=== PATIENT | male | born 1960 | race African-American/Black ===

== ENCOUNTER 2020-04-17 10:33 | Outpatient (REF) | payer OTHER, SELFPAY ==
--- NOTE | 2020-04-17 | US_ITS ---
EXAMINATION: THYROID ULTRASOUND CLINICAL INFORMATION: Multinodular goiter COMPARISON: Thyroid ultrasound dated 11/08/2018. Ultrasound-guided biopsy dated 03/10/2019. TECHNIQUE: Grayscale and color Doppler sonographic evaluation of the thyroid gland was performed. FINDINGS: Thyroid gland diffusely enlarged measuring 7.4 x 2.3 x 3.0 cm on the right for a volume of 27 mL, and 7.4 x 2.2 x 2.7 cm on the left for volume of 23 mL. Overall volume measurements are similar to the prior examination. Thyroid parenchyma is diffusely heterogeneous but shows normal blood flow. Multiple bilateral thyroid nodules redemonstrated. On the right, there is a new (versus not previously imaged) heterogeneously hypoechoic, wider than tall solid nodule within the dorsal mid gland measuring up to 1.7 cm, somewhat ill-defined nodule lacking microcalcifications earning 4 points (TR4). There is an additional 7 mm heterogeneously hypoechoic, wider than tall well-circumscribed nodule within the mid gland measuring up to 0.7 cm lacking microcalcifications burning 4 points (TR 4). Additional nodules within the right gland are solid and cystic TR3 lesions measuring no larger than 1.1 cm. On the left, there is a heterogeneous, solid, wider than tall, lobulated nodule within the lower pole showing predominantly isoechoic echotexture with with intervening hypoechoic bands measuring 3.0 cm, previously 2.9 cm. No associated microcalcifications. This nodule earns 5 points (TR4), but has been previously biopsied. Within the isthmus, there is a solid and cystic nodule measuring up to 1.3 cm within the left lateral aspect, with the solid component being slightly hypoechoic, wider than tall, smoothly marginated without microcalcifications. This nodule earns 3 points (TR3). IMPRESSION: * Multinodular goiter as described. * New (versus not previously imaged) TR 4 nodule within the dorsal mid gland measuring 1.7 cm meets criteria for ultrasound-guided FNA. * Previously biopsied TR4 nodule within the left lower pole is stable in size. * The additional nodules described above do not meet threshold criteria for surveillance at this time.
== END 2020-04-17 10:34 | disposition home or self-care (01) ==
LOC: HO.HMGCX 10:33
PROVIDERS: PCP Nurse Practitioner Family; Visit Provider Internal Medicine
DX: E04.2 Nontoxic multinodular goiter (principal)
CPT/HCPCS: 76536

== ENCOUNTER 2020-05-01 09:44 | Outpatient (REF) | payer OTHER, SELFPAY ==
[2020-05-01 11:44] LABS: Anion Gap 12 (12-20); Blood Urea Nitrogen 18 mg/dL (9-16); Calcium 9.1 mg/dL (8.4-10.2); Carbon Dioxide 30 mmol/L (22-29); Chloride 107 mmol/L (96-108); Estimated Glomerular Filt Rate 57; Sodium 145 mmol/L (135-145)
[2020-05-01 12:01] LABS: Prostate Specific Antigen 1.87 ng/mL (<0.05-4.0)
[2020-05-01 12:02] LABS: Creatinine Urine 270.63 mg/dL; Microalbum/Creatinine Ratio Ur 13.6 ug/mg cr
[2020-05-01 12:12] LABS: Phosphorus 1.9 mg/dL (2.7-4.5)
[2020-05-01 13:23] LABS: Renal w Reflex Lab Use Only Order verified
== END 2020-05-01 09:45 | disposition home or self-care (01) ==
LOC: HO.HMGCLDS 09:44
PROVIDERS: Absent Provider Urology; Visit Provider Internal Medicine Nephrology
DX: I12.9 Hypertensive chronic kidney disease with stage 1 through stage 4 chronic kidney disease, or unspecified chronic kidney disease (principal); N18.30 Chronic kidney disease, stage 3 unspecified; R80.9 Proteinuria, unspecified; Q61.9 Cystic kidney disease, unspecified; N40.1 Benign prostatic hyperplasia with lower urinary tract symptoms
CPT/HCPCS: 80051; 82043; 82310; 82565; 84100; 84153; 84156; 84520

== ENCOUNTER → 2020-05-28 11:10 | Outpatient (BNVA) | payer OTHER, SELFPAY | PROVIDERS: Visit Provider Internal Medicine | DX: Z76.89 Persons encountering health services in other specified circumstances (principal) ==

== ENCOUNTER 2020-06-18 10:01 | Outpatient (REF) | payer OTHER, SELFPAY ==
[2020-06-18 12:11] LABS: Prostate Specific Antigen 2.07 ng/mL (<0.05-4.0)
== END 2020-06-18 10:02 | disposition home or self-care (01) ==
LOC: HO.HMGCLDS 10:01
PROVIDERS: PCP Nurse Practitioner Family; Visit Provider Urology
DX: R31.29 Other microscopic hematuria (principal)
CPT/HCPCS: 84153

== ENCOUNTER → 2020-06-19 14:10 | Outpatient (BNVA) | payer OTHER, SELFPAY | PROVIDERS: PCP Nurse Practitioner Family; Referring Provider Nurse Practitioner Family; Visit Provider Urology | DX: Z76.89 Persons encountering health services in other specified circumstances (principal) ==

== ENCOUNTER 2021-02-06 10:30 | Outpatient (REF) | payer OTHER, SELFPAY ==
[2021-02-06 12:05] LABS: Anion Gap 10 (12-20); Blood Urea Nitrogen 22 mg/dL (9-16); Calcium 10.1 mg/dL (8.4-10.2); Carbon Dioxide 28 mmol/L (22-29); Chloride 109 mmol/L (96-108); Estimated Glomerular Filt Rate > 60; Phosphorus 2.7 mg/dL (2.7-4.5); Potassium 4.3 mmol/L (3.3-5.1); Sodium 143 mmol/L (135-145)
[2021-02-06 13:55] LABS: Renal w Reflex Lab Use Only Order verified
[2021-02-06 14:18] LABS: Glucose Urine UA NEG (NEG); Leukocyte Esterase Urine NEG (NEG); Nitrite Urine NEG (NEG); Specific Gravity - Urine 1.025 (1.005-1.025); Urine Blood NEG (NEG); Urine Ketones 5 MG/DL (NEG); Urine Protein TRACE MG/DL (NEG-TRACE)
[2021-02-06 14:19] LABS: Appearance Urine CLEAR; Color Urine YELLOW
[2021-02-06 14:53] LABS: WBC Urine 0-2 /HPF (0-4)
[2021-02-06 14:54] LABS: RBC Urine 0-2 /HPF (0)
[2021-02-06 14:55] LABS: Bacteria Urine 1+ /LPF; Mucus Urine TRACE /LPF
[2021-02-06 14:56] LABS: Calcium Oxalate Crystals Urine 1+ /LPF
== END 2021-02-06 10:31 | disposition home or self-care (01) ==
LOC: HO.HMGCLDS 10:30
PROVIDERS: PCP Nurse Practitioner Family; Visit Provider Internal Medicine Nephrology
DX: I12.9 Hypertensive chronic kidney disease with stage 1 through stage 4 chronic kidney disease, or unspecified chronic kidney disease (principal); N18.30 Chronic kidney disease, stage 3 unspecified; R80.9 Proteinuria, unspecified; Q61.9 Cystic kidney disease, unspecified
CPT/HCPCS: 36415; 80051; 81001; 82310; 82565; 84100; 84520

== ENCOUNTER 2021-06-19 09:48 | Outpatient (REF) | payer OTHER, SELFPAY ==
[2021-06-19 12:24] LABS: Prostate Specific Antigen 2.05 ng/mL (<0.05-4.0); Thyroid Stimulating Hormone 0.63 uIU/mL (0.32-4.0)
[2021-06-19 12:25] LABS: Free T4 (Free Thyroxine) 1.17 ng/dL (0.71-1.85)
== END 2021-06-19 09:49 | disposition home or self-care (01) ==
LOC: HO.HMGCLDS 09:48
PROVIDERS: Internal Medicine; PCP Nurse Practitioner Family; Visit Provider Urology
DX: Z12.5 Encounter for screening for malignant neoplasm of prostate (principal); N13.8 Other obstructive and reflux uropathy; N40.1 Benign prostatic hyperplasia with lower urinary tract symptoms; E04.2 Nontoxic multinodular goiter
CPT/HCPCS: 36415; 84153; 84439; 84443

== ENCOUNTER → 2021-06-25 12:26 | Outpatient (BNVA) | payer OTHER, SELFPAY | PROVIDERS: PCP Nurse Practitioner Family; Visit Provider Urology ==

== ENCOUNTER → 2021-10-30 12:18 | Outpatient (BNVA) | payer OTHER, SELFPAY | PROVIDERS: PCP Nurse Practitioner Family; Visit Provider Internal Medicine | DX: Z13.89 Encounter for screening for other disorder (principal) ==

== ENCOUNTER → 2021-11-04 12:58 | Outpatient (REF) | payer OTHER, SELFPAY ==
--- NOTE | 2021-11-04 13:02 | CA_ITS ---
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 Symptoms: R01.1 - Cardiac murmur, unspecified Study Quality: Fair ECG Rhythm: Sinus Conclusions: - The left ventricular systolic function is hyperdynamic. The calculated ejection fraction is 75% by biplane method. - No obvious valvular pathology seen on this study. Findings Left Ventricle Normal left ventricular cavity size. There is mildly increased left ventricular wall thickness. The left ventricular systolic function is hyperdynamic. The calculated ejection fraction is 75% by biplane method. There is no evidence of regional wall motion abnormalities. There is no dynamic left ventricular outflow tract obstruction. Diastolic function is normal for age. Right Ventricle Normal right ventricular cavity size and systolic function. Atria The left atrium is mildly dilated. The right atrium is normal in size. Aortic Valve There is a normal trileaflet aortic valve. There is no aortic valve stenosis. There is trace (trivial) aortic valve regurgitation. Mitral Valve The mitral valve appears normal. There is trace mitral valve regurgitation. There is no mitral valve stenosis. Pulmonic Valve The pulmonic valve is likely normal. Tricuspid Valve Normal tricuspid valve structure. There is mild tricuspid valve regurgitation. The pulmonary artery systolic pressure is normal. Great Vessels The asc aorta is normal in size. Venous The inferior vena cava is normal in size and collapses greater than 50% with inspiration. Pericardium/Pleural There is no evidence of pericardial effusion. Prior Study Comparison Changes noted compared to prior study dated: 08/31/2018. LV hyperdynamic. Recommendations, Care & Conclusions No obvious valvular pathology seen on this study. Measurements 2D Linear Measurements IVSd: 1.21 0.6-0.9/0.6-1.0 cm LVIDd: 4.58 3.9-5.3/4.2-5.9 cm LVIDd Index: 2.69 2.4-3.2/2.2-3.1 cm/m2 LVIDs: 2.50 2.0-3.6 cm LVPWd: 1.23 0.7-1.1 cm Ao Root: 3.20 2.1-3.5 cm LA Diam: 3.90 2.7-3.8/3.0-4.0 cm LAIDs Index: 2.29 1.5-2.3 cm/m2 LV Mass: 259.87 67-162/88-224 g LV Mass Index: 152.87 43-95/49-115 g/m2 LVOT Diam: 2.30 3.0+(-)1.3 cm 2D Systolic Function EF 4C: 77.10 >55% EF 2C: 70.80 >55% EF BiP: 74.90 >55% Mitral Valve MV Pk E: 0.80 MV PK A: 0.74 MV Decel Time: 179.00 E/A: 1.10 E'Lateral: 9.79 E'Medial: 7.72 E/E' Med: 10.40 E/E' Lat: 8.20 PHT: 52.00 MVA PHT: 4.23 Decel Fajardo: 4.48 Aortic Valve AoV Pk Fantasma: 1.60 AoV Mn Fantasma: 1.07 AoV VTI: 0.35 AoV Pk Grad: 10.00 Aov Mn Grad: 5.00 PASQUALE Cont.VTI: 2.76 LVOT LVOT Pk Fantasma: 1.02 LVOT Mn Fantasma: 0.59 LVOT VTI: 0.23 LVOT Pk Grad: 4.00 LVOT Mn Grad: 2.00 LVOT Diam: 2.30 LVOT Area: 4.15 Diastolic Function MV Pk E: 0.80 MV Pk A: 0.74 E/A: 1.10 E'Medial: 7.72 E/E' Med: 10.40 E' Laterial: 9.79 E/E' Lat: 8.20 Right Ventricle TAPSE (mm): 25.00 TVS' Fantasma: 15.00 Tricuspid Valve TR Pk Fantasma: 2.43 TR Pk Grad: 24.00 RA Press: 3.00 RVSP: 27.00 Great Vessels Aorta Ao Root-2D: 3.20 2.0-3.7 cm Ao Asc: 3.30 2.1-3.4 cm Pulmonary Valve PV Pk Fantasma: 0.90 Peak PV Grad: 3.00 Updated in Other Vendor System with Status of Final Ryan Jensen MD electronically signed on 11/04/2021 4:52:15 PM with status of Final
== END ==
LOC: HO.CARD 12:58
PROVIDERS: PCP Nurse Practitioner Family; Visit Provider Nurse Practitioner Family
DX: R01.1 Cardiac murmur, unspecified (principal)
CPT/HCPCS: 93306

== ENCOUNTER 2021-12-18 10:21 | Outpatient (REF) | payer OTHER, SELFPAY ==
--- NOTE | ~2021-12-18 | US_ITS ---
EXAMINATION: US THYROID CLINICAL INFORMATION: Nontoxic multinodular goiter. COMPARISON: Ultrasound soft tissue head/neck thyroid dated 04/17/2020 and 11/08/2018. TECHNIQUE: Linear and curved transducer grayscale and color Doppler examination with attention to the region of the thyroid. FINDINGS: SIZE: Measurements of the thyroid lobes and nodules are given in sagittal, anteroposterior and transverse dimensions respectively. Right Thyroid Lobe: 7.3 x 2.5 x 3.2 cm, volume 30.6 mL. Previously 7.4 x 2.3 x 3.0 cm, volume 26.7 mL. Parenchyma: The gland echotexture is heterogeneous. Thyroid vascularity is normal. Left Thyroid Lobe: 8.0 x 2.2 x 2.8 cm, volume 25.8 mL. Previously 7.4 x 2.2 x 2.7 cm, volume 23.0 mL. Parenchyma: The gland echotexture is heterogeneous. Thyroid vascularity is normal. Isthmus: 0.8 cm in maximum AP dimension. Previously 0.9 cm. Estimated total number of nodules greater than or equal to 1 cm: 3. Comparison with previous nodules is difficult. Nodule 1. May include the 2 previously identified left isthmus thyroid nodules. Checking Clerk nodules are described as follows: 1. Location: Left inferior. Size: 4.4 x 1.9 x 4.0 cm, volume 17.6 mL. Previously: 3.0 x 2.1 x 2.6 cm, volume 8.57 mL. Nodule characteristics: Composition: Solid/almost completely solid (2). Echogenicity: Hypoechoic (2). Shape: Not taller than wide (0). Margins: Ill-defined (0). Echogenic Foci: None (0). ACR TI-RADS total points: 4 ACR TI-RADS category: 4 Significant change in size (>/= 20% in 2 dimensions and minimal increase of 2 mm or 50% or greater increase in volume): Change in features: Change in ACR TI-RADS risk category: 2. Location: Right mid/inferior. Size: 1.1 x 1.1 x 1.2 cm, volume 0.71 mL. Previously: 1.7 x 0.9 x 1.6 cm, volume 1.28 mL. Nodule characteristics: Composition: Mixed cystic and solid (1). Echogenicity: Cannot be determined (1). Shape: Not taller than wide (0). Margins: Smooth (0). Echogenic Foci: None (0). ACR TI-RADS total points: 2 ACR TI-RADS category: 2 Significant change in size (>/= 20% in 2 dimensions and minimal increase of 2 mm or 50% or greater increase in volume): Change in features: Change in ACR TI-RADS risk category: 3. Location: Right inferior. Size: 1.4 x 1.2 x 1.3 cm, volume 1.1 mL. Previously: 1.1 x 0.9 x 0.9 cm, volume 0.47 mL. Nodule characteristics: Composition: Mixed cystic and solid (1). Echogenicity: Cannot be determined (1). Shape: Not taller than wide (0). Margins: Smooth (0). Echogenic Foci: None (0). ACR TI-RADS total points: 2 ACR TI-RADS category: 2 Significant change in size (>/= 20% in 2 dimensions and minimal increase of 2 mm or 50% or greater increase in volume): Change in features: Change in ACR TI-RADS risk category: 4. Location: Right mid inferior. Size: 0.9 x 0.6 x 0.9 cm, volume 0.25 mL. Previously: 0.6 x 0.5 x 0.7 cm, volume 0.11 mL. Nodule characteristics: Composition: Mixed cystic and solid (1). Echogenicity: Cannot be determined (1). Shape: Not taller than wide (0). Margins: Smooth (0). Echogenic Foci: None (0). ACR TI-RADS total points: 2 ACR TI-RADS category: 2 Significant change in size (>/= 20% in 2 dimensions and minimal increase of 2 mm or 50% or greater increase in volume): Change in features: Change in ACR TI-RADS risk category: NODES: No lymphadenopathy is seen in the tissue surrounding the thyroid gland. US/US thyroid IMPRESSION: Enlarged heterogeneous thyroid gland with multiple bilateral nodules. Comparison of previous nodules with prior exam is difficult. Measurement differences in the largest nodule in the inferior left lobe may be due to technical factors, inclusion of 2 left isthmus nodules in the measurement. ACR TI-RADS RECOMMENDATION REFERENCE: Ultrasound-guided fine-needle aspiration, followup ultrasound, no further follow up. * TR1 (0 point) and TR 2 (2 points): No FNA or follow up * TR3 (3 points): FNA if more than or equal to 2.5 cm in maximum dimension, followup ultrasound in 1, 3 and 5 years if 1.5 to 2.4 cm in maximum dimension. * TR4 (4-6 points): FNA if more than or equal to 1.5 cm in maximum dimension, followup ultrasound in 1, 2, 3 and 5 years if 1 to 1.4 cm in maximum dimension. * TR5 (more than or equal to 7 points): FNA if more than or equal to 1 cm in maximum dimension, followup ultrasound every year for 5 years if 0.5 to 0.9 cm in maximum dimension. * TR3, TR4 or TR5 nodules that are below the size threshold for follow up receive no follow up.
== END 2021-12-18 10:22 | disposition home or self-care (01) ==
LOC: HO.HMGCX 10:21
PROVIDERS: PCP Nurse Practitioner Family; Visit Provider Internal Medicine
DX: E04.2 Nontoxic multinodular goiter (principal)
CPT/HCPCS: 76536

== ENCOUNTER → 2022-07-14 09:49 | Outpatient (BNVA) | payer OTHER, SELFPAY | PROVIDERS: PCP Nurse Practitioner Family; Referring Provider Nurse Practitioner Family; Visit Provider Internal Medicine Cardiovascular Disease | DX: R01.1 Cardiac murmur, unspecified (principal); I10 Essential (primary) hypertension | CPT/HCPCS: 93005; 99202 ==

== ENCOUNTER 2023-07-20 08:47 | Outpatient (AMB) | payer OTHER, SELFPAY ==
--- NOTE | 2023-07-20 09:16 | A.OFFVIS_ITS ---
Intake Intake Visit Reasons: Voiding trial Intake Note: Patient is Present for Follow Up ER Voiding Trial Urology Medication: Tamsulosin Antibiotic Allergies: None Blood Thinners: None PVR: 0ml Allergies No Known Allergies Allergy (Verified 07/20/23 09:54) Medication List - Last Reconciled 07/20/23 by SERGE Aguilar atorvastatin 80 mg PO DAILY 90 days finasteride 5 mg PO DAILY 90 days losartan 50 mg PO BID miscellaneous medical supply 2 ea miscellaneous DAILY 99 days multivitamin 1 tab PO DAILY tamsulosin 0.4 mg PO DAILY 90 days verapamil ER 120 mg PO DAILY HPI HPI Comments History of Present Illness Details Chirag is a very pleasant 62-year-old male patient of Dr. Moreno. He has a past medical history of left ventricular hypertrophy, hypertension, chronic kidney disease, dysphagia, vitamin-D deficiency, and multinodular thyroid. He presents to the office today for follow-up of his urinary retention. In discussion with the patient today reports having seeked emergency room care on for urinary retention. He reports having been told there was approximately 500 mL of urine in his bladder at which time a Mendenhall catheter was placed. He reports prior to emergency room visit he had been experiencing issues with his urination such as weak urinary stream and incomplete bladder emptying. He had previously followed up with Dr. Agarwal approximately 3 years ago at which time he was on Flomax however he is unsure of why follow-up was not carried through. Discussed at length potential causes for incomplete bladder emptying and or urinary retention. In office voiding trial performed. The patient was successfully able to void independently. PVR 0 mL. Discussed obtaining PSA in 6-8 weeks given recent Mendenhall catheter placement. Will obtain retroperitoneal ultrasound for further assessment evaluation. Discussed and stressed the importance of drinking plenty of fluid in seeking medical treatment or calling office if unable to void. He otherwise denies incontinence, hematuria, dysuria, foul smelling urine, flank pain, fever, and or chills. [facility] Medical History LVH (left ventricular hypertrophy) Hypertensive emergency CKD (chronic kidney disease) Dysphagia Vitamin D deficiency Multinodular thyroid Surgical History Hx of nasal septoplasty History of esophagogastroduodenoscopy (EGD) Hx of endoscopy Hx of eye surgery Hx of colonoscopy History of arthroscopic surgery of shoulder Hx of removal of cyst Hx of arthroscopic knee surgery Hx of appendectomy Family History Father Lung cancer Mother Cancer Social History Housing: House Patient Tobacco Use Status: Former Tobacco user Years Smoked: 31 years ago Second Hand Smoke Exposure: No Current occupational status: employed Current occupation: [employer] Current occupational exposures/hazards: No Review of Systems Eyes Reports no additional complaints ENT Reports no additional complaints Card Reports as per HPI Resp Reports no additional complaints GI Reports no additional complaints Reports as per HPI Musc Reports no additional complaints Neuro Reports no additional complaints Psych Reports no additional complaints Endo Reports no additional complaints Jose Eduardo/Lymph Reports no additional complaints Aller/Immun Reports no additional complaints Physical Exam Const General: cooperative, healthy appearing, comfortable, no acute distress, well developed, alert and awake Nutritional Appearance: thin Orientation/consciousness: patient oriented x3 Limitations: no limitations HEENT Head: Yes normal to inspection, Yes normocephalic and Yes atraumatic Ears: hearing grossly normal bilaterally Eyes General: appearance normal, both eyes and all related structures Neck Neck: Yes normal visual inspection and Yes trachea midline Chest Chest palpation & inspection: normal inspection of the chest Resp Effort & Inspection: normal respiratory effort and able to speak in complete sentences Cardio Rate: regular rate GI Inspection: Yes normal to inspection General: Yes no CVA tenderness Back/Spine/Pelvis Back: no CVA tenderness Skin General skin exam: no rashes or lesions noted Neuro General: patient oriented x3 Extrem General: Yes normal to inspection Psych Appearance: grossly normal and well kempt Mental Status: mental status grossly normal Speech and movement: Normal speech and movement present and Clear speech present Affect: normal affect Attitude: cooperative Thought process: Normal thought process present Thought content: Normal thought content present Insight: Fair insight present (Psych) Judgement: Fair judgement present (Psych) Office Procedures Bladder/Catheter Procedure Details: 120 mls sterile water instilled into bladder via 16 fr cath. cath removed, pt tolerated removal well. MA to room to bladder scan. [id number] of Bladder Procedure code (CPT) selection complete Post Void Residual Post Residual Void Post Void Residual (PVR): [id number] Void Residual by ultrasound Assessment & Plan Assessment & Plan (1) BPH w urinary obs/LUTS: Code(s): N40.1 - Benign prostatic hyperplasia with lower urinary tract symptoms; N13.8 - Other obstructive and reflux uropathy (2) Urinary retention: Code(s): R33.9 - Retention of urine, unspecified Plan In office voiding trial performed; as noted above; patient was able to successfully independently void status post Mendenhall catheter removal Discussed at length potential causes for incomplete bladder emptying/urinary retention. Discussed obtaining retroperitoneal ultrasound for further assessment ev aluation. Discussed possible near future in office cystoscopy if symptoms arise Will obtain PSA in 6 weeks given patient's recent Mendenhall catheter Start Flomax and finasteride as discussed and prescribed. Discussed, educated, and stressed the importance of drinking water daily and calling office and or seeking medical treatment if unable to urinate and or experiencing any issues. Follow-up in 2 months with imaging and labs to be completed prior; or sooner with any issues, concerns, and or questions. Orders: Orders AMB Bladder/Catheter Procedure Today N13.8 - Other obstructive and reflux uropathy, N40.1 - Benign prostatic hyperplasia with lower urinary tract symptoms AMB Post Void Residual by ultrasound Today N13.8 - Other obstructive and reflux uropathy, N40.1 - Benign prostatic hyperplasia with lower urinary tract symptoms US retroperitoneal comp Today N13.8 - Other obstructive and reflux uropathy, N40.1 - Benign prostatic hyperplasia with lower urinary tract symptoms, R33.9 - Retention of urine, unspecified Prostate Specific Antigen 6 Weeks N13.8 - Other obstructive and reflux uropathy, N40.1 - Benign prostatic hyperplasia with lower urinary tract symptoms Medications: New finasteride 5 mg PO DAILY 90 days 90 tabs 1RF N13.8 - Other obstructive and reflux uropathy, N40.1 - Benign prostatic hyperplasia with lower urinary tract symptoms, R33.9 - Retention of urine, unspecified Refilled tamsulosin 0.4 mg PO DAILY 90 days 90 caps 1RF N13.8 - Other obstructive and reflux uropathy, N40.1 - Benign prostatic hyperplasia with lower urinary tract symptoms Patient Instructions: The patient had an opportunity to ask questions regarding the treatment plan. All questions were answered. Physical exam, labs, and imaging were discussed and reviewed in detail. As well as risks, benefits, and discussion of treatment choices. No major barriers to understanding were identified. The patient expressed understanding and agreement with the above treatment plan. The patient was made aware they should contact our office by phone for worsening of their current condition, the appearance of new symptoms, or with any questions or concerns. Compliance is encouraged with any medications and follow up testing that is ordered. It is a privilege to be allowed the opportunity to participate in? your urological care.? Again, if you have any questions or concerns If you have any questions or concerns please do not hesitate to contact me. The office is [phone]. This note is constructed using voice recognition software. While every effort has been made to ensure accuracy larder cook errors may have been included. Yours sincerely, SERGE Aguilar Coding Level of Care Code Est Pt Level 4 (68111) Diagnoses BPH w urinary obs/LUTS N40.1; N13.8 Urinary retention R33.9 CPT Codes Bladder/Catheter Procedure - CPT: 89413-Qipqqrrkew of Bladder ([id number]) Post Residual Void - PVR CPT Code: 93097-Nzpq Void Residual by ultrasound ([id number])
== END 2023-07-20 09:52 | disposition home or self-care (01) ==
PROVIDERS: PCP Nurse Practitioner Family; Visit Provider Nurse Practitioner Family
DX: N40.1 Benign prostatic hyperplasia with lower urinary tract symptoms (principal); N13.8 Other obstructive and reflux uropathy; R33.9 Retention of urine, unspecified
CPT/HCPCS: 51700; 99214

== ENCOUNTER → 2023-07-20 08:47 | Outpatient (BNVA) | payer OTHER, SELFPAY | PROVIDERS: PCP Nurse Practitioner Family; Visit Provider Nurse Practitioner Family | DX: N40.1 Benign prostatic hyperplasia with lower urinary tract symptoms (principal); N13.8 Other obstructive and reflux uropathy; R33.9 Retention of urine, unspecified | CPT/HCPCS: 51700; 51798; 99212 ==

== ENCOUNTER → 2023-07-24 08:23 | Outpatient (BNVA) | payer OTHER, SELFPAY | PROVIDERS: PCP Nurse Practitioner Family; Visit Provider Nurse Practitioner Family | DX: R33.9 Retention of urine, unspecified (principal) | CPT/HCPCS: 51798 ==

== ENCOUNTER 2023-07-28 11:23 | Outpatient (REF) | payer OTHER, SELFPAY ==
[2023-07-28 11:09] LABS: Cortisol Random 15.5 ug/dL
[2023-08-01 14:04] LABS: Renin 0.81 ng/mL/h (0.25-5.82)
[2023-08-02 04:54] LABS: Metanephrine, Free 92 pg/mL (<=57); Normetanephrines, Free 138 pg/mL (<=148); Total Metanephrine, Free 230 pg/mL (<=205)
== END 2023-07-28 11:24 | disposition home or self-care (01) ==
LOC: HO.LAB 11:23
PROVIDERS: PCP Nurse Practitioner Family; Visit Provider Internal Medicine Cardiovascular Disease
DX: N40.0 Benign prostatic hyperplasia without lower urinary tract symptoms (principal)
CPT/HCPCS: 36415; 82533; 83835; 84244

== ENCOUNTER 2023-08-11 15:16 | Outpatient (AMB) | payer OTHER, SELFPAY ==
[2023-08-11 15:30] VITALS: BP 150/88; PULSE 60; O2SAT 100; BMI 21.0
--- NOTE | 2023-08-11 15:30 | A.OFFPC_ITS ---
Vital Signs 08/11/23 15:30 08/11/23 16:20 Height 6 ft 3 in Weight 168 lb BMI 21.0 BP 150/88 H 140/76 H Blood Pressure Location Lt brachial Lt brachial Position Sitting Sitting Pulse 60 Pulse Source Pulse Oximeter Pulse Oximetry (%) 100 Oxygen Delivery Method Room Air Intake Visit Reasons: ED/HTN/Murmur F/U Intake Note: Pt is here to follow up form the ER at [facility] Allergies No Known Allergies Allergy (Verified 08/11/23 15:34) Tobacco use date assessed: 08/11/23 Dental Screening Dental Screen Date: 08/11/23 Did you have a dental visit in the last 12 months?: Yes Did you have a dental problem in the last 6 months where you did not have access to dental care?: No Was dental information given to patient?: Patient has dentist HPI ED/HTN/Murmur F/U HPI Details I have not seen this pt since 02/19/22. Pt was seen in the ER on 07/31 c/o weakness of his lower extremities, lightheadedness, sweating, and chills. He also reported syncope after urination. Labs showed leukocytosis and KEENA. Pt was started on fluids. He was seen by nephrology and started on ceftriaxone due to UTI. Pt was d/c on augmentin. Pt was noted to be anemic, initial hemoglobin 9, 9.4 at d/c. He was seen by hematology. Pt had high ferritin, low saturation and iron levels. LDH and haptoglobin without evidence of hemolysis. Abdomen/pelvis CT was negative. Pt was d/c on iron. Will refer to hematology to assess for underlying pathology. Will order labs and FIT test. It was recommended that pt have a colonoscopy, will refer to GI. As for dizziness/micturition syncope, neuroexam on 08/01 showed no focal weakness. EKG and troponin were not concerning for ischemia. Telemetry showed no abnormal rhythm, did show occasional PVCs. Pt's B12 and folic acid were normal. Brain CT was negative. TSH was normal. Pt reports doing well. He has not had any further syncopal episodes. Pt has seen nephrology in the past, will place referral due to CKD. Pt was found to have lung nodules which were not suspicious. Pt does not smoke. Pt's blood pressure is elevated today. Will increase verapamil from 120mg to 180mg. Will have pt monitor his blood pressure at home and drop off readings. Pt will be seeing a mineral economist. Denies any fever, chills, chest pain, shortness of breath, headache, dizziness, and blurred vision. [facility] Medical History (Updated 08/11/23 @ 16:05 by Migue Moreno, [facility]) LVH (left ventricular hypertrophy) Hypertensive emergency CKD (chronic kidney disease) Dysphagia Vitamin D deficiency Multinodular thyroid Surgical History Hx of nasal septoplasty History of esophagogastroduodenoscopy (EGD) Hx of endoscopy Hx of eye surgery Hx of colonoscopy History of arthroscopic surgery of shoulder Hx of removal of cyst Hx of arthroscopic knee surgery Hx of appendectomy Family History Father Lung cancer Mother Cancer Social History Housing: House Patient Tobacco Use Status: Former Tobacco user Years Smoked: 31 years ago Second Hand Smoke Exposure: No Current occupational status: employed Current occupation: [employer] Current occupational exposures/hazards: No Cognitive needs: No Hearing needs: No Vision needs: No Questionnaire Thrive Questionnaire Date Thrive assessed: 06/10/21 GAVIN-7 AMB Questionnaire GAVIN-7 Date GAVIN - 7 assessed: 06/10/21 Source: Developed by Drs. Sulaiman Hdz, Bessy Hayes, Miguel Camacho and colleagues, with an educational micheline from [email or web address]. Review of Systems Const Reports as per HPI Physical exam (Primary Care) Vital Signs: Last Vital Signs Pulse 60 08/11/23 15:30 BP 140/76 H 08/11/23 16:20 Pulse Ox 100 08/11/23 15:30 Oxygen Delivery Method Room Air 08/11/23 15:30 BMI result Body Mass Index 21.0 Tobacco/Smoking Status: Tobacco use Status Tobacco use date assessed 08/11/23 08/11/23 15:39 Patient Tobacco Use Status Former Tobacco user 08/11/23 15:39 Thrive Assessment: Date of Thrive Assessment Date Thrive assessed 06/10/21 08/11/23 15:39 Const General: cooperative Orientation/consciousness: patient oriented x3 Resp Effort & Inspection: normal respiratory effort Auscultation: clear to auscultation bilaterally Cardio Rate: regular rate Rhythm: regular rhythm Heart sounds: S1 normal heart sound present, S2 normal heart sound present and Murmur heart sound present systolic Neuro General: patient oriented x3 Extrem Other: no edema Right lower extremity: no edema Left lower extremity: no edema Psych Appearance: grossly normal Mental Status: mental status grossly normal Speech and movement: Normal speech and movement present Affect: normal affect Attitude: cooperative Thought process: Normal thought process present Thought content: Normal thought content present Insight: Good insight present (Psych) Judgement: Good judgement present (Psych) Assessment and Plan Assessment & Plan (1) Iron deficiency: Code(s): E61.1 - Iron deficiency Plan: Labs and FIT test ordered, referred to GI for colonoscopy, referred to hematolog y (2) CKD (chronic kidney disease): Code(s): N18.9 - Chronic kidney disease, unspecified Plan: Referred to nephrology Plan The patient agreed to the use of a medical illustrator for this encounter. Scribed for SERGE Natarajan by Heidi Arellano medical illustrator, on 08/11/2023 at 15:55 EST. Orders: Orders Transglutaminase IgA Today E61.1 - Iron deficiency Complete Blood Count Auto Diff Today E61.1 - Iron deficiency, N18.9 - Chronic kidney disease, unspecified Comprehensive Met. Panel Today E61.1 - Iron deficiency, N18.9 - Chronic kidney disease, unspecified TSH reflex Free T4 Today E61.1 - Iron deficiency, N18.9 - Chronic kidney disease, unspecified UA CC w/rflx Micro + Cult Today E61.1 - Iron deficiency, N18.9 - Chronic kidney disease, unspecified Endomysial IgA rflx Titer Today E61.1 - Iron deficiency FITS Today E61.1 - Iron deficiency, N18.9 - Chronic kidney disease, unspecified IRON PROFILE Today E61.1 - Iron deficiency, N18.9 - Chronic kidney disease, unspecified Ferritin Today E61.1 - Iron deficiency, N18.9 - Chronic kidney disease, unspecified Referrals Gastroenterology Referral E61.1 - Iron deficiency Nephrology Referral N18.9 - Chronic kidney disease, unspecified Hematology & Oncology Referral E61.1 - Iron deficiency Medications: Changed From verapamil ER 120 mg PO DAILY 90 caps 3RF To verapamil ER 180 mg PO DAILY 90 caps 3RF Coding Level of Care Code Est Pt Level 4 (53455) Diagnoses Iron deficiency E61.1 CKD (chronic kidney disease) N18.9
[2023-08-11 16:20] VITALS: BP 140/76
== END 2023-08-11 16:50 | disposition home or self-care (01) ==
PROVIDERS: PCP Nurse Practitioner Family; Visit Provider Nurse Practitioner Family
DX: I12.9 Hypertensive chronic kidney disease with stage 1 through stage 4 chronic kidney disease, or unspecified chronic kidney disease (principal); E61.1 Iron deficiency; N18.9 Chronic kidney disease, unspecified
CPT/HCPCS: 99214

== ENCOUNTER 2023-08-27 11:28 | Outpatient (AMB) | payer OTHER, SELFPAY ==
--- NOTE | 2023-08-27 11:34 | HO.NEPHOV_ITS ---
HPI HPI Comments History of Present Illness Details I would the privilege of seeing Chirag in follow-up of his chronic kidney disease. He had urinary retention needing catheterization. He recently had syncope(likely micturition syncope) as well as UTI. At that time he had KEENA with a serum creatinine going up to 1.8. His losartan was discontinued at that time. He has followed up with urologist and his Mendenhall catheter has been discontinued. He is on finasteride. Prior to hospital discharge his serum creatinine had settled to baseline. He denies any chest pain, shortness of breath, paroxysmal nocturnal dyspnea, orthopnea, pedal edema, dizziness, urinary symptoms, hematuria, fever. He has not taking any bcyd-soe-vossfaq medications. He tries to maintain good hydration [facility] Medical History (Updated 08/27/23 @ 13:14 by Robb Tian MD) LVH (left ventricular hypertrophy) Hypertensive emergency CKD (chronic kidney disease) Dysphagia Vitamin D deficiency Multinodular thyroid Surgical History Hx of nasal septoplasty History of esophagogastroduodenoscopy (EGD) Hx of endoscopy Hx of eye surgery Hx of colonoscopy History of arthroscopic surgery of shoulder Hx of removal of cyst Hx of arthroscopic knee surgery Hx of appendectomy Family History Father Lung cancer Mother Cancer Social History Housing: House Patient Tobacco Use Status: Former Tobacco user Years Smoked: 31 years ago Second Hand Smoke Exposure: No Current occupational status: employed Current occupation: [employer] Current occupational exposures/hazards: No Cognitive needs: No Hearing needs: No Vision needs: No Vital Signs 08/27/23 11:35 Height 6 ft 3 in Weight 169 lb 8 oz BMI 21.2 BP 140/70 H Blood Pressure Location Rt brachial Position Sitting Pulse 60 Pulse Source Pulse Oximeter Pulse Oximetry (%) 99 Oxygen Delivery Method Room Air Physical Exam Vital Signs: Last Vital Signs Pulse 60 08/27/23 11:35 BP 140/70 H 08/27/23 11:35 Pulse Ox 99 08/27/23 11:35 Oxygen Delivery Method Room Air 08/27/23 11:35 BMI result Body Mass Index 21.2 Const General: comfortable and no acute distress Orientation/consciousness: patient oriented x3 HEENT Head: Yes normocephalic Mouth: Normal oral and palatal mucosa present Eyes EOM: EOMs intact bilaterally Neck Neck: Yes supple Resp Auscultation: clear to auscultation bilaterally Cardio Jugular venous distension: no JVD Rate: regular rate GI Palpation (GI): Soft to palpation Auscultation: normal bowel sounds General: Yes no CVA tenderness Back/Spine/Pelvis Back: no CVA tenderness Skin General skin exam: no rashes or lesions noted Neuro General: patient oriented x3 and moves all extremities Extrem General: Yes no pedal edema Assessment & Plan Assessment & Plan (1) HTN (hypertension): Code(s): I10 - Essential (primary) hypertension Qualifiers: Hypertension type: primary hypertension Qualified Code(s): I10 - Essential (primary) hypertension (2) CKD (chronic kidney disease) stage 3, GFR 30-59 ml/min: Code(s): N18.30 - Chronic kidney disease, stage 3 unspecified Qualifiers: Chronic kidney disease stage 3 subtype: stage 3a (GFR 45-59) Qualified Code(s): N18.31 - Chronic kidney disease, stage 3a Plan Chirag has underlying stage III CKD at baseline from longstanding hypertension. He recently had KEENA with a serum creatinine going up to 1.8 during his recent hospitalization in [facility]. He had been on angiotensin receptor michael at that time which has been discontinued. His serum creatinine has settled to baseline with supportive care. He is on antihypertensive medications which I may adjust the dose after repeat lab data and clinical evaluation at the next visit. He was encouraged to maintain good hydration and minimize sodium in the diet. I did not make any medication changes today but rather discussed his recent hospital course, KEENA, CKD, hypertension, follow-up. All questions answered. Follow-up appointment given. Orders: Orders Creatinine Today I10 - Essential (primary) hypertension, N18.30 - Chronic kidney disease, stage 3 unspecified Blood Urea Nitrogen Today I10 - Essential (primary) hypertension, N18.30 - Chronic kidney disease, stage 3 unspecified Electrolytes Today I10 - Essential (primary) hypertension, N18.30 - Chronic kidney disease, stage 3 unspecified Protein Creatinine Ratio, Ur Today I10 - Essential (primary) hypertension, N18.30 - Chronic kidney disease, stage 3 unspecified Coding Level of Care Code Est Pt Level 4 (60360) Diagnoses Primary hypertension I10 Hypertension type: primary hypertension Stage 3a chronic kidney disease N18.31 Chronic kidney disease stage 3 subtype: stage 3a (GFR 45-59) Results Reviewed Nephrology Results: No Data to Display
[2023-08-27 11:35] VITALS: BP 140/70; PULSE 60; O2SAT 99; BMI 21.2
== END 2023-08-27 12:02 | disposition home or self-care (01) ==
PROVIDERS: PCP Nurse Practitioner Family; Visit Provider Internal Medicine Nephrology
DX: I10 Essential (primary) hypertension (principal); N18.31 Chronic kidney disease, stage 3a
CPT/HCPCS: 99214

== ENCOUNTER → 2023-08-27 11:28 | Outpatient (BNVA) | payer OTHER, SELFPAY | PROVIDERS: PCP Nurse Practitioner Family; Visit Provider Internal Medicine Nephrology | DX: I12.9 Hypertensive chronic kidney disease with stage 1 through stage 4 chronic kidney disease, or unspecified chronic kidney disease (principal); N18.31 Chronic kidney disease, stage 3a | CPT/HCPCS: 99212 ==

== ENCOUNTER 2023-09-03 13:59 | Outpatient (REF) | payer OTHER, SELFPAY ==
[2023-09-03 15:59] LABS: MANUAL DIFF FLAG NO
[2023-09-03 16:08] LABS: Basophils Absolute Auto 0.1 X10*3/uL (0.0-0.2); Basophils Percent Auto 0.8 % (0-2); Eosinophils Absolute Auto 0.1 X10*3/uL (0.0-0.4); Eosinophils Percent Auto 1.4 % (0-4); Hematocrit 35.7 % (42.0-52.0); Hemoglobin 11.3 g/dl (14.0-18.0); Imm Gran Abs Auto 0.02 X10*3/uL (0.00-0.03); Imm Gran Pct Auto 0.3 % (0.0-0.4); Lymphocytes Absolute Auto 2.1 X10*3/uL (1.2-4.9); Mean Corpuscular HGB Conc 31.7 g/dl (31.0-36.0); Mean Corpuscular Hemoglobin 28.1 pg (27.0-33.0); Mean Corpuscular Volume 88.8 fL (80.0-98.0); Mean Platelet Volume 10.9 fL (9.4-12.4); Monocytes Absolute Auto 0.8 X10*3/uL (0.1-1.2); Monocytes Percent Auto 9.9 % (2-11); Neutrophils Absolute Auto 4.9 x10*3/uL (2.0-8.3); Neutrophils Percent Auto 61.6 % (45-73); Platelet Count 254 X10*3/uL (160-400); Red Blood Count 4.02 X10*6/uL (4.60-5.80); Red Cell Distribution Width 15.4 % (11.0-16.0); White Blood Count 7.9 X10*3/uL (4.8-10.8)
[2023-09-03 16:12] LABS: Appearance Urine Clear; Color Urine Yellow; Glucose Urine UA Negative (Negative); Leukocyte Esterase Urine Negative (Negative); Nitrite Urine Negative (Negative); PH 6.5 (5.0-9.0); Urine Blood Negative (Negative); Urine Ketones Negative (Negative); Urine Protein Negative (Neg-Trace)
[2023-09-03 16:44] LABS: Alanine Aminotransferase 15 U/L (0-40); Albumin Level 4.1 g/dL (3.5-5.0); Alkaline Phosphatase 81 U/L (39-117); Anion Gap 13 (12-20); Aspartate Amino Transferase 20 U/L (5-37); Bilirubin Total 0.5 mg/dL (0.0-1.0); Blood Urea Nitrogen 16 mg/dL (9-16); Calcium 9.4 mg/dL (8.4-10.2); Carbon Dioxide 27 mmol/L (22-29); Chloride 108 mmol/L (96-108); Estimated Glomerular Filt Rate > 60; Glucose Random 84 mg/dL (60-115); Iron 55 mcg/dL (45-160); Percent Iron Saturation 28 % (15-50); Potassium 4.4 mmol/L (3.3-5.1); Sodium 144 mmol/L (135-145); Total Iron Binding Capacity 193 mcg/dL (228-428); Total Protein 7.4 g/dL (6.5-8.0); Unsaturated Iron Binding 138 ug/dL
[2023-09-03 17:00] LABS: Ferritin 379 ng/mL (20-250); TSH reflex Free T4 0.32 uIU/mL (0.32-4.0)
[2023-09-04 12:38] LABS: Transglutaminase IgA <1.0 U/mL
[2023-09-08 15:14] LABS: Endomysial IgA Antibody Negative (Negative)
== END 2023-09-03 14:00 | disposition home or self-care (01) ==
LOC: HO.HMGCLDS 13:59
PROVIDERS: PCP Nurse Practitioner Family; Referring Provider Internal Medicine Nephrology; Visit Provider Nurse Practitioner Family
DX: E61.1 Iron deficiency (principal); N18.9 Chronic kidney disease, unspecified
CPT/HCPCS: 36415; 80053; 81003; 82728; 83540; 84443; 85025; 86231; 86364

== ENCOUNTER 2023-09-08 10:57 | Outpatient (REF) | payer OTHER, SELFPAY | END 2023-09-08 10:58 | disposition home or self-care (01) | LOC: HO.US 10:57 | PROVIDERS: PCP Nurse Practitioner Family; Visit Provider Nurse Practitioner Family | DX: Z13.89 Encounter for screening for other disorder (principal) ==

== ENCOUNTER 2023-09-29 13:26 | Outpatient (REF) | payer OTHER, SELFPAY ==
--- NOTE | ~2023-09-29 | US_ITS ---
EXAMINATION: US PELVIS LIMITED (BLADDER) CLINICAL INFORMATION: Poor urinary stream. COMPARISON: Renal ultrasound with bladder 11/08/2018. TECHNIQUE: Real-time imaging of the bladder. FINDINGS: BLADDER: Well distended and unremarkable. Bilateral ureteral jets are demonstrated. Prevoid bladder volume is 377 mL. Postvoid bladder volume is 302 mL. Enlarged prostate, volume 124 mL. US/US bladder IMPRESSION: 1. Enlarged prostate. 2. Postvoid bladder volume 302 mL.
== END 2023-09-29 13:27 | disposition home or self-care (01) ==
LOC: HO.US 13:26
PROVIDERS: PCP Nurse Practitioner Family; Visit Provider Nurse Practitioner Family
DX: R39.12 Poor urinary stream (principal)
CPT/HCPCS: 76857

== ENCOUNTER 2023-10-06 15:35 | Outpatient (AMB) | payer OTHER, SELFPAY ==
--- NOTE | 2023-10-06 15:38 | A.OFFPC_ITS ---
Vital Signs 10/06/23 15:40 Height 6 ft 3 in Weight 170 lb BMI 21.2 BP 126/80 Blood Pressure Location Rt brachial Position Sitting Pulse 71 Pulse Source Pulse Oximeter Pulse Oximetry (%) 100 Oxygen Delivery Method Room Air Intake Visit Reasons: Per Migue Prado Note: Patient here to f/u on CKD. Allergies No Known Allergies Allergy (Verified 10/06/23 16:20) Medication List - Last Reconciled 10/06/23 by SERGE Dowell atorvastatin 80 mg PO DAILY 90 days carvedilol 6.25 mg PO BID ferrous fumarate (Ferretts) 325 mg PO DAILY finasteride 5 mg PO DAILY 90 days multivitamin 1 tab PO DAILY polyethylene glycol 3350 (Miralax) 17 grams PO DAILY sennosides (senna) 8.6 mg PO BID tamsulosin 0.4 mg PO DAILY 90 days verapamil ER 180 mg PO DAILY Tobacco use date assessed: 08/11/23 Dental Screening Dental Screen Date: 08/11/23 HPI Per Migue HPI Details HTN: Blood pressure is managed with carvedilol 6.25mg bid and verapamil 180mg. Pt's blood pressure is slightly elevated at home. Will contact pt's ordnance officer regarding med changes. Denies chest pain, shortness of breath, headache, dizziness, and blurred vision. Pt is following up with cardiology, nephrology, and urology. Pt c/o right medial knee pain. He describes a tearing/pulliing sensation. Pt saw ortho in 2019 and it was diagnosed as primary osteoarthritis. There was talk of surgery. Pt has had cortisone injections which did not help. Will order XR and refer back to ortho. [facility] Medical History (Updated 10/06/23 @ 16:34 by SERGE Dowell) LVH (left ventricular hypertrophy) Hypertensive emergency CKD (chronic kidney disease) Dysphagia Vitamin D deficiency Multinodular thyroid Surgical History Hx of nasal septoplasty History of esophagogastroduodenoscopy (EGD) Hx of endoscopy Hx of eye surgery Hx of colonoscopy History of arthroscopic surgery of shoulder Hx of removal of cyst Hx of arthroscopic knee surgery Hx of appendectomy Family History Father Lung cancer Mother Cancer Social History Housing: House Patient Tobacco Use Status: Former Tobacco user Years Smoked: 31 years ago Second Hand Smoke Exposure: No Current occupational status: employed 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 Sulaiman Hdz, Bessy Hayes, Miguel Camacho and colleagues, with an educational micheline from [employer]. Review of Systems Const Reports as per HPI Physical exam (Primary Care) Vital Signs: Last Vital Signs Pulse 71 10/06/23 15:40 BP 126/80 10/06/23 15:40 Pulse Ox 100 10/06/23 15:40 Oxygen Delivery Method Room Air 10/06/23 15:40 BMI result Body Mass Index 21.2 Tobacco/Smoking Status: Tobacco use Status Tobacco use date assessed 08/11/23 10/06/23 15:39 Patient Tobacco Use Status Former Tobacco user 10/06/23 15:39 Thrive Assessment: Date of Thrive Assessment Date Thrive assessed 06/10/21 10/06/23 15:39 Const General: cooperative Orientation/consciousness: patient oriented x3 Resp Effort & Inspection: normal respiratory effort Auscultation: clear to auscultation bilaterally Cardio Rate: regular rate Rhythm: regular rhythm Heart sounds: S1 normal heart sound present and S2 normal heart sound present Neuro General: patient oriented x3 Extrem Other: right knee: + mcmurrays, - lachmans, no swelling, minimal crepitus Right lower extremity: no edema Left lower extremity: no edema Psych Appearance: grossly normal Mental Status: mental status grossly normal Speech and movement: Normal speech and movement present Affect: normal affect Attitude: cooperative Thought process: Normal thought process present Thought content: Normal thought content present Insight: Good insight present (Psych) Judgement: Good judgement present (Psych) Assessment and Plan Assessment & Plan (1) Right knee pain: Code(s): M25.561 - Pain in right knee (2) HTN (hypertension): Code(s): I10 - Essential (primary) hypertension Qualifiers: Hypertension type: primary hypertension Qualified Code(s): I10 - Essential (primary) hypertension Plan: labs ordered, will contact pt's ordnance officer about possible dose/med change Plan The patient agreed to the use of a emergency medical dispatcher for this encounter. Scribed for RILEY Natarajan-BC by Heidi Arellano emergency medical dispatcher, on 10/06/2023 at 16:20 EST. Orders: Orders XR knee RT 2V Today M25.561 - Pain in right knee Complete Blood Count Auto Diff Today I10 - Essential (primary) hypertension Comprehensive Met. Panel Today I10 - Essential (primary) hypertension UA CC w/rflx Micro + Cult Today I10 - Essential (primary) hypertension TSH reflex Free T4 Today I10 - Essential (primary) hypertension Referrals Orthopedics Referral M25.561 - Pain in right knee Medications: New ferrous fumarate (Ferretts) 325 mg PO DAILY 90 tabs 0RF Coding Level of Care Code Est Pt Level 3 (53856) Diagnoses Right knee pain M25.561 Primary hypertension I10 Hypertension type: primary hypertension
[2023-10-06 15:40] VITALS: BP 126/80; PULSE 71; O2SAT 100; BMI 21.2
== END 2023-10-06 16:49 | disposition home or self-care (01) ==
PROVIDERS: PCP Nurse Practitioner Family; Visit Provider Nurse Practitioner Family
DX: M25.561 Pain in right knee (principal); I10 Essential (primary) hypertension
CPT/HCPCS: 99213

== ENCOUNTER 2023-10-21 06:36 | Outpatient (REF) | payer OTHER, SELFPAY ==
--- NOTE | ~2023-10-21 | XR_ITS ---
EXAMINATION: XR KNEE, RIGHT CLINICAL INFORMATION: Right knee pain COMPARISON: 12/15/2018 TECHNIQUE: Four views of the right knee. FINDINGS: No fracture or joint effusion. Alignment is anatomic. Joint spaces are maintained. No abnormal soft tissue calcification. XR/XR knee RT 3V IMPRESSION: Normal right knee.
== END 2023-10-21 06:37 | disposition home or self-care (01) ==
LOC: HO.HOSX 06:36
PROVIDERS: Visit Provider Orthopaedic Surgery
DX: M25.561 Pain in right knee (principal)
CPT/HCPCS: 73562; 99202

== ENCOUNTER 2023-10-21 09:18 | Outpatient (AMB) | payer OTHER, SELFPAY ==
--- NOTE | 2023-10-21 09:26 | MHC.OFFVIS ---
Vital Signs 10/21/23 09:27 Height 6 ft 3 in Weight 170 lb BMI 21.2 Intake Visit Reasons: PIN[employer]TER [employer]CH[employer]IC [employer]IC-pain in right knee Intake Note: Chirag is a 63 year old male who presents as a new patient with Right knee pain and giving way. The patient states that he injured his right knee approximately 5 years ago when he twisted it while ?racing someone?. Since that time his symptoms have gotten worse in spite of continued non operative treatments. The patient describes his pain as sharp in nature, 8/10. Most of the pain is along the medial aspect of his knee. He has had injections in the past which gave him no relief. He has also done physical therapy which aggravated his pain. The patient states that his right knee will give out several times per day. Allergies No Known Allergies Allergy (Verified 10/21/23 09:57) Medication List - Last Reconciled 10/21/23 by Robin Nava MD atorvastatin 80 mg PO DAILY 90 days carvedilol 6.25 mg PO BID ferrous fumarate (Ferretts) 325 mg PO DAILY finasteride 5 mg PO DAILY 90 days lisinopril 2.5 mg PO DAILY 90 days NS multivitamin 1 tab PO DAILY polyethylene glycol 3350 (Miralax) 17 grams PO DAILY sennosides (senna) 8.6 mg PO BID tamsulosin 0.4 mg PO DAILY 90 days verapamil ER 180 mg PO DAILY PFS Medical History (Updated 10/06/23 @ 16:34 by SERGE Dowell) LVH (left ventricular hypertrophy) Hypertensive emergency CKD (chronic kidney disease) Dysphagia Vitamin D deficiency Multinodular thyroid Surgical History Hx of nasal septoplasty History of esophagogastroduodenoscopy (EGD) Hx of endoscopy Hx of eye surgery Hx of colonoscopy History of arthroscopic surgery of shoulder Hx of removal of cyst Hx of arthroscopic knee surgery Hx of appendectomy Family History Father Lung cancer Mother Cancer Social History Housing: House Patient Tobacco Use Status: Former Tobacco user Years Smoked: 31 years ago Second Hand Smoke Exposure: No Current occupational status: employed Current occupation: [employer] Current occupational exposures/hazards: No Cognitive needs: No Hearing needs: No Vision needs: No Physical Exam Vital Signs: BMI result Body Mass Index 21.2 Const Other: Well-nourished well-developed very friendly male awake alert and oriented x3 in no acute distress Extrem Other: Bilateral lower extremity examination shows good capillary refill, no skin lesions noted, normal sensation light touch Right knee examination shows a minimal effusion, minimal crepitus with range of motion, tenderness along his medial joint line, positive Mireille's test, no instability Results Reviewed Results Reviewed: Standing full weight-bearing x-rays of the patient's right knee show minimal joint space narrowing, no acute bony abnormalities Assessment & Plan Assessment & Plan (1) Right knee pain: Code(s): M25.561 - Pain in right knee Category: Medical Plan Mr. Portillo presents with progressively worsening right knee pain most likely due to a tear of his medial meniscus. Thus, I will send the patient for an MRI of his right knee for further evaluation. I will see him back once the MRI is completed to discuss the findings and treatment options. Feel free to call me at any time should questions regarding his orthopedic management arise. Thank you very much for asking me to see this very friendly gentleman. I spent 22 minutes in reviewing the patient's records and imaging studies, seeing the patient and documenting in the medical record. Orders: Orders XR knee RT 3V 10/21/23 M25.561 - Pain in right knee MR knee RT wo con 10/21/23 M25.561 - Pain in right knee
[2023-10-21 09:27] VITALS: BMI 21.2
== END 2023-10-21 10:20 | disposition home or self-care (01) ==
PROVIDERS: PCP Nurse Practitioner Family; Visit Provider Orthopaedic Surgery
DX: M25.561 Pain in right knee (principal)
CPT/HCPCS: 99202

== ENCOUNTER 2023-10-28 11:07 | Outpatient (AMB) | payer OTHER, SELFPAY ==
--- NOTE | 2023-10-28 11:10 | A.OFFVIS_ITS ---
Vital Signs 10/28/23 11:11 Height 6 ft Weight 174 lb 2.643 oz BMI 23.6 BP 164/66 H Blood Pressure Location Lt brachial Position Sitting Pulse 62 Intake Visit Reasons: Iron deficiency Intake Note: Chirag presents in the office as a new patient for iron def anemia. CC: He sates that he was seen in the [facility] [place] [facility]. He was given medications in the hospital but unsure what medications. He states medications dont work as he would like. Sometimes he has straining when having a BM. Sometimes he gets pains when he is sitting and walking and the pains are in the groin area. Stools are hard and dark - he would not say it is black but very dark brown. Allergies No Known Allergies Allergy (Verified 11/04/23 11:54) HPI Comments Details: This is a 63y.o M with PMH of CKD, severe HTN, who was sent to our office for anemia. [facility] records were reviewed. Patient was admitted in July 2023 for a syncopal event at home. Was found to have anemia with hemoglobin of 9, and KEENA. Was given Venofer in the hospital for ferritin of 25, as well as discharge on p.o. supplements. Patient today reports no abdominal pain, nausea, vomiting. He does not report seeing blood in stool. Most recent labs show improvement in hemoglobin to 11.3 with normal cytosis. Most recent ferritin is 279 with low TIBC. [facility] Medical History LVH (left ventricular hypertrophy) Hypertensive emergency CKD (chronic kidney disease) Dysphagia Vitamin D deficiency Multinodular thyroid Surgical History Hx of nasal septoplasty History of esophagogastroduodenoscopy (EGD) Hx of endoscopy Hx of eye surgery Hx of colonoscopy History of arthroscopic surgery of shoulder Hx of removal of cyst Hx of arthroscopic knee surgery Hx of appendectomy Family History Father Lung cancer Mother Cancer Social History Housing: House Patient Tobacco Use Status: Former Tobacco user Years Smoked: 31 years ago Second Hand Smoke Exposure: No Current occupational status: employed 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 Current occupational exposures/hazards: No Cognitive needs: No Hearing needs: No Vision needs: No Review of Systems Const All systems reviewed & are unremarkable except as noted in HPI and below Physical Exam Vital Signs: Last Vital Signs Pulse 62 10/28/23 11:11 BP 164/66 H 10/28/23 11:11 BMI result Body Mass Index 23.6 Appears older than stated age NAD No overt resp distress abd soft nontender No COLLIN Assessment & Plan Assessment & Plan (1) Iron deficiency: Code(s): E61.1 - Iron deficiency Category: Medical (2) CKD (chronic kidney disease): Code(s): N18.9 - Chronic kidney disease, unspecified Category: Medical Plan Will need an EGD and a colonoscopy for complete evaluation of iron-deficiency anemia. Currently has good response to p.o. iron supplementation. Advised to hold this at least 7 days before the procedure, to aid in prep. Plan: -PEG prep instructions reviewed -EGD: To be booked -follow-up after procedures Medications: New polyethylene glycol 3350 (Miralax) 17 grams PO DAILY PRN 238 grams 0RF constipation sennosides (Natural Senna Laxative) 17.2 mg (2 x 8.6 mg) PO BEDTIME PRN 60 tabs 0RF constipation 30 days peg 3350-electrolytes 236-22.74-6.74 -5.86 gram (Golytely) as per split prep instructions, until fecal effluent is clear 240 mL PO Q10M 4,000 mL 0RF colonoscopy Coding Level of Care Code New Pt Level 4 (86653) Diagnoses Iron deficiency E61.1 CKD (chronic kidney disease) N18.9
[2023-10-28 11:11] VITALS: BP 164/66; PULSE 62; BMI 23.6
== END 2023-10-28 12:43 | disposition home or self-care (01) ==
PROVIDERS: PCP Nurse Practitioner Family; Visit Provider Internal Medicine
DX: E61.1 Iron deficiency (principal); N18.9 Chronic kidney disease, unspecified
CPT/HCPCS: 99204

== ENCOUNTER → 2023-10-28 11:07 | Outpatient (BNVA) | payer OTHER, SELFPAY | PROVIDERS: PCP Nurse Practitioner Family; Visit Provider Internal Medicine | DX: E61.1 Iron deficiency (principal); N18.9 Chronic kidney disease, unspecified | CPT/HCPCS: 99202 ==

== ENCOUNTER 2023-11-04 11:48 | Outpatient (AMB) | payer OTHER, SELFPAY ==
[2023-11-04 11:52] VITALS: BP 124/78; PULSE 66; O2SAT 97; BMI 23.8
--- NOTE | 2023-11-04 11:52 | HO.NEPHOV_ITS ---
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 He had urinary retention needing catheterization. He recently had syncope(likely micturition syncope) as well as UTI. At that time he had KEENA with a serum creatinine going up to 1.8. His losartan was discontinued at that time. He has followed up with urologist and his Mendenhall catheter has been discontinued. He is on finasteride. Prior to hospital discharge his serum creatinine had settled to baseline. He denies any chest pain, shortness of breath, paroxysmal nocturnal dyspnea, orthopnea, pedal edema, dizziness, urinary symptoms, hematuria, fever. He has not taking any [id number] medications. He tries to maintain good hydration [facility] Medical History LVH (left ventricular hypertrophy) Hypertensive emergency CKD (chronic kidney disease) Dysphagia Vitamin D deficiency Multinodular thyroid Surgical History Hx of nasal septoplasty History of esophagogastroduodenoscopy (EGD) Hx of endoscopy Hx of eye surgery Hx of colonoscopy History of arthroscopic surgery of shoulder Hx of removal of cyst Hx of arthroscopic knee surgery Hx of appendectomy Family History Father Lung cancer Mother Cancer Social History Housing: House Patient Tobacco Use Status: Former Tobacco user Years Smoked: 31 years ago Second Hand Smoke Exposure: No Current occupational status: employed Current occupation: [employer] Current occupational exposures/hazards: No Cognitive needs: No Hearing needs: No Vision needs: No Physical Exam Vital Signs: Last Vital Signs Pulse 66 11/04/23 11:52 BP 124/78 11/04/23 11:52 Pulse Ox 97 11/04/23 11:52 Oxygen Delivery Method Room Air 11/04/23 11:52 BMI result Body Mass Index 23.8 Const General: comfortable and no acute distress Orientation/consciousness: patient oriented x3 HEENT Head: Yes normocephalic Mouth: Normal oral and palatal mucosa present Eyes EOM: EOMs intact bilaterally Neck Neck: Yes supple Resp Auscultation: clear to auscultation bilaterally Cardio Jugular venous distension: no JVD Rate: regular rate GI Palpation (GI): Soft to palpation Auscultation: normal bowel sounds General: Yes no CVA tenderness Back/Spine/Pelvis Back: no CVA tenderness Skin General skin exam: no rashes or lesions noted Neuro General: patient oriented x3 and moves all extremities Extrem General: Yes no pedal edema Results Reviewed Nephrology Results: Hgb 11.3 g/dl (14.0-18.0) L 09/03/23 WBC 7.9 X10*3/uL (4.8-10.8) 09/03/23 Plt Count 254 X10*3/uL (160-400) 09/03/23 Sodium 144 mmol/L (135-145) 09/03/23 Potassium 4.4 mmol/L (3.3-5.1) 09/03/23 Chloride 108 mmol/L (96-108) 09/03/23 Carbon Dioxide 27 mmol/L (22-29) 09/03/23 BUN 16 mg/dL (9-16) 09/03/23 Creatinine 1.17 mg/dL (0.5-1.4) 09/03/23 Calcium 9.4 mg/dL (8.4-10.2) 09/03/23 Urine Protein Negative mg/dL (Neg-Trace) 09/03/23 Assessment & Plan Assessment & Plan (1) HTN (hypertension): Code(s): I10 - Essential (primary) hypertension Category: Medical Qualifiers: Hypertension type: primary hypertension Qualified Code(s): I10 - Essential (primary) hypertension (2) CKD (chronic kidney disease) stage 3, GFR 30-59 ml/min: Code(s): N18.30 - Chronic kidney disease, stage 3 unspecified Category: Medical Qualifiers: Chronic kidney disease stage 3 subtype: stage 3a (GFR 45-59) Qualified Code(s): N18.31 - Chronic kidney disease, stage 3a Antonio Beard has underlying stage III CKD at baseline from longstanding hypertension. He recently had KEENA with a serum creatinine going up to 1.8 during his [place] [facility] [place] He had been on angiotensin receptor michael at that time which has been discontinued. His serum creatinine has settled to baseline with supportive care. He is on antihypertensive medications which I may adjust the dose after repeat lab data and clinical evaluation at the next visit. He was encouraged to maintain good hydration and minimize sodium in the diet. I did not make any medication changes today . All questions answered. Follow-up appointment given. Orders: Orders Creatinine Today I10 - Essential (primary) hypertension, N18.31 - Chronic kidney disease, stage 3a Creatinine 3 Months I10 - Essential (primary) hypertension, N18.31 - Chronic kidney disease, stage 3a Blood Urea Nitrogen Today I10 - Essential (primary) hypertension, N18.31 - Chronic kidney disease, stage 3a Electrolytes Today I10 - Essential (primary) hypertension, N18.31 - Chronic kidney disease, stage 3a Blood Urea Nitrogen 3 Months I10 - Essential (primary) hypertension, N18.31 - Chronic kidney disease, stage 3a Electrolytes 3 Months I10 - Essential (primary) hypertension, N18.31 - Chronic kidney disease, stage 3a Calcium Today I10 - Essential (primary) hypertension, N18.31 - Chronic kidney disease, stage 3a Coding Level of Care Code Est Pt Level 4 (62239) Diagnoses Primary hypertension I10 Hypertension type: primary hypertension Stage 3a chronic kidney disease N18.31 Chronic kidney disease stage 3 subtype: stage 3a (GFR 45-59)
== END 2023-11-04 12:13 | disposition home or self-care (01) ==
PROVIDERS: PCP Nurse Practitioner Family; Visit Provider Internal Medicine Nephrology
DX: I10 Essential (primary) hypertension (principal); N18.31 Chronic kidney disease, stage 3a
CPT/HCPCS: 99214

== ENCOUNTER → 2023-11-04 11:48 | Outpatient (BNVA) | payer OTHER, SELFPAY | PROVIDERS: PCP Nurse Practitioner Family; Visit Provider Internal Medicine Nephrology | DX: I12.9 Hypertensive chronic kidney disease with stage 1 through stage 4 chronic kidney disease, or unspecified chronic kidney disease (principal); N18.31 Chronic kidney disease, stage 3a | CPT/HCPCS: 99212 ==

== ENCOUNTER 2023-12-08 09:43 | Outpatient (AMB) | payer OTHER, SELFPAY ==
[2023-12-08 09:48] VITALS: BMI 23.7
--- NOTE | 2023-12-08 09:48 | A.OFFVIS_ITS ---
Vital Signs 12/08/23 09:48 Height 6 ft Weight 175 lb BMI 23.7 Intake Visit Reasons: OV - Right Knee MRI Review Intake Note: Chirag is a 63 year old male who presents with Right knee pain and giving way. The patient states that he injured his right knee approximately 5 years ago when he twisted it while ?racing someone?. Since that time his symptoms have gotten worse in spite of continued non operative treatments. The patient describes his pain as sharp in nature, 8/10. Most of the pain is along the medial aspect of his knee. He has had injections in the past which gave him no relief. He has also done physical therapy which aggravated his pain. The patient states that his right knee will give out several times per day. Allergies No Known Allergies Allergy (Verified 11/04/23 11:54) Medication List - Last Reconciled 12/08/23 by Robin Nava MD atorvastatin 80 mg PO DAILY 90 days carvedilol 6.25 mg PO BID ferrous fumarate (Ferretts) 325 mg PO DAILY finasteride 5 mg PO DAILY 90 days lisinopril 2.5 mg PO DAILY 90 days NS multivitamin 1 tab PO DAILY peg 3350-electrolytes 236-22.74-6.74 -5.86 gram (Golytely) 240 mL PO Q10M polyethylene glycol 3350 (Miralax) 17 grams PO DAILY PRN sennosides (Natural Senna Laxative) 17.2 mg (2 x 8.6 mg) PO BEDTIME PRN 30 days sennosides (senna) 8.6 mg PO BID 90 days tamsulosin 0.4 mg PO DAILY 90 days verapamil ER 180 mg PO DAILY PFS Medical History LVH (left ventricular hypertrophy) Hypertensive emergency CKD (chronic kidney disease) Dysphagia Vitamin D deficiency Multinodular thyroid Surgical History Hx of nasal septoplasty History of esophagogastroduodenoscopy (EGD) Hx of endoscopy Hx of eye surgery Hx of colonoscopy History of arthroscopic surgery of shoulder Hx of removal of cyst Hx of arthroscopic knee surgery Hx of appendectomy Family History Father Lung cancer Mother Cancer Social History Housing: House Patient Tobacco Use Status: Former Tobacco user Years Smoked: 31 years ago Second Hand Smoke Exposure: No Current occupational status: employed 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 Current occupational exposures/hazards: No Cognitive needs: No Hearing needs: No Vision needs: No Physical Exam Vital Signs: BMI result Body Mass Index 23.7 Const Other: Well-nourished well-developed very friendly male awake alert and oriented x3 in no acute distress Extrem Other: Bilateral lower extremity examination shows good capillary refill, no skin lesions noted, normal sensation light touch Right knee examination shows a minimal effusion, minimal crepitus with range of motion, tenderness along his medial and lateral joint lines, positive Mireille's test, no instability Results Reviewed Results Reviewed: MRI of the patient's right knee shows mild diffuse degenerative changes as well as tearing of his medial and lateral menisci, no acute bony abnormalities Assessment & Plan Assessment & Plan (1) Right knee pain: Code(s): M25.561 - Pain in right knee Category: Medical Plan Mr. Portillo presents with progressively worsening right knee pain and mechanical symptoms due to early degenerative joint disease as well as tearing of his medial and lateral menisci. I had a lengthy discussion with the patient regarding the treatment options. At this point he has failed continued non operative treatments. The risks and benefits of right knee arthroscopic surgery were discussed at length with the patient. The patient wishes to proceed with surgery. Does understand that he may not get 100% relief of his symptoms depending on the severity of his degenerative changes. Surgery will most likely involve right knee diagnostic arthroscopy with arthroscopic partial medial and lateral meniscectomies. The patient will be scheduled for next available date. He will follow-up as instructed. Feel free to call me at any time should questions regarding his orthopedic management arise. I spent 22 minutes in reviewing the patient's records and imaging studies, seeing the patient and documenting in the medical record. Coding Level of Care Code Est Pt Level 3 (89721) Diagnoses Right knee pain M25.561
== END 2023-12-08 09:56 | disposition home or self-care (01) ==
PROVIDERS: PCP Nurse Practitioner Family; Visit Provider Orthopaedic Surgery
DX: M25.561 Pain in right knee (principal)
CPT/HCPCS: 99214

== ENCOUNTER → 2023-12-08 09:43 | Outpatient (BNVA) | payer OTHER, SELFPAY | PROVIDERS: PCP Nurse Practitioner Family; Visit Provider Orthopaedic Surgery | DX: M17.11 Unilateral primary osteoarthritis, right knee (principal); S83.281A Other tear of lateral meniscus, current injury, right knee, initial encounter; S83.241A Other tear of medial meniscus, current injury, right knee, initial encounter | CPT/HCPCS: 99212 ==

== ENCOUNTER → 2023-12-16 13:31 | Outpatient (BNV) | payer OTHER, SELFPAY | PROVIDERS: PCP Nurse Practitioner Family; Visit Provider Internal Medicine | DX: R94.31 Abnormal electrocardiogram [ECG] [EKG] (principal) | CPT/HCPCS: 93010 ==

== ENCOUNTER 2023-12-21 10:53 | Outpatient (REF) | payer OTHER, SELFPAY ==
[2023-12-21 13:54] LABS: Anion Gap 12 (12-20); Blood Urea Nitrogen 13 mg/dL (9-16); Calcium 9.5 mg/dL (8.4-10.2); Carbon Dioxide 27 mmol/L (22-29); Chloride 107 mmol/L (96-108); Estimated Glomerular Filt Rate > 60; Potassium 3.9 mmol/L (3.3-5.1); Sodium 142 mmol/L (135-145)
[2023-12-21 14:10] LABS: Prostate Specific Antigen 5.91 ng/mL (<0.05-4.0)
== END 2023-12-21 10:54 | disposition home or self-care (01) ==
LOC: HO.HMGCLDS 10:53
PROVIDERS: PCP Nurse Practitioner Family; Referring Provider Nurse Practitioner Family; Visit Provider Internal Medicine Nephrology
DX: I10 Essential (primary) hypertension (principal); N18.31 Chronic kidney disease, stage 3a; N40.1 Benign prostatic hyperplasia with lower urinary tract symptoms; N13.8 Other obstructive and reflux uropathy
CPT/HCPCS: 36415; 80051; 82310; 82565; 84153; 84520

== ENCOUNTER 2023-12-25 08:30 | Day surgery (SDC) | payer OTHER, SELFPAY ==
[2023-12-15 15:07] VITALS: BMI 23.7
--- NOTE | 2023-12-16 | ECG_ITS ---
Test Reason : pre op Blood Pressure : / mmHG Vent. Rate : 058 BPM Atrial Rate : 058 BPM P-R Int : 186 ms QRS Dur : 110 ms QT Int : 416 ms P-R-T Axes : 061 -01 076 degrees QTc Int : 408 ms Sinus bradycardia Possible Left atrial enlargement Incomplete right bundle branch block Left ventricular hypertrophy ( Sokolow-Millard , Yasmani product ) Nonspecific T wave abnormality Abnormal ECG No previous ECGs available Referred By: Cassandra Maher Electronically Signed By:APPLE MEYER
[2023-12-16 12:54] VITALS: BP 161/77; PULSE 60; RESP 16; O2SAT 99
--- NOTE | 2023-12-16 13:07 | P.CONAN_ITS ---
Documented by User: Cassandra Maher NP 12/17/23 08:52 HPI - Anesthesia Eval Consult details Narrative: 63yo M for Right Knee Arthroscopy, partial medial meniscectomy, lateral meniscectomy, 12/25/23 No recent illness No CP/SOB without limits Moderate ANNELIESE risk on Stop-Bang. Hx of positive sleep study, then subsequent negative Follows [facility] Cardiology for htn, hld, hx CLANCY and precordial CP. BP meds increased at 06/2023 office visit. Otherwise stable Follows [facility] Nephrology for CKD St [address]. Had KEENA during hospital admit with uti/urinary retention. F/u office visit 11/2023 without changes to tx plan. [facility] Active Problems Active Problems: All Active Problems Right knee pain (Acute) CKD (chronic kidney disease) stage 3, GFR 30-59 ml/min (Acute) Iron deficiency (Acute) Urinary retention (Acute) Aortic insufficiency (Acute) Systolic murmur (Acute) HTN (hypertension) (Acute) BPH w urinary obs/LUTS (Acute) CKD (chronic kidney disease) (Acute) Dysphagia (Acute) Vitamin D deficiency (Acute) Multinodular thyroid (Acute) Past Medical History Medical History Hx of chest pain BPH (benign prostatic hyperplasia) Murmur LVH (left ventricular hypertrophy) Hypertensive emergency CKD (chronic kidney disease) Dysphagia Vitamin D deficiency Multinodular thyroid Family History Family History Father Lung cancer Mother Cancer Family history of problems with anesthesia: Unobtainable Surgical History Surgical History Hx of nasal septoplasty History of esophagogastroduodenoscopy (EGD) Hx of endoscopy Hx of eye surgery Hx of colonoscopy History of arthroscopic surgery of shoulder Hx of removal of cyst Hx of appendectomy History of Problems with Anesthesia: No Social History Social History Household Members: Friend(s) Housing: House Are you a primary career placement services counselor to a significant other at home: Yes (cares for 2 adults that need some assistance with ADLs) Do you presently have visiting nurse or other home services: No (will have help post op) Patient Tobacco Use Status: Former Tobacco user Tobacco use type: Cigarette Years Smoked: 15 Smoked in Last 30 Days: No Second Hand Smoke Exposure: No Use of substances other than those prescribed or required for medical reasons: No Have you been hit, kicked, punched, or otherwise hurt by someone within the past year? If so, by whom?: No Are you DNR?: No Advance Directives: No Advance Directives Information Provided: Yes Advance Directives on File: No Recently lost weight without trying: No Nutrition Risks: No Nutritional Risk Current occupational status: employed Current occupation: [employer] Current occupational exposures/hazards: No Cognitive needs: No Hearing needs: No Vision needs: No Meds Allergies Allergy/AdvReac Type Severity Reaction Status Date / Time No Known Allergies Allergy Verified 12/25/23 08:44 Home Medications ?Medication ?Instructions ?Recorded ?Confirmed ?Last Taken ?Type multivitamin 1 tab PO DAILY 05/28/20 12/15/23 Unknown History carvedilol 6.25 mg tablet 6.25 mg PO BID 08/11/23 12/15/23 Unknown History atorvastatin 80 mg tablet 80 mg PO BEDTIME 12/15/23 12/15/23 Unknown History tamsulosin 0.4 mg capsule 0.4 mg PO DAILY@1700 12/15/23 12/15/23 Unknown History Exam Height,Weight and Vital Signs: Height 6 ft Weight 79.379 kg Last Vital Signs Pulse 60 12/16/23 12:54 Resp 16 12/16/23 12:54 BP 161/77 H 12/16/23 12:54 Pulse Ox 99 12/16/23 12:54 O2 Del Method Room Air 12/16/23 12:54 Pertinent Lab Results Pertinent Lab Results: Laboratory Tests 09/03/23 14:04 WBC 7.9 Hgb 11.3 L Hct 35.7 L Plt Count 254 Sodium 144 Potassium 4.4 Chloride 108 Carbon Dioxide 27 BUN 16 Creatinine 1.17 Narrative Narrative: EKG 12/2023 Vent. Rate : 058 BPM Atrial Rate : 058 BPM P-R Int : 186 ms QRS Dur : 110 ms QT Int : 416 ms P-R-T Axes : 061 -01 076 degrees QTc Int : 408 ms Sinus bradycardia Possible Left atrial enlargement Incomplete right bundle branch block Left ventricular hypertrophy ( Sokolow-Millard , Yasmani product ) Nonspecific T wave abnormality Abnormal ECG No previous ECGs available (No change from 07/2023 at [facility]) ECHO 06/2023 Nml LV size, noderate LVH, nml LV function. EF 60-65%. No definite WMA seen in limited views RV poorly visualized. Function appears preserved. No significant valve abnormalities Trivial pericardial effusion Nuc Stress 06/2023 1. Myocardial perfusion imaging is nml without any fixed or reversible perfusion defect after exercise stress test. 2. LV function is nml at rest and with stress with nml wall motion and thickening. 3. EKG portion reported seperately. Airway Mallampati Class: I TM Dist: >3cm Neck ROM: Full Partial: Upper and Lower Heart: RRR Lungs: CTAB Assessment and Plan Assessment Anesthesia Assessment: Anesthesia Plan Discussed and PAT Visit Final Anesthetic Review Family History of Problems with Anesthesia: Unobtainable History of Problems with Anesthesia: No Documented by User: Melody Leon MD 12/25/23 09:56 PMFSH Past Medical History Medical History Hx of chest pain BPH (benign prostatic hyperplasia) Murmur LVH (left ventricular hypertrophy) Hypertensive emergency CKD (chronic kidney disease) Dysphagia Vitamin D deficiency Multinodular thyroid Family History Family History Father Lung cancer Mother Cancer Surgical History Surgical History Hx of nasal septoplasty History of esophagogastroduodenoscopy (EGD) Hx of endoscopy Hx of eye surgery Hx of colonoscopy History of arthroscopic surgery of shoulder Hx of removal of cyst Hx of appendectomy Social History Social History Household Members: Friend(s) Housing: House Are you a primary career placement services counselor to a significant other at home: Yes (cares for 2 adults that need some assistance with ADLs) Do you presently have visiting nurse or other home services: No (will have help post op) Patient Tobacco Use Status: Former Tobacco user Tobacco use type: Cigarette Years Smoked: 15 Smoked in Last 30 Days: No Second Hand Smoke Exposure: No Use of substances other than those prescribed or required for medical reasons: No Have you been hit, kicked, punched, or otherwise hurt by someone within the past year? If so, by whom?: No Are you DNR?: No Advance Directives: No Advance Directives Information Provided: Yes Advance Directives on File: No Recently lost weight without trying: No Nutrition Risks: No Nutritional Risk Current occupational status: employed Current occupation: [employer] Current occupational exposures/hazards: No Cognitive needs: No Hearing needs: No Vision needs: No Meds Allergies Allergy/AdvReac Type Severity Reaction Status Date / Time No Known Allergies Allergy Verified 12/25/23 08:44 Home Medications ?Medication ?Instructions ?Recorded ?Confirmed ?Last Taken ?Type multivitamin 1 tab PO DAILY 05/28/20 12/15/23 Unknown History carvedilol 6.25 mg tablet 6.25 mg PO BID 08/11/23 12/15/23 Unknown History atorvastatin 80 mg tablet 80 mg PO BEDTIME 12/15/23 12/15/23 Unknown History tamsulosin 0.4 mg capsule 0.4 mg PO DAILY@1700 12/15/23 12/15/23 Unknown History Assessment and Plan Final Anesthetic Review NPO: Yes ASA Class: III Final Preanesthetic Review: No Changes in Pt Med Stat, Meds/Allgs Chart Reviewed, Consent Obtained/Reviewed and Anes Risks/Benef Reviewed Patient Risk: Intermediate Procedure Risk: Low Anesthetic Plan Anesthetic Plan: GA Disposition: Standard PACU
[2023-12-25] VITALS (8 sets, daily range): BP systolic 122–185; BP diastolic 68–77; PULSE 54–69; RESP 12–18; TEMP 36.3–36.8; O2SAT 96–100; BMI 23.7
[2023-12-25] MEDS: Lactated Ringers 1,000 ML 100 ML IVCONT (09:08)
--- NOTE | 2023-12-25 11:02 | PM.OP ---
Brief Operative Note Date of Service: 12/25/23 Pre-op diagnosis: Right knee medial meniscus tear, right knee degenerative joint disease Post-op diagnosis: same Procedure: Right knee diagnostic arthroscopy with right knee arthroscopic partial medial meniscectomy, right knee chondroplasty of the undersurface of the patella Implants: none Surgeon: Robin Nava MD Anesthesia: GLMA Was an Small Piece Cutter used for this Procedure?: No Estimated blood loss (mL): 10 Pathology: none sent Condition: stable Disposition: PACU
--- NOTE | 2023-12-25 11:03 | W.PM.OPN ---
Operative Note Operative Note Date of Service: 12/25/23 Narrative: After the patient was identified as Chirag Portillo and his right knee was initialed by myself they were brought to the operating room where general anesthesia was induced by the anesthesiologist in routine fashion. The patient was given 2 g of IV Ancef for infection prophylaxis. A formal time-out was completed. The patient's right lower extremity was prepped and draped in sterile fashion. Marcaine with epinephrine was injected into the planned incision sites as well as their right knee joint. A # 11 scalpel blade was used to make an anterolateral portal 1 cm proximal to the joint line and 1 cm lateral to the patellar tendon. Blunt trocar technique was used into the suprapatellar pouch with the knee in extension. Diagnostic arthroscopy showed multiple bands of thickened plica which would be excised at the end of the procedure. There were no loose bodies or abnormalities found in either the medial or lateral gutters. There were diffuse grades 1 and 2 degenerative changes of the undersurface of the patella as well as grade 1 degenerative changes of the trochlear groove. The patient's knee was flexed to 45 degrees and a valgus force was placed upon it. The medial compartment was entered. An anteromedial portal was made 1 cm proximal to the joint line and 1 cm medial to the patellar tendon. Probing of the medial meniscus showed a radial tear of the posterior horn. A partial medial meniscectomy was performed using the arthroscopic shaver. Following the partial meniscectomy the remainder of the meniscus tissue was stable. There were diffuse grade 1 degenerative changes of the medial femoral condyle as well as diffuse grade 1 degenerative changes of the medial tibial plateau. The patient's knee was then placed into a neutral position. There was no injury to the anterior cruciate ligament. The patient's knee was then placed into the figure of 4 position and the lateral compartment was entered. There were minimal degenerative changes of the lateral femoral condyle and lateral tibial plateau. There was no evidence of lateral meniscus tearing. The patient's knee was once again brought into extension and the suprapatellar pouch was entered. The arthroscopic shaver and the ArthroCare Wand were used to excise the thickened bands of plica. The undersurface of the patella was then made smooth using the arthroscopic shaver. The articular surface of the trochlear groove was already smooth so no chondroplasty was indicated. The knee joint was irrigated and then drained. All arthroscopic instruments were removed. The 2 portals were closed with 3-0 nylon interrupted suture. The knee joint was injected with Marcaine. Dry sterile dressing and Michael bandages were placed over the patient's knee. The patient was awoken and extubated in the operating room. They were transferred to the recovery room in stable condition.
[2023-12-25] MEDS: cefTRIAXone sodium 1 GM in 0.9 % Sodium Chloride 50 ML IV (11:07)
--- OUTSIDE RECORDS SUMMARY | 2023-12-31 06:31 | XMS_ITS | Continuity of Care Document ---
Author Organization [facility] ter Address [address] [place] [id number] Care Team Providers Care Barrel Driller Name Role Phone Josh RIVERA, Migue Cerrato Primary Care Physician [phone] Encounter [facility] Date(s): 07/31/23 - 08/03/[address] [address] Discharge Disposition: A-D/C Home Attending Physician: Víctor MARY, Kiran Johnson Admitting Physician: [facility]ee [facility] Referring Physician: Not on Staff, Referring MD Allergies, Adverse Reactions, Alerts No Known Allergies Medications amLODIPine 5 mg oral tablet 5 mg, Tablet, By Mouth, Hold for: HOLD FOR SYSTOLIC <130, 08/03/23 9:00:00 EST Start Date: 08/03/23 Stop Date: 08/03/23 Status: Completed atorvastatin 80 mg oral tablet 1 tablet = 80 mg, By Mouth, Daily, # 30 tablet, 0 Refills, Maintenance, 05/13/19 9:50:27 EST, Tablet Start Date: 05/13/19 Status: Ordered Augmentin 875 mg-125 mg oral tablet 1 tablet, By Mouth, Every 12 hours, for 5 days, # 10 tablet, 0 Refills, Acute 08/08/23 9:01:00 EST,08/03/23 9:01:00 EST, Tablet, [facility], Partial fill upon patient request if the prescription is for a schedule II opioid drug., 183, c... Start Date: 08/03/23 Stop Date: 08/08/23 Status: Ordered carvedilol 6.25 mg oral tablet 6.25 mg, Tablet, By Mouth, Hold for: SBP < 110, HR< 60, 08/03/23 9:00:00 EST Start Date: 08/03/23 Stop Date: 08/03/23 Status: Completed carvedilol 6.25 mg oral tablet 6.25 mg, 1, tablet, By Mouth, 2 times a day, # 180 tablet, Refills 0, Maintenance, 07/30/23 14:04:00 EST, Partial fill upon patient request if the prescription is for a schedule II opioid drug. Start Date: 07/30/23 Status: Ordered Centrum Men's oral tablet 1 tablet, By Mouth, Daily, 0 Refills, Maintenance, 07/30/23 15:26:00 EST, Partial fill upon patientrequest if the prescription is for a schedule II opioid drug. Start Date: 07/30/23 Status: Ordered Ferrets 325 mg oral tablet 1 tablet = 325 mg, By Mouth, Daily, # 60 tablet, 0 Refills, Maintenance, 08/03/23 9:04:00 EST, Tablet, [facility], Partial fill upon patient request if the prescription is for a schedule II opioid drug., 183, cm, 08/03/23 7:30:00 EST, He... Start Date: 08/03/23 Stop Date: 10/02/23 Status: Ordered MiraLax oral powder for reconstitution = 17 Gm, By Mouth, Daily, PRN Constipation, for 30 days, # 255 Gm, 0 Refills, Acute 09/02/23 9:00:00 EST, 08/03/23 9:00:00 EST, REC Powder, [facility], Partial fill upon patient requestif the prescription is for a schedule II opioid birgit... Start Date: 08/03/23 Stop Date: 09/02/23 Status: Ordered Senna 8.6 mg oral tablet 17.2 mg, 2, tablet, By Mouth, Daily at bedtime, for 30 days, # 60 tablet, Refills 0, Tot. Refills 0, Acute, 09/02/23 9:00:00 EST, 08/03/23 9:00:00 EST, Route to Pharmacy Electronically, [facility] Tablet, Partial fill upon patient reques... Start Date: 08/03/23 Stop Date: 09/02/23 Status: Ordered tamsulosin 0.4 mg oral capsule 0.4 mg, 1, capsule, By Mouth, Daily, # 30 capsule, Refills 0, Maintenance, 05/13/19 9:50:54 EST Start Date: 05/13/19 Status: Ordered verapamil 120 mg oral capsule, extended release 1 capsule = 120 mg, By Mouth, Daily, # 60 capsule, 0 Refills, Maintenance, 05/04/23 15:20:00 EDT, CR Capsule, Partial fill upon patient request if the prescription is for a schedule II opioid drug. Start Date: 05/04/23 Status: Ordered Problem List Condition Confirmation Course Effective Dates Status H ealth Status Informant BPH - benign prostatic hyperplasia Confirmed Active Hyperlipidemia Confirmed Active Hypertension Confirmed Active Results Orders for Microbiology Reports Name Date Urine Culture (URINE CULTURE) 07/30/23 Microbiology Reports TEST:Urine Culture STATUS:Auth (Verified) BODY SITE: SOURCE:URINE COLLECTED DATE/TIME:07/30/23 2:05 PM Urine Culture SPECIMEN DESCRIPTION : URINE CLEAN CATCH/MIDSTREAM SPECIAL REQUESTS : NONE Reflexed from [id number] CULTURE : >100,000 COL/ML ESCHERICHIA COLI These AST results were performed on the [employer] 2 ID and AST system REPORT STATUS : FINAL 08/01/2023 ORGANISM >100,000 COL/ML ESCHERICHIA COLI These AST results were performed on the [employer] 2 ID and AST system METHOD MIN. INHIB. CONC. (MCG/ML) AMPICILLIN RESISTANT AMPICILLIN/SULBACTAM SUSCEPTIBLE CEFAZOLIN SUSCEPTIBLE CEFEPIME SUSCEPTIBLE CEFTRIAXONE SUSCEPTIBLE CIPROFLOXACIN SUSCEPTIBLE ERTAPENEM SUSCEPTIBLE GENTAMICIN SUSCEPTIBLE LEVOFLOXACIN SUSCEPTIBLE NITROFURANTOIN SUSCEPTIBLE PIPERACILLIN/TAZOBAC SUSCEPTIBLE TRIMETH/SULFAMETHOX SUSCEPTIBLE Radiology Reports * Exam Date Time Procedure Performing Provider Status 07/30/23 2:40 PM Clavicle Complete Right Eben Paris [facility] (Verified) Notes: (Clavicle Complete Right) Reason For Exam: Pain RESULT: Clavicle Complete Right Right shoulder 2 views dated July 30, 2023. No prior studies are available. HISTORY: Pain. FINDINGS: This examination shows no evidence of fracture or dislocation. Degenerative changes are noted in the acromioclavicular interval lesser stent glenohumeral joints. IMPRESSION: No evidence of acute osseous abnormality. Examination 91032. Thank you for allowing me to participate in the care of this patient. WSN: [id number] Ordering Physician: Savana Nix Dictated By: Calos Albarran MD Dictated Date/Time: 07/30/23 5:42 pm Reviewed By: Calos Albarran MD Signed By: Calos Albarran MD Signed Date/Time: 07/30/23 5:42 pm Transcribed By: CATARINO Transcribed Date/Time: 07/30/23 5:42 pm * Exam Date Time Procedure Performing Provider Status 07/30/23 3:[address] Abdomen and Pelvi s W/O Contrast Maritza Ramirez; Auth (Verified) Notes: (CT Abdomen and Pelvis W/O Contrast) Reason For Exam: significant LOW, CECILY, fall, right supraclavicular fullness;Mass RESULT: CT Abdomen and Pelvis W/O Contrast CT Chest W/O Contrast, CT Abdomen and Pelvis W/O Contrast INDICATION: Reason: Weakness, dizziness and fall. Concern for malignancy. TECHNIQUE: Helical CT scan of the chest, abdomen, and pelvis without IV contrast, formatted in 3 planes. This study was performed without oral contrast. Weight-based protocol was performed using automatic exposure control. CTDIvol Body: 7.20 mGy, DLP Body: 543 mGy*cm. COMPARISON: CT angiogram chest and abdomen 05/04/2023, CT abdomen and pelvis 01/15/2013 FINDINGS: Transfer Car Operator view findings, lines and tubes: None. Trachea and airways: Patent without evidence of tracheal or endobronchial lesion. Lungs and pleura: 2 mm nodule in the left upper lobe (series 205, image 10), unchanged from 05/04/2023. Minimal subpleural atelectasis or scarring, adjacent to vertebral body osteophytes in the medial right lung base. No suspicious lesion. No pneumothorax or pleural effusion. Mediastinum and shari: No mass or hematoma. No mediastinal or hilar lymphadenopathy. No esophageal abnormality. Imaged thyroid gland is mildly heterogeneous without large dominant nodule. Heart: Heart is normal in size. No pericardial effusion. Mild coronary artery calcification. Aorta: No aortic aneurysm. Pulmonary arteries: Normal caliber. Chest wall soft tissues: A 5 cm right right of midline posterior back lipoma, at the level of the scapular spine (series 201, image 26). Diaphragm: Intact. Liver: Normal in attenuation and morphology. Subcentimeter hypodensity in the left lobe likely representing cyst, unchanged from 05/04/2023.. No suspicious lesion. Gallbladder: No CT evidence of gallbladder pathology. Bile ducts: No biliary ductal dilation. Spleen: Normal in size. Pancreas: No suspicious lesion or ductal dilatation. Adrenal glands: No nodule. Kidneys and ureters: * No hydronephrosis. * 3 mm nonobstructing renal calculus in the right upper pole. * 9 mm homogenously hyperdense lesion at the left lower pole (series 207, image 56) measures 70 Hounsfield units in density, likely hemorrhagic cyst. * Additional hypodense renal cysts and subcentimeter hypodensities which are too small to characterize. * Mild bilateral perinephric fat stranding with thickening of the lateral conal fascia, nonspecific. Bladder: No wall thickening or surrounding stranding. Reproductive organs: Prostatomegaly measuring 6.3 cm in transverse diameter. Stomach, small bowel, and large bowel: Moderate stool retention throughout the colon. No evidence of obstruction or inflammation. Appendix: Not seen, but no evidence of acute appendicitis. Peritoneum and retroperitoneum: No ascites or pneumoperitoneum. No omental or mesenteric lesions. Lymph nodes: No enlarged lymph nodes. Blood vessels: No vascular calcifications or aneurysm. Abdominal and pelvic wall soft tissues: Small fat-containing left inguinal hernia. Bones: No acute abnormality. IMPRESSION: CHEST: No acute abnormality in the chest. No suspicious pulmonary nodule. Unchanged 2 mm left upper lobe lung nodule compared to 05/04/2023. If low risk for malignancy, no routine follow-up. If high risk, optional CT at 12 months. If unchanged, no further follow-up needed per Guidelines for Management of Incidental Pulmonary Nodules Detected on CT Images: From the Fleischner Society 2017. ABDOMEN AND PELVIS: No acute abnormality or suspicious lesion in the abdomen or pelvis.. Nonobstructing 3 mm renal stone in the right upper pole. Moderate stool retention throughout the colon. I have personally reviewed the images and I agree with this report. WSN: [id number] Ordering Physician: Savana Nix Dictated By: Sam Weiss MD Dictated Date/Time: 07/30/23 4:36 pm Reviewed By: Jean-Pierre Anton MD Signed By: Jean-Pierre Anton MD Signed Date/Time: 07/30/23 4:41 pm Transcribed By: CATARINO Transcribed Date/Time: 07/30/23 3:48 pm * Exam Date Time Procedure Performing Provider Status 07/30/23 3:[address] Chest W/O Contrast Maritza Ramirez (Verified) Notes: (CT Chest W/O Contrast) Reason For Exam: significant LOW, CECILY, fall, right supraclavicular fullness;Tumor Primary RESULT: CT Chest W/O Contrast CT Chest W/O Contrast, CT Abdomen and Pelvis W/O Contrast INDICATION: Reason: Weakness, dizziness and fall. Concern for malignancy. TECHNIQUE: Helical CT scan of the chest, abdomen, and pelvis without IV contrast, formatted in 3 planes. This study was performed without oral contrast. Weight-based protocol was performed using automatic exposure control. CTDIvol Body: 7.20 mGy, DLP Body: 543 mGy*cm. COMPARISON: CT angiogram chest and abdomen 05/04/2023, CT abdomen and pelvis 01/15/2013 FINDINGS: Transfer Car Operator view findings, lines and tubes: None. Trachea and airways: Patent without evidence of tracheal or endobronchial lesion. Lungs and pleura: 2 mm nodule in the left upper lobe (series 205, image 10), unchanged from 05/04/2023. Minimal subpleural atelectasis or scarring, adjacent to vertebral body osteophytes in the medial right lung base. No suspicious lesion. No pneumothorax or pleural effusion. Mediastinum and shari: No mass or hematoma. No mediastinal or hilar lymphadenopathy. No esophageal abnormality. Imaged thyroid gland is mildly heterogeneous without large dominant nodule. Heart: Heart is normal in size. No pericardial effusion. Mild coronary artery calcification. Aorta: No aortic aneurysm. Pulmonary arteries: Normal caliber. Chest wall soft tissues: A 5 cm right right of midline posterior back lipoma, at the level of the scapular spine (series 201, image 26). Diaphragm: Intact. Liver: Normal in attenuation and morphology. Subcentimeter hypodensity in the left lobe likely representing cyst, unchanged from 05/04/2023.. No suspicious lesion. Gallbladder: No CT evidence of gallbladder pathology. Bile ducts: No biliary ductal dilation. Spleen: Normal in size. Pancreas: No suspicious lesion or ductal dilatation. Adrenal glands: No nodule. Kidneys and ureters: * No hydronephrosis. * 3 mm nonobstructing renal calculus in the right upper pole. * 9 mm homogenously hyperdense lesion at the left lower pole (series 207, image 56) measures 70 Hounsfield units in density, likely hemorrhagic cyst. * Additional hypodense renal cysts and subcentimeter hypodensities which are too small to characterize. * Mild bilateral perinephric fat stranding with thickening of the lateral conal fascia, nonspecific. Bladder: No wall thickening or surrounding stranding. Reproductive organs: Prostatomegaly measuring 6.3 cm in transverse diameter. Stomach, small bowel, and large bowel: Moderate stool retention throughout the colon. No evidence of obstruction or inflammation. Appendix: Not seen, but no evidence of acute appendicitis. Peritoneum and retroperitoneum: No ascites or pneumoperitoneum. No omental or mesenteric lesions. Lymph nodes: No enlarged lymph nodes. Blood vessels: No vascular calcifications or aneurysm. Abdominal and pelvic wall soft tissues: Small fat-containing left inguinal hernia. Bones: No acute abnormality. IMPRESSION: CHEST: No acute abnormality in the chest. No suspicious pulmonary nodule. Unchanged 2 mm left upper lobe lung nodule compared to 05/04/2023. If low risk for malignancy, no routine follow-up. If high risk, optional CT at 12 months. If unchanged, no further follow-up needed per Guidelines for Management of Incidental Pulmonary Nodules Detected on CT Images: From the Fleischner Society 2017. ABDOMEN AND PELVIS: No acute abnormality or suspicious lesion in the abdomen or pelvis.. Nonobstructing 3 mm renal stone in the right upper pole. Moderate stool retention throughout the colon. I have personally reviewed the images and I agree with this report. WSN: [id number] Ordering Physician: Savana Nix Dictated By: Sam Weiss MD Dictated Date/Time: 07/30/23 4:36 pm Reviewed By: Jean-Pierre Anton MD Signed By: Jean-Pierre Anton MD Signed Date/Time: 07/30/23 4:41 pm Transcribed By: CATARINO Transcribed Date/Time: 07/30/23 3:48 pm * Exam Date Time Procedure Performing Provider Status 07/30/23 1:40 PM Chest 2 Views Frontal and Lat Emmy Fleming; [place] (Verified) Notes: (Chest 2 Views Frontal and Lat) Reason For Exam: Shortness of Breath, Fever;Other: RESULT: Chest 2 Views Frontal and Lat Chest 2 Views Frontal and Lat Hx of Present Illness: unwitnessed fall in bathroom after standing and feeling dizzy, legs went numb and he fell back. He hit back of head on tub; Reason: Other:; Shortness of Breath, Fever; ClinicalQuestion(s): Pneumonia COMPARISON: 05/04/2023. FINDINGS: LINES AND TUBES: None. LUNGS AND PLEURA: Persistent moderate elevation of the right hemidiaphragm probably due to eventration with minimal subsegmental atelectasis right lung base unchanged. Otherwise essentially clear lungs.. Normal pulmonary vascularity. No pleural effusion. No pneumothorax. HEART, MEDIASTINUM AND SHARI: Heart is normal in size. Normal mediastinal and hilar contour. BONES AND SOFT TISSUES: No acute abnormality. Mild degenerative change right shoulder. [id number] degenerative change mid thoracic spine. Cortical irregularity inferior aspect of the lateral right clavicle. An acute fracture cannot be totally excluded. Correlation with right clavicular views are advised. IMPRESSION: No definite acute cardiopulmonary disease is seen. Cortical irregularity inferior aspect of the distal right clavicle. Although this could be degenerative in nature, an acute fracture in that area cannot be excluded. Correlation with right clavicular views is advised. WSN: [id number] Ordering Physician: Suki Hunt Dictated By: Oral Renteria MD, V Dictated Date/Time: 07/30/23 1:46 pm Reviewed By: Oral Renteria MD, V Signed By: Oral Renteria MD, V Signed Date/Time: 07/30/23 1:46 pm Transcribed By: CATARINO Transcribed Date/Time: 07/30/23 1:41 pm * Exam Date Time Procedure Performing Provider Status 07/30/23 11:50 AM Forearm 2 Views Right Donta Fleming; Auth (Verified) Notes: (Forearm 2 Views Right) Reason For Exam: with Pain;Trauma RESULT: Forearm 2 Views Right Right forearm 2 views dated July 30, 2023. No prior studies are available. HISTORY: Pain. FINDINGS: This examination shows no evidence of fracture or dislocation. Joint spaces are well preserved. No radiopaque foreign body or soft tissue gas is demonstrated. Examination 64979. Thank you for allowing me to participate in the care of this patient. WSN: [id number] Ordering Physician: Isabela Donis Dictated By: Calos Albarran MD Dictated Date/Time: 07/30/23 11:51 a Reviewed By: Calos Albarran MD Signed By: Calos Albarran MD Signed Date/Time: 07/30/23 11:51 am Transcribed By: CATARINO Transcribed Date/Time: 07/30/23 11:51 am * Exam Date Time Procedure Performing Provider Status 07/30/23 11:50 AM Hand Min 3 Views Right Ralph Fleming; Auth (Verified) Notes: (Hand Min 3 Views Right) Reason For Exam: with Pain;Trauma RESULT: Hand Min 3 Views Right Right hand 3 views dated July 30, 2024. Comparison films are from February 13, 2016. HISTORY: Pain. FINDINGS: This examination shows no evidence of fracture or dislocation. Joint spaces are well preserved. No radiopaque foreign body or soft tissue gas is demonstrated. IMPRESSION: No evidence of fracture or dislocation. Examination 85924. Thank you for allowing me to participate in the care of this patient. WSN: [id number] Ordering Physician: Isabela Donis Dictated By: Calos Albarran MD Dictated Date/Time: 07/30/23 11:51 a Reviewed By: Calos Albarran MD Signed By: Calos Albararn MD Signed Date/Time: 07/30/23 11:51 am Transcribed By: CATARINO Transcribed Date/Time: 07/30/23 11:51 am * Exam Date Time Procedure Performing Provider Status 07/30/23 11:[address] Head/Brain W/O Contrast Maritza Palmer; Modified Notes: (CT Head/Brain W/O Contrast) Reason For Exam: Trauma RESULT: CT Head/Brain W/O Contrast CT Head/Brain W/O Contrast INDICATION: Hx of Present Illness: unwitnessed fall in bathroom after standing and feeling dizzy, legs went numb and he fell back. He hit back of head on tub; Reason: Trauma; Clinical Question(s): Fracture Basal; Order Comment: TECHNIQUE: Noncontrast head CT using axial technique was reconstructed in axial and coronal planes.Noncontrast spiral CT through the cervical spine was formatted in 3 planes. Automatic tube modulation was used for the cervical spine and iterative dose reconstruction was used for both the head and cervical spine to optimize scan parameters and image quality. CTDIvol Body: 10.90 mGy, DLP Body: 270 mGy*cm. CTDIvol Head: 39.70 mGy, DLP Head: 840 mGy*cm. COMPARISON: None. FINDINGS: Transfer Car Operator View Findings, Lines and Tubes: None. BRAIN AND EXTRA-AXIAL SPACES: No parenchymal hemorrhage, midline shift, or mass effect. Morrow-white matter differentiation is wellpreserved. No acute infarct. Ventricles, sulci, and basilar cisterns are normal. No white matter lesions. No subarachnoid hemorrhage. No subdural or epidural collection. CALVARIUM, SKULL BASE, AND SOFT TISSUES: No fractures or suspicious bony lesions. The paranasal sinuses and mastoid air cells are clear. Visualized orbits and globes are intact. The extracranial soft tissues are unremarkable. CERVICAL SPINE: No fracture. No acute osseous abnormalities. Normal alignment. No locked or perched facet. Severe multilevel degenerative disc space narrowing and end plate irregularity. Narrowing of the atlantodens interval. OTHER BONES: No acute abnormality. CERVICAL SOFT TISSUES AND LUNG APICES: Normal soft tissues. Visualized lung apices are clear. IMPRESSION: No acute abnormality of the head or cervical spine. WSN: [id number] Ordering Physician: Isabela Donis Dictated By: Jairo Barrientos MD Dictated Date/Time: 07/30/23 11:52 a Reviewed By: Jairo Barrientos MD Signed By: Jairo Barrientos MD Signed Date/Time: 07/30/23 11:52 am Transcribed By: CATARINO Transcribed Date/Time: 07/30/23 11:44 am * Exam Date Time Procedure Performing Provider Status 07/30/23 11:[address] Cervical Spine W/ O Contrast Maritza Ramirez; Auth (Verified) Notes: (CT Cervical Spine W/O Contrast) Reason For Exam: Neck trauma, dangerous injury mechanism;Other: RESULT: CT Cervical Spine W/O Contrast CT Head/Brain W/O Contrast INDICATION: Hx of Present Illness: unwitnessed fall in bathroom after standing and feeling dizzy, legs went numb and he fell back. He hit back of head on tub; Reason: Trauma; Clinical Question(s): Fracture Basal; Order Comment: TECHNIQUE: Noncontrast head CT using axial technique was reconstructed in axial and coronal planes.Noncontrast spiral CT through the cervical spine was formatted in 3 planes. Automatic tube modulation was used for the cervical spine and iterative dose reconstruction was used for both the head and cervical spine to optimize scan parameters and image quality. CTDIvol Body: 10.90 mGy, DLP Body: 270 mGy*cm. CTDIvol Head: 39.70 mGy, DLP Head: 840 mGy*cm. COMPARISON: None. FINDINGS: Transfer Car Operator View Findings, Lines and Tubes: None. BRAIN AND EXTRA-AXIAL SPACES: No parenchymal hemorrhage, midline shift, or mass effect. Morrow-white matter differentiation is wellpreserved. No acute infarct. Ventricles, sulci, and basilar cisterns are normal. No white matter lesions. No subarachnoid hemorrhage. No subdural or epidural collection. CALVARIUM, SKULL BASE, AND SOFT TISSUES: No fractures or suspicious bony lesions. The paranasal sinuses and mastoid air cells are clear. Visualized orbits and globes are intact. The extracranial soft tissues are unremarkable. CERVICAL SPINE: No fracture. No acute osseous abnormalities. Normal alignment. No locked or perched facet. Severe multilevel degenerative disc space narrowing and end plate irregularity. Narrowing of the atlantodens interval. OTHER BONES: No acute abnormality. CERVICAL SOFT TISSUES AND LUNG APICES: Normal soft tissues. Visualized lung apices are clear. IMPRESSION: No acute abnormality of the head or cervical spine. WSN: [id number] Ordering Physician: Isabela Donis Dictated By: Jairo Barrientos MD Dictated Date/Time: 07/30/23 11:52 a Reviewed By: Jairo Barrientos MD Signed By: Jairo Barrientos MD Signed Date/Time: 07/30/23 11:52 am Transcribed By: CATARINO Transcribed Date/Time: 07/30/23 11:44 am Vital Signs Most recent to oldest [Reference Range]: 1 2 3 Height 183 cm (08/03/23 9:43 AM) 183 cm (08/03/23 7:00 AM) 183 cm (08/03/23 4:20 AM) Weight 75 kg (07/30/23 7:20 PM) 74 kg (07/30/23 3:31 PM) 74 kg (07/30/23 10:40 AM) Oxygen Saturation [94-100 %] 100 % (08/03/23 9:43 AM) 100 % (08/03/23 7:00 AM) 100 % (08/03/23 4:20 AM) Pulse Rate [55-90 bpm] 63 bpm (08/03/23 9:43 AM) 62 bpm (08/03/23 7:36 AM) 62 bpm (08/03/23 7:00 AM) Body Mass Index [18.5-24.99 kg/m2] 22.4 kg/m2 (07/30/23 7:20 PM) 22.1 kg/m2 (07/30/23 3:31 PM) 22.1 kg/m2 (07/30/23 10:38 AM) Blood Pressure [90-138/55-84 mm Hg] 113/58mm Hg (08/03/23 9:43 AM) 156/67mm Hg *H* (08/03/23 7:36 AM) 156/67mm Hg *H* (08/03/23 7:36 AM) Respiratory Rate [16-30 br/min] 16 br/min (08/03/23 9:43 AM) 18 br/min (08/03/23 9:00 AM) 18 br/min (08/03/23 7:00 AM) Temperature [96.8-100.4 DegF] 98.1 DegF (08/03/23 9:43 AM) 97 DegF (08/03/23 7:00 AM) 98 DegF (08/03/23 4:20 AM) Mode of Delivery (Oxygen) Room air (08/03/23 9:43 AM) Room air (08/03/23 7:00 AM) Room air (08/03/23 4:20 AM) Blood pressure sites Arm, left (08/03/23 9:43 AM) Arm, right (08/03/23 7:00 AM) Arm, right (08/03/23 4:20 AM) Temperature Route Oral (08/03/23 9:43 AM) Oral (08/03/23 7:00 AM) Oral (08/03/23 4:20 AM) Dry Weight 75 kg (07/30/23 7:20 PM) 74 kg (07/30/23 3:31 PM) 74 kg (07/30/23 10:40 AM) Weight Obtained Via Bed scale (07/30/23 7:20 PM) Patient/family stated (07/30/23 10:38 AM) Dry Weight Obtained Via Patient/family stated (07/30/23 10:38 AM) Social History Social History Type Response Smoking Status Former smoker, quit more than 30 days ago entered on: 05/13/19 Sex Admission evaluation note * Boyd MARY, Savana Dorantes: PERFORM Event Display: Admission Note Authored Date: [id number] Patient: ??CHIRAG COLON ? Age:??62 Years?Sex:??Male?:??1960?? Chief Complaint/Reason for Consultation Standing in bathroom, got dizzy, legs went numb and fell backwards hitting head on bathroom wall. History of Present Illness This is a 62 year old male with PMH of??hypertension, hyperlipidemia, BPH??presents to the ER??after??fall??at home. ?? Seen and examined, vitals, labs and charts reviewed?? Patient reported he was in usual state of health, he went to the bathroom to urinate, during the urination, he started feeling his lower extremity feeling weak, dizzy and lightheaded, sweating and feeling cold.?? And then he felt backward hitting the back of his head.?? He did not lose any consciousness.?? He denied biting his tongue, urinary or bowel incontinence, and shakiness of his extremities. ?? He did report significant loss of weight and loss of appetite since May, he has been only eating 1 meal per day, he does make sure that he drinks plenty of water.?? He ambulated dependently without any assistive device.?? He lost approximately 15 pounds over the past 3 months.?? He has an appointment with his PCP next month to follow-up on this loss of weight and loss of appetite. ?? He reported??no nausea, vomiting, abdominal pain, palpitation, no chest pain. He did report constipation with his last bowel movement least 3 to 4 days ago.?? He has been havingconstipation and needed help with Metamucil or MiraLAX to have bowel movement.?? He denies any blood or mucus in it.?? He denies any sick contact. He reported colonoscopy was many years ago, was reported normal. He does not have any family history of colon cancer or any other type of cancer. ?? He denied active smoking, alcohol or recreational drug use.?? He quit more than 30 years ago.?? He was never a heavy user of anything. 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 He is not sexually active.?? He gave verbal consent for HIV test. ?? ED course: He received 1 L IV fluid bolus.?? Vitals largely stable, maintaining saturation room air. Labs showed significant leukocytosis with WBC 25.2, anemia with hemoglobin 10.3, electrolytes largely normal, BUN 19, creatinine elevated 1.8; flu/RSV/COVID-negative. UA positive for nitrite, leukocyte, WBC but patient has no UTI symptoms of dysuria, frequency or urgency. CT head negative for acute finding Right forearm and right hand negative for fracture Chest x-ray no acute finding, possibility of right distal clavicle fracture. ?? We will obtain right clavicle x-ray Check HIV, repeat CBC with differentials Add on iron panel, B12, folic acid, procalcitonin Check orthostasis Obtain CT chest abdomen and pelvis without contrast to check ?Malignancy concern PT evaluation Continue IV fluid LR at 125/h ?? Admit for further management ?? Review of Systems Negative??except as above Objective Measurements?? Height: 183 cm (07/30/23) Weight: 74 kg (07/30/23) Dry Weight: 74 kg (07/30/23) Body Mass Index: 22.1 kg/m2 (07/30/23) ? Vital Signs?? Temperature: 98.4 DegF (07/30/23 10:38:00) Temperature Route: Oral (07/30/23 10:38:00) Pulse Rate: 70 bpm (07/30/23 13:06:00) Respiratory Rate:??15 br/min??Low (07/30/23 13:06:00) Systolic Blood Pressure: 129 mm Hg (07/30/23 13:06:00) Diastolic Blood Pressure:??53 mm Hg??Low (07/30/23 13:06:00) Blood pressure sites: Arm, right (07/30/23 13:06:00) Mean Arterial Pressure: 83 mm Hg (07/30/23 10:38:00) Pulse Pressure: 76 mm Hg (07/30/23 13:06:00) Oxygen Saturation: 100 % (07/30/23 13:06:00) Mode of Delivery (Oxygen): Room air (07/30/23 13:06:00) Early Warning Score: 3 (07/30/23 13:41:20) ? Perfusion Assessment Capillary Refill: < 3 seconds (07/30/23 13:06:00) Cardiac Rhythm: Normal sinus rhythm (07/30/23 13:06:00) Cardiovascular Assessment Status: Unchanged from recorder's assessment (07/30/23 11:08:00) Cardiovascular Comment: denies chest pain (07/30/23 10:40:00) Cardiovascular Symptoms: Chest pain, Hypertension (07/30/23 10:37:00) Nail Bed Color, Fingers: [place] (07/30/23 13:06:00) Skin Temperature Lower Extremities: Warm (07/30/23 13:06:00) Skin Temperature Upper Extremities: Warm (07/30/23 13:06:00) ? Pain Scores 1 - 10 Pain Scale Score: 5 (10:40) ? Ventilator Settings?? No qualifying data available. ? Intake/Output? No Data Available ?? Precautions No Precautions documented.? [place] Coma Scale [place] Coma Score: 15 (07/30/23 13:06:00) Motor Response-Adult: Obeys commands (07/30/23 13:06:00) Response Eye Opening: Spontaneously (07/30/23 13:06:00) Verbal Response-Adult: Oriented and converses (07/30/23 13:06:00) ? Basic ADLs Ambulatory devices needed: None (07/30/23) ? Mobility & Ambulation Level Mobility & Ambulation Level Ambulatory devices needed: None (07/30/23) ?? Therapeutic Activity Therapeutic Activities/Mobility/Balance?? No qualifying data available. ? Physical Exam General??: Awake, alert,??in no acute distress. soft spoken HEENT: PERRLA, EOMI, NC/AT??, mild tenderness at nape of neck from fall. no swelling noted, no skin??changes?? Neck: Supple. No JVD. No palpable LAD Respiratory: Bilateral air entry, no added sounds Cardiovascular: S1S2 regular. No murmurs, rubs or gallops. Gastrointestinal: Abdomen soft, non-tender, non-distended. No palpable organomegaly, bowel sounds present Genitourinary: No CVA tenderness Extremities: No lower extremity pitting??edema. No cyanosis or clubbing. Neurologic: AAOx3, Speech normal. No gross facial asymmetry or gross focal neurological deficits. moving all 4 limbs spontaneouslyn 5/5 , all 4 limbs sensation intact Right??third??mid phalanges??swollen from fall, limited ROM??d/t pain?? Skin: No rash. Psychiatric: Appropriate mood and affect Assessment/Plan Assessment:??This is a 62 year old male with PMH of??hypertension, hyperlipidemia, BPH??presents tothe ER??after??fall??at home,??with dizziness, significant loss of weight or loss of appetite. ?? Fall (W19.XXXA):??/ Weakness (R53.1):??/ Dizziness (R42):??/ Loss of weight (R63.4):??/ Loss of appetite (R63.0):?? CT head negative He lost approximately 15 pounds over the past 3 months only symptoms he has is constipation not sexually active ?? Plan We will obtain right clavicle x-ray to r/o ?fracture on CXR Check HIV w/ pt verbal consent repeat CBC with differentials Add on iron panel, B12, folic acid, procalcitonin Add on LFT Check orthostasis Obtain CT chest abdomen and pelvis without contrast to check ?Malignancy concern probably need to r/o GI source given anemia and weight loss PT evaluation Continue IV fluid LR at 125/h ?? Anemia (D64.9):??last colonoscopy years ago per pt , normal per pt constipation reported no bleeding reported ?? Plan add iron profile , B12, FA repeat CBCD monitor H/H ?? Leukocytosis (D72.829):??no clear source of infection cxr neg asymptomatic bacteriuria likely hemoconcentration ?? Plan recheck CBCD check CT C/A/P to check ?Malignancy concern or ?infection add procal ?? KEENA (acute kidney injury) (N17.9):??likely d/t poor oral intake, dehydration sp 1 L IVF ?? Plan cont LR at 125/hr check renal function tomorrow ?? BPH without urinary obstruction (N40.0):??cont Flomax ?? HTN (hypertension) (I10):??cont home med Coreg w/ holding parameters Hold home med verapamil for now check orthostasis ?? HLD (hyperlipidemia) (E78.5):??cont lipitor 80mg daily HS ?? VTE Prophylaxis:??low risk, per VTE guideline, encourage ambulation ?VTE Prophylaxis Assessment:??Risk Level documented as Low Risk ?? Code Status:??full code, confirmed w/ pt ?Order Code Status:??Code Status Ordered ? Disclaimer: ??This note ??was accomplished with use of [employer] voice recognition software, which is prone to medical and other word misidentifications and grammatical errors. ??The physician does strive to identify and correct these, but some could still be present. ??Please do not hesitate to contact the physician for clarifications.? Histories Allergies Allergies ?(Active and Proposed Allergies Only) NKA? (Severity: Unknown severity, Onset: Unknown) ? Past Medical History/Problem List Active Problems??(3) BPH - benign prostatic hyperplasia Hyperlipidemia Hypertension ? Past Surgical History Appendectomy ? Social History Alcohol Details:??Use: Never. Employment/School Details:??Status: Employed. Home/Environment Details:??Living situation: Home/Independent. ??Lives with: Alone. Nutrition/Health Details:??Diet: Regular. Substance Abuse Details:??Use: Never. Tobacco Details:??Use: Former smoker, quit more than 30 days ago. ? Psychosocial History ? Family History No family history recorded. ? [facility] ? Functional Assessments Ambulatory devices needed: None ? Medications Home Medications Atorvastatin (atorvastatin 80 mg oral tablet)?1?tab(s)?80?Milligram?By Mouth?Daily Carvedilol (carvedilol 6.25 mg oral tablet)?6.25?Milligram?1?tablet?By Mouth?2 times a day Tamsulosin (tamsulosin 0.4 mg oral capsule)?0.4?Milligram?1?capsule?By Mouth?Daily Verapamil (verapamil 120 mg oral capsule, extended release)?1?capsule?120?Milligram?By Mouth?Daily ? Inpatient Medications Medications (13) Active SCHEDULED: (4) Atorvastatin 80 mg Tablet (atorvastatin 80 mg oral tablet) ??80 mg, By Mouth, Daily at bedtime Carvedilol 6.25 mg Tablet (carvedilol 6.25 mg oral tablet) ??6.25 mg, By Mouth, 2 times a day NaCl 0.9% Flush 3ml (NaCL 0.9% Flush) ??3 mL, IV Push, Every 8 hours Tamsulosin 0.4 mg Capsule (tamsulosin 0.4 mg oral capsule) ??0.4 mg, By Mouth, Daily at bedtime CONTINUOUS: (1) Lactated Ringers (1000 mL) Cont IV 1,000 mL (Lactated Ringers 1,000 mL) ??1,000 mL, IV Infusion, 125 mL/hr PRN: (8) Acetaminophen 325 mg Tablet (Acetaminophen Tablet) ??650 mg, By Mouth, Every 4 hours Dextromethorphan-Guaifenesin 20 mg-200 mg/10 mL Liqu UD (Robitussin DM Liquid) ??10 mL, By Mouth, Every 4 hours Docusate Sodium 100 mg Capsule (Docusate Sodium Capsule) ??100 mg 1 capsule, By Mouth, 2 times a day Melatonin 3 mg Tablet (Melatonin Tablet) ??3 mg, By Mouth, Daily at bedtime NaCl 0.9% Flush 3ml (NaCL 0.9% Flush) ??3 mL, IV Push, Every 8 hours Polyethylene Glycol 17 Gm Powder (MiraLax Powder) ??17 Gm 1 pack/packet, By Mouth, Daily Senna Tablet ??8.6 mg 1 tablet, By Mouth, 2 times a day Simethicone 80 mg Chewable Tablet (Simethicone Tablet) ??80 mg, Chew, 3 times a day ? Durable Medical Equipment Ambulatory devices needed: None (07/30/23) ? Results Recent Labs BLOOD COUNT & DIFF WBC 25.2 k/mm3 (High)?? 07/30/2023 11:54 RBC 3.74 m/mm3 (Low)?? 07/30/2023 11:54 Hgb 10.3 Gm/dL (Low)?? 07/30/2023 11:54 Hct 32.5 % (Low)?? 07/30/2023 11:54 MCV 86.9 femtoliters ()?? 07/30/2023 11:54 MCH 27.5 pg ()?? 07/30/2023 11:54 MCHC 31.7 g/dL (Low)?? 07/30/2023 11:54 Platelet Count 446 k/mm3 ()?? 07/30/2023 11:54 RDW-SD 42.1 femtoliters ()?? 07/30/2023 11:54 MPV 10.7 femtoliters ()?? 07/30/2023 11:54 Nucleated RBC (Automated) 0.0 #/100 WBC'S ()?? 07/30/2023 11:54 Abs. NRBC 0.0 k/mm3 ()?? 07/30/2023 11:54 ?? CHEM GENERAL Sodium 141 mmol/L ()?? 07/30/2023 11:54 Potassium 5.1 mmol/L ()?? 07/30/2023 11:54 Chloride 101 mmol/L ()?? 07/30/2023 11:54 Bicarbonate Level 29 mmol/L ()?? 07/30/2023 11:54 Anion Gap 11 ()?? 07/30/2023 11:54 Glucose Level 95 mg/dL ()?? 07/30/2023 11:54 Glucose, POC 109 mg/dL (High)?? 07/30/2023 11:13 BUN 19 mg/dL ()?? 07/30/2023 11:54 Creatinine-Blood 1.8 mg/dL (High)?? 07/30/2023 11:54 Estimated GFR Creatinine 42 ML/MIN/1.73 M2 ()?? 07/30/2023 11:54 Calcium 9.5 mg/dL ()?? 07/30/2023 11:54 ?? HEME OTHER Hold Blue Top SPECIMEN DISCARDED AFTER 4 HOURS. ()?? 07/30/2023 11:54 ?? MISC. CHEMISTRY Hold Green Top SPECIMEN DISCARDED AFTER 1 WEEK ()?? 07/30/2023 11:54 Hold [place] Top SPECIMEN DISCARDED AFTER 1 WEEK ()?? 07/30/2023 11:54 ?? UA/URINALYSIS Appear/Color, Urine YELLOW ()?? 07/30/2023 14:05 Clarity TURBID (Abnormal)?? 07/30/2023 14:05 Specific [place], Urine 1.015 ()?? 07/30/2023 14:05 pH, Urine 7.5 ()?? 07/30/2023 14:05 Albumin, Urine 1+ (Abnormal)?? 07/30/2023 14:05 Glucose, Urine NEGATIVE ()?? 07/30/2023 14:05 Ketones, Urine NEGATIVE ()?? 07/30/2023 14:05 Bilirubin, Urine NEGATIVE ()?? 07/30/2023 14:05 Hemoglobin, Urine NEGATIVE ()?? 07/30/2023 14:05 Nitrite, Urine POSITIVE (Abnormal)?? 07/30/2023 14:05 Leukocyte, Urine 2+ (Abnormal)?? 07/30/2023 14:05 Urobilinogen NORMAL mg/dL ()?? 07/30/2023 14:05 WBC's, Urine 58 /HPF (High)?? 07/30/2023 14:05 RBC's, Urine 2 /HPF ()?? 07/30/2023 14:05 Bacteria HEAVY HPF (Abnormal)?? 07/30/2023 14:05 Squamous Epith <1 /HPF ()?? 07/30/2023 14:05 WBC Clumps SLIGHT /HPF ()?? 07/30/2023 14:05 Culture Indication CULTURE INDICATED ()?? 07/30/2023 14:05 ?? URINE OTHER Est Creatinine Clearance 45.11 mL/min ()?? 07/30/2023 12:31 ?? VIROLOGY Influenza A PCR NEGATIVE ()?? 07/30/2023 12:38 Influenza B PCR NEGATIVE ()?? 07/30/2023 12:38 RSV PCR NEGATIVE ()?? 07/30/2023 12:38 COVID-19 PCR Specimen Source NASAL ()?? 07/30/2023 12:38 COVID-19 PCR Result NEGATIVE ()?? 07/30/2023 12:38 ? Abnormal Labs ?? BLOOD COUNT & DIFF ??Abs. NRBC ??0.0 k/mm3 () ??07/30/2023 11:54 ??Hct ??32.5 % (Low) ??07/30/2023 11:54 ??Hgb ??10.3 Gm/dL (Low) ??07/30/2023 11:54 ??MCHC ??31.7 g/dL (Low) ??07/30/2023 11:54 ??Nucleated RBC (Automated) ??0.0 #/100 WBC'S () ??07/30/2023 11:54 ??RBC ??3.74 m/mm3 (Low) ??07/30/2023 11:54 ??RDW-SD ??42.1 femtoliters () ??07/30/2023 11:54 ??WBC ??25.2 k/mm3 (High) ??07/30/2023 11:54 ? CHEM GENERAL ??Creatinine-Blood ??1.8 mg/dL (High) ??07/30/2023 11:54 ??Estimated GFR Creatinine ??42 ML/MIN/1.73 M2 () ??07/30/2023 11:54 ??Glucose, POC ??109 mg/dL (High) ??07/30/2023 11:13 ? HEME OTHER ??Hold Blue Top ??SPECIMEN DISCARDED AFTER 4 HOURS. () ??07/30/2023 11:54 ? MISC. CHEMISTRY ??Hold [place] Top ??SPECIMEN DISCARDED AFTER 1 WEEK () ??07/30/2023 11:54 ??Hold Green Top ??SPECIMEN DISCARDED AFTER 1 WEEK () ??07/30/2023 11:54 ? UA/URINALYSIS ??Albumin, Urine ??1+ (Abnormal) ??07/30/2023 14:05 ??Appear/Color, Urine ??YELLOW () ??07/30/2023 14:05 ??Bacteria ??HEAVY HPF (Abnormal) ??07/30/2023 14:05 ??Bilirubin, Urine ??NEGATIVE () ??07/30/2023 14:05 ??Clarity ??TURBID (Abnormal) ??07/30/2023 14:05 ??Culture Indication ??CULTURE INDICATED () ??07/30/2023 14:05 ??Glucose, Urine ??NEGATIVE () ??07/30/2023 14:05 ??Hemoglobin, Urine ??NEGATIVE () ??07/30/2023 14:05 ??Ketones, Urine ??NEGATIVE () ??07/30/2023 14:05 ??Leukocyte, Urine ??2+ (Abnormal) ??07/30/2023 14:05 ??Nitrite, Urine ??POSITIVE (Abnormal) ??07/30/2023 14:05 ??Urobilinogen ??NORMAL mg/dL () ??07/30/2023 14:05 ??WBC Clumps ??SLIGHT /HPF () ??07/30/2023 14:05 ??WBC's, Urine ??58 /HPF (High) ??07/30/2023 14:05 ? VIROLOGY ??COVID-19 PCR Result ??NEGATIVE () ??07/30/2023 12:38 ??COVID-19 PCR Specimen Source ??NASAL () ??07/30/2023 12:38 ??Influenza A PCR ??NEGATIVE () ??07/30/2023 12:38 ??Influenza B PCR ??NEGATIVE () ??07/30/2023 12:38 ??RSV PCR ??NEGATIVE () ??07/30/2023 12:38 ? Note: Critical results are displayed in red. ? Blood Glucose Trend Glucose Level: 95 mg/dL (07/30/23 11:54:00) Glucose, POC:??109 mg/dL??High (07/30/23 11:13:00) ? CBC, CBC w/Diff?? CBC?? WBC:??25.2 k/mm3??High (11:54) RBC:??3.74 m/mm3??Low (11:54) Hct:??32.5 %??Low (11:54) RDW-SD: 42.1 femtoliters (11:54) Nucleated RBC (Automated): 0 #/100 WBC'S (:54) Abs. NRBC: 0 k/mm3 (11:54) ? BMP, Mg, and Phos Anion Gap: 11 (11:54) Bicarbonate Level: 29 mmol/L (11:54) BUN: 19 mg/dL (11:54) Calcium: 9.5 mg/dL (11:54) Chloride: 101 mmol/L (11:54) Creatinine-Blood:??1.8 mg/dL??High (11:54) Estimated GFR Creatinine: 42 ML/MIN/1.73 M2 (11:54) Glucose Level: 95 mg/dL (11:54) Potassium: 5.1 mmol/L (11:54) Sodium: 141 mmol/L (11:54) ?? Coagulation Profile?? No qualifying data available. ?? LFT?? No qualifying data available. ?? Urinalysis Albumin, Urine: 1+ Abnormal (14:05) Appear/Color, Urine: YELLOW (14:05) Bacteria: HEAVY Abnormal (14:05) Bilirubin, Urine: NEGATIVE (14:05) Clarity: TURBID Abnormal (14:05) Culture Indication: CULTURE INDICATED (14:05) Est Creatinine Clearance: 45.11 mL/min (12:31) Glucose, Urine: NEGATIVE (14:05) Hemoglobin, Urine: NEGATIVE (14:05) Ketones, Urine: NEGATIVE (14:05) Leukocyte, Urine: 2+ Abnormal (14:05) Nitrite, Urine: POSITIVE Abnormal (14:05) pH, Urine: 7.5 (14:05) RBC's, Urine: 2 /HPF (14:05) Specific [place], Urine: 1.015 (14:05) Squamous Epith: <1 (14:05) Urobilinogen: NORMAL (14:05) WBC Clumps: SLIGHT (14:05) WBC's, Urine:??58 /HPF??High (14:05) ?? Microbiology ?? COVID-19, RSV, and Flu A/B, Rapid PCR?? Completed?? Source: Nasal Body Site: Nose Collected Dt/Tm: 07/30/2023 12:26 Last Updated Dt/Tm: 07/30/2023 13:53 ? Blood Gases?? No qualifying data available. ?? Uric/LDH?? No qualifying data available. ?? EKG study * Event Display: ECG 12-Lead Authored Date: Please click on pdf link to open report * Event Display: ECG 12-Lead Authored Date: Ventricular Rate: 64 BPM Atrial Rate: 64 BPM P-R Interval: 172 ms QRS Duration: 112 ms Q-T Interval: 392 ms QTC Calculation(Bazett): 404 ms P [place]: 55 degrees R [place]: 1 degrees T [place]: 75 degrees Normal sinus rhythm Incomplete right bundle branch block Moderate voltage criteria for LVH, may be normal variant ( Sokolow-Millard , Melbeta product ) Nonspecific T wave abnormality Abnormal ECG When compared with ECG of 04-MAY-2023 11:50, No significant change was found Confirmed by LIGIA SOLIZ MD ([id number]) on 08/02/2023 4:28:17 PM [place]: LIGIA SOLIZ MD Cardiology * Event Display: Cardiac Rhythm Strips Authored Date: Hospital Progress note * Amauri Valadez LPN: PERFORM, SIGN, VERIFY Event Display: Progress Note Hospital Authored Date: Patient: CHIRAG COLON Age: 62 years Sex: Male : 1960 Associated Diagnoses: None Author: Amauri Valadez LPN Findings Problem Related to Alteration in Genitourinary : Alteration in Genitourinary Function/new 08/03/2023 7:00 EST Alteration in Status Related to Other: KEENA Goals & Outcomes, Genitourinary Pt will maintain adequate function appropriate for pt, Pt will maintain normal fluid balance Interventions, Assess/monitor/maintain Genitourinary status, Assist & encourage pt with meticulous lj care, Encourage PO fluid intake as allowed by diet BH Goals/Interventions, Genitourinary Yes Genitourinary, Problem Start 08/01/2023 0:18 Reviewed Plan with, Genitourinary Patient Patient Progression, Genitourinary Patient progressing according to plan Genitourinary, Problem Ongoing Yes . Pt is A&Ox4, independent, hypertensive BP medication given. pt complains of anus pain 12/13 since he was straining the day he fell at home. pt denied CP, SOB, dizziness, nausea, MEADE, chills, numbness or tingling of extremities. call gan within reach. will continue monitoring, maintaining comfortand safety. Nursing Data Vital Signs : VITAL SIGNS SECTION 08/03/2023 7:00 EST Temperature 97 DegF Temperature Route Oral Pulse Rate 62 bpm Respiratory Rate 18 br/min Systolic Blood Pressure 156 mm Hg H Diastolic Blood Pressure 67 mm Hg Blood pressure sites Arm, right Mean Arterial Pressure 97 mm Hg Pulse Pressure 89 mm Hg Oxygen Saturation 100 % Mode of Delivery (Oxygen) Room air . Discharge Information Rehabilitation Discharge : Rehab Discharge Index 07/31/2023 10:35 EST Comments on treatment indicated 62 M admitted 2' fall at home c head strike. Recent significant loss of apetite and weight. WBAT. Skilled PT for strength, balance, transfers, amb,ther ex, safety. Anticipate home c services. Distance pt will ambulate >50ft c RW Full chart review completed Yes Other findings see comment Plan of care PT Gait training, Transfer training, Therapeutic exercise, Functional Activities, Balance training, Neuromuscular education * Iglesia RIVERA, Batsheva: MODIFY, PERFORM Event Display: Progress Note Hospital Authored Date: Patient: ??CHIRAG COLON ? Age:??62 Years?Sex:??Male?:??1960?? Attending:??Víctor MARY, Kiran D Admission Date: 07/31/2023 ?? Subjective Patient seen and examined; events noted.?? No complaints to offer this morning. ? Objective Vital Signs (last 24 hrs) ?Last Charted Heart Rate Peripheral?62 bpm ??(AUG 03 07:36) Resp Rate?18 br/min ??(AUG 03:00) SBP?H??156mm Hg ??(AUG 03 07:36) DBP?67 mm Hg ??(AUG 03 07:36) SpO2?100 % ??(AUG 03 07:00) Height?183 cm ??(AUG 03 07:00) No qualifying data available. ?? Intake/Output?? 07/31 14:47 08/03 07:00 08/02 07:00 08/01 07:00 07/31 07:00 ?? 08/03 09:23 08/03 09:23 08/03 06:59 08/02 06:59 08/01 06:59 Intake ? 3412.5 ?0 ?412.5 ?0 ? 1625 Output ? 4125 ?0 ?0 ? 1400 ? 2125 Net Total ? -712.5 ?0 ?412.5 ?-1400 ? -500 ? Physical Exam General: NAD, AAOx4 HEENT: NCAT, MMM Neck: no JVD, neck supple Cardio: normal S1 snd S2, no MRG, RRR Resp: CTAB Abdo:??NT, ND Extremities: No peripheral edema Skin: No rashes or other abnormalities Neuro: Grossly intact ?? BLOOD COUNT & DIFF WBC 10.8 k/mm3 ()?? 08/03/2023 00:31 RBC 3.45 m/mm3 (Low)?? 08/03/2023 00:31 Hgb 9.4 Gm/dL (Low)?? 08/03/2023 00:31 Hct 29.4 % (Low)?? 08/03/2023 00:31 MCV 85.2 femtoliters ()?? 08/03/2023 00:31 MCH 27.2 pg ()?? 08/03/2023 00:31 MCHC 32.0 g/dL (Low)?? 08/03/2023 00:31 Platelet Count 384 k/mm3 ()?? 08/03/2023 00:31 RDW-SD 40.9 femtoliters ()?? 08/03/2023 00:31 MPV 10.1 femtoliters ()?? 08/03/2023 00:31 Nucleated RBC (Automated) 0.0 #/100 WBC'S ()?? 08/03/2023 00:31 Abs. NRBC 0.0 k/mm3 ()?? 08/03/2023 00:31 ?? CHEM GENERAL Sodium 140 mmol/L ()?? 08/03/2023 00:31 Potassium 3.9 mmol/L ()?? 08/03/2023 00:31 Chloride 102 mmol/L ()?? 08/03/2023 00:31 Bicarbonate Level 29 mmol/L ()?? 08/03/2023 00:31 Anion Gap 9 ()?? 08/03/2023 00:31 Glucose Level 100 mg/dL (High)?? 08/03/2023 00:31 BUN 11 mg/dL ()?? 08/03/2023 00:31 Creatinine-Blood 1.2 mg/dL ()?? 08/03/2023 00:31 Estimated GFR Creatinine 70 ML/MIN/1.73 M2 ()?? 08/03/2023 00:31 Calcium 9.1 mg/dL ()?? 08/03/2023 00:31 Phosphorus 4.0 mg/dL ()?? 08/03/2023 00:31 Magnesium 2.0 mg/dL ()?? 08/03/2023 00:31 LDH 134 units/L ()?? 08/03/2023 00:31 Folic Acid Level 15.0 ng/mL ()?? 08/02/2023 01:02 Iron Level 39 mcg/dL (Low)?? 08/02/2023 01:02 Iron Binding Capacity, Unsaturated 115 mcg/dL ()?? 08/02/2023 01:02 Iron Binding Capacity, Estimated Total 154 mcg/dL (Low)?? 08/02/2023 01:02 % Iron Saturation 25 % ()?? 08/02/2023 01:02 ?? ENDOCRINE/TUMOR MARKER TSH 0.98 uIU/mL ()?? 08/02/2023 01:02 ?? IMMUNOLOGY GENERAL Haptoglobin 436 mg/dL (High)?? 08/03/2023 00:31 ?? URINE OTHER Est Creatinine Clearance 68.58 mL/min ()?? 08/02/2023 01:51 ?? No qualifying data available ? Assessment/Plan Kind 62-year-old gentleman with history of longstanding hypertension admitted with a nonmechanical fall in the setting of urinary incontinence who was developed acute kidney injury in the setting of RAAS inhibition. ??At this point his current medical issues include ?? 1. ??Acute kidney injury likely on the basis of hypoperfusion-The patient's renal function continues to approach his previous baseline at this point do not feel there is need for additional intervention given his excellent volume status and his acceptable electrolytes.? We will sign off at this time; please feel free to contact us with any questions. ?? Case discussed with Dr. Enrique. Thank you for allowing us to participate in your patient's care. ?? Batsheva Parekh [facility]- [facility]?? * Kathy Toussaint RN: PERFORM, SIGN, VERIFY Event Display: Progress Note Hospital Authored Date: Patient: CHIRAG COLON Age: 62 years Sex: Male : 1960 Associated Diagnoses: None Author: Kathy Toussaint RN Findings Problem Related to Alteration in Genitourinary : Alteration in Genitourinary Function/new 08/02/2023 18:00 EST Alteration in Status Related to Other: KEENA Goals & Outcomes, Genitourinary Pt will maintain adequate function appropriate for pt, Pt will maintain normal fluid balance Interventions, Assess/monitor/maintain Genitourinary status, Encourage PO fluid intake as allowed by diet BH Goals/Interventions, Genitourinary Yes Genitourinary, Problem Start 08/01/2023 0:18 Reviewed Plan with, Genitourinary Patient Patient Progression, Genitourinary Patient progressing according to plan Genitourinary, Problem Ongoing Yes . Narrative/Incidental Pt A+Ox4. VSS. ambulates independently with steady gait. No complaints over night. Telemetry: NSR. AM labs improved. Anticipating d/c home in AM.. Discharge Information Rehabilitation Discharge : Rehab Discharge Index 07/31/2023 10:35 EST Comments on treatment indicated 62 M admitted 2' fall at home c head strike. Recent significant loss of apetite and weight. WBAT. Skilled PT for strength, balance, transfers, amb,ther ex, safety. Anticipate home c services. Distance pt will ambulate >50ft c RW Full chart review completed Yes Other findings see comment Plan of care PT Gait training, Transfer training, Therapeutic exercise, Functional Activities, Balance training, Neuromuscular education Consult note * Bernadette Witt MD: PERFORM Event Display: Consultation Note Authored Date: [id number] Patient: ??CHIRAG COLON ? Age:??62 Years?Sex:??Male?:??1960?? Chief Complaint Standing in bathroom, got dizzy, legs went numb and fell backwards hitting head on bathroom wall. Reason for Consultation anemia, leukocytosis History of Present Illness This is a 62-year-old male with hypertension, hyperlipidemia, BPH, urinary retention, recent urinary tract infection who presented after a fall. ?? Currently being treated with IV fluids for EKENA, and ceftriaxone for UTI. ?? Hematology consulted for anemia and leukocytosis. ?? Today, the patient has no complaints.?? He denies any bleeding manifestations, denies hematuria,dark stools, bright red blood per rectum.?? Review of Systems All systems reviewed. Pertinent positives are noted in HPI/ interval history.?? Physical Exam Vitals & Measurements T:??97.7?F?? TMIN:??97.7?F?? TMAX:??98.5?F?? HR:??63??(Peripheral)?? RR:??20?? BP:??147/65?? SpO2:??100%?? Gen: No acute distress, non-toxic appearing HEENT: sclera??anicteric, EOMI Neuro: AAOx3,??no gross deficits. Resp: no respiratory distress?? CV: RRR Abd:??BS present, soft, non-distended Skin: no rash or skin lesions Heme: No obvious bruising LAD: no cervical, supraclavicular or axillary lymphadenopathy?? Assessment/Plan This is a 62-year-old male with mild renal impairment,??admitted following a fall. ??Hematology consulted for anemia and leukocytosis. ?? #Normocytic anemia #Neutrophilic leukocytosis #UTI #KEENA #Urinary retention ?? - Upon review of??prior blood work,??he has??anemia since April 2023. ??Since April, he has had hospitalizations for urinary obstruction in the setting of BPH, UTI,??and mild??renal impairment.? - His iron studies are suggestive of anemia of chronic disease,??vitamin B12 normal - MCV is??normal.Corrected reticulocyte count is 0.7, RPI is low at 0.5.?? LDH pending, indirect bilirubin normal, haptoglobin pending. Peripheral smear pending. -Overall,??his anemia is most likely related to multiple??hospitalizations recently related to urinary retention and possibly?related to??recent renal impairment. ??However, we will complete??hemolytic??workup. -His leukocytosis is most likely related to urinary tract infection??given the neutrophil predominance and absence of other??abnormalities on CBC differentials.?? We recommend to monitor the white count??to ensure it normalizes??once UTI is treated. ?? Recommendations: -Follow-up peripheral smear -Please check LDH, haptoglobin -Check folic acid level -Repeat??CBC??once UTI is treated to ensure??white count normalizes ?? Discussed with Dr. Isidro, Problem List/Past Medical History Ongoing BPH - benign prostatic hyperplasia Hyperlipidemia Hypertension Procedure/Surgical History ???Appendectomy Medications Inpatient Acetaminophen Tablet, 650 mg, By Mouth, Every 4 hours, PRN atorvastatin 80 mg oral tablet, 80 mg, By Mouth, Daily at bedtime carvedilol 6.25 mg oral tablet, 6.25 mg, By Mouth, 2 times a day Ceftriaxone Inj, 1 Gm, IVPB, Every 24 hours Docusate Sodium Capsule, 100 mg= 1 capsule, By Mouth, 2 times a day, PRN Dulcolax Supp, 10 mg= 1 supp, Rectally, Daily, PRN Lactated Ringers 1,000 mL, 1000 mL, IV Infusion Melatonin Tablet, 3 mg, By Mouth, Daily at bedtime, PRN MiraLax Powder, 17 Gm= 1 pack/packet, By Mouth, Daily, PRN MiraLax Powder, 17 Gm= 1 pack/packet, By Mouth, Daily NaCL 0.9% Flush, 3 mL, IV Push, Every 8 hours NaCL 0.9% Flush, 3 mL, IV Push, Every 8 hours, PRN Robitussin DM Liquid, 10 mL, By Mouth, Every 4 hours, PRN Senna 8.6 mg oral tablet, 8.6 mg= 1 tablet, By Mouth, 2 times a day Senna Tablet, 8.6 mg= 1 tablet, By Mouth, 2 times a day, PRN Simethicone Tablet, 80 mg, Chew, 3 times a day, PRN tamsulosin 0.4 mg oral capsule, 0.4 mg, By Mouth, Daily at bedtime Home atorvastatin 80 mg oral tablet, 80 mg= 1 tablet, By Mouth, Daily carvedilol 6.25 mg oral tablet, 6.25 mg= 1 tablet, By Mouth, 2 times a day Centrum Men's oral tablet, 1 tablet, By Mouth, Daily tamsulosin 0.4 mg oral capsule, 0.4 mg= 1 capsule, By Mouth, Daily verapamil 120 mg oral capsule, extended release, 120 mg= 1 capsule, By Mouth, Daily Allergies NKA Social History Alcohol Use: Never. Employment/School Status: Employed. Home/Environment Living situation: Home/Independent. Lives with: Alone. Nutrition/Health Diet: Regular. Substance Abuse Use: Never. Tobacco Use: Former smoker, quit more than 30 days ago. Family History Family history is unknown * Sanna MARY, Migue Oliva: PERFORM Event Display: Consultation Note Authored Date: [id number] I have seen and evaluated this patient. ??I have discussed the case and its management with the fellow and agree with the findings and plan as documented in the fellow's note. * Benton Enrique MD: PERFORM Event Display: Consultation Note Authored Date: [id number] Patient: ??CHIRAG COLON ? Age:??62 Years?Sex:??Male?:??1960?? Primary Medical Technologist Generalist:??None Attending:??Lenny MARY, [facility] Admission Date: 07/31/2023 ?? Chief Complaint and Reason for Consultation ?? History of Present Illness 62-year-old gentleman with past medical history significant for hypertension, hyperlipidemia, BPH presented in the setting of a fall and found to have acute kidney injury now improving. ?? As mentioned, Chirag presented in the setting of a fall, reportedly he fell at home and hit his head,falling backwards in the bathroom.?? Reportedly during micturition he felt weak dizzy and lightheaded along with sweating and feeling cold and then subsequently fell backwards and hit his head.?? He reports not losing consciousness or anything of that nature.?? Reportedly he is also had significantweight loss, 15 pounds over the last 3 months.?? He recently had a Mendenhall catheter in place which was removed about 1 week ago in the setting of BPH and urinary retention.?? He does have a urologist, I was unable to figure out who it was.?? He reports ongoing issues with urgency and incontinence if he does not make it quick enough along with significant urinary hesitancy.?? His CT abdomen and pelvis did not show any obvious hydronephrosis but did show mild perinephric fat stranding there was a possible hyperdense lesion at the left lower pole likely a hemorrhagic cyst.?? He denies any use of ibuprofen or other NSAIDs and only takes Tylenol for pain. ?? Past Medical History Active Problems??(3) BPH - benign prostatic hyperplasia Hyperlipidemia Hypertension ? Medications: Home Medications (5) Active atorvastatin 80 mg oral tablet??80 mg = 1 tablet, By Mouth, Daily carvedilol 6.25 mg oral tablet??6.25 mg = 1 tablet, By Mouth, 2 times a day Centrum Men's oral tablet??1 tablet, By Mouth, Daily tamsulosin 0.4 mg oral capsule??0.4 mg = 1 capsule, By Mouth, Daily verapamil 120 mg oral capsule, extended release??120 mg = 1 capsule, By Mouth, Daily ?? FH: reviewed and non-contributory ?? Social: reviewed ? Review of Systems Const: no fever, no chills HEENT: no dizziness, no headaches, no vision changes Resp: no SOB, no wheezing, no cough CV: no chest pain, no palpitations, no edema, no orthopnea, no syncope GI: no abdominal pain, no n/v, no diarrhea, no constipation, no melena, no hematochezia : no dysuria, no hematuria MSK: no myalgias, no DROM, no back pain Neuro: no paresthesias, no focal weakness?? Skin: no rashes Heme: No easy bruising, no bleeding or clotting tendency ?? 04/14 systems were reviewed and were negative for any positive or negative complain, except as mentioned above. ?? Objective Vital Signs (last 24 hrs) ?Last Charted Heart Rate Peripheral?77 bpm ??(JUL 31 21:16) Resp Rate?18 br/min ??(JUL 31 19:10) SBP?H??173mm Hg ??(JUL 31 21:16) DBP?63 mm Hg ??(JUL 31:16) SpO2?96 % ??(JUL 31:07) Height?183 cm ??(JUL 31:07) Output?? Urine Voided: 325 mL (21:00) ? Intake/Output? 07/31 14:47 07/31 07:00 07/30 07:00 07/29 07:00 07/28 07:00 ?? 07/31 22:57 07/31 22:57 01/26 06:59 07/30 06:59 07/29 06:59 Intake ? 1875 ?500 ? 1375 ?0 ?0 Output ? 2024 ? 1425 ?600 ?0 ?0 Net Total ? -150 ? -925 ?775 ?0 ?0 ? Physical Exam General: ??NAD, AAOx4 HEENT: NCAT, MMM Neck: no JVD Cardio: normal S1 snd S2, no MRG, RRR Resp: CTAB Abdo: NT, ND, Extremities: No peripheral edema, Skin: No rashes or other abnormalities Neuro: Grossly intact ?? BLOOD COUNT & DIFF WBC 20.0 k/mm3 (High)?? 07/31/2023 01:21 RBC 3.58 m/mm3 (Low)?? 07/31/2023 01:21 Hgb 9.8 Gm/dL (Low)?? 07/31/2023 01:21 Hct 31.1 % (Low)?? 07/31/2023 01:21 MCV 86.9 femtoliters ()?? 07/31/2023 01:21 MCH 27.4 pg ()?? 07/31/2023 01:21 MCHC 31.5 g/dL (Low)?? 07/31/2023 01:21 Platelet Count 426 k/mm3 ()?? 07/31/2023 01:21 RDW-SD 42.7 femtoliters ()?? 07/31/2023 01:21 MPV 10.6 femtoliters ()?? 07/31/2023 01:21 Nucleated RBC (Automated) 0.0 #/100 WBC'S ()?? 07/31/2023 01:21 Abs. NRBC 0.0 k/mm3 ()?? 07/31/2023 01:21 Abs. Neut 16.2 k/mm3 (High)?? 07/31/2023 01:21 Abs. Lymph 2.2 k/mm3 ()?? 07/31/2023 01:21 Abs. Kenton 1.3 k/mm3 ()?? 07/31/2023 01:21 Abs. Eo 0.1 k/mm3 ()?? 07/31/2023 01:21 Abs. Baso 0.1 k/mm3 ()?? 07/31/2023 01:21 Neut % 80.9 % (High)?? 07/31/2023 01:21 Lymph % 11.1 % (Low)?? 07/31/2023 01:21 [place] % 6.6 % ()?? 07/31/2023 01:21 Eos % 0.5 % ()?? 07/31/2023 01:21 Baso % 0.2 % ()?? 07/31/2023 01:21 Imm Gran 0.7 % ()?? 07/31/2023 01:21 Abs. Imm Gran 0.1 k/mm3 ()?? 07/31/2023 01:21 ?? CHEM GENERAL Sodium 142 mmol/L ()?? 07/31/2023 01:21 Potassium 5.2 mmol/L ()?? 07/31/2023 01:21 Chloride 103 mmol/L ()?? 07/31/2023 01:21 Bicarbonate Level 29 mmol/L ()?? 07/31/2023 01:21 Anion Gap 10 ()?? 07/31/2023 01:21 Glucose Level 93 mg/dL ()?? 07/31/2023 01:21 Glucose, POC 109 mg/dL (High)?? 07/30/2023 11:13 BUN 19 mg/dL ()?? 07/31/2023 01:21 Creatinine-Blood 1.6 mg/dL (High)?? 07/31/2023 01:21 Estimated GFR Creatinine 48 ML/MIN/1.73 M2 ()?? 07/31/2023 01:21 Calcium 9.4 mg/dL ()?? 07/31/2023 01:21 Protein, Total 7.1 Gm/dL ()?? 07/30/2023 11:54 Albumin 3.7 Gm/dL ()?? 07/30/2023 11:54 Alkaline Phosphatase 100 units/L ()?? 07/30/2023 11:54 AST (SGOT) 23 units/L ()?? 07/30/2023 11:54 ALT (SGPT) 31 units/L ()?? 07/30/2023 11:54 Bilirubin, Total 0.7 mg/dL ()?? 07/30/2023 11:54 Bilirubin, Direct 0.2 mg/dL ()?? 07/30/2023 11:54 Bilirubin, Indirect 0.5 mg/dL ()?? 07/30/2023 11:54 Vitamin B12 Level 1206 pg/mL ()?? 07/30/2023 11:54 Folic Acid Level HEMOLYZED ng/mL ()?? 07/30/2023 11:54 Iron Level 19 mcg/dL (Low)?? 07/30/2023 11:54 Iron Binding Capacity, Unsaturated HEMOLYZED mcg/dL ()?? 07/30/2023 11:54 Iron Binding Capacity, Estimated Total Unable to calculate mcg/dL ()?? 07/30/2023 11:54 % Iron Saturation Unable to calculate % ()?? 07/30/2023 11:54 Ferritin Level 652 ng/mL (High)?? 07/30/2023 11:54 ?? HEME OTHER Hold Blue Top SPECIMEN DISCARDED AFTER 4 HOURS. ()?? 07/30/2023 11:54 ?? MISC. CHEMISTRY Hold Green Top SPECIMEN DISCARDED AFTER 1 WEEK ()?? 07/30/2023 11:54 Procalcitonin 0.12 ng/mL ()?? 07/30/2023 11:54 Hold Morrow Top SPECIMEN DISCARDED AFTER 1 WEEK ()?? 07/30/2023 11:54 ?? SEROLOGY INF DISEASE HIV 4th Generation Ab-Ag Result NEGATIVE (N)?? 07/30/2023 17:26 ?? UA/URINALYSIS Appear/Color, Urine YELLOW ()?? 07/30/2023 14:05 Clarity TURBID (Abnormal)?? 07/30/2023 14:05 Specific [place], Urine 1.015 ()?? 07/30/2023 14:05 pH, Urine 7.5 ()?? 07/30/2023 14:05 Albumin, Urine 1+ (Abnormal)?? 07/30/2023 14:05 Glucose, Urine NEGATIVE ()?? 07/30/2023 14:05 Ketones, Urine NEGATIVE ()?? 07/30/2023 14:05 Bilirubin, Urine NEGATIVE ()?? 07/30/2023 14:05 Hemoglobin, Urine NEGATIVE ()?? 07/30/2023 14:05 Nitrite, Urine POSITIVE (Abnormal)?? 07/30/2023 14:05 Leukocyte, Urine 2+ (Abnormal)?? 07/30/2023 14:05 Urobilinogen NORMAL mg/dL ()?? 07/30/2023 14:05 WBC's, Urine 58 /HPF (High)?? 07/30/2023 14:05 RBC's, Urine 2 /HPF ()?? 07/30/2023 14:05 Bacteria HEAVY HPF (Abnormal)?? 07/30/2023 14:05 Squamous Epith <1 /HPF ()?? 07/30/2023 14:05 WBC Clumps SLIGHT /HPF ()?? 07/30/2023 14:05 Culture Indication CULTURE INDICATED ()?? 07/30/2023 14:05 ?? URINE OTHER Creatinine, Urine Random 174.6 mg/dL ()?? 07/30/2023 14:05 Sodium, Urine Random 74 mmol/L ()?? 07/30/2023 14:05 Osmolality, Urine Random 457 mOsm/kg ()?? 07/30/2023 14:05 Est Creatinine Clearance 51.43 mL/min ()?? 07/31/2023 04:04 ?? VIROLOGY Influenza A PCR NEGATIVE ()?? 07/30/2023 12:38 Influenza B PCR NEGATIVE ()?? 07/30/2023 12:38 RSV PCR NEGATIVE ()?? 07/30/2023 12:38 COVID-19 PCR Specimen Source NASAL ()?? 07/30/2023 12:38 COVID-19 PCR Result NEGATIVE ()?? 07/30/2023 12:38 ?? No qualifying data available ? Assessment/Plan 62-year-old gentleman with past medical history significant for hypertension, hyperlipidemia, BPH presented in the setting of a fall and found to have acute kidney injury now improving. ?? Impression: 1.?? Acute kidney injury 2. ??History of BPH 3.?? Significant lower urinary tract symptoms 4.?? Probable UTI 5.?? Hypertension ?? As mentioned, Chirag presents in the setting??of??what appears to sound like micturition syncope??or at least presyncope.?? He has not had any further symptoms but certainly does have issues with??urinary retention in the past. ??He recently had a Mendenhall catheter removed per his reports about 1 week ago??and continues to have ongoing urinary hesitancy??and??urgency with borderline urge incontinence at times.?? He also tells me that he has had some burning with urination, possibly in the setting ofa urinary tract infection that we see based on his urinalysis.?? His renal function has improved a little bit today from 1.8-1.6. ??He is on losartan at home??and so certainly has reason for hypoperfu raquel. ??He has had a 15 pound weight loss and has only been eating 1 meal a day. ??He may very wellbe dry,??would continue on the??LR at 125 mL/h.?? He was also on losartan which may have contributed to further hypoperfusion. ??I would hold that.?? Agree with continuing his carvedilol??for??the antihypertensive effects.?? Will get bladder scans on him every 6 hours,??with postvoid residuals.?? Abelino obviously quite concerned??given his history that he could have some ongoing urinary retention. ??Will need to keep an eye on things??and see where we get to over the next 24 hours from that perspective.?? I think his urinalysis??is explained by a likely urinary tract infection. ??I doubt he has interstitial nephritis.?? He has not been on any recent antibiotics.?? Otherwise, we will followingwith his clinical status closely??and we will see how he progresses over the next 24 to 48 hours but??reassuringly things are improving. ?? Benton Enrique MD?? Delineator Medical Technologist Generalist [facility] ? Note * Amauri Valadez LPN: PERFORM Event Display: Discharge/Transfer Note Hospital Authored Date: [id number] Nursing Discharge Note Entered On: 08/03/2023 10:15 EST Performed On: 08/03/2023 10:14 EST by Amauri Valadez LPN Nursing Discharge Note 2 Discharge Time : 08/03/2023 9:51 EST Discharge Level of Care at Discharge : Home/Nursing Home/Foster Care Patient Left Unit Via : Wheelchair Patient Accompanied Off Unit with : Responsible adult DC Instructions Provided & Signed by Pt : Yes Patient Understands D/C Instructions : Yes Patient Instructions Discharge Signed : Yes Did Pt have Specialty Bed or Wound Vac : No Amauri Valadez LPN - 08/03/2023 10:14 EST * Víctor MARY, Kiran D: PERFORM Event Display: Discharge/Transfer Note Hospital Authored Date: [id number] Patient: ??CHIRAG COLON ? Age:??62 Years?Sex:??Male?:??1960?? Patient Information Discharge Location: B Primary Care Physician: Josh RIVERA , Migue Cerrato Admit Date/Time: 07/31/23 14:47 Discharge Disposition Discharge Disposition: Home: No Services Discharge Diagnosis KEENA (acute kidney injury) (N17.9) BPH without urinary obstruction (N40.0) Leukocytosis (D72.829) E-coli UTI (N39.0) Anemia (D64.9) Constipation (K59.00) Dizziness (R42) Micturition syncope (R55) Fall (W19.XXXA) Hypertension (I10) HLD (hyperlipidemia) (E78.5) HTN (hypertension) (I10) Loss of appetite (R63.0) Loss of weight (R63.4) Weakness (R53.1) ?? _ Discharge Medications Amoxicillin-Clavulanate (Augmentin 875 mg-125 mg oral tablet)?1?tab(s)?By Mouth?Every 12 hours?for 5?Days Atorvastatin (atorvastatin 80 mg oral tablet)?1?tab(s)?80?Milligram?By Mouth?Daily Carvedilol (carvedilol 6.25 mg oral tablet)?6.25?Milligram?1?tablet?By Mouth?2 times a day Ferrous Fumarate (Ferrets 325 mg oral tablet)?1?tab(s)?325?Milligram?By Mouth?Daily?for 60?Days Multivitamin With Minerals (Centrum Men's oral tablet)?1?tab(s)?By Mouth?Daily Polyethylene Glycol 3350 (MiraLax oral powder for reconstitution)?17?gram?By Mouth?Daily?as needed?Constipation?for 30?Days Senna (Senna 8.6 mg oral tablet)?17.2?Milligram?2?tab(s)?By Mouth?Daily at bedtime?for 30?Days Tamsulosin (tamsulosin 0.4 mg oral capsule)?0.4?Milligram?1?capsule?By Mouth?Daily Verapamil (verapamil 120 mg oral capsule, extended release)?1?capsule?120?Milligram?By Mouth?Daily ? Medications Started Augmentin BID for 5 days Miralax and Senna ferrous sulphate Allergies Allergies ?(Active and Proposed Allergies Only) NKA? (Severity: Unknown severity, Onset: Unknown) ? PCP Follow-Up/Heads-Up 1. Patient here with Micturition syncope , can get baseline echo outpatient . Tele showed no abnormality 2. Constipation : Dc in senna and Miralax 3. Anemia : May need Colonoscopy , No evidence of bleeding , Ferritin 25 , added ferrous sulphate ,can increase to BID ot TID if constipation gets better 3. very small Lung nodule found on imaging 5. non obstructive renal calculus found on imaging Hospital Course Chief Complaint: Standing in bathroom, got dizzy, legs went numb and fell backwards hitting head onbathroom wall. ?? 62 year old male with PMH of hypertension, hyperlipidemia, BPH presents to the ER after fall at home, with dizziness, significant loss of weight or loss of appetite??so was admitted for further evaluation and management ? #?BPH without urinary obstruction ??(N40.0) # KEENA (acute kidney injury) (N17.9):?? # ?Leukocytosis ??(D72.829) # ?E-coli UTI ??(N39.0) --??Patient's baseline creatinine appears to be 1.0??by -Patient came in??with a creatinine of 1.2 from 1.8 currently 1.5 -FEna is 0.5 indicating prerenal cause of??acute kidney injury, continue fluids -Nephrology is currently consulted s/p fluids Strict ins and out, bladder scan that showed no retention - ceftriaxone day??2 , Ucx growing e coli. Dc on 5 more days of Augmentin given BPH ?? # Anemia (D64.9):??Normocytic hypochromic -Patient does not have any bleeding/melena/bright red bleeding per rectum??or hematuria -Patient's hemoglobin in 2012 was close to 13 -Currently coming with a hemoglobin of 9, at discharge 9.4 Hematology was consulted??on admission -His ferritin is high??however??patient has low saturation and low iron levels, s/p venofer one time and also will dc on ferrous sulphate -Patient's B12 and folic acid normal?? -LDH and haptoglobin without any evidence of hemolysis -Peripheral smear with outpatient follow up ? # Dizziness (R42): # Micturition syncope ??(R55) -Patient reports passing out after??urination.?? -Patient reported that he was not straining??at the time of urination. - Detailed neuroexam at bedside??was done 08/01/2023??and there was no??focal weakness -EKG and troponin not concerning for ischemia Telemetry shows no abnormal rhythm, shows PVCs occasionally- -TSH normal -Patient does not need an echo at this time. will be done outpatient ? HLD (hyperlipidemia) (E78.5):??-- continue statin ?? HTN (hypertension) (I10):?? -- cont home med Coreg w/ holding parameters -- Hold home med verapamil for now ?? VTE Prophylaxis:??heparin Code Status:??Full ? patient feels bettter without any CP/ SOB . Explained that if patient feels dizzy again then he needs to come to the ER . Needs?? have colonoscopy and also discussed about meds for contipation . patient has an appointment with PCP coming up ? Objective Assessment and Plan ? Vital Signs?? Temperature: 97 DegF (08/03/23 07:00:00) Temperature Route: Oral (08/03/23 07:00:00) Pulse Rate: 62 bpm (08/03/23 07:36:00) Respiratory Rate: 18 br/min (08/03/23 07:00:00) Systolic Blood Pressure:??156 mm Hg??High (08/03/23 07:36:00) Systolic Blood Pressure:??156 mm Hg??High (08/03/23 07:36:00) Diastolic Blood Pressure: 67 mm Hg (08/03/23 07:36:00) Diastolic Blood Pressure: 67 mm Hg (08/03/23 07:36:00) Blood pressure sites: Arm, right (08/03/23 07:00:00) Mean Arterial Pressure: 97 mm Hg (08/03/23 07:00:00) Pulse Pressure: 89 mm Hg (08/03/23 07:00:00) Oxygen Saturation: 100 % (08/03/23 07:00:00) Mode of Delivery (Oxygen): Room air (08/03/23 07:00:00) Early Warning Score: 2 (08/03/23 07:41:44) ? . Physical Exam General: Is appears comfortable in no distress HEENT: ??mucous mucous membranes appear wet, PERRLA Cardiovascular: S1-S2 heard no murmurs appreciated Respiratory: CTA without any wheezing or crackles anteriorly GI: Abdomen nontender to palpation, no distention, no obvious hepatosplenomegaly Neuro: AOx3 plus date of , strength 5??/ 5 all throughout, cranial nerves intact, coordinationintact Psych: Appears calm without any agitation Consultants Nephrology Heme Pending Results Add On Lab Order ordered on 07/30/2023 Add On Lab Order ordered on 07/30/2023 Add On Lab Order ordered on 07/30/2023 Add On Lab Order ordered on 07/30/2023 Add On Lab Order ordered on 08/01/2023 Add On Lab Order ordered on 08/01/2023 Add On Lab Order ordered on 08/02/2023 Basic Metabolic Panel ordered on 08/01/2023 CBC ordered on 08/01/2023 Haptoglobin ordered on 08/02/2023 LDH ordered on 08/02/2023 Magnesium Level ordered on 08/01/2023 Peripheral Blood Smear Review ordered on 08/01/2023 Phosphorus Level ordered on 08/01/2023 Follow-Up Appointments Added Follow Up ?Time Frame ?Comments Urology?1 to 2 weeks?Needs an appointment with [facility] 1-2 weeks?? for BPH . Please call??[phone] Josh RIVERA , Migue Cerrato?1 to 2 weeks Post Discharge Care Diet: ??Regular Diet ?? Activity: ??Ambulate with assistance 3 times a day unless otherwise specified ?? Code Status: ??Full Resuscitation ?? Discharge ?08/03/23 9:02:00 EST Home Health Face to Face ^HomeHealth[facility] Results Discharge Labs BLOOD COUNT & DIFF WBC 10.8 k/mm3 ()?? 08/03/2023 00:31 RBC 3.45 m/mm3 (Low)?? 08/03/2023 00:31 Hgb 9.4 Gm/dL (Low)?? 08/03/2023 00:31 Hct 29.4 % (Low)?? 08/03/2023 00:31 MCV 85.2 femtoliters ()?? 08/03/2023 00:31 MCH 27.2 pg ()?? 08/03/2023 00:31 MCHC 32.0 g/dL (Low)?? 08/03/2023 00:31 Platelet Count 384 k/mm3 ()?? 08/03/2023 00:31 RDW-SD 40.9 femtoliters ()?? 08/03/2023 00:31 MPV 10.1 femtoliters ()?? 08/03/2023 00:31 Nucleated RBC (Automated) 0.0 #/100 WBC'S ()?? 08/03/2023 00:31 Abs. NRBC 0.0 k/mm3 ()?? 08/03/2023 00:31 Abs. Neut 16.6 k/mm3 (High)?? 08/01/2023 00:37 Abs. Lymph 1.8 k/mm3 ()?? 08/01/2023 00:37 Abs. [place] 1.2 k/mm3 ()?? 08/01/2023 00:37 Abs. Eo 0.1 k/mm3 ()?? 08/01/2023 00:37 Abs. Baso 0.1 k/mm3 ()?? 08/01/2023 00:37 Neut % 83.7 % (High)?? 08/01/2023 00:37 Lymph % 8.9 % (Low)?? 08/01/2023 00:37 [place] % 5.9 % ()?? 08/01/2023 00:37 Eos % 0.5 % ()?? 08/01/2023 00:37 Baso % 0.3 % ()?? 08/01/2023 00:37 Retic Count 1.1 % ()?? 08/01/2023 00:37 Retic Count Corrected 0.7 % (Low)?? 08/01/2023 00:37 Retic Production Index 0.5 % (Low)?? 08/01/2023 00:37 Imm Gran 0.7 % ()?? 08/01/2023 00:37 Abs. Imm Gran 0.1 k/mm3 ()?? 08/01/2023 00:37 ? CHEM GENERAL Sodium 140 mmol/L ()?? 08/03/2023 00:31 Potassium 3.9 mmol/L ()?? 08/03/2023 00:31 Chloride 102 mmol/L ()?? 08/03/2023 00:31 Bicarbonate Level 29 mmol/L ()?? 08/03/2023 00:31 Anion Gap 9 ()?? 08/03/2023 00:31 Glucose Level 100 mg/dL (High)?? 08/03/2023 00:31 Glucose, POC 109 mg/dL (High)?? 07/30/2023 11:13 BUN 11 mg/dL ()?? 08/03/2023 00:31 Creatinine-Blood 1.2 mg/dL ()?? 08/03/2023 00:31 Estimated GFR Creatinine 70 ML/MIN/1.73 M2 ()?? 08/03/2023 00:31 Calcium 9.1 mg/dL ()?? 08/03/2023 00:31 Phosphorus 4.0 mg/dL ()?? 08/03/2023 00:31 Magnesium 2.0 mg/dL ()?? 08/03/2023 00:31 Protein, Total 7.1 Gm/dL ()?? 07/30/2023 11:54 Albumin 3.7 Gm/dL ()?? 07/30/2023 11:54 LDH 134 units/L ()?? 08/03/2023 00:31 Alkaline Phosphatase 100 units/L ()?? 07/30/2023 11:54 AST (SGOT) 23 units/L ()?? 07/30/2023 11:54 ALT (SGPT) 31 units/L ()?? 07/30/2023 11:54 Bilirubin, Total 0.7 mg/dL ()?? 07/30/2023 11:54 Bilirubin, Direct 0.2 mg/dL ()?? 07/30/2023 11:54 Bilirubin, Indirect 0.5 mg/dL ()?? 07/30/2023 11:54 Vitamin B12 Level 1206 pg/mL ()?? 07/30/2023 11:54 Folic Acid Level 15.0 ng/mL ()?? 08/02/2023 01:02 Iron Level 39 mcg/dL (Low)?? 08/02/2023 01:02 Iron Binding Capacity, Unsaturated 115 mcg/dL ()?? 08/02/2023 01:02 Iron Binding Capacity, Estimated Total 154 mcg/dL (Low)?? 08/02/2023 01:02 % Iron Saturation 25 % ()?? 08/02/2023 01:02 Ferritin Level 652 ng/mL (High)?? 07/30/2023 11:54 ? ENDOCRINE/TUMOR MARKER TSH 0.98 uIU/mL ()?? 08/02/2023 01:02 ? HEME OTHER Hold Blue Top SPECIMEN DISCARDED AFTER 4 HOURS. ()?? 07/30/2023 11:54 ? IMMUNOLOGY GENERAL Haptoglobin 436 mg/dL (High)?? 08/03/2023 00:31 ? MISC. CHEMISTRY Hold Green Top SPECIMEN DISCARDED AFTER 1 WEEK ()?? 07/30/2023 11:54 Procalcitonin 0.12 ng/mL ()?? 07/30/2023 11:54 Hold Morrow Top SPECIMEN DISCARDED AFTER 1 WEEK ()?? 07/30/2023 11:54 ? SEROLOGY INF DISEASE HIV 4th Generation Ab-Ag Result NEGATIVE (N)?? 07/30/2023 17:26 ? UA/URINALYSIS Appear/Color, Urine YELLOW ()?? 07/30/2023 14:05 Clarity TURBID (Abnormal)?? 07/30/2023 14:05 Specific [place], Urine 1.015 ()?? 07/30/2023 14:05 pH, Urine 7.5 ()?? 07/30/2023 14:05 Albumin, Urine 1+ (Abnormal)?? 07/30/2023 14:05 Glucose, Urine NEGATIVE ()?? 07/30/2023 14:05 Ketones, Urine NEGATIVE ()?? 07/30/2023 14:05 Bilirubin, Urine NEGATIVE ()?? 07/30/2023 14:05 Hemoglobin, Urine NEGATIVE ()?? 07/30/2023 14:05 Nitrite, Urine POSITIVE (Abnormal)?? 07/30/2023 14:05 Leukocyte, Urine 2+ (Abnormal)?? 07/30/2023 14:05 Urobilinogen NORMAL mg/dL ()?? 07/30/2023 14:05 WBC's, Urine 58 /HPF (High)?? 07/30/2023 14:05 RBC's, Urine 2 /HPF ()?? 07/30/2023 14:05 Bacteria HEAVY HPF (Abnormal)?? 07/30/2023 14:05 Squamous Epith <1 /HPF ()?? 07/30/2023 14:05 WBC Clumps SLIGHT /HPF ()?? 07/30/2023 14:05 Culture Indication CULTURE INDICATED ()?? 07/30/2023 14:05 ?? URINE OTHER Creatinine, Urine Random 174.6 mg/dL ()?? 07/30/2023 14:05 Sodium, Urine Random 74 mmol/L ()?? 07/30/2023 14:05 Osmolality, Urine Random 457 mOsm/kg ()?? 07/30/2023 14:05 Est Creatinine Clearance 68.58 mL/min ()?? 08/02/2023 01:51 ?? VIROLOGY Influenza A PCR NEGATIVE ()?? 07/30/2023 12:38 Influenza B PCR NEGATIVE ()?? 07/30/2023 12:38 RSV PCR NEGATIVE ()?? 07/30/2023 12:38 COVID-19 PCR Specimen Source NASAL ()?? 07/30/2023 12:38 COVID-19 PCR Result NEGATIVE ()?? 07/30/2023 12:38 ? Imaging(s) ?CT Head/Brain W/O Contrast ?? 07/30/2023 11:29??by Floyd MARY, Jairo Dugan ?IMPRESSION: ?? No acute abnormality of the head or cervical spine. ?CT Chest W/O Contrast ?? 07/30/2023 15:07??by Jean-Pierre Anton MD ? CHEST: ?? No acute abnormality in the chest. ?? No suspicious pulmonary nodule. Unchanged 2 mm left upper lobe lung nodule compared to 05/04/2023. If low risk for malignancy, no routine follow-up. If high risk, optional CT at 12 months. If unchanged, no further follow-up needed per Guidelines for Management of Incidental Pulmonary Nodules Detected on CT Images: From the Fleischner Society 2017. ? ABDOMEN AND PELVIS: ?? No acute abnormality or suspicious lesion in the abdomen or pelvis.. ?? Nonobstructing 3 mm renal stone in the right upper pole. ?? Moderate stool retention throughout the colon. ?CT Cervical Spine W/O Contrast ?? 07/30/2023 11:29??by Floyd MARY, Jairo Dugan ? IMPRESSION: ?? No acute abnormality of the head or cervical spine. ?Chest 2 Views Frontal and Lat ?? 07/30/2023 13:40??by Myra MARY, Oral V ?IMPRESSION: ?? No definite acute cardiopulmonary disease is seen. ?? Cortical irregularity inferior aspect of the distal right clavicle. Although this could be degenerative in nature, an acute fracture in that area cannot be excluded. ?? Correlation with right clavicular views is advised. ?Forearm 2 Views Right ?? 07/30/2023 11:50??by Calos Albarran MD ? FINDINGS: This examination shows no evidence of fracture or dislocation. Joint spaces are well preserved. No radiopaque foreign body or soft tissue gas is demonstrated. ?Hand Min 3 Views Right ?? 07/30/2023 11:50??by Calos Albarran MD ?IMPRESSION: ?? No evidence of fracture or dislocation. ?Clavicle Complete Right ?? 07/30/2023 14:40??by Calos Albarran MD ?IMPRESSION: ?? No evidence of acute osseous abnormality. ?CT Abdomen and Pelvis W/O Contrast ?? 07/30/2023 15:07??by Jean-Pierre Anton MD ?IMPRESSION: ?? CHEST: ?? No acute abnormality in the chest. ?? No suspicious pulmonary nodule. Unchanged 2 mm left upper lobe lung nodule compared to 05/04/2023. If low risk for malignancy, no routine follow-up. If high risk, optional CT at 12 months. If unchanged, no further follow-up needed per Guidelines for Management of Incidental Pulmonary Nodules Detected on CT Images: From the Fleischner Society 2017. ? ABDOMEN AND PELVIS: ?? No acute abnormality or suspicious lesion in the abdomen or pelvis.. ?? Nonobstructing 3 mm renal stone in the right upper pole. ?? Moderate stool retention throughout the colon. ? Consults(s) ?Consultation Note ?? 08/01/2023 10:32??by Migue Isidro MD ?Consultation Note ?? 07/31/2023 17:00??by Benton Enrique MD ? 35 ??minutes spent on discharge * Joyce Acosta RN: PERFORM Event Display: Patient Education/Instruction Authored Date: [id number] Inpatient Adult Discharge Instructions [place] [id number] Name: CHIRAG COLON : 1960 Visit: 07/31/2023 14:47:00 Current Date: 08/03/2023 09:26 Account: [id number] Inpatient Adult Discharge Instructions We would like to thank you for allowing us to assist you with your healthcare needs. The following includes patient education materials and information regarding your injury/illness. Our entire staffstrives to provide an excellent experience for our patients and their families. PLEASE ENSURE YOU FOLLOW-UP PER THE INSTRUCTIONS BELOW! ?? YOUR OPINION IS IMPORTANT TO US! Please complete the survey you may receive by mail or email. Your feedback will be used to make improvements to the healthcare experiences of our patients and their families. Surveys are administered by [employer] ?? If further treatment with your primary care physician or another doctor is recommended, it is important for you to keep the appointment. Call your primary care physician or return to the Emergency Department immediately if your condition worsens, fails to improve, or new symptoms develop. If you need to find a doctor, you can call [facility] Link for a referral at [phone] or toll free at [phone] or log in to [email or web address].. ?? [facility], in keeping with [facility] guidance, no longer requires face masks for staff, patientsor visitors in most situations. Similiar to time spent indoors at other locations, there is the chance that you were exposed to repiratory viruses during your time with us (such as flu or COVID-19). If you develop symptoms concerning for a viral respiratory infection, please seek testing (and treatment if indicated) from your medical provider or home test kit. ?? You can view and manage your care through the patient portal or by using a health care donna of your choosing. [employer] is a website that allows you to securely view your medical information including your hospital discharge summary, office visit summaries, medications and follow-up visits. You can also request appointments, renew medications, and request access to your medical information using a health care donna of your choosing, or just ask a question. You can enroll at [email or web address] or register during your next office visit. You have been discharged from [facility], Patient Care Unit: D3B. If you have any questions regarding these instructions after you leave, please call us and we will be happy to assist you. [facility] Your Care Team Attending Physician Víctor MARY, Kiran Johnson Consulting Providers Stephanie MARY, Migue Kaiser MD Discharging Providers Víctor MARY, Kiran Johnson Reason for Admission Standing in bathroom, got dizzy, legs went numb and fell backwards hitting head on bathroom wall. Your Diagnosis Fall HLD (hyperlipidemia) BPH without urinary obstruction Weakness Dizziness Loss of weight Loss of appetite Leukocytosis KEENA (acute kidney injury) Anemia HTN (hypertension) Constipation E-coli UTI Anemia Micturition syncope Hypertension Tests Performed Below is a partial list of the tests performed during your hospitalization. You may have had other tests and procedures not included in this list. Please discuss all test results with your provider. Basic Metabolic Panel BUN Calcium Level CBC CBC w/ Differential COVID-19, RSV, and Flu A/B, Rapid PCR Creatinine Electrolytes FERRITIN FOLIC ACID Folic Acid Level Glucose Level GLUCOSE POC Haptoglobin HEPATIC FUNCTION PANEL HIV Ab-Ag 4th Generation HOLD BLUE TUBE HOLD MORROW TUBE HOLD GREEN TUBE Iron + Iron Binding Capacity LDH Magnesium Level PERIPHERAL BLOOD SMEAR REVIEW?-- Results Pending -- Phosphorus Level PROCALCITONIN, SERUM RETICULOCYTE COUNT TSH Urinalysis Complete/Reflex Culture Urine Creatinine Urine Osmolality Urine Sodium VITAMIN B12 Chest CT W/O Contrast CT Abdomen and Pelvis W/O Contrast CT Cervical Spine W/O Contrast CT Head/Brain W/O Contrast XR Chest 2 Views Frontal and Lat XR Clavicle Complete Right XR Forearm 2 Views Right XR Hand Min 3 Views Right You will be contacted within 72 hours with your results. Primary Care Provider Migue Moreno NP Advance Directive Health Care Proxy on File No Patient refuses to discuss Discharge Vitals Temperature: 97 DegF Height: 183 cm Pulse Rate: 62 bpm Weight: 75 kg Respiratory Rate: 18 br/min Body Mass Index: 22.4 kg/m2 Systolic Blood Pressure:??156 mm Hg??High Body surface area: 1.95 Systolic Blood Pressure:??156 mm Hg??High ?? Diastolic Blood Pressure: 67 mm Hg ?? Diastolic Blood Pressure: 67 mm Hg ?? Oxygen Saturation: 100 % ?? Studies Pending All tests and labs ordered during this hospital stay have been completed unless listed below. Please discuss all pending results with your provider listed above in these instructions. ?? Add On Lab Order Basic Metabolic Panel CBC Haptoglobin LDH Magnesium Level Peripheral Blood Smear Review Phosphorus Level What to do next Instructions From Your Doctor Discharge Orders Diet:??Regular Diet Activity:??Ambulate with assistance 3 times a day unless otherwise specified Code Status:?? Full Resuscitation You Need to Schedule the Following Appointments Follow Up with??Urology When:??Within 1 to 2 weeks Why: Needs an appointment with [facility] Urology in 1-2 weeks?? for BPH . Please call??[phone] Follow Up with??Migue Moreno NP When:??Within 1 to 2 weeks Where: [address] [place] [phone] Discharge Medications CHIRAG COLON :1960 Visit Date:07/31/2023 Medications: Please continue your medications until treatment is completed or stopped by your provider. Medications not listed below should be discontinued. Discuss any questions related to medications with your provider. What How Much When Why Instructions Next Dose New Amoxicillin-Clavulanate (Augmentin 875 mg-125 mg oral tablet) 1 tab(s) Oral Every 12 hours E-coli UTI BPH without urinary obstruction Leukocytosis Duration: 5 Days Pickup at [place] [address] 08/03 8pm New Ferrous Fumarate (Ferrets 325 mg oral tablet) 1 tab(s) Oral Daily Anemia Duration: 60 Days Pickup at [place] [address] 08/04 am New Polyethylene Glycol 3350 (MiraLax oral powder for reconstitution) 17 gram Oral Daily as needed for Constipation Constipation Duration: 30 Days Pickup at [place] [address] as prescribed New Senna (Senna 8.6 mg oral tablet) 2 tab(s) Oral Daily at Bedtime Constipation Duration: 30 Days Pickup at [place] [address] as prescribed Unchanged Atorvastatin (atorvastatin 80 mg oral tablet) 1 tab(s) Oral Daily 08/04 am Unchanged Carvedilol (carvedilol 6.25 mg oral tablet) 1 tab(s) Oral Twice a day 08/03 pm Unchanged Multivitamin With Minerals (Centrum Men's oral tablet) 1 tab(s) Oral Daily 08/04 am Unchanged Tamsulosin (tamsulosin 0.4 mg oral capsule) 1 capsule Oral Daily 08/04 am Unchanged Verapamil (verapamil 120 mg oral capsule, extended release) 1 capsule Oral Daily 08/04 am Pharmacy Information [facility] 3: [address], [place] [id number] [phone] Test Results Below is a partial list of the most recent Laboratory test results done prior to this discharge. You may have had other tests and procedures not included in this list. Please discuss all test resultswith your provider. Est Creatinine Clearance - 68.58 mL/min (08/02/2023) Basic Metabolic Panel (08/03/2023) ???Sodium - 140 mmol/L???Potassium - 3.9 mmol/L???Chloride - 102 mmol/L???Bicarbonate Level - 29 mmol/L???Anion Gap - 9???Glucose Level - 100 mg/dL???BUN - 11 mg/dL???Creatinine-Blood - 1.2 mg/dL???Estimated GFR Creatinine - 70 ML/MIN/1.73 M2???Calcium - 9.1 mg/dL BUN (08/01/2023) ???BUN - 15 mg/dL Calcium Level (08/01/2023) ???Calcium - 9.0 mg/dL CBC (08/03/2023) ???WBC - 10.8 k/mm3???RBC - 3.45 m/mm3???Hgb - 9.4 Gm/dL???Hct - 29.4 %???MCV - 85.2 femtoliters???MCH - 27.2 pg???MCHC - 32.0 g/dL???Platelet Count - 384 k/mm3???RDW-SD - 40.9 femtoliters???MPV - 10.1 femtoliters???Nucleated RBC (Automated) - 0.0 #/100 WBC'S???Abs. NRBC - 0.0 k/mm3 CBC w/ Differential (08/01/2023) ???WBC - 19.8 k/mm3???RBC - 3.34 m/mm3???Hgb - 9.1 Gm/dL???Hct - 28.5 %???MCV - 85.3 femtoliters???MCH - 27.2 pg???MCHC - 31.9 g/dL???Platelet Count - 392 k/mm3???RDW-SD - 42.4 femtoliters???MPV - 10.5 femtoliters???Nucleated RBC (Automated) - 0.0 #/100 WBC'S???Abs. NRBC - 0.0 k/mm3???Abs. Neut - 16.6 k/mm3???Abs. Lymph - 1.8 k/mm3???Abs. [place] - 1.2 k/mm3???Abs. Eo - 0.1 k/mm3???Abs. Baso - 0.1 k/mm3???Neut % - 83.7 %???Lymph % - 8.9 %???[place] % - 5.9 %???Eos % - 0.5 %???Baso % - 0.3 %???Imm Gran - 0.7 %???Abs. Imm Gran - 0.1 k/mm3 COVID-19, RSV, and Flu A/B, Rapid PCR (07/30/2023) ???Influenza A PCR - NEGATIVE???Influenza B PCR - NEGATIVE???RSV PCR - NEGATIVE???COVID-19 PCR Specimen Source - NASAL???COVID-19 PCR Result - NEGATIVE Creatinine (08/01/2023) ???Creatinine-Blood - 1.5 mg/dL???Estimated GFR Creatinine - 55 ML/MIN/1.73 M2 Electrolytes (08/01/2023) ???Sodium - 141 mmol/L???Potassium - 4.3 mmol/L???Chloride - 104 mmol/L???Bicarbonate Level - 28 mmol/L???Anion Gap - 9 FERRITIN (07/30/2023) ???Ferritin Level - 652 ng/mL FOLIC ACID (07/30/2023) ???Folic Acid Level - HEMOLYZED Folic Acid Level (08/02/2023) ???Folic Acid Level - 15.0 ng/mL Glucose Level (08/01/2023) ???Glucose Level - 95 mg/dL GLUCOSE POC (07/30/2023) ???Glucose, POC - 109 mg/dL Haptoglobin (08/03/2023) ???Haptoglobin - 436 mg/dL HEPATIC FUNCTION PANEL (07/30/2023) ???Protein, Total - 7.1 Gm/dL???Albumin - 3.7 Gm/dL???Alkaline Phosphatase - 100 units/L???AST (SGOT) - 23 units/L???ALT (SGPT) - 31 units/L???Bilirubin, Total - 0.7 mg/dL???Bilirubin, Direct - 0.2 mg/dL???Bilirubin, Indirect - 0.5 mg/dL HIV Ab-Ag 4th Generation (07/30/2023) ???HIV 4th Generation Ab-Ag Result - NEGATIVE HOLD BLUE TUBE (07/30/2023) ???Hold Blue Top - SPECIMEN DISCARDED AFTER 4 HOURS. HOLD MORROW TUBE (07/30/2023) ???Hold Morrow Top - SPECIMEN DISCARDED AFTER 1 WEEK HOLD GREEN TUBE (07/30/2023) ???Hold Green Top - SPECIMEN DISCARDED AFTER 1 WEEK Iron + Iron Binding Capacity (08/02/2023) ???Iron Level - 39 mcg/dL???Iron Binding Capacity, Unsaturated - 115 mcg/dL???Iron Binding Capacity, Estimated Total - 154 mcg/dL???% Iron Saturation - 25 % LDH (08/03/2023) ???LDH - 134 units/L Magnesium Level (08/03/2023) ???Magnesium - 2.0 mg/dL Phosphorus Level (08/03/2023) ???Phosphorus - 4.0 mg/dL PROCALCITONIN, SERUM (07/30/2023) ???Procalcitonin - 0.12 ng/mL RETICULOCYTE COUNT (08/01/2023) ???Retic Count - 1.1 %???Retic Count Corrected - 0.7 %???Retic Production Index - 0.5 % TSH (08/02/2023) ???TSH - 0.98 uIU/mL Urinalysis Complete/Reflex Culture (07/30/2023) ???Appear/Color, Urine - YELLOW???Clarity - TURBID???Specific [place], Urine - 1.015???pH, Urine - 7.5???Albumin, Urine - 1+???Glucose, Urine - NEGATIVE???Ketones, Urine - NEGATIVE???Bilirubin, Urine- NEGATIVE???Hemoglobin, Urine - NEGATIVE???Nitrite, Urine - POSITIVE???Leukocyte, Urine - 2+???Urob ilinogen - NORMAL???WBC's, Urine - 58 /HPF???RBC's, Urine - 2 /HPF???Bacteria - HEAVY???Squamous Epith - <1 /HPF? ?WBC Clumps - SLIGHT? ?Culture Indication - CULTURE INDICATED Urine Creatinine (07/30/2023) ???Creatinine, Urine Random - 174.6 mg/dL Urine Osmolality (07/30/2023) ???Osmolality, Urine Random - 457 mOsm/kg Urine Sodium (07/30/2023) ???Sodium, Urine Random - 74 mmol/L VITAMIN B12 (07/30/2023) ???Vitamin B12 Level - 1206 pg/mL Allergies (NKA means No Known Allergies) NKA Problems Active Problems??(3) BPH - benign prostatic hyperplasia?? Hyperlipidemia?? Hypertension?? Education Materials Below is the list of Educational Leaflet Providered with your Discharge Instructions. Valuables and Belongings I fully understand and agree that [facility] accepts no responsibility for all my personal property including clothing, toilet articles, radios, jewelry, dentures, hearing aids, rings, money, or any other property that is in my possession or is brought to me after admission. I understand certain valuables may be placed in a hospital safe for a short period of time. I understand that the hospital is not liable for loss or damage due to accident, fire, or other natural occurrence while said property is in the safe. I accept full responsibility for any personal property that I keep with me, and will not hold the hospital responsible in case of loss or disappearance. I acknowledge that i have been encouraged to send valuables and belongings home. ?? No Valuables/Belongings: No valuables/belongings present Review of Valuable and Belonging List: With patient Date for Pt to Sign Valuables/Belongings: 07/30/23 15:29:00 ?? Other Discharge Information ? Pulmonary Rehab Status?? Pulmonary Rehab Discharge Status?? Respiratory Rate: 18 br/min ? Common Emergency Awareness Tips IS IT A STROKE? Act FAST and Check for these signs: FACE Does the face look uneven? ARM Does one arm drift down? SPEECH Does their speech sound strange? TIME Call at any sign of stroke ?? Heart Attack Signs Chest discomfort: Most heart attacks involve discomfort in the center of the chest and lasts more than a few minutes, or goes away and comes back. It can feel like uncomfortable pressure, squeezing, fullness or pain. Discomfort in upper body: Symptoms can include pain or discomfort in one or both arms, back, neck, jaw or stomach. Shortness of breath: With or without discomfort. Other signs: Breaking out in a cold sweat, nausea, or lightheaded. Remember, MINUTES DO MATTER. If you experience any of these heart attack warning signs, call 9-1-1 to get immediate medical attention! ?? Smoking can increase your chances of developing chronic health problems and can cause harmful effects to other family members in your house. If you smoke, you are strongly encouraged to quit. Please call [facility] [employer] Link at [phone] or [phone] ([phone]) or log in to [email or web address] for referrals to smoking cessation programs. ?? 876 Suicide & Crisis Lifeline is available 26/01 if you or someone you know needs to find a reason to keep living. By calling 383 you'll be connected to a skilled, trained counselor at a crisis center in your area. INPATIENT DISCHARGE INSTRUCTIONS SIGNATURE EDISON CHIRAG COLON Location:[facility] Registration Date and Time:07/31/2023 14:47 EST Primary Care Physician: Josh RIVERA , Migue Cerrato, Attending Physician: Víctor MARY, Kirna Johnson, I CHIRAG COLON, have received the above patient education materials/instructions and have verbalizedunderstanding. If ambulance or transport services are being used I further acknowledge being given a choice of service. ?? If you need to contact me, please call me at this number: . Patient/Belting Inspector Name: Patient/Belting Inspector Signature: Relationship to Patient: Witness Name/Signature: Date: * Joyce Acosta RN: PERFORM Event Display: Patient Education Leaflets Authored Date: [id number] Constipation (Adult) ?? [id number] Constipation (Adult) Constipation means that you have bowel movements that are less frequent than usual. Stools often become very hard and difficult to pass. Constipation is very common. At some point in life, it affects almost everyone. Since everyone's bowel habits are different, what is constipation to one person may not be to another. Your healthcare provider may do tests to diagnose constipation. It depends on what??they??find when evaluating you. Symptoms of constipation include: ??? Abdominal pain ??? Bloating ??? Vomiting ??? Painful bowel movements ??? Itching, swelling, bleeding, or pain around the anus Causes Constipation can have many causes. These include: ??? Diet low in fiber ??? Too much dairy ??? Not drinking enough liquids ??? Lack of exercise or physical activity (especially true for older adults)??? Changes in lifestyle or daily routine, including , aging, work, and travel ??? Frequent use or misuse of laxatives ??? Ignoring the urge to have a bowel movement or delaying it until later ??? Medicines, such as certain prescription pain medicines, iron supplements, antacids, certain antidepressants, and calcium supplements ??? Diseases like irritable bowel syndrome, bowel obstructions, stroke, diabetes, thyroid disease, Parkinson disease, hemorrhoids, and colon cancer ?? Complications Possible complications of constipation can include: ??? Hemorrhoids ??? Rectal bleeding from hemorrhoids or anal fissures??(skin tears) ??? Hernias ??? Chronic constipation ??? Fecal impaction, a severe form of constipation in which a large amount of hard stool is in your rectum that you can't pass??? Bowel obstruction or perforation ?? Home care All treatment should be done after talking with your healthcare provider. This is especially true if you have another medical problem, are taking prescription medicines, or are an older adult. Treatment most often involves lifestyle changes. You may also need medicines. Your healthcare provider will tell you which will work best for you. Follow the advice below to help avoid this problem in the future. ?? Lifestyle changes These lifestyle changes can help prevent constipation: ??? Diet. Eat a high- fiber diet, with fresh fruit and vegetables, and reduce dairy intake, meats, and processed foods ??? Fluids. It's importantto get enough fluids each day. Drink plenty of water when you eat more fiber. If you are on diet that limits the amount of fluid you can have, talk about this with your healthcare provider. ??? Regular exercise. Check with your healthcare provider first. ?? Medicines Take any medicines as directed. Some laxatives are safe to use only every now and then. Others can be taken on a regular basis. While laxatives don't cause bowel dependence, they are treating the symptoms. So your constipation may return if you don't make other changes. Talk with your healthcare provider or pharmacist if you have questions. Prescription pain medicines can cause constipation. If you are taking this kind of medicine, ask your healthcare provider if you should also take a stool softener. Medicines you may take to treat constipation include: ??? Fiber supplements ??? Stool softeners ???Laxatives ??? Enemas ??? Rectal suppositories ?? Follow-up care Follow up with your healthcare provider if symptoms don't get better in the next few days. You may need to have more tests or see a specialist. ?? Call 911 Call 911 if any of these occur: ??? Trouble breathing ??? Stiff, rigid abdomen that is severely painful to touch ??? Large amount of blood in the stool ??? Confusion ??? Fainting or loss of consciousness ??? Rapid heart rate ??? Chest pain ?? When to seek medical advice Call your healthcare provider right away if any of these occur: ??? Fever of 100.4??F (38??C) or higher, or as directed by your healthcare provider ??? Failure to resume normal bowel movements ??? Pain in your abdomen or back gets worse ??? Nausea or vomiting ??? Swelling in your abdomen ??? Small amount of blood in the stool ??? Black, tarry stool ??? Involuntary weight loss ??? Weakness ?? Last Reviewed Date: 2021 ?? [employer] All rights reserved. This information is not intended as a substitute for professional medical care. Always follow your healthcare professional's instructions. ?? * Joyce Acosta RN: PERFORM Event Display: Patient Education Leaflets Authored Date: [id number] Anemia ?? 20963 Anemia Anemia is a condition that occurs when your body doesn't have enough healthy red blood cells (RBCs). RBCs are the parts of your blood that carry oxygen all over your body. A protein called hemoglobinallows your RBCs to absorb and release oxygen. Without enough RBCs or hemoglobin, your body doesn'tget enough oxygen. Symptoms of anemia may then occur. What are the symptoms of anemia? Some people with anemia have no symptoms. But most people have symptoms that range from mild to severe. These can include: ??? Extreme tiredness (fatigue) ??? Weakness ??? Pale skin ??? Shortness of breath ??? Feeling dizzy or fainting ??? Rapid or irregular heartbeat ??? Trouble doing normal amounts of activity ??? Yellowing of your eyes, skin, or mouth and dark urine (jaundice) ??? Headache ???Cold hands or feet ??? Chest pain ??? Pounding or whooshing sound in your ears ?? What causes anemia? Anemia can occur when your body: ??? Loses too much blood ??? Doesn't make enough RBCs ??? Destroys your RBCs at a faster rate than it can replace them ??? Doesn't make a normal amount of hemoglobin in your RBCs These problems can occur for many reasons, including: ??? A condition that you're born with (congenital or inherited), such as sickle cell disease or thalassemia ??? Heavy bleeding for any reason, including injury, surgery, childbirth, or even heavy menstrual periods ??? Being low in certain nutrients, such as iron, folate, or vitamin B-12 ??? Certainlong-term (chronic) conditions such as diabetes, arthritis, or kidney disease ??? Certain chronic in fections such as tuberculosis or HIV ??? Exposure to certain medicines, such as those used for chemotherapy There are different types of anemia. Your healthcare provider can tell you more about the type of anemia you have and what may have caused it. ?? How is anemia diagnosed? To diagnose anemia, your healthcare provider orders blood tests. These can include: ??? Complete blood cell count (CBC). This test measures the amounts of the different types of blood cells. ??? Blood smear. This test checks the size and shape of your blood cells. To do the test, a drop of your blood is looked at under a microscope. A stain is used to make the blood cells easier to see. ??? Iron studies. These tests measure the amount of iron in your blood. Your body needs iron to make hemoglobin in your RBCs. ??? Vitamin B-12 and folate studies. These tests check for some of the components that help give RBCs a normal size and shape. ??? Reticulocyte count. This test measures the amount ofnew RBCs that your bone marrow makes. ??? Hemoglobin electrophoresis. This test checks for problemswith your hemoglobin in RBCs. ??? Lactate dehydrogenase (LDH) and haptoglobin levels. These tests check the amount of substances in your blood called LDH and haptoglobin. Both LDH and haptoglobin levels can be abnormal with a type of anemia that destroys red blood cells (hemolytic anemia). ??? Bone marrow biopsy. This test evaluates the bone marrow where RBCs are made. ?? How is anemia treated? Treatment for anemia is based on the type of anemia, its cause, and the severity of your symptoms. Treatments may include: ??? Diet changes. This includes increasing the amount of certain nutrients in your diet, such as iron, vitamin B-12, or folate. Your healthcare provider may also prescribe nutrient supplements. ??? Medicines. Certain medicines treat the cause of your anemia. Others help buildnew RBCs or ease symptoms. If a medicine is the cause of your anemia, you may need to stop or change it. ??? Blood transfusions. Replacing some of your blood can increase the number of healthy RBCs in your body. ??? Surgery. In some cases, your healthcare provider may do surgery to treat the underlying cause of anemia. If you need surgery, your healthcare provider will explain the procedure and outline the risks and benefits for you. ?? What are the long-term concerns? If you have a certain type of anemia, you can expect a full recovery after treatment. If you have other types of anemia (especially a type you're born with), you'll need to manage it for life. Your healthcare provider can tell you more. ?? Last Reviewed Date: 2021 ?? 9424-9400 [employer] All rights reserved. This information is not intended as a substitute for professional medical care. Always follow your healthcare professional's instructions. ?? Patient Care team information Care Team Personnel Name: Adelia Stark RN Position: S RN Member Role: Primary Care Nurse Name: Migue Moreno NP Position: Reference Physician Member Role: PCP Address: Address: [address] [place] [address] Name: Batsheva Parekh NP Position: [facility] Associate Professional Member Role: [employer] Provider Address: Address: [address] [place], [place] [address] [address] Name: Benton Enrique MD Position: [facility] Renal MD Member Role: [employer] Physician Address: Address: [address] [place], [place] [address] [facility] [address] Name: Joleen Arreola RN Position: S RN Member Role: Primary Care Nurse Name: Ragini Camacho LPN Position: S RN Member Role: Primary Care Nurse Care Team Related Persons Name: LEXI PARKS Address: [place] [address]
== END 2023-12-25 12:39 | disposition home or self-care (01) ==
PROVIDERS: PCP Nurse Practitioner Family; Visit Provider Orthopaedic Surgery
PROC: (CPT 29870; principal; 2023-12-25 10:30)
DX: S83.241A Other tear of medial meniscus, current injury, right knee, initial encounter (principal); M17.11 Unilateral primary osteoarthritis, right knee; X50.1XXA Overexertion from prolonged static or awkward postures, initial encounter; Y93.02 Activity, running; Y92.9 Unspecified place or not applicable; Y99.8 Other external cause status; I12.9 Hypertensive chronic kidney disease with stage 1 through stage 4 chronic kidney disease, or unspecified chronic kidney disease; N18.9 Chronic kidney disease, unspecified; E55.9 Vitamin D deficiency, unspecified; Z79.899 Other long term (current) drug therapy; Z87.891 Personal history of nicotine dependence; Z98.890 Other specified postprocedural states
CPT/HCPCS: 29881; 93005; J0131; J0171; J0690; J0696; J1100; J1885; J2250; J2405; J2704; J2795; J3010

== ENCOUNTER → 2023-12-25 08:30 | Outpatient (BNV) | payer OTHER, SELFPAY | PROVIDERS: PCP Nurse Practitioner Family; Visit Provider Orthopaedic Surgery | DX: S83.241A Other tear of medial meniscus, current injury, right knee, initial encounter (principal) | CPT/HCPCS: 29881 ==

== ENCOUNTER 2024-01-06 09:06 | Outpatient (AMB) | payer OTHER, SELFPAY ==
--- NOTE | 2024-01-06 09:09 | MHC.OFFVIS ---
Intake Visit Reasons: PO RT knee 12/25/23 Intake Note: Chirag is a 63 year old male who presents to the office today for a PO RT knee 12/25/23. Pt states he is doing well and states he does still have some discomfort. He denies any fevers or chills. He has no longer taking narcotics for his discomfort. Allergies No Known Allergies Allergy (Verified 01/06/24 09:09) Medication List - Last Reconciled 01/06/24 by Robin Nava MD atorvastatin 80 mg PO BEDTIME carvedilol 6.25 mg PO BID ferrous fumarate (Ferretts) 325 mg PO DAILY finasteride 5 mg PO DAILY 90 days lisinopril 2.5 mg PO DAILY 90 days NS multivitamin 1 tab PO DAILY oxycodone 5 mg PO Q6H PRN 1 week peg 3350-electrolytes 236-22.74-6.74 -5.86 gram (Golytely) 240 mL PO Q10M polyethylene glycol 3350 (Miralax) 17 grams PO DAILY PRN sennosides (Natural Senna Laxative) 17.2 mg (2 x 8.6 mg) PO BEDTIME PRN 30 days sennosides (senna) 8.6 mg PO BID 90 days tamsulosin 0.4 mg PO DAILY@1700 verapamil ER 180 mg PO DAILY PFSH Medical History Hx of chest pain BPH (benign prostatic hyperplasia) Murmur LVH (left ventricular hypertrophy) Hypertensive emergency CKD (chronic kidney disease) Dysphagia Vitamin D deficiency Multinodular thyroid Surgical History Hx of nasal septoplasty History of esophagogastroduodenoscopy (EGD) Hx of endoscopy Hx of eye surgery Hx of colonoscopy History of arthroscopic surgery of shoulder Hx of removal of cyst Hx of appendectomy Family History Father Lung cancer Mother Cancer Social History Household Members: Friend(s) Housing: House Are you a primary health and social care teacher to a significant other at home: Yes (cares for 2 adults that need some assistance with ADLs) Do you presently have visiting nurse or other home services: No (will have help post op) Patient Tobacco Use Status: Former Tobacco user Tobacco use type: Cigarette Years Smoked: 15 Second Hand Smoke Exposure: No Current occupational status: employed Current occupation: [employer] Current occupational exposures/hazards: No Cognitive needs: No Hearing needs: No Vision needs: No Physical Exam Extrem Other: Right knee examination shows that the surgical incisions are well healed, no erythema, minimal discomfort with range of motion Assessment & Plan Assessment & Plan (1) Right knee pain: Code(s): M25.561 - Pain in right knee Category: Medical Plan Mr. Portillo is doing well after undergoing right knee arthroscopic surgery on 12/25/2023. His sutures were removed and Steri-Strips placed over his incisions. He will gradually progress to activities as tolerated. He will contact me prior to his follow-up appointment in 2 months should any questions or concerns arise. Feel free to call me at any time should questions regarding his orthopedic management arise. Coding Level of Care Code Global (23449) Diagnoses Right knee pain M25.561
== END 2024-01-06 09:43 | disposition home or self-care (01) ==
PROVIDERS: PCP Nurse Practitioner Family; Visit Provider Orthopaedic Surgery
DX: M25.561 Pain in right knee (principal)
CPT/HCPCS: 99024

== ENCOUNTER → 2024-01-06 09:06 | Outpatient (BNVA) | payer OTHER, SELFPAY | PROVIDERS: PCP Nurse Practitioner Family; Visit Provider Orthopaedic Surgery | DX: Z47.89 Encounter for other orthopedic aftercare (principal) | CPT/HCPCS: 99212 ==

== ENCOUNTER 2024-01-26 10:50 | Outpatient (AMB) | payer OTHER, SELFPAY ==
--- NOTE | 2024-01-26 10:58 | A.OFFPC_ITS ---
Vital Signs 01/26/24 11:00 Weight 172 lb 9 oz BP 150/80 H Blood Pressure Location Rt brachial Position Sitting Pulse 72 Pulse Source Pulse Oximeter Pulse Oximetry (%) 98 Oxygen Delivery Method Room Air Intake Visit Reasons: Annual PE- NEEDS PHQ9/THRIVE Intake Note: Patient here for physical exam. Colon: appt in March Allergies No Known Allergies Allergy (Verified 01/26/24 11:09) Medication List - Last Reconciled 01/26/24 by SERGE Dowell atorvastatin 80 mg PO BEDTIME carvedilol 6.25 mg PO BID ferrous fumarate (Ferretts) 325 mg PO DAILY finasteride 5 mg PO DAILY 90 days lisinopril 2.5 mg PO DAILY 90 days NS multivitamin 1 tab PO DAILY peg 3350-electrolytes 236-22.74-6.74 -5.86 gram (Golytely) 240 mL PO Q10M polyethylene glycol 3350 (Miralax) 17 grams PO DAILY PRN sennosides (Natural Senna Laxative) 17.2 mg (2 x 8.6 mg) PO BEDTIME PRN 30 days sennosides (senna) 8.6 mg PO BID 90 days tamsulosin 0.4 mg PO DAILY@1700 verapamil ER 180 mg PO DAILY Tobacco use date assessed: 08/11/23 Dental Screening Dental Screen Date: 08/11/23 HPI Annual PE- NEEDS PHQ9/THRIVE HPI Details Pt is here for a PE. Will order labs. Colon screen is scheduled. PSA is up to date. Pt follows up with cardiology, urology, nephrology, and ortho. Pt's blood pressure is elevated today. He reports that it is in the 130s/60s at home. Pt has a hx of multinodular thyroid. Will repeat thyroid US. [facility] Medical History Hx of chest pain BPH (benign prostatic hyperplasia) Murmur LVH (left ventricular hypertrophy) Hypertensive emergency CKD (chronic kidney disease) Dysphagia Vitamin D deficiency Multinodular thyroid Surgical History Hx of nasal septoplasty History of esophagogastroduodenoscopy (EGD) Hx of endoscopy Hx of eye surgery Hx of colonoscopy History of arthroscopic surgery of shoulder Hx of removal of cyst Hx of appendectomy Family History Father Lung cancer Mother Cancer Social History Household Members: Friend(s) Housing: House Are you a primary wound care technician to a significant other at home: Yes (cares for 2 adults that need some assistance with ADLs) Do you presently have visiting nurse or other home services: No (will have help post op) Patient Tobacco Use Status: Former Tobacco user Tobacco use type: Cigarette Years Smoked: 15 Second Hand Smoke Exposure: No Current occupational status: employed 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 1. Little interest or pleasure in doing things: not at all 2. Feeling down, depressed, or hopeless: not at all 3. Trouble falling or staying asleep, or sleeping too much: not at all 4. Feeling tired or having little energy: not at all 5. Poor appetite or overeating: not at all 6. Feeling bad about yourself - or that you are a failure or have let yourself or your family down: not at all 7. Trouble concentrating on things, such as reading the newspaper or watching television: not at all 8. Moving or speaking so slowly that other people could have noticed. Or the opposite - being so fidgety or restless that you have been moving around a lot more than usual: not at all 9. Thoughts that you would be better off or of hurting yourself in some way: not at all Total score: 0 Depression Screening Interpretation: Negative Depression Screening Done: Yes 05659 - PHQ-9 Billing: Yes Source: Developed by Drs. Sulaiman Hdz, Bessy Hayes, Miguel Camacho and colleagues, with an educational micheline from [employer]. Thrive Questionnaire Date Thrive assessed: 01/19/24 I am a: Patient What is your living situation today?: I have a steady place to live Within the past 12 months, did the food you bought not last and you didn't have the money to get more?: Never true Within the past 12 months, did you worry whether your food would run out before you got money to buy more?: Never true Do you have trouble paying for medicines?: No Do you have trouble getting transportation to medical appointments?: No Do you have trouble paying your heating and electricity bill?: No Do you have trouble with day-to-day activities such as bathing, preparing meals, shopping, managing finances, etc.?: No Are you interested in more education?: No Please select the resources that you would like help with: Housing/Correction Currently or been in a relationship where the following occur: No concerns reported THRIVE Score: 0 AUDIT C Alcohol Use Questionnaire (AUDIT-C) 1. How often do you have a drink containing alcohol?: Never 2. How many drinks containing alcohol do you have on a typical day when you are drinking?: 10 or more 3. How often do you have six or more drinks on one occasion?: Never Total Score: 4 GAVIN-7 AMB Questionnaire GAVIN-7 Date GAVIN - 7 assessed: 01/26/24 Feeling nervous, anxious, or on edge: 0 = Not at all Worrying too much about different things: 0 = Not at all Trouble relaxin = Nearly every day Being so restless that it is hard to sit still: 1 = Several days Becoming easily annoyed or irritable: 0 = Not at all Feeling afraid as if something awful might happen: 0 = Not at all Source: Developed by Drs. Sulaiman Hdz, Bessy Hayes, Miguel Camacho and colleagues, with an educational micheline from [employer]. GAVIN-7 Assessment Billing GAVIN-7 Assessment Tool: GAVIN-7 Assessment 73173 Review of Systems Const Denies chills and Denies fever(s) Eyes Denies blurry vision ENT Denies vertigo, Denies dizziness and Denies sore throat Card Denies chest pain at rest, Denies chest pain with activity, Denies diaphoresis, Denies dyspnea and Denies dyspnea on exertion Resp Denies cough, Denies dyspnea, Denies dyspnea on exertion and Denies wheezing GI Denies abdominal pain, Denies melena, Denies hematochezia, Denies constipation, Denies diarrhea and Denies loose stools Denies hematuria Musc Denies numbness and Denies tingling Skin/Breast Denies lesions Neuro Denies vertigo, Denies dizziness, Denies numbness and Denies tingling Psych Denies anxiety, Denies depression, Denies homicidal ideation, Denies suicidal ideation and Denies other (substance abuse) Aller/Immun Denies wheezing Physical exam (Primary Care) Vital Signs: Last Vital Signs Pulse 72 01/26/24 11:00 BP 150/80 H 01/26/24 11:00 Pulse Ox 98 01/26/24 11:00 Oxygen Delivery Method Room Air 01/26/24 11:00 Tobacco/Smoking Status: Tobacco use Status Tobacco use date assessed 08/11/23 01/26/24 11:03 Patient Tobacco Use Status Former Tobacco user 01/26/24 11:03 Tobacco use type Cigarette 01/26/24 11:03 PHQ-9: PHQ-9 Score PHQ-9: Total score 0 01/26/24 11:03 Depression Screening Interpretation: Negative Thrive Assessment: Date of Thrive Assessment Date Thrive assessed 01/19/24 01/26/24 11:03 Currently or been in a relationship where the following occur: No concerns reported Const General: cooperative Nutritional Appearance: well nourished Orientation/consciousness: patient oriented x3 HENMT Head: Yes normal to inspection, Yes normocephalic and Yes atraumatic Ears: TM's normal bilaterally Eyes General: appearance normal, both eyes and all related structures Alignment and Position: alignment normal and position normal Neck Neck: Yes normal visual inspection and Yes no lymphadenopathy Thyroid: Thyroid normal Resp Effort & Inspection: normal respiratory effort Auscultation: clear to auscultation bilaterally Cardio Rate: regular rate Rhythm: regular rhythm Heart sounds: S1 normal heart sound present, S2 normal heart sound present and no murmurs GI Palpation (GI): Soft to palpation and nontender Auscultation: normal bowel sounds Male General Exam: Yes normal external exam Penis: normal penis Scrotum: scrotum normal, testes descended bilaterally and no inguinal hernias Testes: no testicular mass Skin Rashes: no rashes Neuro General: patient oriented x3, moves all extremities, no focal motor deficits and deep tendon reflexes 2+ bilaterally Romberg Test: Negative Psych Appearance: grossly normal Mental Status: mental status grossly normal Speech and movement: Normal speech and movement present Affect: normal affect Attitude: cooperative Thought process: Normal thought process present Thought content: Normal thought content present Insight: Good insight present (Psych) Judgement: Good judgement present (Psych) Assessment and Plan Assessment & Plan (1) Encounter for routine adult physical exam with abnormal findings: Code(s): Z00.01 - Encounter for general adult medical examination with abnormal findings (2) HTN (hypertension): Code(s): I10 - Essential (primary) hypertension Qualifiers: Hypertension type: primary hypertension Qualified Code(s): I10 - Essential (primary) hypertension Plan: stable at home, pt will cont to monitor (3) Multinodular thyroid: Code(s): E04.2 - Nontoxic multinodular goiter Plan: US Plan The patient agreed to the use of a medical field representative for this encounter. Scribed for SERGE Natarajan by Heidi Arellano medical field representative, on 01/26/2024 at 11:15 EST. Orders: Orders Complete Blood Count Auto Diff Today Z00.01 - Encounter for general adult medical examination with abnormal findings UA CC w/rflx Micro + Cult Today Z00.01 - Encounter for general adult medical examination with abnormal findings US thyroid Today E04.2 - Nontoxic multinodular goiter Comprehensive [place]. Panel Fast Today Z00.01 - Encounter for general adult medical examination with abnormal findings TSH reflex Free T4 Today Z00.01 - Encounter for general adult medical examination with abnormal findings Lipid Panel Today Z00.01 - Encounter for general adult medical examination with abnormal findings Coding Level of Care Code Est Pt Level 3 (63165) Est Pt Prev Care 40-64y(87851) Diagnoses Encounter for routine adult physical exam with abnormal findings Z00.01 Primary hypertension I10 Hypertension type: primary hypertension Multinodular thyroid E04.2 Additional Codes GAVIN-7 Assessment Billing - GAVIN-7 Assessment Tool: GAVIN-7 Assessment 70007 ([id number])
[2024-01-26 11:00] VITALS: BP 150/80; PULSE 72; O2SAT 98
== END 2024-01-26 11:27 | disposition home or self-care (01) ==
PROVIDERS: PCP Nurse Practitioner Family; Visit Provider Nurse Practitioner Family
DX: Z00.00 Encounter for general adult medical examination without abnormal findings (principal); I10 Essential (primary) hypertension; E04.2 Nontoxic multinodular goiter
CPT/HCPCS: 99396

== ENCOUNTER 2024-02-10 10:22 | Outpatient (AMB) | payer OTHER, SELFPAY ==
--- NOTE | 2024-02-10 10:35 | HO.NEPHOV ---
Vital Signs 02/10/24 10:36 Height 6 ft Weight 173 lb 4 oz BMI 23.5 BP 174/80 H Blood Pressure Location Lt brachial Position Sitting Pulse 57 Pulse Source Pulse Oximeter Pulse Oximetry (%) 99 Oxygen Delivery Method Room Air Intake Visit Reasons: 3 mo fu w/ labs today and in 3 mo/ Conf Magnetic Observer Required: No Accompanied by: Self / Same As Patient Allergies No Known Allergies Allergy (Verified 02/10/24 10:38) HPI Comments Details: I would the privilege of seeing Chirag in follow-up of his chronic kidney disease. He had urinary retention needing catheterization. He has H/O syncope(likely micturition syncope) as well as UTI. At that time he had KEENA with a serum creatinine going up to 1.8. His losartan was discontinued at that time. He has followed up with urologist and his [place] catheter has been discontinued. He is on finasteride. Prior to hospital discharge his serum creatinine had settled to baseline. He denies any chest pain, shortness of breath, paroxysmal nocturnal dyspnea, orthopnea, pedal edema, dizziness, urinary symptoms, hematuria, fever. He has not taking any suja-uzi-jyjbtqg medications. He tries to maintain good hydration [facility] Medical History Hx of chest pain BPH (benign prostatic hyperplasia) Murmur LVH (left ventricular hypertrophy) Hypertensive emergency CKD (chronic kidney disease) Dysphagia Vitamin D deficiency Multinodular thyroid Surgical History Hx of nasal septoplasty History of esophagogastroduodenoscopy (EGD) Hx of endoscopy Hx of eye surgery Hx of colonoscopy History of arthroscopic surgery of shoulder Hx of removal of cyst Hx of appendectomy Family History Father Lung cancer Mother Cancer Social History Household Members: Friend(s) Housing: House Are you a primary wound care technician to a significant other at home: Yes (cares for 2 adults that need some assistance with ADLs) Do you presently have visiting nurse or other home services: No (will have help post op) Patient Tobacco Use Status: Former Tobacco user Tobacco use type: Cigarette Years Smoked: 15 Second Hand Smoke Exposure: No Current occupational status: employed 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 Current occupational exposures/hazards: No Cognitive needs: No Hearing needs: No Vision needs: No Physical Exam Vital Signs: Last Vital Signs Pulse 57 02/10/24 10:36 BP 174/80 H 02/10/24 10:36 Pulse Ox 99 02/10/24 10:36 Oxygen Delivery Method Room Air 02/10/24 10:36 BMI result Body Mass Index 23.5 Const General: comfortable and no acute distress Orientation/consciousness: patient oriented x3 HEENT Head: Yes normocephalic Mouth: Normal oral and palatal mucosa present Eyes EOM: EOMs intact bilaterally Neck Neck: Yes supple Resp Auscultation: clear to auscultation bilaterally Cardio Jugular venous distension: no JVD Rate: regular rate GI Palpation (GI): Soft to palpation Auscultation: normal bowel sounds General: Yes no CVA tenderness Back/Spine/Pelvis Back: no CVA tenderness Skin General skin exam: no rashes or lesions noted Neuro General: patient oriented x3 and moves all extremities Extrem General: Yes no pedal edema Results Reviewed Nephrology Results: Sodium 142 mmol/L (135-145) 12/21/23 Potassium 3.9 mmol/L (3.3-5.1) 12/21/23 Chloride 107 mmol/L (96-108) 12/21/23 Carbon Dioxide 27 mmol/L (22-29) 12/21/23 BUN 13 mg/dL (9-16) 12/21/23 Creatinine 1.00 mg/dL (0.5-1.4) 12/21/23 Calcium 9.5 mg/dL (8.4-10.2) 12/21/23 Assessment & Plan Assessment & Plan (1) CKD (chronic kidney disease) stage 3, GFR 30-59 ml/min: Code(s): N18.30 - Chronic kidney disease, stage 3 unspecified Category: Medical Qualifiers: Chronic kidney disease stage 3 subtype: stage 3a (GFR 45-59) Qualified Code(s): N18.31 - Chronic kidney disease, stage 3a (2) HTN (hypertension): Code(s): I10 - Essential (primary) hypertension Category: Medical Qualifiers: Hypertension type: primary hypertension Qualified Code(s): I10 - Essential (primary) hypertension Plan Chirag has underlying stage III CKD at baseline from longstanding hypertension. He recently had KEENA . His serum creatinine has settled to baseline with supportive care. His BP is not at goal. I increased his lisinopril to 5 mg daily. He was encouraged to maintain good hydration and minimize sodium in the diet. I did not make any other medication changes today . All questions answered. Follow-up appointment given. Orders: Orders Blood Urea Nitrogen Today N18.31 - Chronic kidney disease, stage 3a Electrolytes Today N18.31 - Chronic kidney disease, stage 3a Creatinine Today N18.31 - Chronic kidney disease, stage 3a Medications: Changed From lisinopril 2.5 mg PO DAILY 90 days 90 tabs 0RF NS To lisinopril 5 mg PO DAILY 90 days 90 tabs 1RF Coding Level of Care Code Est Pt Level 4 (64309) Diagnoses Stage 3a chronic kidney disease N18.31 Chronic kidney disease stage 3 subtype: stage 3a (GFR 45-59) Primary hypertension I10 Hypertension type: primary hypertension
[2024-02-10 10:36] VITALS: BP 174/80; PULSE 57; O2SAT 99; BMI 23.5
== END 2024-02-10 10:51 | disposition home or self-care (01) ==
PROVIDERS: PCP Nurse Practitioner Family; Visit Provider Internal Medicine Nephrology
DX: N18.31 Chronic kidney disease, stage 3a (principal); I10 Essential (primary) hypertension
CPT/HCPCS: 99214

== ENCOUNTER → 2024-02-10 10:22 | Outpatient (BNVA) | payer OTHER, SELFPAY | PROVIDERS: PCP Nurse Practitioner Family; Visit Provider Internal Medicine Nephrology | DX: I12.9 Hypertensive chronic kidney disease with stage 1 through stage 4 chronic kidney disease, or unspecified chronic kidney disease (principal); N18.31 Chronic kidney disease, stage 3a | CPT/HCPCS: 99212 ==

== ENCOUNTER 2024-02-26 11:20 | Outpatient (REF) | payer OTHER, SELFPAY ==
--- NOTE | ~2024-02-26 | US_ITS ---
EXAMINATION: US THYROID CLINICAL INFORMATION: Nontoxic multinodular goiter. COMPARISON: Ultrasound thyroid 12/18/2021 and 04/17/2020. TECHNIQUE: Linear transducer grayscale and color Doppler examination with attention to the region of the thyroid. FINDINGS: SIZE: Measurements of the thyroid lobes and nodules are given in sagittal, anteroposterior and transverse dimensions respectively. Right Thyroid Lobe: 6.2 x 2.2 x 2.8 cm, volume 20.3 mL. Previously 7.3 x 2.5 x 3.2 cm, volume 30.6 mL. Parenchyma: The gland echotexture is heterogeneous. Thyroid vascularity is increased. Left Thyroid Lobe: 7.0 x 2.6 x 3.0 cm, volume 27.8 mL. Previously 8.0 x 2.2 x 2.8 cm, volume 25.8 mL. Parenchyma: The gland echotexture is heterogeneous. Thyroid vascularity is increased. Isthmus: 0.80 cm in maximum AP dimension. Previously 0.70 cm. Estimated total number of nodules greater than or equal to 1 cm: 3. School Physical Therapist nodules are described as follows: 1. Location: Right lower pole. Size: 0.75 x 0.40 x 0.50 cm, volume 0.08 mL. Previously: 0.90 x 0.60 x 0.90 cm, volume 0.25 mL. Nodule characteristics: Composition: Spongiform (0). ACR TI-RADS total points: 0 Previous: 2 ACR TI-RADS category: 1 Previous: 2 Significant change in size (>/= 20% in 2 dimensions and minimal increase of 2 mm or 50% or greater increase in volume): No. Change in features: No. Change in ACR TI-RADS risk category: No. 2. Location: Right lower pole. Size: 1.6 x 1.0 x 1.3 cm, volume 1.1 mL. Previously: 1.4 x 1.2 x 1.3 cm, volume 1.1 mL. Nodule characteristics: Composition: Cystic(0). ACR TI-RADS total points: 0 Previous: 2 ACR TI-RADS category: 1 Previous: 2 Significant change in size (>/= 20% in 2 dimensions and minimal increase of 2 mm or 50% or greater increase in volume): No. Change in features: Yes. Change in ACR TI-RADS risk category: Yes, decreased from 2 to 1. 3. Location: Left mid pole/lower pole. Size: 4.2 x 3.4 x 2.1 cm, volume 15.9 mL. Previously: 4.4 x 1.9 x 4.0 cm, volume 17.6 mL. Nodule characteristics: Composition: Solid/almost completely solid (2). Echogenicity: Hypoechoic (2). Shape: Taller than wide (3). Margins: Smooth (0). Echogenic Foci: Punctate echogenic foci (3). ACR TI-RADS total points: 10 Previous: 4 ACR TI-RADS category: 5 Previous: 4 Significant change in size (>/= 20% in 2 dimensions and minimal increase of 2 mm or 50% or greater increase in volume): No. Change in features: Yes. Change in ACR TI-RADS risk category: Yes, increased from 4 to 5. 4. Location: Left lower pole. Size: 1.2 x 0.81 x 0.63 cm, volume 0.33 mL. Previously: Not seen on prior study. Nodule characteristics: Composition: Solid/almost completely solid (2). Echogenicity: Hypoechoic (2). Shape: Taller than wide (3). Margins: Smooth (0). Echogenic Foci: None (0). ACR TI-RADS total points: 7 Previous: N/A. ACR TI-RADS category: 5 Previous: N/A. 5. Location: Isthmus. Size: 0.50 x 0.40 x 0.46 cm, volume 0.05 mL. Previously: Not seen on prior study. Nodule characteristics: ACR TI-RADS total points: 0 Previous: N/A. ACR TI-RADS category: 1 Previous: N/A. NODES: No lymphadenopathy is seen in the tissue surrounding the thyroid gland. US/US thyroid IMPRESSION: Multinodular enlarged goiter with multiple cysts as well as larger nodules, as described above. Exact comparison to priors are difficult. At least 2 of the nodules meet criteria for biopsy including nodule #3 and nodule #4 described above. Biopsies have been performed in the past. Please correlate with pathologic report. ACR TI-RADS RECOMMENDATION REFERENCE: Ultrasound-guided fine-needle aspiration, follow up ultrasound, no further followup. * TR1 (0 point) and TR2 (2 points): No FNA or followup * TR3 (3 points): FNA if more than or equal to 2.5 cm in maximum dimension, follow up ultrasound in 1, 3 and 5 years if 1.5 to 2.4 cm in maximum dimension. * TR4 (4-6 points): FNA if more than or equal to 1.5 cm in maximum dimension, follow up ultrasound in 1, 2, 3 and 5 years if 1 to 1.4 cm in maximum dimension. * TR5 (more than or equal to 7 points): FNA if more than or equal to 1 cm in maximum dimension, follow up ultrasound every year for 5 years if 0.5 to 0.9 cm in maximum dimension. * TR3, TR4 or TR5 nodules that are below the size threshold for follow up receive no followup. Electronically signed by: Calos Acuña MD 03/15/2024 12:13 PM EDT
== END 2024-02-26 11:21 | disposition home or self-care (01) ==
LOC: HO.HMGCX 11:20
PROVIDERS: PCP Nurse Practitioner Family; Visit Provider Nurse Practitioner Family
DX: E04.2 Nontoxic multinodular goiter (principal)
CPT/HCPCS: 76536

== ENCOUNTER 2024-03-09 09:33 | Outpatient (AMB) | payer OTHER, SELFPAY ==
[2024-03-09 09:46] VITALS: BMI 23.5
--- NOTE | 2024-03-09 09:46 | MHC.OFFVIS ---
Vital Signs 03/09/24 09:46 Height 6 ft Weight 173 lb BMI 23.5 Intake Visit Reasons: PO RT knee 12/25/23 Intake Note: Mr. Portillo presents with mild intermittent discomfort in his right knee after undergoing right knee arthroscopic surgery on 12/25/2023. He denies any fevers or chills. Denies any locking or giving way. He does not take any medicines for his discomfort. Allergies No Known Allergies Allergy (Verified 03/09/24 09:48) Medication List - Last Reconciled 03/09/24 by Robin Nava MD atorvastatin 80 mg PO DAILY carvedilol 6.25 mg PO BID ferrous fumarate (Ferretts) 325 mg PO DAILY finasteride 5 mg PO DAILY 90 days lisinopril 5 mg PO DAILY 90 days multivitamin 1 tab PO DAILY peg 3350-electrolytes 236-22.74-6.74 -5.86 gram (Golytely) 240 mL PO Q10M polyethylene glycol 3350 (Miralax) 17 grams PO DAILY PRN sennosides (Natural Senna Laxative) 17.2 mg (2 x 8.6 mg) PO BEDTIME PRN 30 days sennosides (senna) 8.6 mg PO BID tamsulosin 0.4 mg PO DAILY@1700 verapamil ER 180 mg PO DAILY PFSH Medical History Hx of chest pain BPH (benign prostatic hyperplasia) Murmur LVH (left ventricular hypertrophy) Hypertensive emergency CKD (chronic kidney disease) Dysphagia Vitamin D deficiency Multinodular thyroid Surgical History Hx of nasal septoplasty History of esophagogastroduodenoscopy (EGD) Hx of endoscopy Hx of eye surgery Hx of colonoscopy History of arthroscopic surgery of shoulder Hx of removal of cyst Hx of appendectomy Family History Father Lung cancer Mother Cancer Social History Household Members: Friend(s) Housing: House Are you a primary manager long term care to a significant other at home: Yes (cares for 2 adults that need some assistance with ADLs) Do you presently have visiting nurse or other home services: No (will have help post op) Patient Tobacco Use Status: Former Tobacco user Tobacco use type: Cigarette Years Smoked: 15 Second Hand Smoke Exposure: No Current occupational status: employed 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 Portillo continues to do well after undergoing right knee arthroscopic surgery on 12/25/2023. Will continue to progress to activities as tolerated. Will follow up with me on an as-needed basis should any questions or concerns arise. Feel free to call me at any time should questions regarding his orthopedic management arise. Coding Level of Care Code Global (54534) Diagnoses Right knee pain M25.561
== END 2024-03-09 10:04 | disposition home or self-care (01) ==
PROVIDERS: PCP Nurse Practitioner Family; Visit Provider Orthopaedic Surgery
DX: M25.561 Pain in right knee (principal)
CPT/HCPCS: 99024

== ENCOUNTER → 2024-03-09 09:33 | Outpatient (BNVA) | payer OTHER, SELFPAY | PROVIDERS: PCP Nurse Practitioner Family; Visit Provider Orthopaedic Surgery | DX: M25.561 Pain in right knee (principal) | CPT/HCPCS: 99212 ==

== ENCOUNTER 2024-03-23 10:36 | Outpatient (AMB) | payer OTHER, SELFPAY ==
--- NOTE | 2024-03-23 10:44 | MHC.OFFVIS ---
Intake Visit Reasons: 2m/US/PSA Intake Note: Patient presents today for follow up on: BPH, Retention, ultrasound and lab results Imaging Completed: 09/2023 PSA: 5.91 Urology Medication: Tamsulosin and Finasteride Antibiotic Allergies: None Blood Thinners: None PVR: 23ml's Service Station Operator Required: No Accompanied by: Self / Same As Patient Allergies No Known Allergies Allergy (Verified 03/23/24 11:27) Medication List - Last Reconciled 03/23/24 by RILEY Aguilar- atorvastatin 80 mg PO DAILY carvedilol 6.25 mg PO BID ferrous fumarate (Ferretts) 325 mg PO DAILY finasteride 5 mg PO DAILY 90 days lisinopril 5 mg PO DAILY 90 days multivitamin 1 tab PO DAILY peg 3350-electrolytes 236-22.74-6.74 -5.86 gram (Golytely) 240 mL PO Q10M polyethylene glycol 3350 (Miralax) 17 grams PO DAILY PRN sennosides (Natural Senna Laxative) 17.2 mg (2 x 8.6 mg) PO BEDTIME PRN 30 days sennosides (senna) 8.6 mg PO BID tamsulosin 0.4 mg PO DAILY@1700 verapamil ER 180 mg PO DAILY HPI Comments Details: Chirag is a very pleasant 63-year-old male patient of Dr. Moreno. He has a past medical history of left ventricular hypertrophy, hypertension, chronic kidney disease, dysphagia, vitamin-D deficiency, and multinodular thyroid. He presents to the office today for follow-up of his urinary retention. Recent bladder ultrasound results reviewed with the patient today. The bladder is well distended unremarkable. Bladder jets are demonstrated. Pre void bladder volume is approximately 375 mL. Postvoid bladder volume is approximately 300 mL. Prostate measures approximately 125 mL. In discussion with the patient today he reports to be doing and feeling well. He reports compliance with finasteride and Flomax as prescribed up until approximately 1 month ago when he ran out of refills. Recent PSA results reviewed with the patient today. 12/27 5.9. In office urinalysis results reviewed with the patient today. PVR 23 mL. We discussed at length potential causes of elevated PSA. He currently denies any bothersome urinary issues or concerns. He reports feeling Flomax has been helpful with feeling of incomplete bladder emptying he had been experiencing. When asked he denies urinary urgency, urinary frequency, incontinence, hematuria, dysuria, foul smelling urine, changes to urinary stream, flank pain, fever, and or chills. He does report episodes of nocturia up to 2 times per night however reports insomnia in his unsure if it is his bladder that wakes him up. He otherwise offers no other issues or concerns at this time. [facility] Medical History Hx of chest pain BPH (benign prostatic hyperplasia) Murmur LVH (left ventricular hypertrophy) Hypertensive emergency CKD (chronic kidney disease) Dysphagia Vitamin D deficiency Multinodular thyroid Surgical History Hx of nasal septoplasty History of esophagogastroduodenoscopy (EGD) Hx of endoscopy Hx of eye surgery Hx of colonoscopy History of arthroscopic surgery of shoulder Hx of removal of cyst Hx of appendectomy Family History Father Lung cancer Mother Cancer Social History Household Members: Friend(s) Housing: House Are you a primary body care manager to a significant other at home: Yes (cares for 2 adults that need some assistance with ADLs) Do you presently have visiting nurse or other home services: No (will have help post op) Patient Tobacco Use Status: Former Tobacco user Tobacco use type: Cigarette Years Smoked: 15 Second Hand Smoke Exposure: No Current occupational status: employed 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 Current occupational exposures/hazards: No Cognitive needs: No Hearing needs: No Vision needs: No Review of Systems Eyes Reports no additional complaints ENT Reports no additional complaints Card Reports as per HPI Resp Reports no additional complaints GI Reports no additional complaints Reports as per HPI Musc Reports no additional complaints Neuro Reports no additional complaints Psych Reports no additional complaints Endo Reports no additional complaints Jose Eduardo/Lymph Reports no additional complaints Aller/Immun Reports no additional complaints Physical Exam Const General: cooperative, healthy appearing, comfortable, no acute distress, well developed, alert and awake Nutritional Appearance: thin Orientation/consciousness: patient oriented x3 Limitations: no limitations HEENT Head: Yes normal to inspection, Yes normocephalic and Yes atraumatic Ears: hearing grossly normal bilaterally Eyes General: appearance normal, both eyes and all related structures Neck Neck: Yes normal visual inspection and Yes trachea midline Chest Chest palpation & inspection: normal inspection of the chest Resp Effort & Inspection: normal respiratory effort and able to speak in complete sentences Cardio Rate: regular rate GI Inspection: Yes normal to inspection General: Yes no CVA tenderness Back/Spine/Pelvis Back: no CVA tenderness Skin General skin exam: no rashes or lesions noted Neuro General: patient oriented x3 Extrem General: Yes normal to inspection Psych Appearance: grossly normal and well kempt Mental Status: mental status grossly normal Speech and movement: Normal speech and movement present and Clear speech present Affect: normal affect Attitude: cooperative Thought process: Normal thought process present Thought content: Normal thought content present Insight: Fair insight present (Psych) Judgement: Fair judgement present (Psych) Office Procedures Post Void Residual Post Residual Void Post Void Residual (PVR): 23 [id number] Void Residual by ultrasound Results AMB Urinalysis, Automated UA Leukoctes 15 Vicky/uL Last Edit by Norris Bhat on 03/23/24 11:22 UA Nitrite Last Edit by Norris [employer] on 03/23/24 11:22 UA Urobilinogen 0.2 mg/dL Last Edit by One [employer] on 03/23/24 11:22 UA Protein 30 mg/dL Last Edit by [employer] on 03/23/24 11:22 UA pH 7.5 Last Edit by [employer] [employer] on 03/23/24 11:22 UA Blood 0 Jose/uL Last Edit by [employer] on 03/23/24 11:22 UA Specific Vernal 1.015 Last Edit by [address] [employer] on 03/23/24 11:22 UA Ketone Last Edit by One [employer] on 03/23/24 11:22 UA Bilirubin 0 mg/dL Last Edit by One [employer] on 03/23/24 11:22 UA Glucose 0 mg/dL Last Edit by [employer] on 03/23/24 11:22 Results Reviewed Results Reviewed: Laboratory Last Values Urine pH (Auto) 7.5 03/23/24 11:21 Specific Vernal (Auto) 1.015 03/23/24 11:21 Urine Protein (Auto) 30 mg/dL 03/23/24 11:21 Glucose (UA)(Auto) 0 mg/dL 03/23/24 11:21 Urine Blood (Auto) 0 Jose/uL 03/23/24 11:21 Urine Bilirubin (Auto) 0 mg/dL 03/23/24 11:21 Urine Urobilinogen (Auto) 0.2 mg/dL 03/23/24 11:21 Leukocyte Esterase (Auto) 15 Vicky/uL 03/23/24 11:21 Date of Service: 09/29/23 EXAMINATION: US PELVIS LIMITED (BLADDER) FINDINGS: BLADDER: Well distended and unremarkable. Bilateral ureteral jets are demonstrated. Prevoid bladder volume is 377 mL. Postvoid bladder volume is 302 mL. Enlarged prostate, volume 124 mL. IMPRESSION: 1. Enlarged prostate. 2. Postvoid bladder volume 302 mL. Assessment & Plan Assessment & Plan (1) Elevated PSA: Code(s): R97.20 - Elevated prostate specific antigen [PSA] Category: Medical (2) Urinary retention: Code(s): R33.9 - Retention of urine, unspecified Category: Medical (3) BPH w urinary obs/LUTS: Code(s): N40.1 - Benign prostatic hyperplasia with lower urinary tract symptoms; N13.8 - Other obstructive and reflux uropathy Category: Medical (4) Enlarged prostate: Code(s): N40.0 - Benign prostatic hyperplasia without lower urinary tract symptoms Category: Medical Plan In office urinalysis results reviewed with the patient today; as noted above. PVR 23mls. Continue Flomax and finasteride; refills provided. Recent bladder ultrasound results reviewed with the patient today; as noted above. Recent PSA results reviewed with the patient today; as noted above. Discussed at length potential causes of elevated PSA. Discussed further workup to include continuation of finasteride verses prostate MRI versus prostate biopsy; risks and benefits of these interventions were discussed Patient currently denies any bothersome urinary issues or concerns. Discussed possible near future in office cystoscopy for further assessment evaluation if symptoms arise. He reports be happy with current voiding parameters. Will obtain PSA in 4 months. Follow-up in 4 months with lab to be completed prior and PVR at next office visit or sooner with any issues, concerns, and or questions. Orders: Orders AMB Urinalysis Automated Today Z13.9 - Encounter for screening, unspecified AMB Post Void Residual by ultrasound Today R33.9 - Retention of urine, unspecified PSA,Total (Free>4and<10) Today N13.8 - Other obstructive and reflux uropathy, N40.1 - Benign prostatic hyperplasia with lower urinary tract symptoms, R97.20 - Elevated prostate specific antigen [PSA] Medications: Changed From tamsulosin 0.4 mg PO DAILY@1700 To tamsulosin 0.4 mg PO DAILY 90 caps 3RF 90 days Refilled finasteride 5 mg PO DAILY 90 tabs 3RF 90 days N13.8 - Other obstructive and reflux uropathy, N40.1 - Benign prostatic hyperplasia with lower urinary tract symptoms, R33.9 - Retention of urine, unspecified Patient Instructions: The patient had an opportunity to ask questions regarding the treatment plan. All questions were answered. Physical exam, labs, and imaging were discussed and reviewed in detail. As well as risks, benefits, and discussion of treatment choices. No major barriers to understanding were identified. The patient expressed understanding and agreement with the above treatment plan. The patient was made aware they should contact our office by phone for worsening of their current condition, the appearance of new symptoms, or with any questions or concerns. Compliance is encouraged with any medications and follow up testing that is ordered. It is a privilege to be allowed the opportunity to participate in? your urological care.? Again, if you have any questions or concerns If you have any questions or concerns please do not hesitate to contact me. The office is [phone]. This note is constructed using voice recognition software. While every effort has been made to ensure accuracy death claim clerk errors may have been included. Yours sincerely, SERGE Aguilar Coding Level of Care Code Est Pt Level 3 (88264) Complex EM visit Add On G2211 Diagnoses Elevated PSA R97.20 Urinary retention R33.9 BPH w urinary obs/LUTS N40.1; N13.8 Enlarged prostate N40.0 CPT Codes Post Residual Void - PVR CPT Code: 97912-[id number] Void Residual by ultrasound ([id number])
== END 2024-03-23 11:28 | disposition home or self-care (01) ==
PROVIDERS: PCP Nurse Practitioner Family; Visit Provider Nurse Practitioner Family
DX: R97.20 Elevated prostate specific antigen [PSA] (principal); R33.9 Retention of urine, unspecified; N40.1 Benign prostatic hyperplasia with lower urinary tract symptoms; N13.8 Other obstructive and reflux uropathy; N40.0 Benign prostatic hyperplasia without lower urinary tract symptoms; Z13.9 Encounter for screening, unspecified
CPT/HCPCS: 99213; G2211

== ENCOUNTER → 2024-03-23 10:36 | Outpatient (BNVA) | payer OTHER, SELFPAY | PROVIDERS: PCP Nurse Practitioner Family; Visit Provider Nurse Practitioner Family | DX: N40.1 Benign prostatic hyperplasia with lower urinary tract symptoms (principal); N13.8 Other obstructive and reflux uropathy; R97.20 Elevated prostate specific antigen [PSA]; R33.9 Retention of urine, unspecified | CPT/HCPCS: 51798; 81003; 99212 ==

== ENCOUNTER 2024-03-25 10:52 | Outpatient (AMB) | payer OTHER, SELFPAY ==
[2024-03-25 11:00] VITALS: BP 140/72; PULSE 67; BMI 23.4
--- NOTE | 2024-03-25 11:00 | MHC.OFFVIS ---
Vital Signs 03/25/24 11:00 Height 6 ft Weight 172 lb 13.478 oz BMI 23.4 BP 140/72 H Blood Pressure Location Lt brachial Position Sitting Pulse 67 Pulse Source Pulse Oximeter Intake Visit Reasons: Nontoxic multinodular goiter/LVM Intake Note: New patient present today for Nontoxic multinodular goiter office visit. Accounts Payable Analyst Required: No Accompanied by: Self / Same As Patient Allergies No Known Allergies Allergy (Verified 03/25/24 11:05) Medication List - Last Reconciled 03/25/24 by Jerica Jackson MD atorvastatin 80 mg PO DAILY carvedilol 6.25 mg PO BID ferrous fumarate (Ferretts) 325 mg PO DAILY finasteride 5 mg PO DAILY 90 days lisinopril 5 mg PO DAILY 90 days multivitamin 1 tab PO DAILY peg 3350-electrolytes 236-22.74-6.74 -5.86 gram (Golytely) 240 mL PO Q10M polyethylene glycol 3350 (Miralax) 17 grams PO DAILY PRN sennosides (Natural Senna Laxative) 17.2 mg (2 x 8.6 mg) PO BEDTIME PRN 30 days sennosides (senna) 8.6 mg PO BID tamsulosin 0.4 mg PO DAILY 90 days verapamil ER 180 mg PO DAILY HPI Comments Details: 63 YO M with PMHx HTN, HLD, CKD who is seen in F/U for NTMNG. Patient was previously seeing Dr. Tenorio, last visit was in 2021. HPI from prior visit Patient reports he began having symptoms of dysphagia, vocal hoarseness and sensation of constantly having to clear his throat for approximately 3 years now. PCP ordered barium swallow and sent him to ENT. He reports these evaluations were WNL. He then had CT of the neck, which was reportedly with no signs of compression or obstruction of the esophagus. PCP then ordered thyroid US to further assess, which revealed a multinodular thyroid, with mild enlargement of the gland. He was subsequently referred to Endocrinology. On 03/10/19 he underwent FNA biopsy of a L lower pole 2.2 cm nodule and a L mid pole 2.2 cm nodule. Both with benign results ([place] Category II). He continues to complain of compressive symptoms chokes on bread, milk, phlegm also makes him choke. Voice becomes hoarse intermittently. Sleeps on his side, chokes when he lays down flat. He was referred to Endocrine Surgery Dr. Haroon Concepcion in the past and was not recommended for thyroidectomy as it was felt his symptoms were not related to the thyroid. Patient currently denies heat or cold intolerance, diarrhea or constipation, hair loss, palpitation, anxiety, weight changes, mood changes, low energy, changes in appearance of eyes or vision changes, tremors, increased diaphoresis or dry skin. ? Patient denies any history of childhood neck radiation. Denies having ever used lithium, amiodarone or biotin supplements. Patient denies any family history of thyroid cancer or thyroid disease. Most recent US THYROID 02/2024 I reviewed the images myself, which show bilateral thyroid nodules. He has a left mid/lower lobe dominant 4.2 cm nodule, solid, hypoechoic with punctate echogenic foci, however boundaries are not very clear it is hard to tell whether this is a confluence of multiple nodules or 1 big nodule. This is a TR 5 nodule. Possibly this was 1 of the nodules biopsied in March 2019, with benign cytology however given increase in size definitely meets criteria for repeat FNA. The left lower lobe 1.2 cm nodule which is commented on as a new nodule, per my visualization is solid, isoechoic, taller than wide classifying it as a TR 4 nodule not a TR 5 nodule. Would recommend 1 year ultrasound follow up for this 1 Review of systems Constitutional: no fevers, chills HEENT: no changes in vision Cardiac: No chest pain, discomfort or palpitations. Pulmonary: No SOB GI:No abdominal pain, no nausea or vomiting Physical exam General: sitting comfortably in no acute distress HEENT: normocephalic/atraumatic, moist oral mucosa Neck: supple, enlarged thyroid gland with bilateral palpable nodules, left side bigger than the right side, he coughs every time I palpate his thyroid gland. Cardiac: normal heart sounds Pulm: normal breath sounds B/L, no added breath sounds Abd: not distended, no tenderness Extremities: no edema, no signs of myxedema Neuro: AAO x3, Speech: normal, no facial droop, moving all 4 extremities PFSH Medical History Hx of chest pain BPH (benign prostatic hyperplasia) Murmur LVH (left ventricular hypertrophy) Hypertensive emergency CKD (chronic kidney disease) Dysphagia Vitamin D deficiency Multinodular thyroid Surgical History Hx of nasal septoplasty History of esophagogastroduodenoscopy (EGD) Hx of endoscopy Hx of eye surgery Hx of colonoscopy History of arthroscopic surgery of shoulder Hx of removal of cyst Hx of appendectomy Family History Father Lung cancer Mother Cancer Social History Household Members: Friend(s) Housing: House Are you a primary physician primary care sports medicine to a significant other at home: Yes (cares for 2 adults that need some assistance with ADLs) Do you presently have visiting nurse or other home services: No (will have help post op) Patient Tobacco Use Status: Former Tobacco user Tobacco use type: Cigarette Years Smoked: 15 Second Hand Smoke Exposure: No Current occupational status: employed Current occupation: [employer] Current occupational exposures/hazards: No Cognitive needs: No Hearing needs: No Vision needs: No Results Reviewed Results Reviewed: Laboratory Tests 09/03/23 14:04 TSH 0.32 US THYROID 02/2024 I reviewed the images myself, which show bilateral thyroid nodules. He has a left mid/lower lobe dominant 4.2 cm nodule, solid, hypoechoic with punctate echogenic foci, however boundaries are not very clear it is hard to tell whether this is a confluence of multiple nodules are 1 big nodule. This is a TR 5 nodule. Possibly this was 1 of the nodules biopsied in March 2019, however given increase in size definitely meets criteria for repeat FNA. The left lower lobe 1.2 cm nodule which is commented on as a new nodule, per my visualization, solid, isoechoic, taller than wide classifying it as a TR 4 nodule not a TR 5 nodule. Would recommend 1 year ultrasound follow up for this 1 CLINICAL INFORMATION: Nontoxic multinodular goiter. COMPARISON: Ultrasound thyroid 12/18/2021 and 04/17/2020. TECHNIQUE: Linear transducer grayscale and color Doppler examination with attention to the region of the thyroid. FINDINGS: SIZE: Measurements of the thyroid lobes and nodules are given in sagittal, anteroposterior and transverse dimensions respectively. Right Thyroid Lobe: 6.2 x 2.2 x 2.8 cm, volume 20.3 mL. Previously 7.3 x 2.5 x 3.2 cm, volume 30.6 mL. Parenchyma: The gland echotexture is heterogeneous. Thyroid vascularity is increased. Left Thyroid Lobe: 7.0 x 2.6 x 3.0 cm, volume 27.8 mL. Previously 8.0 x 2.2 x 2.8 cm, volume 25.8 mL. Parenchyma: The gland echotexture is heterogeneous. Thyroid vascularity is increased. Isthmus: 0.80 cm in maximum AP dimension. Previously 0.70 cm. Estimated total number of nodules greater than or equal to 1 cm: 3. [employer] nodules are described as follows: 1. Location: Right lower pole. Size: 0.75 x 0.40 x 0.50 cm, volume 0.08 mL. Previously: 0.90 x 0.60 x 0.90 cm, volume 0.25 mL. Nodule characteristics: Composition: Spongiform (0). ACR TI-RADS total points: 0 Previous: 2 ACR TI-RADS category: 1 Previous: 2 Significant change in size (>/= 20% in 2 dimensions and minimal increase of 2 mm or 50% or greater increase in volume): No. Change in features: No. Change in ACR TI-RADS risk category: No. 2. Location: Right lower pole. Size: 1.6 x 1.0 x 1.3 cm, volume 1.1 mL. Previously: 1.4 x 1.2 x 1.3 cm, volume 1.1 mL. Nodule characteristics: Composition: Cystic(0). ACR TI-RADS total points: 0 Previous: 2 ACR TI-RADS category: 1 Previous: 2 Significant change in size (>/= 20% in 2 dimensions and minimal increase of 2 mm or 50% or greater increase in volume): No. Change in features: Yes. Change in ACR TI-RADS risk category: Yes, decreased from 2 to 1. 3. Location: Left mid pole/lower pole. Size: 4.2 x 3.4 x 2.1 cm, volume 15.9 mL. Previously: 4.4 x 1.9 x 4.0 cm, volume 17.6 mL. Nodule characteristics: Composition: Solid/almost completely solid (2). Echogenicity: Hypoechoic (2). Shape: Taller than wide (3). Margins: Smooth (0). Echogenic Foci: Punctate echogenic foci (3). ACR TI-RADS total points: 10 Previous: 4 ACR TI-RADS category: 5 Previous: 4 Significant change in size (>/= 20% in 2 dimensions and minimal increase of 2 mm or 50% or greater increase in volume): No. Change in features: Yes. Change in ACR TI-RADS risk category: Yes, increased from 4 to 5. 4. Location: Left lower pole. Size: 1.2 x 0.81 x 0.63 cm, volume 0.33 mL. Previously: Not seen on prior study. Nodule characteristics: Composition: Solid/almost completely solid (2). Echogenicity: Hypoechoic (2). Shape: Taller than wide (3). Margins: Smooth (0). Echogenic Foci: None (0). ACR TI-RADS total points: 7 Previous: N/A. ACR TI-RADS category: 5 Previous: N/A. 5. Location: Isthmus. Size: 0.50 x 0.40 x 0.46 cm, volume 0.05 mL. Previously: Not seen on prior study. Nodule characteristics: ACR TI-RADS total points: 0 Previous: N/A. ACR TI-RADS category: 1 Previous: N/A. NODES: No lymphadenopathy is seen in the tissue surrounding the thyroid gland. US/US thyroid IMPRESSION: Multinodular enlarged goiter with multiple cysts as well as larger nodules, as described above. Exact comparison to priors are difficult. At least 2 of the nodules meet criteria for biopsy including nodule #3 and nodule #4 described above. Biopsies have been performed in the past. Please correlate with pathologic report. Assessment & Plan Assessment & Plan (1) Multinodular thyroid: Code(s): E04.2 - Nontoxic multinodular goiter Category: Medical Plan: Patient with no family history of thyroid cancer, with no personal history of head or neck radiation, who has had significant compressive symptoms over the past few years. He has had multiple bilateral thyroid nodules, underwent FNA in March 2019 of the left mid 2.2 cm nodule in the left lower 2.2 cm nodule with both benign pathology. Subsequently ultrasounds done over the next few years showed increase in the size of the nodules. Most recent US THYROID 02/2024 I reviewed the images myself, which show bilateral thyroid nodules. He has a left mid/lower lobe dominant 4.2 cm nodule, solid, hypoechoic with punctate echogenic foci, however boundaries are not very clear it is hard to tell whether this is a confluence of multiple nodules or 1 big nodule. This is a TR 5 nodule. Possibly this was 1 of the nodules biopsied in March 2019, with benign cytology however given increase in size definitely meets criteria for repeat FNA. The left lower lobe 1.2 cm nodule which is commented on as a new nodule, per my visualization is solid, isoechoic, taller than wide classifying it as a TR 4 nodule not a TR 5 nodule. Would recommend 1 year ultrasound follow up for this 1 He is biochemically euthyroid. I explained that it is common to have thyroid nodules. About 95% of the time these nodules are benign. However if the nodule is > 1 cm in size or suspicious on ultrasound then a fine need aspiration biopsy is recommended. We discussed that a FNAB involves 4-5 passes with a small gauge needle and material obtained is sent off for cytology.If the cytopathology is benign then the nodule will be followed annually with repeat ultrasounds. However if it is suspicious or malignant, we will need to discuss further management. Indeterminate cytology can be further investigated with repeat FNA, genetic testing or empiric lobectomy. Malignant cytology is managed with either lobectomy or total thyroidectomy. We discussed briefly that thyroid cancer is, in most patients, an indolent disease that does not affect mortality. We will arrange for FNA at next available opening and patient will follow up with me in clinic thereafter for results and further decision making. He also has significant compressive symptoms, that he describes have significantly worsened over the past year or 2. Per chart review he has had workup in the past with barium swallow, ENT evaluation, CT of the neck which did not show any obstruction of the trachea or esophagus. All of his past workup was within normal limits and prior evaluation with Dr. Haroon Concepcion at [facility] did not recommend thyroidectomy as was felt that his symptoms are not from his thyroid. When I review his ultrasound, he does have a large thyroid gland, and even during the exam on palpation he has significant pressure sensation. Given worsening compressive symptoms, I am going to refer him back to Dr. Haroon Concepcion for re-evaluation for thyroidectomy. Plan: -ordered thyroid FNA biopsy of the left mid 0.2 cm nodule and follow up in 1-2 weeks after with me to discuss results -referral placed for Dr. Haroon Concepcion at [facility] for evaluation of compressive symptoms for thyroidectomy Plan I spent 30 minutes in reviewing the record, seeing the patient and documenting in the medical record. Orders: Orders US biopsy thyroid Today E04.2 - Nontoxic multinodular goiter Referrals General Surgery Referral E04.2 - Nontoxic multinodular goiter Patient Instructions: We will book you for a left thyroid nodule biopsy and a follow up in 1-2 weeks after in clinic to discuss results Also we put in a referral for you to be seen again by Dr. Haroon Concepcion at [facility] (thyroid surgery) Coding Level of Care Code Est Pt Level 4 (51947) Diagnoses Multinodular thyroid E04.2 Time Spent (min) 30
== END 2024-03-25 11:49 | disposition home or self-care (01) ==
PROVIDERS: PCP Nurse Practitioner Family; Visit Provider Student in an Organized Health Care Education/Training Program
DX: E04.2 Nontoxic multinodular goiter (principal)
CPT/HCPCS: 99214

== ENCOUNTER → 2024-03-25 10:52 | Outpatient (BNVA) | payer OTHER, SELFPAY | PROVIDERS: PCP Nurse Practitioner Family; Visit Provider Student in an Organized Health Care Education/Training Program | DX: E04.2 Nontoxic multinodular goiter (principal) | CPT/HCPCS: 99212 ==

== ENCOUNTER 2024-03-30 10:21 | Outpatient (REF) | payer OTHER, SELFPAY ==
[2024-03-30 13:59] LABS: Anion Gap 13 (12-20); Blood Urea Nitrogen 18 mg/dL (9-16); Carbon Dioxide 28 mmol/L (22-29); Chloride 107 mmol/L (96-108); Estimated Glomerular Filt Rate 57; Potassium 4.1 mmol/L (3.3-5.1); Sodium 144 mmol/L (135-145)
== END 2024-03-30 10:22 | disposition home or self-care (01) ==
LOC: HO.HMGCLDS 10:21
PROVIDERS: PCP Nurse Practitioner Family; Visit Provider Internal Medicine Nephrology
DX: N18.31 Chronic kidney disease, stage 3a (principal)
CPT/HCPCS: 36415; 80051; 82565; 84520

== ENCOUNTER 2024-04-04 11:24 | Outpatient (AMB) | payer OTHER, SELFPAY ==
--- NOTE | 2024-04-04 11:35 | HO.NEPHOV ---
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 He has H/O urinary retention needing catheterization. He has H/O syncope(likely micturition syncope) as well as UTI. At that time he had KEENA with a serum creatinine going up to 1.8. His losartan was discontinued at that time. He has followed up with urologist and his Mendenhall catheter has been discontinued. He is on finasteride. Prior to hospital discharge his serum creatinine had settled to baseline. He denies any chest pain, shortness of breath, paroxysmal nocturnal dyspnea, orthopnea, pedal edema, dizziness, urinary symptoms, hematuria, fever. He has not taking any [id number] medications. He tries to maintain good hydration [facility] Medical History Hx of chest pain BPH (benign prostatic hyperplasia) Murmur LVH (left ventricular hypertrophy) Hypertensive emergency CKD (chronic kidney disease) Dysphagia Vitamin D deficiency Multinodular thyroid Surgical History Hx of nasal septoplasty History of esophagogastroduodenoscopy (EGD) Hx of endoscopy Hx of eye surgery Hx of colonoscopy History of arthroscopic surgery of shoulder Hx of removal of cyst Hx of appendectomy Family History Father Lung cancer Mother Cancer Social History Household Members: Friend(s) Housing: House Are you a primary women's health care nurse practitioner to a significant other at home: Yes (cares for 2 adults that need some assistance with ADLs) Do you presently have visiting nurse or other home services: No (will have help post op) Patient Tobacco Use Status: Former Tobacco user Tobacco use type: Cigarette Years Smoked: 15 Second Hand Smoke Exposure: No Current occupational status: employed Current occupation: [employer] Current occupational exposures/hazards: No Cognitive needs: No Hearing needs: No Vision needs: No Review of Systems Const All systems reviewed & are unremarkable except as noted in HPI and below Physical Exam Vital Signs: Last Vital Signs Pulse 71 04/04/24 11:36 BP 154/70 H 04/04/24 11:36 Pulse Ox 97 04/04/24 11:36 Oxygen Delivery Method Room Air 04/04/24 11:36 BMI result Body Mass Index 23.6 Const General: comfortable and no acute distress Orientation/consciousness: patient oriented x3 HEENT Head: Yes normocephalic Mouth: Normal oral and palatal mucosa present Eyes EOM: EOMs intact bilaterally Neck Neck: Yes supple Resp Auscultation: clear to auscultation bilaterally Cardio Jugular venous distension: no JVD Rate: regular rate GI Palpation (GI): Soft to palpation Auscultation: normal bowel sounds General: Yes no CVA tenderness Back/Spine/Pelvis Back: no CVA tenderness Skin General skin exam: no rashes or lesions noted Neuro General: patient oriented x3 and moves all extremities Extrem General: Yes no pedal edema Results Reviewed Nephrology Results: Sodium 144 mmol/L (135-145) 03/30/24 Potassium 4.1 mmol/L (3.3-5.1) 03/30/24 Chloride 107 mmol/L (96-108) 03/30/24 Carbon Dioxide 28 mmol/L (22-29) 03/30/24 BUN 18 mg/dL (9-16) H 03/30/24 Creatinine 1.28 mg/dL (0.5-1.4) 03/30/24 Assessment & Plan Assessment & Plan (1) CKD (chronic kidney disease) stage 3, GFR 30-59 ml/min: Code(s): N18.30 - Chronic kidney disease, stage 3 unspecified Category: Medical Qualifiers: Chronic kidney disease stage 3 subtype: stage 3a (GFR 45-59) Qualified Code(s): N18.31 - Chronic kidney disease, stage 3a (2) HTN (hypertension): Code(s): I10 - Essential (primary) hypertension Category: Medical Qualifiers: Hypertension type: primary hypertension Qualified Code(s): I10 - Essential (primary) hypertension Plan Chirag has underlying stage III CKD at baseline from longstanding hypertension. His KEENA has settled to baseline with supportive care. His BP is not at goal. He should continue lisinopril 5 mg daily. He was only carvedilol once a day which I increased to bid. He was encouraged to maintain good hydration and minimize sodium in the diet. I did not make any other medication changes today . All questions answered. Follow-up appointment given Coding Level of Care Code Est Pt Level 4 (53473) Diagnoses Stage 3a chronic kidney disease N18.31 Chronic kidney disease stage 3 subtype: stage 3a (GFR 45-59) Primary hypertension I10 Hypertension type: primary hypertension
[2024-04-04 11:36] VITALS: BP 154/70; PULSE 71; O2SAT 97; BMI 23.6
== END 2024-04-04 12:05 | disposition home or self-care (01) ==
PROVIDERS: PCP Nurse Practitioner Family; Visit Provider Internal Medicine Nephrology
DX: I12.9 Hypertensive chronic kidney disease with stage 1 through stage 4 chronic kidney disease, or unspecified chronic kidney disease (principal); N18.31 Chronic kidney disease, stage 3a
CPT/HCPCS: 99214

== ENCOUNTER → 2024-04-04 11:24 | Outpatient (BNVA) | payer OTHER, SELFPAY | PROVIDERS: PCP Nurse Practitioner Family; Visit Provider Internal Medicine Nephrology | DX: I12.9 Hypertensive chronic kidney disease with stage 1 through stage 4 chronic kidney disease, or unspecified chronic kidney disease (principal); N18.31 Chronic kidney disease, stage 3a; Z79.899 Other long term (current) drug therapy; R33.9 Retention of urine, unspecified | CPT/HCPCS: 99212 ==

== ENCOUNTER 2024-05-04 11:23 | Outpatient (AMB) | payer OTHER, SELFPAY ==
[2024-05-04 11:25] VITALS: BP 140/70; PULSE 65; O2SAT 99; BMI 23.6
--- NOTE | 2024-05-04 11:25 | HO.NEPHOV_ITS ---
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 He has H/O urinary retention needing catheterization. He has H/O syncope(likely micturition syncope) as well as UTI. At that time he had KEENA with a serum creatinine going up to 1.8. His losartan was discontinued at that time. He has followed up with urologist and his Mendenhall catheter has been discontinued. He is on finasteride. Prior to hospital discharge his serum creatinine had settled to baseline. He denies any chest pain, shortness of breath, paroxysmal nocturnal dyspnea, orthopnea, pedal edema, dizziness, urinary symptoms, hematuria, fever. He has not taking any [id number] medications. He tries to maintain good hydration [facility] Medical History (Reviewed 03/23/24 @ 12:00 by RILEY AguilarENCOM[facility]) Hx of chest pain BPH (benign prostatic hyperplasia) Murmur LVH (left ventricular hypertrophy) Hypertensive emergency CKD (chronic kidney disease) Dysphagia Vitamin D deficiency Multinodular thyroid Surgical History Hx of nasal septoplasty History of esophagogastroduodenoscopy (EGD) Hx of endoscopy Hx of eye surgery Hx of colonoscopy History of arthroscopic surgery of shoulder Hx of removal of cyst Hx of appendectomy Family History Father Lung cancer Mother Cancer Social History Household Members: Friend(s) Housing: House Are you a primary career developer to a significant other at home: Yes (cares for 2 adults that need some assistance with ADLs) Do you presently have visiting nurse or other home services: No (will have help post op) Patient Tobacco Use Status: Former Tobacco user Tobacco use type: Cigarette Years Smoked: 15 Second Hand Smoke Exposure: No Current occupational status: employed Current occupation: [employer] Current occupational exposures/hazards: No Cognitive needs: No Hearing needs: No Vision needs: No Review of Systems Const All systems reviewed & are unremarkable except as noted in HPI and below Physical Exam Vital Signs: Last Vital Signs Pulse 65 05/04/24 11:25 BP 166/70 H 05/04/24 11:25 Pulse Ox 99 05/04/24 11:25 Oxygen Delivery Method Room Air 05/04/24 11:25 BMI result Body Mass Index 23.6 Const General: comfortable and no acute distress Orientation/consciousness: patient oriented x3 HEENT Head: Yes normocephalic Mouth: Normal oral and palatal mucosa present Eyes EOM: EOMs intact bilaterally Neck Neck: Yes supple Resp Auscultation: clear to auscultation bilaterally Cardio Jugular venous distension: no JVD Rate: regular rate GI Palpation (GI): Soft to palpation Auscultation: normal bowel sounds General: Yes no CVA tenderness Back/Spine/Pelvis Back: no CVA tenderness Skin General skin exam: no rashes or lesions noted Neuro General: patient oriented x3 and moves all extremities Extrem General: Yes no pedal edema Results Reviewed Nephrology Results: Sodium 144 mmol/L (135-145) 03/30/24 Potassium 4.1 mmol/L (3.3-5.1) 03/30/24 Chloride 107 mmol/L (96-108) 03/30/24 Carbon Dioxide 28 mmol/L (22-29) 03/30/24 BUN 18 mg/dL (9-16) H 03/30/24 Creatinine 1.28 mg/dL (0.5-1.4) 03/30/24 Assessment & Plan Assessment & Plan (1) HTN (hypertension): Code(s): I10 - Essential (primary) hypertension Category: Medical Qualifiers: Hypertension type: primary hypertension Qualified Code(s): I10 - Essential (primary) hypertension (2) CKD (chronic kidney disease) stage 3, GFR 30-59 ml/min: Code(s): N18.30 - Chronic kidney disease, stage 3 unspecified Category: Medical Qualifiers: Chronic kidney disease stage 3 subtype: stage 3a (GFR 45-59) Qualified Code(s): N18.31 - Chronic kidney disease, stage 3a Plan Chirag has underlying stage III CKD at baseline from longstanding hypertension. His KEENA has settled to baseline with supportive care. His BP is not at goal. He should continue lisinopril 5 mg daily. He was only carvedilol once a day which I increased to bid. He was encouraged to maintain good hydration and minimize sodium in the diet. I did not make any other medication changes today . All questions answered. Follow-up appointment given Orders: Orders Blood Urea Nitrogen 3 Months N18.31 - Chronic kidney disease, stage 3a Creatinine 3 Months N18.31 - Chronic kidney disease, stage 3a Electrolytes 3 Months N18.31 - Chronic kidney disease, stage 3a Calcium 3 Months N18.31 - Chronic kidney disease, stage 3a Coding Level of Care Code Est Pt Level 4 (72117) Diagnoses Primary hypertension I10 Hypertension type: primary hypertension Stage 3a chronic kidney disease N18.31 Chronic kidney disease stage 3 subtype: stage 3a (GFR 45-59)
== END 2024-05-04 11:43 | disposition home or self-care (01) ==
LOC: HO.HKA 11:24
PROVIDERS: PCP Nurse Practitioner Family; Visit Provider Internal Medicine Nephrology
DX: I12.9 Hypertensive chronic kidney disease with stage 1 through stage 4 chronic kidney disease, or unspecified chronic kidney disease (principal); N18.31 Chronic kidney disease, stage 3a
CPT/HCPCS: 99214

== ENCOUNTER → 2024-05-04 11:23 | Outpatient (BNVA) | payer OTHER, SELFPAY | PROVIDERS: PCP Nurse Practitioner Family; Visit Provider Internal Medicine Nephrology | DX: I12.9 Hypertensive chronic kidney disease with stage 1 through stage 4 chronic kidney disease, or unspecified chronic kidney disease (principal); N18.31 Chronic kidney disease, stage 3a | CPT/HCPCS: 99212 ==

== ENCOUNTER 2024-08-06 08:48 | Outpatient (REF) | payer OTHER, SELFPAY ==
--- OUTSIDE RECORDS SUMMARY | 2024-08-06 08:52 | XMS_ITS | Data Portability ---
Author Organization [place] - [facility], Allergy Address [address] [address] Assessment Encounter Date Assessment Date Assessment LastModified by Organization Details LastModified Time 03/28/2024 03/28/2024 Patient with chronic history of left multinodular goiter, sensation of mucus in his throat and intermittent voice change. He is seen today for an opinion regarding hearing loss. We have audiograms dating back to 2013 which show mild to moderately severe to profound hearing loss. His pattern is similar but his understanding of the words has gotten worse in both ears. Suggest bilateral amplification. He is scheduled for biopsy of the left goiter and may need surgery in the near future. We will have him return for fiberoptic laryngoscopy. [email or web address] Not available 03/28/2024 11:42:39 Plan of Treatment Reminders Order Date Submit Date Provider Last Modified By Organization Details Last Modified Time Details Appointments None record ed. Lab None record ed. Referral None record ed. Procedures None record ed. Surgeries None record ed. Imaging None record ed. Medication Orders None record ed. Patient TargetsNo targets recorded. Patient InstructionsNo instructions recorded. Reason for Referral None Reported. Results Created Date Observation Date Name Description Value Unit Range Abnormal Flag Note LastModifiedBy Organization Detail LastModifiedTime 03/28/20 24 audio gram No observ ation record ed. [email or web address] Not Available 2023 13:50:50 Result Notes None recorded. Problems Name Problem SNOMED Code Status Onset Date Resolution Date Notes Provider Name and Address Organization Details Recorded Time Chronic rhinitis 47474775 Active 2014 Rhinitis, chronic; Note: Date Diagnosed : 07/19/2014 12:24 PM (472.0) ; Start Date : 5 Chronic rhinitis; Note: Date Diagnosed : 05/07/2015 4:24 PM (J31.0) [mapped from ICD9 code: 472.0] Not Available [facility] 4 02:52:30 Deviated nasal septum 284598756 Active 2014 Nasal septal deviation ; CMS Risk: moderate risk Andres al septal deviation ; CMS Risk: moderate risk Note : Date Diagnosed : 4 2:05 PM (470) Nasal septal deviation ; CMS Risk: moderate risk ; Start Date : 5 Nasal septal deviation ; CMS Risk: moderate risk Note : Date Diagnosed : 4 2:05 PM (470) ; Start Date : 5 Not Available [facility] 4 02:52:30 Nasal polyp Active 2014 Nasal polyps; Note: Date Diagnosed : 4 2:03 PM () Not Available [facility] 4 02:52:30 Sensorine ural hearing loss of bilateral ears 341940695 Active 2016 Sensorine ural hearing loss, bilateral ; Note: Date Diagnosed : 7 10:50 AM (H90.3) Not Available [facility] 4 02:52:29 Gastroeso phageal reflux disease 468662859 Active 2014 Laryngoph aryngeal reflux; Note: Date Diagnosed : 4 2:04 PM () Not Available [facility] 4 02:52:33 Pain of right temporoma ndibular joint 70158853580 915458 Active 2017 Arthralgi a of right temporoma ndibular joint; Note: Date Diagnosed : 12/23/2017 11:38 AM (M26.621) Not Available [facility] 4 02:52:32 Dysphagia 15882331 Active 2018 Dysphagia , unspecifi ed; Note: Date Diagnosed : 11/01/2018 2:44 PM (R13.10) Not Available [facility] 4 02:52:35 Postopera tive follow-up visit Active 2014 Post op; Note: Date Diagnosed : 08/07/2014 11:39 AM (V67.00) Not Available [facility] 4 02:52:29 Otalgia of right ear 9852583454 Active 2017 Otalgia, right ear; Note: Date Diagnosed : 12/23/2017 11:38 AM (H92.01) Not Available [facility] 4 02:52:29 Bilateral obstructi on of Eustachia n tubes 33882442723 26644 Active 2014 Unspecifi ed obstructi on of Eustachia n tube, bilateral ; Note: Date Diagnosed : 05/07/2015 4:24 PM (H68.103) [mapped from ICD9 code: 472.0] Not Available [facility] 4 02:52:35 Arthralgi a of temporoma ndibular joint 71079822 Active 2014 Arthralgi a of temporoma ndibular joint; Note: Date Diagnosed : 05/07/2015 4:24 PM (M26.62) [mapped from ICD9 code: 472.0] Not Available [facility] 4 02:52:33 Abnormal auditory perceptio n 12970760 Active 2016 Other abnormal auditory perceptio ns, bilateral ; Note: Date Diagnosed : 7 10:50 AM (H93.293) Not Available [facility] 4 02:52:34 Respirato ry finding 210967630 Active 2016 Feeling of foreign body in throat; Note: Date Diagnosed : 7 10:50 AM (R09.89) Not Available [facility] 4 02:52:31 Cardiovas cular finding 318123345 Active 2016 Feeling of foreign body in throat; Note: Date Diagnosed : 7 10:50 AM (R09.89) Not Available [facility] 4 02:52:32 Hypertrop hy of nasal turbinate s 32803852 Active 2014 Nasal turbinate hypertrop hy; Location: bilateral CMS Risk: low risk Tur binate hypertrop hy; CMS Risk: low risk Note : Date Diagnosed : 4 2:05 PM (478.0) Turbina te hypertrop hy; CMS Risk: moderate risk Note : Date Diagnosed : 4 2:05 PM (478.0) ; Start Date : 5 Nasal turbinate hypertrop hy; Location: bilateral CMS Risk: moderate risk ; Start Date : 5 Not Available [facility] 4 02:52:31 Difficult y speaking Active 2014 Hoarsenes s; Note: Date Diagnosed : 4 2:04 PM () Not Available [facility] 4 02:52:33 Posterior rhinorrhe a 03880952 Active 2016 Postnasal drip; Note: Date Diagnosed : 7 10:50 AM (R09.82) Not Available [facility] 4 02:52:34 Allergic rhinitis 45543111 Active 2016 Allergic Rhinitis; Note: Date Diagnosed : 4 2:03 PM () ; Start Date : 5 Other allergic rhinitis; Note: Date Diagnosed : 7 10:12 AM (J30.89) Not Available [facility] 4 02:52:32 Multinodu lar goiter 331614499 Active 2023 SUSAN RYAN MD [address] [place] [address], [place], [id number] , [place] - [facility] 4 11:43:11 Feeling of lump in throat 646450344 Active 2023 SUSAN RYAN MD [address] [place] [address], [place], [phone] , [facility] - [facility] [place] 4 11:43:19 Problem Notes None recorded. Procedures Surgical History Date Name Laterality Status Provider Name and Address Organization Details Recorded Time 03/28/2024 Comp Audio with Tymps (74751 & 26432) completed Gabby Gaspar [place] - [facility] [place] 03/28/2024 11:07:33 Imaging Results Imaging Date Name Status LastModified by Organiz ation Details LastModified Time 03/28/2024 audiogram completed leonila Information no t available 03/28/2024 13:50:50 Procedure Notes None recorded. Medical Equipment None Reported. Allergies No known drug allergies Medications Name Sig Start Date Stop Date Status Note LastModified by Organization Details LastModified Time Prescript ion - Prior Authoriza tion Request active Script Copy/Agatha or Auth^Scr ipt Copy/Agatha or Auth_[id number] Not Available Not Available Not Available losartan 50 mg tablet 05/08 completed Medicati on ID: [id number] Du ration Value: 30 Reason: () Brand Name: losartan Send Method: E-Prescr ibed Sub s Allowed: subs OK Medic ationGen ericName : losartan Not Available Not Available Not Available atorvasta tin 80 mg tablet TAKE 1 TABLET BY MOUTH DAILY active Not Available Not Available No t Available carvedilo l 6.25 mg tablet TAKE 1 TABLET BY MOUTH TWICE A DAY WITH FOOD FOR 90 DAYS active Not Available Not Available No t Available hydrocodo ne 5 mg-acetam inophen 325 mg tablet 1-2 tablet by mouth 2014 active Medicati on ID: [id number] Du ration Value: 7 Prescri bed By Name: Grecia Mcclure nd Name: hydrocod one-acet aminophe n Send Method: E-Prescr ibed Sub s Allowed: subs OK Medic ationGen ericName : hydrocod one-acet aminophe n Not Available Not Available Not Available senna 8.6 mg tablet TAKE 1 TABLET BY MOUTH TWICE A DAY active Not Available Not Available No t Available verapamil ER 180 mg 24 hr capsule,e xtended release TAKE 1 CAPSULE BY MOUTH EVERY DAY active Not Available Not Available No t Available flaxseed oil 1,000 mg capsule 2014 active Medicati on ID: [id number] Br and Name: flaxseed oil Send Method: E-Prescr ibed Sub s Allowed: subs OK Medic ationGen ericName : flaxseed oil Not Available Not Available Not Available tamsulosi n 0.4 mg capsule TAKE 1 CAPSULE BY MOUTH EVERY DAY active Not Available Not Available No t Available losartan 25 mg tablet 03/28 completed Medicati on ID: [id number] D uration Value: 30 Brand Name: losartan Send Method: E-Prescr ibed Sub s Allowed: subs OK Speci al Instruct ion: Take 1 tablet by mouth every night Me dication GenericN avani: losartan Not Available Not Available Not Available lisinopri l 5 mg tablet TAKE 1 TABLET ORALLY DAILY FOR 90 DAYS active Not Available Not Available No t Available losartan 100 mg tablet TAKE 1 TABLET BY MOUTH EVERY DAY FOR 90 DAYS active Not Available Not Available No t Available multivita min capsule 2014 active Medicati on ID: [id number] Br and Name: multivit tracy Sen d Method: E-Prescr ibed Sub s Allowed: subs OK Medic ationGen ericName : multivit tracy Not Available Not Available Not Available fluticaso ne propionat e 50 mcg/actua tion nasal spray,lauri pension 2014 active Medicati on ID: [id number] Du ration Value: 30 Prescri bed By Name: HAWA Huggins nd Name: fluticas one Send Method: E-Prescr ibed Sub s Allowed: subs OK Speci al Instruct ion: USE 2 SPRAYS IN EACH NOSTRIL DAILY Me dication GenericN avani: fluticas one Not Available Not Available Not Available lisinopri l 2.5 mg tablet TAKE 1 TABLET BY MOUTH DAILY active Not Available Not Available No t Available ipratropi um bromide 21 mcg (0.03 %) nasal spray 2 spray into both nostrils 2017 active Medicati on ID: [id number] P shruti d By Name: Grecia Mcclure nd Name: ipratrop ium bromide Send Method: E-Prescr ibed Sub s Allowed: subs OK Medic ationGen ericName : ipratrop ium bromide Not Available Not Available Not Available finasteri de 5 mg tablet TAKE 1 TABLET BY MOUTH EVERY DAY active Not Available Not Available No t Available loratadin e 10 mg tablet 05/11 completed Medicati on ID: [id number] Du ration Value: 30 Reason: () Brand Name: loratadi ne Send Method: E-Prescr ibed Sub s Allowed: subs OK Medic ationGen ericName : loratadi ne Not Available Not Available Not Available amoxicill in 875 mg-potass ium clavulana te 125 mg tablet TAKE 1 TABLET BY MOUTH EVERY 12 HOURS UNTIL FINISHED 03/28 completed Not Available Not Available Not Available verapamil ER 120 mg 24 hr capsule,e xtended release TAKE 1 CAPSULE BY MOUTH EVERY DAY active Not Available Not Available No t Available oxycodone 5 mg tablet active Not Available Not Available Not Available Zetia 10 mg tablet 05/11 completed Medicati on ID: [id number] Du ration Value: 30 Reason: () Brand Name: Crystal Se nd Method: E-Prescr ibed Sub s Allowed: subs OK Medic ationGen ericName : Zetia Not Available Not Available Not Available Ferretts 325 mg (106 mg iron) tablet TAKE 1 TABLET BY MOUTH DAILY. active Not Available Not Available No t Available Gavilax 17 gram/dose oral powder DISSOLVE 17 GRAMS IN WATER AND TAKE BY MOUTH ONCE DAILY NEEDED FOR CONSTIPA TION active Not Available Not Available No t Available Vitals Date Recorded Body height Body mass index (BMI) Body weight Systolic blood pressure Diastolic blood pressure Provider Name and Address Organization Details Last Updated DateTime 03/28/2024 182.88 cm 23.5 kg/m2 20002.48 g 168 mm[Hg] 72 mm[Hg] Catia Mullins [place] - [facility] 11:15:55 Social History None recorded. Functional Status None recorded. Mental Status None recorded. Family History Nothing Reported. Medical History No medical history recorded. Past Encounters Encounter ID Performer Location Encounter Start Date Encounter Closed Date Diagnosis/Indication Diagnosis SNOMED-CT Code Diagnosis ICD10 Code Diagnosis Note [id number] SUSAN RYAN MD [facility] [address] [address] 03/28/2024 10:26:24 03/28/2024 12:45:03 Sensorineural hearing loss of bilateral ears [id number] H90.3 Audiologic al evaluation results: Right ear: {{Normal* Normal through 2 kHz Mild M oderate Mo derately-s evere Sandra re Profoun d}} {{hearing sloping to a mild slopi ng to a moderate s loping to moderately severe slo ping to severe slo ping to profound* flat high frequency low frequency mid frequency cookie bite gan curve}} {{with sen sorineural hearing loss with* cond uctive hearing loss with mixed hearing loss with}} {{excellen t good soco r* poor no measurable }} word recognitio n. Left ear: {{Normal N ormal through 2 kHz Mild* Moderate M oderately- severe Sev ere Profou nd}} {{hearing sloping to a mild slopi ng to a moderate s loping to moderately severe slo ping to severe slo ping to profound* flat high frequency low frequency mid frequency cookie bite gan curve}} {{with sen sorineural hearing loss with* cond uctive hearing loss with mixed hearing loss with}} {{excellen t good soco r* poor no measurable }} word recognitio n. Tympanomet ry: Right Ear:{{Type A Type As Type Ad* Type C Type C, shallow & rounded Ty pe B Type B with large volume Cou ld not maintain a hermetic seal}} Left Ear:{{Type A Type As Type Ad* Type C Type C, shallow & rounded Ty pe B Type B with large volume Cou ld not maintain a hermetic seal}} Multinodular goiter 2375 84265 E04.2 Feeling of lump in throat 440065780 R09.89 Health Concerns Section Related Observation LastModified by Organization Detai ls LastModified Time None Recorded Concern Status LastModified by Organization Details LastModified Time None Recorded Advance Directives Directive None Recorded Payers Encounter Date Sequence Insurance Name Policy Number Policy Saravia Covered Member ID Saravia Member ID Guarantor Name 03/28/2024 1 [facility] Chirag Portillo [id number] Chirag Portillo Notes Date Note Type Note Provider Name and Address Organization Details Recorded Time 03/28/2024 text/html hx of goiter and dysphagia. Previously evaluated in 2019. Scheduled for thyroid bx in near futureLong standing bilateral HL since at least 2013. No vertigo. Bilateral tinnitusChronic globus sensation SUSAN CAMPOS MD [address] [place] [address], [phone], [place] - [facility] 03/28/2024 11:43:38
[2024-08-06 12:08] LABS: Anion Gap 12 (12-20); Blood Urea Nitrogen 16 mg/dL (9-16); Calcium 9.7 mg/dL (8.4-10.2); Carbon Dioxide 26 mmol/L (22-29); Chloride 109 mmol/L (96-108); Estimated Glomerular Filt Rate > 60; Potassium 4.1 mmol/L (3.3-5.1); Sodium 143 mmol/L (135-145)
[2024-08-06 12:31] LABS: PSA,Total (Free>4and<10) 5.62 ng/mL (0.00-4.00)
[2024-08-08 11:03] LABS: Free Prostate Spec Ag 0.8 ng/mL; Percent Free Prostate Spec Ag 15 % (calc) (>25); Prostate Specific Ag Total 5.2 ng/mL (< OR = 4.0)
== END 2024-08-06 08:49 | disposition home or self-care (01) ==
LOC: HO.HMGCLDS 08:48
PROVIDERS: Nurse Practitioner Family; PCP Nurse Practitioner Family; Visit Provider Internal Medicine Nephrology
DX: N18.31 Chronic kidney disease, stage 3a (principal); N40.1 Benign prostatic hyperplasia with lower urinary tract symptoms; N13.8 Other obstructive and reflux uropathy; R97.20 Elevated prostate specific antigen [PSA]
CPT/HCPCS: 36415; 80051; 82310; 82565; 84153; 84154; 84520

== ENCOUNTER 2024-08-10 10:50 | Outpatient (AMB) | payer OTHER, SELFPAY ==
--- NOTE | 2024-08-10 11:03 | HO.NEPHOV_ITS ---
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 He has H/O urinary retention needing catheterization. He has H/O syncope(likely micturition syncope) as well as UTI. At that time he had KEENA with a serum creatinine going up to 1.8. His losartan was discontinued at that time. He has followed up with urologist and his [place] catheter has been discontinued. He is on finasteride. Prior to hospital discharge his serum creatinine had settled to baseline. He denies any chest pain, shortness of breath, paroxysmal nocturnal dyspnea, orthopnea, pedal edema, urinary symptoms, hematuria, fever. He has not taking any edwy-hbb-mqbwxjm medications. He tries to maintain good hydration. His BP is at goal at home [facility] Medical History Hx of chest pain BPH (benign prostatic hyperplasia) Murmur LVH (left ventricular hypertrophy) Hypertensive emergency CKD (chronic kidney disease) Dysphagia Vitamin D deficiency Multinodular thyroid Surgical History Hx of nasal septoplasty History of esophagogastroduodenoscopy (EGD) Hx of endoscopy Hx of eye surgery Hx of colonoscopy History of arthroscopic surgery of shoulder Hx of removal of cyst Hx of appendectomy Family History Father Lung cancer Mother Cancer Social History Household Members: Friend(s) Housing: House Are you a primary memory care program resident to a significant other at home: Yes (cares for 2 adults that need some assistance with ADLs) Do you presently have visiting nurse or other home services: No (will have help post op) Patient Tobacco Use Status: Former Tobacco user Tobacco use type: Cigarette Years Smoked: 15 Second Hand Smoke Exposure: No Current occupational status: employed Current occupation: [employer] Current occupational exposures/hazards: No Cognitive needs: No Hearing needs: No Vision needs: No Review of Systems Const All systems reviewed & are unremarkable except as noted in HPI and below Physical Exam Const General: comfortable and no acute distress Orientation/consciousness: patient oriented x3 HEENT Head: Yes normocephalic Mouth: Normal oral and palatal mucosa present Eyes EOM: EOMs intact bilaterally Neck Neck: Yes supple Resp Auscultation: clear to auscultation bilaterally Cardio Jugular venous distension: no JVD Rate: regular rate GI Palpation (GI): Soft to palpation Auscultation: normal bowel sounds General: Yes no CVA tenderness Back/Spine/Pelvis Back: no CVA tenderness Skin General skin exam: no rashes or lesions noted Neuro General: patient oriented x3 and moves all extremities Extrem General: Yes no pedal edema Results Reviewed Nephrology Results: Sodium 143 mmol/L (135-145) 08/06/24 Potassium 4.1 mmol/L (3.3-5.1) 08/06/24 Chloride 109 mmol/L (96-108) H 08/06/24 Carbon Dioxide 26 mmol/L (22-29) 08/06/24 BUN 16 mg/dL (9-16) 08/06/24 Creatinine 1.18 mg/dL (0.5-1.4) 08/06/24 Calcium 9.7 mg/dL (8.4-10.2) 08/06/24 Assessment & Plan Assessment & Plan (1) CKD (chronic kidney disease) stage 3, GFR 30-59 ml/min: Code(s): N18.30 - Chronic kidney disease, stage 3 unspecified Category: Medical Qualifiers: Chronic kidney disease stage 3 subtype: stage 3a (GFR 45-59) Qualified Code(s): N18.31 - Chronic kidney disease, stage 3a (2) HTN (hypertension): Code(s): I10 - Essential (primary) hypertension Category: Medical Qualifiers: Hypertension type: primary hypertension Qualified Code(s): I10 - Essential (primary) hypertension Plan Chirag has underlying stage III CKD at baseline from longstanding hypertension. His KEENA has settled to baseline with supportive care. His BP is at goal. He should continue lisinopril 5 mg daily and carvedilol 6.25 mg bid. He was encouraged to maintain good hydration and minimize sodium in the diet. I did not make any other medication changes today . All questions answered. Follow-up appointment given Orders: Orders Blood Urea Nitrogen 4 Months I10 - Essential (primary) hypertension, N18.31 - Chronic kidney disease, stage 3a Protein Creatinine Ratio, Ur 4 Months I10 - Essential (primary) hypertension, N18.31 - Chronic kidney disease, stage 3a Creatinine 4 Months I10 - Essential (primary) hypertension, N18.31 - Chronic kidney disease, stage 3a Electrolytes 4 Months I10 - Essential (primary) hypertension, N18.31 - Chronic kidney disease, stage 3a Coding Level of Care Code Est Pt Level 4 (94279) Diagnoses Stage 3a chronic kidney disease N18.31 Chronic kidney disease stage 3 subtype: stage 3a (GFR 45-59) Primary hypertension I10 Hypertension type: primary hypertension
[2024-08-10 11:11] VITALS: BP 140/72; PULSE 64; O2SAT 98; BMI 23.5
--- OUTSIDE RECORDS SUMMARY | 2024-08-10 12:00 | XMS_ITS | Data Portability ---
Author Organization [place] - [facility], Allergy Address [address] [address] Assessment Encounter Date Assessment Date Assessment LastModified [...] Address Organization Details Recorded Time Chronic rhinitis 38286068 Active 2014 Rhinitis, chronic; Note: Date Diagnosed : 07/19/2014 12:24 PM (472.0) ; Start Date : 5 Chronic rhinitis; Note: Date Diagnosed : 05/07/2015 4:24 PM (J31.0) [mapped from ICD9 code: 472.0] Not Available [facility] 4 02:52:30 Deviated nasal septum 037827506 Active 2014 Nasal septal deviation ; CMS [...] ; Start Date : 5 Not Available [facility] 4 02:52:30 Nasal polyp Active 2014 Nasal polyps; Note: Date Diagnosed : 4 2:03 PM () Not Available [facility] 4 02:52:30 Sensorine ural hearing loss of bilateral ears 408668568 Active 2016 Sensorine ural hearing loss, bilateral ; Note: Date Diagnosed : 7 10:50 AM (H90.3) Not Available [facility] 4 02:52:29 Gastroeso phageal reflux disease 332844624 Active 2014 Laryngoph aryngeal reflux; Note: Date Diagnosed : 4 2:04 PM () Not Available [facility] 4 02:52:33 Pain of right temporoma ndibular joint 92663857828 077316 Active 2017 Arthralgi a of right temporoma ndibular joint; Note: Date Diagnosed : 12/23/2017 11:38 AM (M26.621) Not Available [facility] 4 02:52:32 Dysphagia 27394780 Active 2018 Dysphagia , unspecifi ed; Note: Date Diagnosed : 11/01/2018 2:44 PM (R13.10) Not Available [facility] 4 02:52:35 Postopera tive follow-up visit Active 2014 Post op; Note: Date Diagnosed : 08/07/2014 11:39 AM (V67.00) Not Available [facility] 4 02:52:29 Otalgia of right ear 9178047858 Active 2017 Otalgia, right ear; Note: Date Diagnosed : 12/23/2017 11:38 AM (H92.01) Not Available [facility] 4 02:52:29 Bilateral obstructi on of Eustachia n tubes 05700674329 13163 Active 2014 Unspecifi ed obstructi on of Eustachia n tube, bilateral ; Note: Date Diagnosed : 05/07/2015 4:24 PM (H68.103) [mapped from ICD9 code: 472.0] Not Available [facility] 4 02:52:35 Arthralgi a of temporoma ndibular joint 68398554 Active 2014 Arthralgi a of temporoma ndibular joint; Note: Date Diagnosed : 05/07/2015 4:24 PM (M26.62) [mapped from ICD9 code: 472.0] Not Available [facility] 4 02:52:33 Abnormal auditory perceptio n 47146649 Active 2016 Other abnormal auditory perceptio ns, bilateral ; Note: Date Diagnosed : 7 10:50 AM (H93.293) Not Available [facility] 4 02:52:34 Respirato ry finding 427474062 Active 2016 Feeling of foreign body in throat; Note: Date Diagnosed : 7 10:50 AM (R09.89) Not Available [facility] 4 02:52:31 Cardiovas cular finding 604732640 Active 2016 Feeling of foreign body in throat; Note: Date Diagnosed : 7 10:50 AM (R09.89) Not Available [facility] 4 02:52:32 Hypertrop hy of nasal turbinate s 62425845 Active 2014 Nasal turbinate hypertrop hy; Location: [...] ; Start Date : 5 Not Available [facility] 4 02:52:31 Difficult y speaking Active 2014 Hoarsenes s; Note: Date Diagnosed : 4 2:04 PM () Not Available [facility] 4 02:52:33 Posterior rhinorrhe a 74322847 Active 2016 Postnasal drip; Note: Date Diagnosed : 7 10:50 AM (R09.82) Not Available [facility] 4 02:52:34 Allergic rhinitis 42915199 Active 2016 Allergic Rhinitis; Note: Date Diagnosed : 4 2:03 PM () ; Start Date : 5 Other allergic rhinitis; Note: Date Diagnosed : 7 10:12 AM (J30.89) Not Available [facility] 4 02:52:32 Multinodu lar goiter 249519743 Active 2023 SUSAN RYAN MD [address] [place] [address], [place], [address] , [place] - [facility] 4 11:43:11 Feeling of lump in throat 426469494 Active 2023 SUSAN RYAN MD [address] [place] [address], [place], [address] , [facility] - [facility] [place] 4 11:43:19 Problem Notes None recorded. Procedures Surgical History Date Name Laterality Status Provider Name and Address Organization Details Recorded Time 03/28/2024 Comp Audio with Tymps (87249 & 70791) completed Gabby Gaspar [place] - [facility] 03/28/2024 11:07:33 Imaging Results Imaging Date Name [...] Copy/Agatha or Auth^Scr ipt Copy/Agatha or Auth_201 [id number] Not Available Not Available Not Available losartan 50 mg tablet 05/08 completed Medicati on ID: [id number] Du ration Value: 30 Reason: () Brand [...] by mouth 2014 active Medicati on ID: 04776 Du ration Value: 7 Prescri bed By [...] mg capsule 2014 active Medicati on ID: 81545 Br and Name: flaxseed oil Send Method: E-Prescr ibed Sub s Allowed: subs OK Medic ationGen ericName : flaxseed oil Not Available Not Available Not Available tamsulosi n 0.4 mg capsule TAKE 1 CAPSULE BY MOUTH EVERY DAY active Not Available Not Available No t Available losartan 25 mg tablet 03/28 completed Medicati on ID: [id number] D uration Value: 30 Brand Name: losartan [...] min capsule 2014 active Medicati on ID: 77476 Br and Name: multivit tracy Sen d Method: E-Prescr ibed Sub s Allowed: subs OK Medic ationGen ericName : multivit tracy Not Available Not Available Not Available fluticaso ne propionat e 50 mcg/actua tion nasal spray,lauri pension 2014 active Medicati on ID: 63919 Du ration Value: 30 Prescri bed By [...] both nostrils 2017 active Medicati on ID: [id number] P shruti d By Name: Grecia Mcclure [...] mg tablet 05/11 completed Medicati on ID: 82970 Du ration Value: 30 Reason: () Brand [...] mg tablet 05/11 completed Medicati on ID: 77749 Du ration Value: 30 Reason: () Brand [...] Updated DateTime 03/28/2024 182.88 cm 23.5 kg/m2 74312.48 g 168 mm[Hg] 72 mm[Hg] Catia Mullins [place] - [facility] 11:15:55 Social History None recorded. Functional Status None recorded. Mental Status None recorded. Family History Nothing Reported. Medical History No medical history recorded. Past Encounters Encounter ID Performer Location Encounter Start Date Encounter Closed Date Diagnosis/Indication Diagnosis SNOMED-CT Code Diagnosis ICD10 Code Diagnosis Note [id number] SUSAN RYAN MD [facility] [address] [address] 03/28/2024 10:26:24 03/28/2024 12:45:03 Sensorineural hearing loss of bilateral ears 932714143 H90.3 Audiologic al evaluation results: Right ear: [...] maintain a hermetic seal}} Multinodular goiter 2375 80377 E04.2 Feeling of lump in throat 889145474 R09.89 Health Concerns Section Related Observation LastModified by Organization Detai ls LastModified Time None Recorded Concern Status LastModified by Organization Details LastModified Time None Recorded Advance Directives Directive None Recorded Payers Encounter Date Sequence Insurance Name Policy Number Policy Saravia Covered Member ID Saravia Member ID Guarantor Name 03/28/2024 1 [facility]ID H[facility] Chirag Portillo [id number] Chirag Portillo Notes Date Note Type Note Provider Name and Address Organization Details Recorded Time 03/28/2024 text/html hx of goiter and dysphagia. Previously evaluated in 2019. Scheduled for thyroid bx in near futureLong standing bilateral HL since at least 2013. No vertigo. Bilateral tinnitusChronic globus sensation SUSAN CAMPOS MD [address] [place] [address], [address], [place] - [facility] 03/28/2024 11:43:38
--- OUTSIDE RECORDS SUMMARY | 2024-08-10 12:00 | XMS_ITS | Clinical Summary ---
Author Organization [facility] Address [address] [address] [place] [place] [address] Phone Care Team Providers Care Construction Worker Name Role Phone Migue Moreno NP Primary Care Provider [phone] Allergies No known active allergies Medications multivitamine, geriatric, (CENTRUM SILVER) tablet Take 1 tablet by mouth 1 (one) time each day Active omega-3 (FISH OIL) 1000 MG capsule Take 1 capsule by mouth 1 (one) time each day Active atorvastatin (Lipitor) 80 MG tablet Take 1 tablet by mouth 1 (one) time each day Active ezetimibe (ZETIA) 10 MG tablet Take 1 tablet by mouth 1 (one) time each day Active tamsulosin (FLOMAX) 0.4 MG 24 hr capsule Take 1 capsule by mouth at bed time Active losartan (COZAAR) 50 MG tablet TAKE 2 TABLETS (100 MG TOTAL) BY MOUTH 1 (ONE) TIME EACH DAY FOR 90 DOSES 180 tablet 3 02/10/2022 Active Active Problems Problem Noted Date Diagnosed Date Hypertension 02/13/2021 Benign hypertensive renal disease 02/12/2021 Stage 3a chronic kidney disease 02/12/2021 Multiple congenital cysts of kidney 02/12/2021 Proteinuria 02/12/2021 Family History Medical History Relation Comments Hypertension Sibling brother Relation Status Comments Father Sibling Social History Tobacco Use Types Packs/Day Years Used Date Smoking Tobacco: Former Smokeless Tobacco: Former Alcohol Use Standard Drinks/Week Comments No 0 (1 standard drink = 0.6 oz pur e alcohol) Sex and Gender Information Value Date Recorded Sex Assigned at Not on file Legal Sex Male 4:42 PM EST Gender Identity Not on file Sexual Orientation Not on file Last Filed Vital Signs Vital Sign Reading Time Taken Comments Blood Pressure 150/90 02/13/2021 2:03 PM EDT Pulse 69 02/13/2021 2:03 PM EDT Temperature - - Respiratory Rate - - Oxygen Saturation 98% 02/13/2021 2:03 PM EDT Inhaled Oxygen Concentration - - Weight 82.1 kg (181 lb) 02/13/2021 2:03 PM EDT Height 182.9 cm (6') 12/21/2019 12:00 PM EDT Body Mass Index 24.55 12/21/2019 12:00 PM EDT Plan of Treatment Health Maintenance Due Date Last Done Comments Pneumococcal Vaccine: Pediatrics (0 to 5 Years) and At-Risk Patients (6 to 64 Years) (1 of 2 - PCV) 1966 Colorectal Cancer Screening: Annual FOBT 2010 Colorectal Cancer Screening: Colonoscopy 2010 Colorectal Cancer Screening: Sigmoidoscopy 2010 Influenza Vaccine (#1) 2024 2, 05/13/2021, 02/22/2020, Additional history exists Hepatitis B Vaccine Aged Out No longe r eligible based on patient's age to complete this topic Insurance [facility] [place] [address] [facility] [place] [address] Care Teams Construction Worker Relationship Specialty Start Date End Date Migue Moreno NP [address] [place] [address] PCP - General Nurse Practitioner 02/13/21
--- OUTSIDE RECORDS SUMMARY | 2024-08-10 12:00 | XMS_ITS | Encounter Summary ---
Author Organization [facility] Address [address] [facility] [address] [address] Phone Care Team Providers Care Director Of Corporate Strategy Name Role Phone Migue Moreno NP Primary Care Provider [phone] Reason for Visit * Reason Comments Med Refill Encounter Details Date Type Department Care Team (Late st Contact Info) Description 04/20/2023 Refill [facility] [address] [place] [address] [facility] [place] [id number] Gerardo Wong MD Social History Tobacco Use Types Packs/Day Years Used Date Smoking Tobacco: Former Smokeless Tobacco: Former Alcohol Use Standard Drinks/Week Comments No 0 (1 standard drink = 0.6 oz pur e alcohol) Sex and Gender Information Value Date Recorded Sex Assigned at Not on file Legal Sex Male 4:42 PM EST Gender Identity Not on file Sexual Orientation Not on file documented as of this encounter Plan of Treatment Not on file documented as of this encounter Visit Diagnoses Not on filedocumented in this encounter Care Teams Director Of Corporate Strategy Relationship Specialty Start Date End Date Migue Moreno NP [address] [place] [address] PCP - General Nurse Practitioner 02/13/21 documented as of this encounter
--- OUTSIDE RECORDS SUMMARY | 2024-08-10 12:01 | XMS_ITS | Data Portability ---
Author Organization [facility] [address] Address [address] [place] [address] Care Team Providers Care Tax Compliance Manager Name Role Phone JEMIMA DREW Primary Care Provider [phone] Assessment No assessment recorded. Plan of Treatment Reminders Order Date Submit Date Provider Last Modified By Organization Details Last Modified Time Details Appointments None recorded. Lab None recorded. Referral emergency medicine referral 2022 023 [email or web address] a1 [facility], [address] [place], [address], 10:34:34 Procedures None recorded. Surgeries None recorded. Imaging electrocard iogram 2022 023 [email or web address] [address], [address] [place], [address], 10:35:54 Medication Orders None recorded. Patient TargetsNo targets recorded. Patient Instructions Encounter Date Encounter Id Patient Instructions Last Modified By Organization Details Last Modified Time 05/04/2023 [id number] You have been advised to go now to the Emergency Department for further evaluation. [facility] ER has been advised of your impending arrival and EMS transport arranged. Further testing, treatment and your ultimate disposition will be determined by ER personnel. [email or web address] Not available 05/04/2023 10:25:42 Reason for Referral Emergency Medicine Referral for Chest pain Left chest pain, LUE numbness intermittent x 2 weeks, more constant for 3 days. Subtle LUE weakness Referring Physician: Alma Adams, Urgent Care, Encounter Date: 05/04/2023 Results Created Date Observation Date Name Description Value Unit Range Abnormal Flag Note LastModifiedBy Organization Detail LastModifiedTime 05/04/2005/04/2023 elect keyshawn trottergr am No observ ation record ed. [facility] [address] [place], [address], 05/04/2023 10:35:54 05/04/20 elect rocar diogr am No observ ation record ed. [facility] [address] [place], [address], 05/04/2023 12:09:38 Result Notes None recorded. Problems Name Problem SNOMED Code Status Onset Date Resolution Date Notes Provider Name and Address Organization Details Recorded Time Hypertensive disorder 42033404 Active CHERELLE DEPINTO null, [place] - [facility] 10:05:40 Hypercholestero lemia 96929971 Active CHERELLE DEPINTO null, [place] - [facility] 10:06:32 Disorder of thyroid gland 67026004 Active CHERELLE DEPINTO null, [place] - [facility] 10:06:41 Problem Notes None recorded. Procedures Surgical History None recorded. Imaging Results Imaging Date Name Status LastModified by Organization Details LastModified Time 05/04/2023 electrocardiogram completed [facility] [address] [place], [address], 05/04/2023 10:35:54 05/04/2023 electrocardiogram completed CLYO [address] [place], [address], 05/04/2023 12:09:38 Procedure Notes None recorded. Medical Equipment None Reported. Allergies No known drug allergies Medications Not known to be on any medication Vitals Date Recorded Body height Respiratory rate Body mass index (BMI) Body weight Pain severity - 0-10 verbal numeric rating [Score] - Reported Oxygen saturation Oxygen saturation in Arterial blood by Pulse oximetry Heart rate Body temperature Systolic blood pressure Diastolic blood pressure Provider Name and Address Organization Details Last Updated DateTime 3 182.88 cm 18 /min 24.7 kg/m2 25246.8 1 g 0 100 % 100 % 80 /min 97.5 [degF] 182 mm[Hg] 72 mm[Hg] CHERELLE CHING [place] - [facility] 10:11:03 Social History Question Answer Notes LastModified by Organizat ion Details LastModified Time Tobacco Smoking Status Never Smoker CHERELLE bonilla [place] - [facility] 05/04/2023 10:06:56 What Is Your Level Of Alcohol Consumption? None Information not available 05/04/2023 Are You Currently Employed? No Information not available 05/04/2023 Have You Had A Flu Shot This Season? No Information not available 05/04/2023 If No, Would You Like A Flu Shot Today? No Information not available 05/04/2023 Do You Use Any Illicit Or Recreational Drugs? No Information not available 05/04/2023 Have You Recently Traveled Abroad? No Information not available 05/04/2023 Are You Currently In School? No Information not available 05/04/2023 Do You Or Have You Ever Used Any Other Forms Of Tobacco Or Nicotine? No Information not available 05/04/2023 Sex: Unknown Functional Status None recorded. Mental Status None recorded. Family History Relationship Description Onset Age of this Age Resolved Age Notes LastModified by Organization Details LastModified Time Father No current problems or disability Not available 05/04 10:06:45 Mother No current problems or disability Not available 05/04 10:06:45 Medical History No medical history recorded. Immunizations Vaccine Type Date Status Note Provider Nam e and Address Organization Details Recorded Time Influenza, split virus, quadrivalent, preservative 8 completed CHERELLE bonilla [place] - [facility] 05/04/2023 10:04:26 Influenza, split virus, quadrivalent, preservative 9 completed CHERELLE bonilla [place] - [facility] 05/04/2023 10:04:26 COVID-19, mRNA, LNP-S, PF, 100 mcg/0.5mL dose or 50 mcg/0.25mL dose 1 completed CHERELLE DEPINTO null, [place] - [facility] 05/04/2023 10:04:26 COVID-19, mRNA, LNP-S, PF, 100 mcg/0.5mL dose or 50 mcg/0.25mL dose 1 completed CHERELLE DEPINTO null, [place] - [facility] 05/04/2023 10:04:26 COVID-19, mRNA, LNP-S, bivalent, PF, 50 mcg/0.5 mL or 25mcg/0.25 mL dose 2 completed CHERELLE DEPINTO null, [place] - [facility] 05/04/2023 10:04:26 Tdap 7 completed CHERELLE DEPINTO null, [place] - [facility] 05/04/2023 10:04:26 Influenza, split virus, trivalent, PF 5 completed CHERELLE DEPINTO null, [place] - [facility] 05/04/2023 10:04:26 Influenza, split virus, trivalent, PF 7 completed CHERELLE DEPINTO null, [place] - [facility] 05/04/2023 10:04:26 Influenza, split virus, quadrivalent, PF 0 completed CHERELLE DEPINTO null, [place] - [facility] 05/04/2023 10:04:26 Influenza, split virus, quadrivalent, PF 6 completed CHERELLE DEPINTO null, [place] - [facility] 05/04/2023 10:04:26 Influenza, split virus, quadrivalent, PF 2 completed CHERELLE DEPINTO null, [place] - [facility] 05/04/2023 10:04:26 Influenza, split virus, quadrivalent, PF 8 completed CHERELLE DEPINTO null, [place] - [facility] 05/04/2023 10:04:26 Influenza, split virus, quadrivalent, PF 1 completed CHERELLE DEPINTO null, [place] - [facility] 05/04/2023 10:04:26 Past Encounters Encounter ID Performer Location Encounter Start Date Encounter Closed Date Diagnosis/Indication Diagnosis SNOMED-CT Code Diagnosis ICD10 Code Diagnosis Note [id number] [address] [place] [address] 10/01/2015 18:00:38 10/01/2015 18:23:23 [id number] Al[place] [id number] [place] [address] 05/04/2023 09:53:59 05/04/2023 10:34:34 Chest pain 72108398 R07.9 Weakness o f left upper limb 4884146784 41300 M62.81 Health Concerns Section Related Observation LastModified by Organization Detai ls LastModified Time None Recorded Concern Status LastModified by Organization Details LastModified Time None Recorded Advance Directives Directive None Recorded Payers Encounter Date Sequence Insurance Name Policy Number Policy Saravia Covered Member ID Saravia Member ID Guarantor Name 10/01/2015 1 [facility]EL[facility] TYPE I (HMO) Chirag Portillo [id number] Chirag Portillo 05/04/2023 1 [facility] PL[facility] (MEDICAID HMO) [facility] Chirag Portillo [id number] Chirag Portillo Notes Date Note Type Note Provider Name and Address Organization Details Recorded Time 3 text/html Chest PainReported bypatient.source of patient informationInformation obtained from patient; Patient arrived at Urgent Care ambulatory Location:chest; left arm; back;radiates to the left arm;radiates to the back Quality:aching;sharp Severity:moderate Duration:Intermittent for 2 weeks. Context:exertional Alleviating Factors:relieved with rest Aggravating Factors:worse with activity Associated Symptoms:no dyspnea; no fatigue; no associated dizziness;palpitationsNotes :62 year old male with hx of HTN, HLD, heart murmur presenting for evaluation of intmermittent sharp and aching left upper chest pain with radiation to his left upper back and left arm getting worse for the past 2 weeks. The pain is worse with exertion and better with rest. The patient also reports left upper arm numbness and mild weakness at first intermittent beginning 2 weeks ago but more constant for the past 3 days. No headache or visual disturbance. He has a minor speech impediment at baseline. No gait disturbance. No other extremity numbness or weakness. No swelling. He has occasional palpitations. No nausea, vomiting, sweats, fainting. Alma Adams MD [address] [facility] [place], [address], [place] - [facility] 05/04/2023 11:35:09
== END 2024-08-10 11:18 | disposition home or self-care (01) ==
PROVIDERS: PCP Nurse Practitioner Family; Visit Provider Internal Medicine Nephrology
DX: N18.31 Chronic kidney disease, stage 3a (principal); I10 Essential (primary) hypertension
CPT/HCPCS: 99214

== ENCOUNTER → 2024-08-10 10:50 | Outpatient (BNVA) | payer OTHER, SELFPAY | PROVIDERS: PCP Nurse Practitioner Family; Visit Provider Internal Medicine Nephrology | DX: I12.9 Hypertensive chronic kidney disease with stage 1 through stage 4 chronic kidney disease, or unspecified chronic kidney disease (principal); N18.31 Chronic kidney disease, stage 3a | CPT/HCPCS: 99212 ==

== ENCOUNTER 2024-12-02 09:49 | Outpatient (AMB) | payer OTHER, SELFPAY ==
--- NOTE | 2024-12-02 10:01 | HO.NEPHOV_ITS ---
Vital Signs 12/02/24 10:03 Height 6 ft Weight 171 lb BMI 23.2 BP 150/70 H Blood Pressure Location Rt brachial Position Sitting Pulse 58 Pulse Source Pulse Oximeter Pulse Oximetry (%) 98 Oxygen Delivery Method Room Air Intake Visit Reasons: BP check-up ok per Rayna Blueprint Developer Required: No Accompanied by: Self / Same As Patient Allergies No Known Allergies Allergy (Verified 12/02/24 10:02) HPI Comments Details: Chirag was seen in follow-up of his chronic kidney disease. His BP has been high lately. He is on finasteride. His serum creatinine is close to baseline. He denies any chest pain, shortness of breath, paroxysmal nocturnal dyspnea, orthopnea, pedal edema, urinary symptoms, hematuria, fever. He has not taking any ycdc-hyt-dsmxbya medications. He tries to maintain good hydration. [facility] Medical History (Updated 03/23/24 @ 12:01 by Aurora Stack [facility]) Hx of chest pain BPH (benign prostatic hyperplasia) Murmur LVH (left ventricular hypertrophy) Hypertensive emergency CKD (chronic kidney disease) Dysphagia Vitamin D deficiency Multinodular thyroid Surgical History (Updated 12/02/24 @ 10:08 by Violet Patel MA) History of lobectomy of thyroid Hx of nasal septoplasty History of esophagogastroduodenoscopy (EGD) Hx of endoscopy Hx of eye surgery Hx of colonoscopy History of arthroscopic surgery of shoulder Hx of removal of cyst Hx of appendectomy Family History Father Lung cancer Mother Cancer Social History Household Members: Friend(s) Housing: House Are you a primary child care development specialist to a significant other at home: Yes (cares for 2 adults that need some assistance with ADLs) Do you presently have visiting nurse or other home services: No (will have help post op) Patient Tobacco Use Status: Former Tobacco user Tobacco use type: Cigarette Years Smoked: 15 Second Hand Smoke Exposure: No Current occupational status: employed 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 Current occupational exposures/hazards: No Cognitive needs: No Hearing needs: No Vision needs: No Review of Systems Const All systems reviewed & are unremarkable except as noted in HPI and below Physical Exam Vital Signs: Last Vital Signs Pulse 58 12/02/24 10:03 BP 150/70 H 12/02/24 10:03 Pulse Ox 98 12/02/24 10:03 Oxygen Delivery Method Room Air 12/02/24 10:03 BMI result Body Mass Index 23.2 Const General: comfortable and no acute distress Orientation/consciousness: patient oriented x3 HEENT Head: Yes normocephalic Mouth: Normal oral and palatal mucosa present Eyes EOM: EOMs intact bilaterally Neck Neck: Yes supple Resp Auscultation: clear to auscultation bilaterally Cardio Jugular venous distension: no JVD Rate: regular rate GI Palpation (GI): Soft to palpation Auscultation: normal bowel sounds General: Yes no CVA tenderness Back/Spine/Pelvis Back: no CVA tenderness Skin General skin exam: no rashes or lesions noted Neuro General: patient oriented x3 and moves all extremities Extrem General: Yes no pedal edema Results Reviewed Nephrology Results: Sodium 143 mmol/L (135-145) 08/06/24 Potassium 4.1 mmol/L (3.3-5.1) 08/06/24 Chloride 109 mmol/L (96-108) H 08/06/24 Carbon Dioxide 26 mmol/L (22-29) 08/06/24 BUN 16 mg/dL (9-16) 08/06/24 Creatinine 1.18 mg/dL (0.5-1.4) 08/06/24 Calcium 9.7 mg/dL (8.4-10.2) 08/06/24 Assessment & Plan Assessment & Plan (1) CKD (chronic kidney disease) stage 3, GFR 30-59 ml/min: Code(s): N18.30 - Chronic kidney disease, stage 3 unspecified Category: Medical Qualifiers: Chronic kidney disease stage 3 subtype: stage 3a (GFR 45-59) Qualified Code(s): N18.31 - Chronic kidney disease, stage 3a Plan Chirag has underlying stage III CKD at baseline from longstanding hypertension. His KEENA has settled to baseline with supportive care. His BP is not at goal. I increased his lisinopril to 10 mg daily and C/W carvedilol 6.25 mg bid. He was encouraged to maintain good hydration and minimize sodium in the diet. I did not make any other medication changes today . All questions answered. Labs 3 weeks; Follow-up appointment given Orders: Orders Creatinine 3 Weeks N18.31 - Chronic kidney disease, stage 3a Blood Urea Nitrogen 3 Weeks N18.31 - Chronic kidney disease, stage 3a Electrolytes 3 Weeks N18.31 - Chronic kidney disease, stage 3a Medications: Changed From lisinopril 5 mg PO DAILY 90 tabs 3RF To lisinopril 10 mg (2 x 5 mg) PO DAILY 90 tabs 3RF Coding Level of Care Code Est Pt Level 4 (03168) Diagnoses Stage 3a chronic kidney disease N18.31 Chronic kidney disease stage 3 subtype: stage 3a (GFR 45-59)
[2024-12-02 10:03] VITALS: BP 150/70; PULSE 58; O2SAT 98; BMI 23.2
--- OUTSIDE RECORDS SUMMARY | 2024-12-02 10:14 | XMS_ITS | Clinical Summary ---
Author Organization [facility] Address [address] [place] [place] [address] Phone Care Team Providers Care Powder Core Tester Name Role Phone Migue Moreno NP Primary Care Provider [phone] Allergies No known active allergies Medications multivitamine, [...] Due Date Last Done Comments Pneumococcal Vaccine: 50+ Years (1 of 2 - PCV) 1980 Colorectal Cancer Screening: Annual FOBT 2010 Colorectal Cancer Screening: Colonoscopy 2010 Colorectal Cancer Screening: Sigmoidoscopy 2010 Influenza Vaccine (Season Ended) 2025 04/26/2022, 05/13/2021, 02/22/2020, Additional history exists Hepatitis B Vaccine Aged Out No longe r eligible based on patient's age to complete this topic Insurance [facility] Medicaid [facility] Healthnet Care Teams Powder Core Tester Relationship Specialty Start Date End Date Migue Moreno NP [address] [place] [address] PCP - General Nurse Practitioner 02/13/21
== END 2024-12-02 10:33 | disposition home or self-care (01) ==
LOC: HO.HKA 09:50
PROVIDERS: PCP Nurse Practitioner Family; Visit Provider Internal Medicine Nephrology
DX: N18.31 Chronic kidney disease, stage 3a (principal)
CPT/HCPCS: 99214

== ENCOUNTER → 2024-12-02 09:49 | Outpatient (BNVA) | payer OTHER, SELFPAY | PROVIDERS: PCP Nurse Practitioner Family; Visit Provider Internal Medicine Nephrology | DX: N18.31 Chronic kidney disease, stage 3a (principal) | CPT/HCPCS: 99212 ==

== ENCOUNTER 2024-12-26 10:06 | Outpatient (REF) | payer OTHER, SELFPAY ==
--- OUTSIDE RECORDS SUMMARY | 2024-12-26 11:11 | XMS_ITS | Clinical Summary ---
Author Organization [facility] Address [address] [place] [address] Phone Care Team Providers Care Food Processing Plant Manager Name Role Phone Migue Moreno NP Primary Care Provider [phone] Allergies No known active allergies Medications multivitamine, [...] patient's age to complete this topic Insurance [facility] Medicaid [facility] Healthnet Care Teams Food Processing Plant Manager Relationship Specialty Start Date End Date Migue Moreno NP [address] [place] [address] PCP - General Nurse Practitioner 02/13/21
[2024-12-26 13:30] LABS: Anion Gap 13 (12-20); Blood Urea Nitrogen 12 mg/dL (9-16); Carbon Dioxide 34 mmol/L (22-29); Chloride 106 mmol/L (96-108); Estimated Glomerular Filt Rate > 60; Potassium 3.6 mmol/L (3.3-5.1); Sodium 149 mmol/L (135-145)
[2024-12-26 13:32] LABS: Creatinine Urine 61.94 mg/dL; Total Protein Urine Random < 7 mg/dL (<12)
[2024-12-26 13:40] LABS: Thyroid Stimulating Hormone 0.88 uIU/mL (0.32-4.0)
[2024-12-26 13:41] LABS: Free T4 (Free Thyroxine) 1.11 ng/dL (0.71-1.85)
== END 2024-12-26 10:07 | disposition home or self-care (01) ==
LOC: HO.HMGCLDS 10:06
PROVIDERS: Student in an Organized Health Care Education/Training Program; PCP Nurse Practitioner Family; Visit Provider Internal Medicine Nephrology
DX: I12.9 Hypertensive chronic kidney disease with stage 1 through stage 4 chronic kidney disease, or unspecified chronic kidney disease (principal); N18.31 Chronic kidney disease, stage 3a; E04.2 Nontoxic multinodular goiter
CPT/HCPCS: 36415; 80051; 82565; 82570; 84156; 84439; 84443; 84520

== ENCOUNTER 2024-12-28 10:32 | Outpatient (AMB) | payer OTHER, SELFPAY ==
--- NOTE | 2024-12-28 09:51 | HO.NEPHOV_ITS ---
Vital Signs 12/28/24 10:37 12/28/24 10:50 Height 6 ft Weight 170 lb 8 oz BMI 23.1 BP 172/64 H 144/64 H Blood Pressure Location Rt brachial Rt brachial Position Sitting Sitting Pulse 64 Pulse Source Pulse Oximeter Pulse Oximetry (%) 98 Oxygen Delivery Method Room Air Intake Visit Reasons: 3wk follow-up w/labs-Conf Intake Note: Patient here for a follow-up. Battery Tester Field Required: No Accompanied by: Self / Same As Patient Allergies No Known Allergies Allergy (Verified 12/28/24 10:40) Do you need a note to return to daycare/school/sports/work: No HPI Comments Details: Chirag was seen in follow-up of his chronic kidney disease. His BP has been high lately. He is on finasteride. His serum creatinine is close to baseline. He denies any chest pain, shortness of breath, paroxysmal nocturnal dyspnea, orthopnea, pedal edema, urinary symptoms, hematuria, fever. He has not taking any lrld-vit-olnnmbd medications. He tries to maintain good hydration. He reports his blood pressures are 120s/60s at home. Today his blood pressure is elevated. He states he uses an automatic upper arm cuff at home to monitor his blood pressures. He states he is taking his blood pressure medication as prescribed and took it this morning. His sodium was mildly elevated on routine labs. He reports some dizziness with exertion, reports lightheadedness that improves with rest. He states this has been going on for some time now, and feels he does hydrate well. Denies other concerns/new symptoms. [facility] Medical History (Updated 03/23/24 @ 12:01 by Aurora Stack [facility]) Hx of chest pain BPH (benign prostatic hyperplasia) Murmur LVH (left ventricular hypertrophy) Hypertensive emergency CKD (chronic kidney disease) Dysphagia Vitamin D deficiency Multinodular thyroid Surgical History (Updated 12/02/24 @ 10:08 by Violet Patel MA) History of lobectomy of thyroid Hx of nasal septoplasty History of esophagogastroduodenoscopy (EGD) Hx of endoscopy Hx of eye surgery Hx of colonoscopy History of arthroscopic surgery of shoulder Hx of removal of cyst Hx of appendectomy Family History Father Lung cancer Mother Cancer Social History Household Members: Friend(s) Housing: House Are you a primary customer care voice consultant to a significant other at home: Yes (cares for 2 adults that need some assistance with ADLs) Do you presently have visiting nurse or other home services: No (will have help post op) Patient Tobacco Use Status: Former Tobacco user Tobacco use type: Cigarette Years Smoked: 15 Second Hand Smoke Exposure: No Current occupational status: employed 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 Current occupational exposures/hazards: No Cognitive needs: No Hearing needs: No Vision needs: No Review of Systems Const Reports no additional complaints ENT Reports dizziness (reports exertional dizziness), Denies hearing loss, Denies tinnitus and Denies sinus pain Card Denies chest pain, Denies leg edema, Denies dyspnea on exertion, Denies orthopnea and Denies paroxysmal nocturnal dyspnea Resp Denies dyspnea on exertion GI Denies abdominal pain, Denies constipation, Denies diarrhea, Denies nausea and Denies vomiting Denies hematuria, Denies difficulty urinating, Denies dysuria and Denies flank pain Musc Denies arthralgias and Denies joint swelling Skin/Breast Denies rash Neuro Reports dizziness (reports exertional dizziness) Physical Exam Const General: comfortable and no acute distress Resp Effort & Inspection: normal respiratory effort and able to speak in complete sentences Auscultation: clear to auscultation bilaterally Cardio Rate: regular rate Rhythm: regular rhythm Heart sounds: S1 normal heart sound present and S2 normal heart sound present GI Palpation (GI): Soft to palpation and nontender General: Yes no CVA tenderness Back/Spine/Pelvis Back: no CVA tenderness Skin Rashes: no rashes Extrem General: No edema Results Reviewed Nephrology Results: Sodium, (135-145) 149 mmol/L H 12/26/24 Potassium, (3.3-5.1) 3.6 mmol/L 12/26/24 Chloride, (96-108) 106 mmol/L 12/26/24 Carbon Dioxide, (22-29) 34 mmol/L H 12/26/24 BUN, (9-16) 12 mg/dL 12/26/24 Creatinine, (0.5-1.4) 1.16 mg/dL 12/26/24 Calcium, (8.4-10.2) 9.7 mg/dL 08/06/24 Urine Creatinine 61.94 mg/dL 12/26/24 Protein/Creatinin Ratio TNP 12/26/24 Assessment & Plan Assessment & Plan (1) CKD (chronic kidney disease) stage 3, GFR 30-59 ml/min: Code(s): N18.30 - Chronic kidney disease, stage 3 unspecified Category: Medical Qualifiers: Chronic kidney disease stage 3 subtype: stage 3a (GFR 45-59) Qualified Code(s): N18.31 - Chronic kidney disease, stage 3a (2) HTN (hypertension): Code(s): I10 - Essential (primary) hypertension Category: Medical Qualifiers: Hypertension type: primary hypertension Qualified Code(s): I10 - Essential (primary) hypertension Plan Chirag has underlying stage III CKD at baseline from longstanding hypertension. His blood pressure control remains suboptimal, though he reports his blood pressures are controlled at home. Will get 24 hour blood pressure monitor. He will continue to take 10mg lisinopril and 6.25mg BID carvedilol. He will continue to maintain good hydration and maintain a low sodium diet. Avoid NSAIDs. He will return in 2 weeks after 24 hour blood pressure monitor. Dizziness may be related to hypotension, will see what home monitoring shows. Advised if dizziness continues, should reach out to his PCP for workup. sodium level elevated on routine blood work- heat wave, may have been low on fluid. Will re-check in 1 week. Orders: Orders Basic Metabolic Panel 1 Week N18.30 - Chronic kidney disease, stage 3 unspecified Coding Level of Care Code Est Pt Level 3 (40049) Diagnoses Stage 3a chronic kidney disease N18.31 Chronic kidney disease stage 3 subtype: stage 3a (GFR 45-59) Primary hypertension I10 Hypertension type: primary hypertension
[2024-12-28 10:37] VITALS: BP 172/64; PULSE 64; O2SAT 98; BMI 23.1
[2024-12-28 10:50] VITALS: BP 144/64
--- OUTSIDE RECORDS SUMMARY | 2024-12-28 12:27 | XMS_ITS | Clinical Summary ---
Author Organization [facility] Address [address] [place] [address] Phone Care Team Providers Care Red Hat Engineer Name Role Phone Migue Morneo NP Primary Care Provider [phone] Allergies No known active allergies Medications multivitamine, [...] patient's age to complete this topic Insurance [facility] Medicaid [facility] Healthnet Care Teams Red Hat Engineer Relationship Specialty Start Date End Date Migue Moreno NP [address] [place] [address] PCP - General Nurse Practitioner 02/13/21
== END 2024-12-28 10:59 | disposition home or self-care (01) ==
LOC: HO.HKA 10:33
PROVIDERS: PCP Nurse Practitioner Family; Visit Provider Internal Medicine Nephrology
DX: N18.31 Chronic kidney disease, stage 3a (principal); I10 Essential (primary) hypertension
CPT/HCPCS: 99213

== ENCOUNTER → 2024-12-28 10:32 | Outpatient (BNVA) | payer OTHER, SELFPAY | PROVIDERS: PCP Nurse Practitioner Family; Visit Provider Internal Medicine Nephrology | DX: N18.31 Chronic kidney disease, stage 3a (principal); I10 Essential (primary) hypertension | CPT/HCPCS: 99212 ==

== ENCOUNTER 2025-01-23 10:36 | Outpatient (REF) | payer OTHER, SELFPAY ==
--- OUTSIDE RECORDS SUMMARY | 2025-01-23 11:39 | XMS_ITS | Clinical Summary ---
Author Organization [facility] Address [address] [place] [address] Phone Care Team Providers Care Director Advertising Name Role Phone Migue Moreno NP Primary Care Provider [phone] Allergies No known active allergies Medications multivitamine, [...] Cancer Screening: Sigmoidoscopy 2010 Influenza Vaccine (#1) 2025 2, 05/13/2021, 02/22/2020, Additional history exists Hepatitis B Vaccine Aged Out No longe r eligible based on patient's age to complete this topic Insurance [facility] Medicaid [facility] Healthnet Care Teams Director Advertising Relationship Specialty Start Date End Date Migue Moreno NP [address] [place] [address] PCP - General Nurse Practitioner 02/13/21
--- OUTSIDE RECORDS SUMMARY | 2025-01-23 11:40 | XMS_ITS | Data Portability ---
Author Organization [place] - [facility], [facility] Address [address] [place] [address] Assessment Encounter Date Assessment Date Assessment LastModified [...] will have him return for fiberoptic laryngoscopy. [email or web address] Not available 03/28/2024 11:42:39 Plan of Treatment [...] Name and Address Organization Details Recorded Time Nasal polyp Active 2014 Nasal polyps; Note: Date Diagnosed : 4 2:03 PM () Not Available [facility] 4 02:52:30 Gastroeso phageal reflux disease 985488606 Active 2014 Laryngoph aryngeal reflux; Note: Date Diagnosed : 4 2:04 PM () Not Available Pending sale to [facility] 4 02:52:33 Difficult y speaking Active 2014 Hoarsenes s; Note: Date Diagnosed : 4 2:04 PM () Not Available Pending sale to [facility] 4 02:52:33 Deviated nasal septum 047203360 Active 2014 Nasal septal deviation ; CMS [...] ; Start Date : 5 Not Available Pending sale to [facility] 4 02:52:30 Postopera tive follow-up visit Active 2014 Post op; Note: Date Diagnosed : 08/07/2014 11:39 AM (V67.00) Not Available Pending sale to [facility] 4 02:52:29 Hypertrop hy of nasal turbinate s 32196971 Active 2014 Nasal turbinate hypertrop hy; Location: [...] ; Start Date : 5 Not Available Pending sale to [facility] 4 02:52:31 Chronic rhinitis 06157077 Active 2014 Rhinitis, chronic; Note: Date Diagnosed : 07/19/2014 12:24 PM (472.0) ; Start Date : 5 Chronic rhinitis; Note: Date Diagnosed : 05/07/2015 4:24 PM (J31.0) [mapped from ICD9 code: 472.0] Not Available [facility] 4 02:52:30 Bilateral obstructi on of Eustachia n tubes 85783373671 78457 Active 2014 Unspecifi ed obstructi on of Eustachia n tube, bilateral ; Note: Date Diagnosed : 05/07/2015 4:24 PM (H68.103) [mapped from ICD9 code: 472.0] Not Available [facility] 4 02:52:35 Pain of temporoma ndibular joint 26481195 Active 2014 Arthralgi a of temporoma ndibular joint; Note: Date Diagnosed : 05/07/2015 4:24 PM (M26.62) [mapped from ICD9 code: 472.0] Not Available [facility] 4 02:52:33 Allergic rhinitis 72204819 Active 2016 Allergic Rhinitis; Note: Date Diagnosed : 4 2:03 PM () ; Start Date : 5 Other allergic rhinitis; Note: Date Diagnosed : 7 10:12 AM (J30.89) Not Available [facility] 4 02:52:32 Sensorine ural hearing loss of bilateral ears 501583936 Active 2016 Sensorine ural hearing loss, bilateral ; Note: Date Diagnosed : 7 10:50 AM (H90.3) Not Available [facility] 4 02:52:29 Abnormal auditory perceptio n 70545582 Active 2016 Other abnormal auditory perceptio ns, bilateral ; Note: Date Diagnosed : 7 10:50 AM (H93.293) [facility] 4 02:52:34 Respirato ry finding 787646272 Active 2016 Feeling of foreign body in throat; Note: Date Diagnosed : 7 10:50 AM (R09.89) Not Available [facility] 4 02:52:31 Cardiovas cular finding 806725558 Active 2016 Feeling of foreign body in throat; Note: Date Diagnosed : 7 10:50 AM (R09.89) Not Available Pending sale to [facility] 4 02:52:32 Posterior rhinorrhe a 96198260 Active 2016 Postnasal drip; Note: Date Diagnosed : 7 10:50 AM (R09.82) Not Available Pending sale to [facility] 4 02:52:34 Pain of right temporoma ndibular joint 67195247434 904208 Active 2017 Arthralgi a of right temporoma ndibular joint; Note: Date Diagnosed : 12/23/2017 11:38 AM (M26.621) Not Available Pending sale to [facility] 4 02:52:32 Otalgia of right ear 3660571473 Active 2017 Otalgia, right ear; Note: Date Diagnosed : 12/23/2017 11:38 AM (H92.01) Not Available Pending sale to [facility] 4 02:52:29 Dysphagia 29300708 Active 2018 Dysphagia , unspecifi ed; Note: Date Diagnosed : 11/01/2018 2:44 PM (R13.10) Not Available Pending sale to [facility] 4 02:52:35 Multinodu lar goiter 653242445 Active 2023 SUSAN RYAN MD [address] [place] [address], [place], [address] , [place] - [facility] 4 11:43:11 Feeling of lump in throat 964804358 Active 2023 SUSAN RYAN MD [address] [place] [address], [place], [address] , [facility] - [facility] 4 11:43:19 Problem Notes None recorded. Procedures Surgical History Date Name Laterality Status Provider Name and Address Organization Details Recorded Time 03/28/2024 Comp Audio with Tymps - 91280 & 34959 completed Gabby Gaspar [place] - [facility] 03/28/2024 11:07:33 Imaging Results None recorded. Procedure Notes None recorded. Medical Equipment None Reported. Allergies No known drug allergies Medications Name Sig Start Date Stop Date Status Note LastModified by Organization Details LastModified Time Prescript ion - Prior Authoriza tion Request active Script Copy/Agatha or Auth^Scr ipt Copy/Agatha or [id number] Not Available Not Available Not Available losartan 50 mg tablet 05/08 completed Medicati on ID: [id number] Du ration Value: 30 Reason: () Brand [...] by mouth 2014 active Medicati on ID: [id number] Du ration Value: 7 Prescri bed By [...] mg capsule 2014 active Medicati on ID: [id number] Br and Name: flaxseed oil Send Method: E-Prescr ibed Sub s Allowed: subs OK Medic ationGen ericName : flaxseed oil Not Available Not Available Not Available tamsulosi n 0.4 mg capsule TAKE 1 CAPSULE BY MOUTH EVERY DAY active Not Available Not Available No t Available losartan 25 mg tablet 03/28 completed Medicati on ID: [id number] D uration Value: 30 Brand Name: losartan [...] min capsule 2014 active Medicati on ID: [id number] Br and Name: multivit tracy Sen d Method: E-Prescr ibed Sub s Allowed: subs OK Medic ationGen ericName : multivit tracy Not Available Not Available Not Available fluticaso ne propionat e 50 mcg/actua tion nasal spray,lauri pension 2014 active Medicati on ID: [id number] Du ration Value: 30 Prescri bed By [...] both nostrils 2017 active Medicati on ID: [id number] P rescribe d By Name: Grecia Mcclure nd Name: ipratrop ium bromide Send Method: E-Prescr ibed Sub s Allowed: subs OK Medic ationGen ericName : ipratrop ium bromide Not Available Not Available Not Available finasteri de 5 mg tablet TAKE 1 TABLET BY MOUTH EVERY DAY active Not Available Not Available No t Available loratadin e 10 mg tablet 05/11 completed Medicati on ID: [id number] Du ration Value: 30 Reason: () Brand [...] mg tablet 05/11 completed Medicati on ID: [id number] Du ration Value: 30 Reason: () Brand Name: Zetia Se nd Method: E-Prescr ibed Sub s [...] Body mass index (BMI) Body weight Systolic And Diastolic Provider Name and Address Organization Details Last Updated DateTime 03/28/2024 182.88 cm 23.5 kg/m2 35236.48 g 168/72 mm[Hg] Catia Mullins [place] - [facility] 03/28/2024 11:15:55 Social History None recorded. Functional Status None recorded. Mental Status None recorded. Family History Nothing Reported. Medical History No medical history recorded. Past Encounters Encounter ID Performer Location Encounter Start Date Encounter Closed Date Diagnosis/Indication Diagnosis SNOMED-CT Code Diagnosis ICD10 Code Diagnosis Note [id number] SUSAN RYAN MD [facility] [address] [address] 03/28/2024 10:26:24 03/28/2024 12:45:03 Sensorineural hearing loss of bilateral ears [id number] H90.3 Audiologic al evaluation results: Right ear: Normal sloping to profound sensorineu ral hearing loss with fair word recognitio n. Left ear: Mild sloping to profound sensorineu ral hearing loss with fair word recognitio n. Tympanomet ry: Right Ear:Type Ad Left Ear:Type Ad Multinodular goiter 2375 04146 E04.2 Feeling of lump in throat 348192108 R09.89 Health Concerns Section Related Observation LastModified by Organization Detai ls LastModified Time None Recorded Concern Status LastModified by Organization Details LastModified Time None Recorded Advance Directives Directive None Recorded Payers Insurance Date Sequence Insurance Name Policy Number Policy Saravia Covered Member ID Saravia Member ID Guarantor Name 07/21/2024 1 [place] [employer] (MEDICAID HMO) [employer] Chirag A Portillo [id number] Chirag Portillo 03/28/2024 2 [place] [employer] [place]MEDICAID HMO[place] IMANI Portillo [id number] Chirag Portillo Notes Date Note Type Note Provider Name and Address Organization Details Recorded Time 03/28/2024 text/html hx of goiter and dysphagia. Previously evaluated in 2019. Scheduled for thyroid bx in near futureLong standing bilateral HL since at least 2013. No vertigo. Bilateral tinnitusChronic globus sensation SUSAN CAMPOS MD [address] [place] [address], [place], [address], [facility] - [facility] 03/28/2024 11:43:38
[2025-01-23 13:31] LABS: Anion Gap 11 (12-20); Blood Urea Nitrogen 13 mg/dL (9-16); Calcium 9.0 mg/dL (8.4-10.2); Carbon Dioxide 26 mmol/L (22-29); Chloride 109 mmol/L (96-108); Estimated Glomerular Filt Rate > 60; Potassium 4.0 mmol/L (3.3-5.1); Sodium 142 mmol/L (135-145)
== END 2025-01-23 10:37 | disposition home or self-care (01) ==
LOC: HO.HMGCLDS 10:36
PROVIDERS: PCP Nurse Practitioner Family; Visit Provider Internal Medicine Nephrology
DX: N18.30 Chronic kidney disease, stage 3 unspecified (principal)
CPT/HCPCS: 36415; 80048

== ENCOUNTER 2025-01-25 13:37 | Outpatient (AMB) | payer OTHER, SELFPAY ==
[2025-01-25 13:54] VITALS: BP 130/70; PULSE 68; O2SAT 98; BMI 23.5
--- NOTE | 2025-01-25 13:54 | HO.NEPHOV ---
Vital Signs 01/25/25 13:54 Height 6 ft Weight 173 lb 6 oz BMI 23.5 BP 130/70 Blood Pressure Location Lt brachial Position Sitting Pulse 68 Pulse Source Pulse Oximeter Pulse Oximetry (%) 98 Oxygen Delivery Method Room Air Intake Visit Reasons: Rcsng missed 01/18 appt-Voicemail Full Scientific Research Manager Required: No Accompanied by: Self / Same As Patient Allergies No Known Allergies Allergy (Verified 01/25/25 13:54) HPI Comments Details: Chirag was seen in follow-up of his chronic kidney disease. His BP is at goal now. He is on finasteride. His serum creatinine is close to baseline. He denies any chest pain, shortness of breath, paroxysmal nocturnal dyspnea, orthopnea, pedal edema, urinary symptoms, hematuria, fever. He has not taking any ynqu-pdd-welyags medications. He tries to maintain good hydration. [facility] Medical History Hx of chest pain BPH (benign prostatic hyperplasia) Murmur LVH (left ventricular hypertrophy) Hypertensive emergency CKD (chronic kidney disease) Dysphagia Vitamin D deficiency Multinodular thyroid Surgical History History of lobectomy of thyroid Hx of nasal septoplasty History of esophagogastroduodenoscopy (EGD) Hx of endoscopy Hx of eye surgery Hx of colonoscopy History of arthroscopic surgery of shoulder Hx of removal of cyst Hx of appendectomy Family History Father Lung cancer Mother Cancer Social History Household Members: Friend(s) Housing: House Are you a primary daycare director to a significant other at home: Yes (cares for 2 adults that need some assistance with ADLs) Do you presently have visiting nurse or other home services: No (will have help post op) Patient Tobacco Use Status: Former Tobacco user Tobacco use type: Cigarette Years Smoked: 15 Second Hand Smoke Exposure: No Current occupational status: employed 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 Current occupational exposures/hazards: No Cognitive needs: No Hearing needs: No Vision needs: No Review of Systems Const All systems reviewed & are unremarkable except as noted in HPI and below Physical Exam Vital Signs: Last Vital Signs Pulse 68 01/25/25 13:54 BP 130/70 01/25/25 13:54 Pulse Ox 98 01/25/25 13:54 Oxygen Delivery Method Room Air 01/25/25 13:54 BMI result Body Mass Index 23.5 Const General: comfortable and no acute distress Orientation/consciousness: patient oriented x3 HEENT Head: Yes normocephalic Mouth: Normal oral and palatal mucosa present Eyes EOM: EOMs intact bilaterally Neck Neck: Yes supple Resp Auscultation: clear to auscultation bilaterally Cardio Jugular venous distension: no JVD Rate: regular rate GI Palpation (GI): Soft to palpation Auscultation: normal bowel sounds General: Yes no CVA tenderness Back/Spine/Pelvis Back: no CVA tenderness Skin General skin exam: no rashes or lesions noted Neuro General: patient oriented x3 and moves all extremities Extrem General: Yes no pedal edema Results Reviewed Nephrology Results: Sodium, (135-145) 142 mmol/L 01/23/25 Potassium, (3.3-5.1) 4.0 mmol/L 01/23/25 Chloride, (96-108) 109 mmol/L H 01/23/25 Carbon Dioxide, (22-29) 26 mmol/L 01/23/25 BUN, (9-16) 13 mg/dL 01/23/25 Creatinine, (0.5-1.4) 1.20 mg/dL 01/23/25 Calcium, (8.4-10.2) 9.0 mg/dL Δ 01/23/25 Urine Creatinine 61.94 mg/dL 12/26/24 Protein/Creatinin Ratio TNP 12/26/24 Assessment & Plan Assessment & Plan (1) HTN (hypertension): Code(s): I10 - Essential (primary) hypertension Category: Medical Qualifiers: Hypertension type: primary hypertension Qualified Code(s): I10 - Essential (primary) hypertension (2) CKD (chronic kidney disease) stage 3, GFR 30-59 ml/min: Code(s): N18.30 - Chronic kidney disease, stage 3 unspecified Category: Medical Qualifiers: Chronic kidney disease stage 3 subtype: stage 3a (GFR 45-59) Qualified Code(s): N18.31 - Chronic kidney disease, stage 3a Plan Chirag has underlying stage III CKD at baseline from longstanding hypertension. His BP is at goal on current medications. He is tolerating ACEI. He was encouraged to maintain good hydration and minimize sodium in the diet. I did not make any other medication changes today . All questions answered. F/U Labs ordered; Follow-up appointment given Orders: Orders Blood Urea Nitrogen 3 Months I10 - Essential (primary) hypertension, N18.31 - Chronic kidney disease, stage 3a Creatinine 3 Months I10 - Essential (primary) hypertension, N18.31 - Chronic kidney disease, stage 3a Electrolytes 3 Months I10 - Essential (primary) hypertension, N18.31 - Chronic kidney disease, stage 3a Coding Level of Care Code Est Pt Level 4 (34803) Diagnoses Primary hypertension I10 Hypertension type: primary hypertension Stage 3a chronic kidney disease N18.31 Chronic kidney disease stage 3 subtype: stage 3a (GFR 45-59)
--- OUTSIDE RECORDS SUMMARY | 2025-01-25 14:13 | XMS_ITS | Clinical Summary ---
Author Organization [facility] Address [address] [place] [address] Phone Care Team Providers Care Community Services Officer Name Role Phone Migue Moreno NP Primary Care Provider [phone] Allergies No known active allergies Medications multivitamine, [...] patient's age to complete this topic Insurance [facility] Medicaid [facility] Health[employer] Care Teams Community Services Officer Relationship Specialty Start Date End Date Migue Moreno NP [address] [place] [address] PCP - General Nurse Practitioner 02/13/21
--- OUTSIDE RECORDS SUMMARY | 2025-01-25 14:13 | XMS_ITS | Data Portability ---
Author Organization [place] - [facility], Allergy Address [address] [place] [address] Assessment Encounter Date Assessment Date Assessment LastModified [...] [facility] 4 02:52:30 Gastroeso phageal reflux disease 116549774 Active 2014 Laryngoph aryngeal reflux; Note: Date Diagnosed : 4 2:04 PM () Not Available [facility] 4 02:52:33 Difficult y speaking Active 2014 Hoarsenes s; Note: Date Diagnosed : 4 2:04 PM () Not Available [facility] 4 02:52:33 Deviated nasal septum 791761627 Active 2014 Nasal septal deviation ; CMS [...] ; Start Date : 5 Not Available [facility] 4 02:52:30 Postopera tive follow-up visit Active 2014 Post op; Note: Date Diagnosed : 08/07/2014 11:39 AM (V67.00) Not Available [facility] 4 02:52:29 Hypertrop hy of nasal turbinate s 22975049 Active 2014 Nasal turbinate hypertrop hy; Location: [...] ; Start Date : 5 Not Available [facility] 4 02:52:31 Chronic rhinitis 21025486 Active 2014 Rhinitis, chronic; Note: Date Diagnosed : 07/19/2014 12:24 PM (472.0) ; Start Date : 5 Chronic rhinitis; Note: Date Diagnosed : 05/07/2015 4:24 PM (J31.0) [mapped from ICD9 code: 472.0] Not Available [facility] 4 02:52:30 Bilateral obstructi on of Eustachia n tubes 88757540144 84282 Active 2014 Unspecifi ed obstructi on of Eustachia n tube, bilateral ; Note: Date Diagnosed : 05/07/2015 4:24 PM (H68.103) [mapped from ICD9 code: 472.0] Not Available [facility] 4 02:52:35 Pain of temporoma ndibular joint 90369810 Active 2014 Arthralgi a of temporoma ndibular joint; Note: Date Diagnosed : 05/07/2015 4:24 PM (M26.62) [mapped from ICD9 code: 472.0] Not Available [facility] 4 02:52:33 Allergic rhinitis 78418519 Active 2016 Allergic Rhinitis; Note: Date Diagnosed : 4 2:03 PM () ; Start Date : 5 Other allergic rhinitis; Note: Date Diagnosed : 7 10:12 AM (J30.89) Not Available [facility] 4 02:52:32 Sensorine ural hearing loss of bilateral ears 119387618 Active 2016 Sensorine ural hearing loss, bilateral ; Note: Date Diagnosed : 7 10:50 AM (H90.3) Not Available [facility] 4 02:52:29 Abnormal auditory perceptio n 31816057 Active 2016 Other abnormal auditory perceptio ns, bilateral ; Note: Date Diagnosed : 7 10:50 AM (H93.293) Not Available [facility] 4 02:52:34 Respirato ry finding 221901947 Active 2016 Feeling of foreign body in throat; Note: Date Diagnosed : 7 10:50 AM (R09.89) Not Available [facility] 4 02:52:31 Cardiovas cular finding 024090442 Active 2016 Feeling of foreign body in throat; Note: Date Diagnosed : 7 10:50 AM (R09.89) Not Available [facility] 4 02:52:32 Posterior rhinorrhe a 82940902 Active 2016 Postnasal drip; Note: Date Diagnosed : 7 10:50 AM (R09.82) Not Available [facility] 4 02:52:34 Pain of right temporoma ndibular joint 52499288407 516908 Active 2017 Arthralgi a of right temporoma ndibular joint; Note: Date Diagnosed : 12/23/2017 11:38 AM (M26.621) Not Available [facility] 4 02:52:32 Otalgia of right ear 4697253974 Active 2017 Otalgia, right ear; Note: Date Diagnosed : 12/23/2017 11:38 AM (H92.01) Not Available [facility] 4 02:52:29 Dysphagia 73763342 Active 2018 Dysphagia , unspecifi ed; Note: Date Diagnosed : 11/01/2018 2:44 PM (R13.10) Not Available [facility] 4 02:52:35 Multinodu lar goiter 983137388 Active 2023 SUSAN RYAN MD [address] [place] [address], [place], [address] , [place] - [facility] 4 11:43:11 Feeling of lump in throat 620774134 Active 2023 SUSAN RYAN MD [address] [place] [address], [place], [address] , [facility] - [facility] 4 11:43:19 Problem Notes None recorded. Procedures Surgical History Date Name Laterality Status Provider Name and Address Organization Details Recorded Time 03/28/2024 Comp Audio with Tymps - 07642 & 08588 completed Gabby Gaspar [place] - [facility] 03/28/2024 11:07:33 Imaging Results None recorded. Procedure Notes None recorded. Medical Equipment None Reported. Allergies No known drug allergies Medications Name Sig Start Date Stop Date Status Note LastModified by Organization Details LastModified Time Prescript ion - Prior Authoriza tion Request active Script Copy/Agatha or Auth^Scr ipt Copy/Agatha or [id number] Not Available Not Available Not Available losartan 50 mg tablet 05/08 completed Medicati on ID: [id number] Du ration Value: 30 Reason: () Brand [...] by mouth 2014 active Medicati on ID: [id number] Du ration Value: 7 Prescri bed By [...] mg capsule 2014 active Medicati on ID: 13201 Br and Name: flaxseed oil Send Method: E-Prescr ibed Sub s Allowed: subs OK Medic ationGen ericName : flaxseed oil Not Available Not Available Not Available tamsulosi n 0.4 mg capsule TAKE 1 CAPSULE BY MOUTH EVERY DAY active Not Available Not Available No t Available losartan 25 mg tablet 03/28 completed Medicati on ID: [id number] D uration Value: 30 Brand Name: losartan [...] min capsule 2014 active Medicati on ID: 91640 Br and Name: multivit tracy Sen d Method: E-Prescr ibed Sub s Allowed: subs OK Medic ationGen ericName : multivit tracy Not Available Not Available Not Available fluticaso ne propionat e 50 mcg/actua tion nasal spray,lauri pension 2014 active Medicati on ID: [id number] Du ration Value: 30 Prescri bed By [...] both nostrils 2017 active Medicati on ID: [id number] P rescribe d By Name: Grecia Mcclure [...] mg tablet 05/11 completed Medicati on ID: 62311 Du ration Value: 30 Reason: () Brand [...] mg tablet 05/11 completed Medicati on ID: [id number] Du ration Value: 30 Reason: () Brand [...] Updated DateTime 03/28/2024 182.88 cm 23.5 kg/m2 03430.48 g 168/72 mm[Hg] Catia Mullins [place] - [facility] 03/28/2024 11:15:55 Social History None recorded. Functional Status None recorded. Mental Status None recorded. Family History Nothing Reported. Medical History No medical history recorded. Past Encounters Encounter ID Performer Location Encounter Start Date Encounter Closed Date Diagnosis/Indication Diagnosis SNOMED-CT Code Diagnosis ICD10 Code Diagnosis Note [id number] SUSAN RYAN MD [facility] [address] [address] 03/28/2024 10:26:24 03/28/2024 12:45:03 Sensorineural hearing loss of bilateral ears [id number] H90.3 Audiologic al evaluation results: Right ear: Normal sloping to profound sensorineu ral hearing loss with fair word recognitio n. Left ear: Mild sloping to profound sensorineu ral hearing loss with fair word recognitio n. Tympanomet ry: Right Ear:Type Ad Left Ear:Type Ad Multinodular goiter 2375 00131 E04.2 Feeling of lump in throat 562071712 R09.89 Health Concerns Section Related Observation LastModified by Organization Detai ls LastModified Time None Recorded Concern Status LastModified by Organization Details LastModified Time None Recorded Advance Directives Directive None Recorded Payers Insurance Date Sequence Insurance Name Policy Number Policy Saravia Covered Member ID Saravia Member ID Guarantor Name 07/21/2024 1 [facility] - HE[facility] NET PLAN (MEDICAID HMO) [place] Chirag A Portillo [id number] Chirag Portillo 03/28/2024 2 [facility] - HEALTH NET PLAN (MEDICAID HMO) IMANI Portillo [id number] Chirag Portillo Notes Date Note Type Note Provider Name and Address Organization Details Recorded Time 03/28/2024 text/html hx of goiter and dysphagia. Previously evaluated in 2019. Scheduled for thyroid bx in near futureLong standing bilateral HL since at least 2013. No vertigo. Bilateral tinnitusChronic globus sensation SUSAN CAMPOS MD [address] [place] [address], [place], [address], [facility] - [facility] 03/28/2024 11:43:38
== END 2025-01-25 14:14 | disposition home or self-care (01) ==
LOC: HO.HKA 13:37
PROVIDERS: PCP Nurse Practitioner Family; Visit Provider Internal Medicine Nephrology
DX: I10 Essential (primary) hypertension (principal); N18.31 Chronic kidney disease, stage 3a
CPT/HCPCS: 99214

== ENCOUNTER → 2025-01-25 13:37 | Outpatient (BNVA) | payer OTHER, SELFPAY | PROVIDERS: PCP Nurse Practitioner Family; Visit Provider Internal Medicine Nephrology | DX: I12.9 Hypertensive chronic kidney disease with stage 1 through stage 4 chronic kidney disease, or unspecified chronic kidney disease (principal); N18.31 Chronic kidney disease, stage 3a | CPT/HCPCS: 99212 ==

== ENCOUNTER 2025-02-22 12:54 | Outpatient (AMB) | payer OTHER, SELFPAY ==
--- NOTE | 2025-02-22 13:03 | MHC.PC.OV ---
Vital Signs 02/22/25 13:05 02/22/25 13:56 Height 6 ft Weight 172 lb BMI 23.3 BP 160/90 H 140/82 H Blood Pressure Location Lt brachial Lt brachial Position Sitting Sitting Pulse 63 Pulse Source Pulse Oximeter Pulse Oximetry (%) 98 Oxygen Delivery Method Room Air Intake Visit Reasons: ANNUAL PE PHQ-9 needed. Allergies No Known Allergies Allergy (Verified 02/22/25 13:57) Medication List - Last Reconciled 02/22/25 by RILEY Dowell- atorvastatin 80 mg PO DAILY carvedilol 6.25 mg PO BID ferrous fumarate (Ferretts) 325 mg PO DAILY finasteride 5 mg PO DAILY 90 days lisinopril 10 mg (2 x 5 mg) PO DAILY multivitamin 1 tab PO DAILY sennosides (senna) 8.6 mg PO BID spironolactone 12.5 mg (1/2 x 25 mg) PO DAILY 30 days tamsulosin 0.4 mg PO DAILY 90 days verapamil ER 180 mg PO DAILY Tobacco use date assessed: 02/22/25 Dental Screening Dental Screen Date: 02/22/25 Did you have a dental visit in the last 12 months?: Yes Did you have a dental problem in the last 6 months where you did not have access to dental care?: No Was dental information given to patient?: Patient has dentist HPI ANNUAL PE PHQ-9 needed. HPI Details History of Present Illness The patient is a 64-year-old male presenting with a physical exam and evaluation of dysphagia and chronic cough. He underwent a left thyroid lobectomy in November 2024 and has since experienced increased difficulty clearing his throat, excessive mucus production, and dysphagia. Additionally, he reports a chronic cough that may be related to his previous surgery. The patient has noticed voice changes, describing his voice as becoming raspier, which was also observed during the examination. He has a history of seeing a teletypewriter installer in 2023 for colon cancer screening discussions, but the procedure was delayed pending cardiology clearance. The right side of his thyroid appears enlarged, but no lymphadenopathy is currently palpated. Health Maintenance - Colon cancer screening and endoscopy pending cardiology clearance Social History Review of Systems - Respiratory: Reports chronic cough, denies dyspnea - Gastrointestinal: Reports dysphagia, denies nausea or vomiting - General: Denies fevers or chills - Genitourinary: Denies urinary problems - Psychiatric: Denies suicidal or homicidal ideation Physical Exam General: Cooperative, healthy appearing, comfortable, no acute distress and well developed Orientation: Patient oriented x3 Limitations: No limitations Head: Normal to inspection Ears: Hearing grossly normal bilaterally Nose: Normal external nose present Face and sinus: Normal facial exam Eyes: Appearance normal, both eyes and all related structures Neck: Right side of thyroid is a little bit more enlarged, no lymphadenopathy palpated, and Yes full ROM Respiratory: Normal respiratory effort and able to speak in complete sentences. Clear to auscultation bilaterally Cardiovascular: Regular rate and rhythm. Normal S1 and S2. Systolic murmur noted GI: Normal to inspection. Soft to palpation and nontender : Testicles without masses/lesions and no hernias appreciated Skin: No rashes or lesions noted Neuro: Patient oriented x3 Extremities: Normal to inspection Results Plan A CAT scan of the neck will be ordered to investigate the cause of the dysphagia and chronic cough, considering potential gastrointestinal and respiratory contributions. A barium swallow is also planned to further evaluate the dysphagia. The patient will be referred to cardiology for clearance to proceed with a colonoscopy and endoscopy, which are pending due to previous recommendations from his teletypewriter installer. Given the voice changes and thyroid enlargement, a referral to an ENT specialist may be considered for further evaluation, including a possible scope. HTN: will add spironolactone, which his merchandise appraiser had mentioned can be added. Pt reports BP has been up mostly at home lately as well. Patient was informed and verbally consented to the use of an ambient scribe for clinic note documentation during this visit. Discussion Notes I discussed with the patient the need for a CAT scan of the neck to explore the causes of his dysphagia and chronic cough, considering both gastrointestinal and respiratory factors. We also talked about the necessity of a barium swallow to further assess his swallowing difficulties. I explained the importance of obtaining cardiology clearance for his pending colonoscopy and endoscopy, as advised by his teletypewriter installer. I mentioned the possibility of referring him to an ENT specialist for further evaluation of his voice changes and thyroid enlargement, including a potential scope. Patient Instructions - Schedule a CAT scan of the neck as advised. - Arrange for a barium swallow test. - Follow up with cardiology for clearance for colonoscopy and endoscopy. - Consider seeing an ENT specialist for voice changes and thyroid evaluation. -low dose spironolactone for BP. [facility] Medical History Hx of chest pain BPH (benign prostatic hyperplasia) Murmur LVH (left ventricular hypertrophy) Hypertensive emergency CKD (chronic kidney disease) Dysphagia Vitamin D deficiency Multinodular thyroid Surgical History History of lobectomy of thyroid Hx of nasal septoplasty History of esophagogastroduodenoscopy (EGD) Hx of endoscopy Hx of eye surgery Hx of colonoscopy History of arthroscopic surgery of shoulder Hx of removal of cyst Hx of appendectomy Family History Father Lung cancer Mother Cancer Social History Household Members: Friend(s) Housing: House Are you a primary director long term care to a significant other at home: Yes (cares for 2 adults that need some assistance with ADLs) Do you presently have visiting nurse or other home services: No (will have help post op) Patient Tobacco Use Status: Former Tobacco user Tobacco use type: Cigarette Years Smoked: 15 Second Hand Smoke Exposure: No Current occupational status: employed 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 1. Little interest or pleasure in doing things: not at all 2. Feeling down, depressed, or hopeless: not at all 3. Trouble falling or staying asleep, or sleeping too much: nearly every day 4. Feeling tired or having little energy: nearly every day 5. Poor appetite or overeating: nearly every day 6. Feeling bad about yourself - or that you are a failure or have let yourself or your family down: not at all 7. Trouble concentrating on things, such as reading the newspaper or watching television: not at all 8. Moving or speaking so slowly that other people could have noticed. Or the opposite - being so fidgety or restless that you have been moving around a lot more than usual: not at all 9. Thoughts that you would be better off or of hurting yourself in some way: not at all Total score: 9 Depression Screening Interpretation: Positive (denies any si or hi) Depression Screening Follow-up: Existing condition Depression Screening Done: Yes 53146 - PHQ-9 Billing: Yes Source: Developed by Drs. Sulaiman Hdz, Bessy Hayes, Miguel Camacho and colleagues, with an educational micheline from [employer]. Thrive Questionnaire Date Thrive assessed: 02/22/25 I am a: Patient What is your living situation today?: I have a steady place to live Within the past 12 months, did the food you bought not last and you didn't have the money to get more?: Never true Within the past 12 months, did you worry whether your food would run out before you got money to buy more?: Never true Do you have trouble paying for medicines?: No Do you have trouble getting transportation to medical appointments?: No Do you have trouble paying your heating and electricity bill?: No Do you have trouble taking care of your child, family member or friend?: No Do you have trouble with day-to-day activities such as bathing, preparing meals, shopping, managing finances, etc.?: No Are you currently unemployed and looking for a job?: No Are you interested in more education?: No Please select the resources that you would like help with: None Currently or been in a relationship where the following occur: No concerns reported THRIVE Score: 0 AUDIT C Alcohol Use Questionnaire (AUDIT-C) 1. How often do you have a drink containing alcohol?: Never 3. How often do you have six or more drinks on one occasion?: Never Total Score: 0 Score Reviewed/Action Taken: Yes GAVIN-7 AMB Questionnaire GAVIN-7 Date GAVIN - 7 assessed: 02/22/25 Feeling nervous, anxious, or on edge: 0 = Not at all Worrying too much about different things: 0 = Not at all Trouble relaxin = Nearly every day Being so restless that it is hard to sit still: 1 = Several days Becoming easily annoyed or irritable: 0 = Not at all Feeling afraid as if something awful might happen: 0 = Not at all Source: Developed by Bessy Flores Kurt Kroenke and colleagues, with an educational micheline from [employer]. GAVIN-7 Assessment Billing GAVIN-7 Assessment Tool: GAVIN-7 Assessment 56131 Physical exam (Primary Care) Vital Signs: Last Vital Signs Pulse 63 02/22/25 13:05 BP 160/90 H 02/22/25 13:05 Pulse Ox 98 02/22/25 13:05 Oxygen Delivery Method Room Air 02/22/25 13:05 BMI result Body Mass Index 23.3 Tobacco/Smoking Status: Tobacco use Status Tobacco use date assessed 02/22/25 02/22/25 13:08 Patient Tobacco Use Status Former Tobacco user 02/22/25 13:03 Tobacco use type Cigarette 02/22/25 13:03 PHQ-9: PHQ-9 Score PHQ-9: Total score 9 02/22/25 13:35 Depression Screening Interpretation: Positive (denies any si or hi) Depression Screening Follow-up: Existing condition Thrive Assessment: Date of Thrive Assessment Date Thrive assessed 02/22/25 02/22/25 13:08 Currently or been in a relationship where the following occur: No concerns reported Coding Level of Care Code Est Pt Level 3 (86830) Est Pt Prev Care 40-64y(03371) Diagnoses Multinodular thyroid E04.2 Chronic throat clearing R09.89 Change in voice R49.9 Dysphagia R13.10 Encounter for routine adult physical exam with abnormal findings Z00.01 Elevated PSA R97.20 Additional Codes GAVIN-7 Assessment Billing - GAVIN-7 Assessment Tool: GAVIN-7 Assessment 87819 ([id number]) PHQ-9 - 80010 - PHQ-9 Billing: Yes ([id number]) Assessment & Plan Assessment & Plan (1) Multinodular thyroid: Code(s): E04.2 - Nontoxic multinodular goiter Category: Medical (2) Chronic throat clearing: Code(s): R09.89 - Other specified symptoms and signs involving the circulatory and respiratory systems Category: Medical (3) Change in voice: Code(s): R49.9 - Unspecified voice and resonance disorder Category: Medical (4) Dysphagia: Code(s): R13.10 - Dysphagia, unspecified Category: Medical (5) Encounter for routine adult physical exam with abnormal findings: Code(s): Z00.01 - Encounter for general adult medical examination with abnormal findings Category: Medical (6) Elevated PSA: Code(s): R97.20 - Elevated prostate specific antigen [PSA] Category: Medical Plan . Orders: Orders FL Modified Barium Swallow Today R13.10 - Dysphagia, unspecified Comprehensive [place]. Panel Fast Today Z00.01 - Encounter for general adult medical examination with abnormal findings Lipid Panel Today Z00.01 - Encounter for general adult medical examination with abnormal findings Prostate Specific Antigen Scr Today R97.20 - Elevated prostate specific antigen [PSA] CT soft tissue neck wo/w IVcon Today E04.2 - Nontoxic multinodular goiter, R09.89 - Other specified symptoms and signs involving the circulatory and respiratory systems, R49.9 - Unspecified voice and resonance disorder Complete Blood Count Auto Diff Today Z00. - Encounter for general adult medical examination with abnormal findings TSH reflex Free T4 Today Z00.01 - Encounter for general adult medical examination with abnormal findings UA CC w/rflx Micro + Cult Today Z00.01 - Encounter for general adult medical examination with abnormal findings Medications: New spironolactone 12.5 mg (1/2 x 25 mg) PO DAILY 15 tabs 3RF 30 days
[2025-02-22 13:05] VITALS: BP 160/90; PULSE 63; O2SAT 98; BMI 23.3
--- OUTSIDE RECORDS SUMMARY | 2025-02-22 13:45 | XMS_ITS | Clinical Summary ---
Author Organization [facility] Address [address] [place] [address] Phone Care Team Providers Care Import/Export Freight Forwarder Name Role Phone Migue Moreno NP Primary Care Provider [phone] Allergies No known active allergies Medications multivitamine, [...] patient's age to complete this topic Insurance [facility] Medicaid [facility] Healthnet Care Teams Import/Export Freight Forwarder Relationship Specialty Start Date End Date Migue Moreno NP [address] [place] [address] PCP - General Nurse Practitioner 02/13/21
[2025-02-22 13:56] VITALS: BP 140/82
== END 2025-02-22 14:04 | disposition home or self-care (01) ==
LOC: HO.HMCC 12:55
PROVIDERS: PCP Nurse Practitioner Family; Visit Provider Nurse Practitioner Family
DX: Z00.01 Encounter for general adult medical examination with abnormal findings (principal); E04.2 Nontoxic multinodular goiter; R09.89 Other specified symptoms and signs involving the circulatory and respiratory systems; R13.10 Dysphagia, unspecified; R49.9 Unspecified voice and resonance disorder; R97.20 Elevated prostate specific antigen [PSA]

== ENCOUNTER → 2025-02-22 12:54 | Outpatient (BNVA) | payer OTHER, SELFPAY | PROVIDERS: PCP Nurse Practitioner Family; Visit Provider Nurse Practitioner Family | DX: Z00.00 Encounter for general adult medical examination without abnormal findings (principal); R97.20 Elevated prostate specific antigen [PSA]; E04.2 Nontoxic multinodular goiter | CPT/HCPCS: 96127; 99212; 99396 ==

== ENCOUNTER 2025-05-03 09:59 | Outpatient (REF) | payer OTHER, SELFPAY ==
--- NOTE | ~2025-05-03 | FL_ITS ---
EXAMINATION: XR BARIUM SWALLOW modified CLINICAL INFORMATION: Dysphagia COMPARISON: Previous barium swallow report from May 2019. No images available. TECHNIQUE: Fluoroscopic guidance was provided for barium swallow performed by the speech pathologist. The patient was administered thin liquid barium, barium mixed with applesauce and barium mixed with cookie . FINDINGS: There is trace penetration seen with thin liquid barium. No aspiration. There is mild retention in the vallecula. There is narrowing of the proximal cervical esophagus probably from mass effect from large bridging prevertebral body bony osteophytes from C4-5 to C6-7. FLUOROSCOPY TIME: 1.22 minutes DOSE AREA PRODUCT: 836 uGy-m2 (microgray-meter squared) FL/FL Modified Barium Swallow IMPRESSION: Trace penetration with thin liquid barium. No aspiration. Mild retention in the vallecula. Narrowing of the proximal cervical esophagus probably from mass effect from large vertebral body bony osteophyte. Electronically signed by: Sherlyn Singer MD 05/03/2025 11:07 AM EDT
--- OUTSIDE RECORDS SUMMARY | 2025-05-03 12:07 | XMS_ITS | Data Portability ---
Author Organization [place] - [facility], Allergy Address [address] [place] [address] Assessment Encounter Date Assessment Date Assessment LastModified [...] [facility] 4 02:52:30 Gastroeso phageal reflux disease 984218188 Active 2014 Laryngoph aryngeal reflux; Note: Date Diagnosed : 4 2:04 PM () Not Available [facility] 4 02:52:33 Difficult y speaking Active 2014 Hoarsenes s; Note: Date Diagnosed : 4 2:04 PM () Not Available [facility] 4 02:52:33 Deviated nasal septum 355459814 Active 2014 Nasal septal deviation ; CMS [...] ; Start Date : 5 Not Available [facility] 4 02:52:30 Postopera tive follow-up visit Active 2014 Post op; Note: Date Diagnosed : 08/07/2014 11:39 AM (V67.00) Not Available [facility] 4 02:52:29 Hypertrop hy of nasal turbinate s 80103297 Active 2014 Nasal turbinate hypertrop hy; Location: [...] ; Start Date : 5 Not Available [facility] 4 02:52:31 Chronic rhinitis 01911271 Active 2014 Rhinitis, chronic; Note: Date Diagnosed : 07/19/2014 12:24 PM (472.0) ; Start Date : 5 Chronic rhinitis; Note: Date Diagnosed : 05/07/2015 4:24 PM (J31.0) [mapped from ICD9 code: 472.0] Not Available [facility] 4 02:52:30 Bilateral obstructi on of Eustachia n tubes 40349815962 28931 Active 2014 Unspecifi ed obstructi on of Eustachia n tube, bilateral ; Note: Date Diagnosed : 05/07/2015 4:24 PM (H68.103) [mapped from ICD9 code: 472.0] Not Available [facility] 4 02:52:35 Pain of temporoma ndibular joint 36137450 Active 2014 Arthralgi a of temporoma ndibular joint; Note: Date Diagnosed : 05/07/2015 4:24 PM (M26.62) [mapped from ICD9 code: 472.0] Not Available [facility] 4 02:52:33 Allergic rhinitis 02408974 Active 2016 Allergic Rhinitis; Note: Date Diagnosed : 4 2:03 PM () ; Start Date : 5 Other allergic rhinitis; Note: Date Diagnosed : 7 10:12 AM (J30.89) Not Available [facility] 4 02:52:32 Sensorine ural hearing loss of bilateral ears 099082446 Active 2016 Sensorine ural hearing loss, bilateral ; Note: Date Diagnosed : 7 10:50 AM (H90.3) Not Available [facility] 4 02:52:29 Abnormal auditory perceptio n 06920975 Active 2016 Other abnormal auditory perceptio ns, bilateral ; Note: Date Diagnosed : 7 10:50 AM (H93.293) Not Available [facility] 4 02:52:34 Respirato ry finding 551660752 Active 2016 Feeling of foreign body in throat; Note: Date Diagnosed : 7 10:50 AM (R09.89) Not Available [facility] 4 02:52:31 Cardiovas cular finding 541324242 Active 2016 Feeling of foreign body in throat; Note: Date Diagnosed : 7 10:50 AM (R09.89) Not Available [facility] 4 02:52:32 Posterior rhinorrhe a 30849902 Active 2016 Postnasal drip; Note: Date Diagnosed : 7 10:50 AM (R09.82) Not Available [facility] 4 02:52:34 Pain of right temporoma ndibular joint 11162997898 577379 Active 2017 Arthralgi a of right temporoma ndibular joint; Note: Date Diagnosed : 12/23/2017 11:38 AM (M26.621) Not Available [facility] 4 02:52:32 Otalgia of right ear 2610532945 Active 2017 Otalgia, right ear; Note: Date Diagnosed : 12/23/2017 11:38 AM (H92.01) Not Available [facility] 4 02:52:29 Dysphagia 59016575 Active 2018 Dysphagia , unspecifi ed; Note: Date Diagnosed : 11/01/2018 2:44 PM (R13.10) Not Available [facility] 4 02:52:35 Multinodu lar goiter 141605355 Active 2023 SUSAN RYAN MD [address] [place] [address], [place], [address] , [place] - [facility] 4 11:43:11 Feeling of lump in throat 527864059 Active 2023 SUSAN RYAN MD [address] [place] [address], [place], [address] , [facility] - [facility] 4 11:43:19 Problem Notes None recorded. Procedures Surgical History Date Name Laterality Status Provider Name and Address Organization Details Recorded Time 03/28/2024 Comp Audio with Tymps - 57932 & 05122 completed Gabby Gaspar [place] - [facility] 03/28/2024 11:07:33 Imaging Results None recorded. Procedure Notes None recorded. Medical Equipment None Reported. Allergies No known drug allergies Medications Name Sig Start Date Stop Date Status Note LastModified by Organization Details LastModified Time Prescript ion - Prior Authoriza tion Request active Script Copy/Agatha or Auth^Scr ipt Copy/Agatha or [id number] Not Available Not Available Not Available losartan 50 mg tablet 05/08 completed Medicati on ID: 00122 Du ration Value: 30 Reason: () Brand [...] by mouth 2014 active Medicati on ID: [id number] Du ration Value: 7 Prescri bed By [...] mg capsule 2014 active Medicati on ID: 53995 Br and Name: flaxseed oil Send Method: E-Prescr ibed Sub s Allowed: subs OK Medic ationGen ericName : flaxseed oil Not Available Not Available Not Available tamsulosi n 0.4 mg capsule TAKE 1 CAPSULE BY MOUTH EVERY DAY active Not Available Not Available No t Available losartan 25 mg tablet 03/28 completed Medicati on ID: [id number] D uration Value: 30 Brand Name: losartan [...] min capsule 2014 active Medicati on ID: 55918 Br and Name: multivit tracy Sen d Method: E-Prescr ibed Sub s Allowed: subs OK Medic ationGen ericName : multivit tracy Not Available Not Available Not Available fluticaso ne propionat e 50 mcg/actua tion nasal spray,lauri pension 2014 active Medicati on ID: 55753 Du ration Value: 30 Prescri bed By [...] both nostrils 2017 active Medicati on ID: [id number] P rescribe d By Name: Grecia Mcclrue nd Name: ipratrop ium bromide Send Method: E-Prescr ibed Sub s Allowed: subs OK Medic ationGen ericName : ipratrop ium bromide Not Available Not Available Not Available finasteri de 5 mg tablet TAKE 1 TABLET BY MOUTH EVERY DAY active Not Available Not Available No t Available loratadin e 10 mg tablet 05/11 completed Medicati on ID: 99197 Du ration Value: 30 Reason: () Brand [...] mg tablet 05/11 completed Medicati on ID: 61586 Du ration Value: 30 Reason: () Brand [...] Updated DateTime 03/28/2024 182.88 cm 23.5 kg/m2 84422.48 g 168/72 mm[Hg] Catia Mullins [place] - [facility] 03/28/2024 11:15:55 Social History None recorded. Functional Status None recorded. Mental Status None recorded. Family History Nothing Reported. Medical History No medical history recorded. Past Encounters Encounter ID Performer Location Encounter Start Date Encounter Closed Date Diagnosis/Indication Diagnosis SNOMED-CT Code Diagnosis ICD10 Code Diagnosis IMO Codes Diagnosis Note [id number] SUSAN RYAN MD [facility] [address] [address] 03/28/2024 10:26:24 03/28/2024 12:45:03 Sensorineural hearing loss of bilateral ears [id number] H90.3 Audiologic al evaluation results: Right ear: Normal sloping to profound sensorineu ral hearing loss with fair word recognitio n. Left ear: Mild sloping to profound sensorineu ral hearing loss with fair word recognitio n. Tympanomet ry: Right Ear:Type Ad Left Ear:Type Ad Multinodular goiter 2375 80702 E04.2 Feeling of lump in throat 674010459 R09.89 Health Concerns Section Related Observation LastModified by Organization Detai ls LastModified Time None Recorded Concern Status LastModified by Organization Details LastModified Time None Recorded Advance Directives Directive None Recorded Payers Insurance Date Sequence Insurance Name Policy Number Policy Saravia Covered Member ID Saravia Member ID Guarantor Name 07/21/2024 1 [facility] [employer] - HEALTH NET PLAN (MEDICAID HMO) IMANI Portillo [id number] Chirag Portillo 03/28/2024 2 [facility] PLAN (MEDICAID HMO) IMANI Portillo [id number] Chirag Portillo Notes Date Note Type Note Provider Name and Address Organization Details Recorded Time 03/28/2024 text/html hx of goiter and dysphagia. Previously evaluated in 2019. Scheduled for thyroid bx in near futureLong standing bilateral HL since at least 2013. No vertigo. Bilateral tinnitusChronic globus sensation SUSAN CAMPOS MD [address] [place] [address], [id number], [facility] - [facility] 03/28/2024 11:43:38
--- OUTSIDE RECORDS SUMMARY | 2025-05-03 12:07 | XMS_ITS | Clinical Summary ---
Author Organization [facility] Address [address] [place] [address] Phone Care Team Providers Care Block Sawyer Name Role Phone Migue Moreno NP Primary Care Provider Allergies No known active allergies Medications multivitamine, [...] patient's age to complete this topic Insurance [facility] Medicaid [facility] Healthnet Care Teams Block Sawyer Relationship Specialty Start Date End Date Migue Moreno NP [address] [place] [address] PCP - General Nurse Practitioner 02/13/21
--- OUTSIDE RECORDS SUMMARY | 2025-05-03 12:07 | XMS_ITS | Encounter Summary ---
Author Organization [facility] Address [address] [place] [address] Phone Care Team Providers Care Boats Renter Name Role Phone Migue Moreno NP Primary Care Provider [phone] Reason for Visit * Reason Comments Med Refill Encounter Details Date Type Department Care Team (Late st Contact Info) Description 04/20/2023 Refill [facility] [address] [facility] [place] [address] Gerardo Wong MD Social History Tobacco [...] on filedocumented in this encounter Care Teams Boats Renter Relationship Specialty Start Date End Date Migue Moreno NP [address] [place] [address] PCP - General Nurse Practitioner 02/13/21 documented as of this encounter
--- NOTE | 2025-05-03 14:17 | MHC.SL.IMP ---
Date of Plan of Treatment: 05/03/25 Onset of Symptoms/Illness: 12/01/24 Date Treatment Started: 05/03/25 Admitting Diagnosis: Hx L-thyroid lobectomy November 2024 Primary Speech & Language Diagnosis: R13.13 Pharyngeal Phase Dysphagia Reason for Today's Visit: 17426 Modified Barium Swallow Study Pre-evaluation Dietary Consistencies: Regular Pre-evaluation Liquid Consistency: Thin Pre-evaluation Medication Administration: Whole with Liquid Medical History: Modified Barium Swallow Study Fluoroscopic Evaluation of Swallowing Function CPT Code 94179 Evaluation Year: 2024 Reason for Study: Patient reporting difficulty swallowing. Referring Physician: Migue Moreno [facility] Evaluating Clinician: Shey Pathak MA, CCC-[employer] Study Number: 1 Patient Name: Chirag Portillo Status: Outpatient, Ambulatory Age: 64 Sex: Male Medical History Medical History Hx of chest pain BPH (benign prostatic hyperplasia) Murmur LVH (left ventricular hypertrophy) Hypertensive emergency CKD (chronic kidney disease) Dysphagia Vitamin D deficiency Multinodular thyroid Surgical History History of lobectomy of thyroid Hx of nasal septoplasty History of esophagogastroduodenoscopy (EGD) Hx of endoscopy Hx of eye surgery Hx of colonoscopy History of arthroscopic surgery of shoulder Hx of removal of cyst Hx of appendectomy Current (pre-evaluation) Intake/Diet: Route: PO Diet Grade: Regular Liquid Consistencies: Thin Pre-Study Functional Oral Intake Scale (FOIS): 7- Total oral intake with no restrictions Pain: None reported at time of study SUBJECTIVE: Patient is a 64 year old male sent for a modified barium swallow study by his primary care provider. Patient has been reporting increased difficulty clearing his throat, excessive mucus production, chronic cough, and dysphagia since undergoing a left thyroid lobectomy in November 2024. He also reports changes to his voice, which sounds ?raspier? now. Patient reportedly saw GI in 2023 to discuss colon cancer screening. The procedure however was delayed pending cardiology clearance. Patient complains of difficulty swallowing thick mucus, at times coughing after swallowing, and feeling the sensation of food sticking in his throat. Oral Motor Exam Facial Symmetry: Symmetrical Mouth Occlusion: Normal Oral-Facial Teeth Characteristics: Intact/Normal Oral-Facial Lip Pucker Description: Normal Oral-Facial Smile (Lips) Description: Normal Oral-Facial Puff Cheeks Description: Normal Tongue Size: Normal Tongue Excursion Description: Deviates to Right Tongue Range of Movement Description: Normal Tongue Speed of Movement Description: Normal Tongue Strength of Movement (against opposing pressure): Normal Tongue Movement Characteristics: Normal/Absent Is patient able to manage secretions?: Yes Is patient able to produce volitional cough?: Yes Food and Liquid Trials: Oral Impairment: Lip Closure: Did not test Oral Impairment: Tongue Control During Bolus Hold: 0=Cohesive bolus between tongue to palatal seal Oral Impairment: Bolus Preparation/Mastication: 1=Slow prolonged chewing/mashing with complete re-collection Oral Impairment: Bolus Transport/Lingual Motion: 0=Brisk tongue motion Oral Impairment: Oral Residue: 1=Trace residue lining oral structures Oral Impairment:Initiation of Pharyngeal Swallow: 0=Bolus head at posterior angle of ramus (first hyoid excursion) Pharyngeal Impairment: Soft Palate Elevation: 0=No bolus between soft palate (SP)/pharyngeal wall (PW) Pharyngeal Impairment: Laryngeal Elevation: 0=Complete superior movement of thyroid cartilage (see description) Pharyngeal Impairment: Anterior Hyoid Excursion: 1=Partial anterior movement Pharyngeal Impairment: Epiglottic Movement: 1=Partial inversion Pharyngeal Impairment: Laryngeal Vestibular Closure:: 1=Incomplete: narrow column air/contrast in laryngeal vestibule Pharyngeal Impairment: Pharyngeal Stripping Wave: 0=Present: complete Pharyngeal Impairment: Pharyngeal Contraction: Did not test Pharyngeal Impairment: Pharyngoesophageal Segment Openin=Minimal distension/minimal duration: marked obstruction of flow Pharyngeal Impairment: Tongue Base (TB) Retraction: 1=Trace column of contrast/air between TB and posterior PW Pharyngeal Impairment: Pharyngeal Residue: 2=Collection of residue within or on pharyngeal structures Pharyngeal Impairment: Esophageal Clearance Upright Position: Did not test Impressions and Recommendations OBJECTIVE: Time-out: performed at 10:45 Evaluation Start: 10:30; Stop: 10:35 Patient Positioning: Standing Viewing Planes: LATERAL ONLY Contrast: MBSImP? Standardized Protocol using commercially prepared, standardized Barium viscosities, including: Varibar? THIN LIQUID (40% w/v, <15 cps) , Varibar? PUDDING (40% w/v, <5314-0544 cps) , 1/2 Shortbread Cookie (1 x1 x.25 ) MBSImP ID: [id number] [facility]: Lip closure for intraoral bolus containment could not be assessed due to logistical reasons not related to physiologic impairment. Tongue control during bolus hold maintained a cohesive bolus held between tongue to palate seal. Bolus preparation and mastication resulted in slow, prolonged chewing/mashing but with complete re-collection. Bolus transport/lingual motion was with brisk tongue motion. Oral residue was a trace, lining oral structures. Initiation of the pharyngeal swallow occurred as the bolus head reached the posterior angle of the mandibular ramus. Soft palate elevation resulted in no bolus between the soft palate and the pharyngeal wall. Laryngeal elevation demonstrated complete superior movement of the thyroid cartilage with complete approximation of the arytenoids to the epiglottic petiole. Anterior hyoid excursion demonstrated partial anterior movement. Epiglottic movement resulted in partial inversion. Laryngeal vestibular closure was incomplete, with a narrow column of air/contrast noted within the laryngeal vestibule at the height of the swallow. Pharyngeal stripping wave was present and complete. Pharyngeal contraction could not be determined due to logistical reasons not related to physiologic impairment. Pharyngoesophageal segment opening demonstrated minimal distension/minimal duration, with marked obstruction of bolus flow. Tongue base retraction allowed a trace column of contrast or air between the retracted tongue base and the posterior pharyngeal wall. Pharyngeal residue was a collection of residue within or on pharyngeal structures. Esophageal clearance in the upright position could not be assessed due to logistical reasons not related to physiologic impairment. Oral Impairment Score: 1 (absence of score, component 1) Pharyngeal Impairment Score: 7 (absence of score, component 13) Esophageal Impairment Score: --- (absence of score, component 17) Laryngeal Penetration and Aspiration: Neither penetration nor aspiration was observed in today's study with Cookie, Pudding-thick. Penetration was observed in today's study. Thin Contrast entered the airway, remained above the vocal folds, and was ejected from the airway. Structural Abnormalities Noted: Cervical Osteophytes contributed to pharyngeal residue ASSESSMENT: This exam was performed by the radiologist and the speech pathologist. Patient was standing for lateral view and fed himself independently. He trialed the following consistencies: -Thin liquid (via individual cup sips) -Puree (mixture applesauce with barium pudding) -Regular (shortbread cookies coated with barium pudding) Good tongue control with no premature posterior spillage from the oral cavity. Mastication was mildly prolonged, characterized by piece meal clearing. Timely AP transport of bolus. Pharyngeal swallow trigger was also timely. Post-swallow, there was just trace residue lining the tongue and floor of mouth. No evidence of nasopharyngeal reflux. Complete laryngeal elevation with partial epiglottic inversion and incomplete laryngeal vestibular closure. There was flash penetration seen with sips of thin liquid, which momentarily entered the airway above the vocal folds and spontaneously cleared. No evidence of aspiration during this exam. Trace residue seen in the valleculae and pyriforms and on the posterior pharyngeal wall on trials of thin and puree consistencies, which subsequently cleared. On trial of regular texture solid, there was moderate residue collecting in the pyriform and below the pharyngoesophageal segment opening (PES), which cleared on self-initiated dry swallow. Radiologist noted, ?There is narrowing of the proximal cervical esophagus probably from mass effect from large bridging prevertebral body bony osteophytes from C4-5 to C6-7.? The following compensatory strategies have not been used until today's study, but when employed, improved swallowing function: Additional Swallow(s) per Bolus eliminated Oral Residue, Pharyngeal Residue Liquid Intake Recommendation: Thin Dietary Recommendations: Regular Medication Administration: Whole with Liquid Please contact the pharmacy regarding appropriate crushable or liquid drug formulations that are available whenever modified delivery is recommended. Compensatory Strategies Recommended: Sitting Upright (90 deg), Small Bites and Sips, Alternate Liquids/Solids, Rate of Ingestion Change Recommendation for Speech Therapy: Discharged with Instructions for Home Use Text Comment: Intake Recommendations: Route: PO Diet Grade: Regular Liquid Consistencies: Thin Post-Study Functional Oral Intake Scale (FOIS): 7- Total oral intake with no restrictions Mildly prolonged mastication pattern, with piece meal deglutition pattern. Oral phase was otherwise unremarkable, with timely lingual transit and timely swallow trigger. Complete laryngeal elevation, with partial epiglottic inversion. Flash penetration seen on thin liquids, with no subsequent aspiration. Moderate pharyngeal residue seen in the pharynx due to reduced distention through the PES, effectively cleared with self-initiated dry swallow. Radiologist noted narrowing of the proximal cervical esophagus and C4-5 to C6-7 osteophytes. Suggested Referrals: The patient might benefit from a referral to: Gastroenterology Indication for Referral: Reduced distention through the PES Otolaryngology Indication for Referral: Patient presenting with hyponasal vocal quality, c/o chronic throat clearing and coughing, hx L-thyroid lobectomy Therapy Recommendations: Diet modification and Speech Therapy are not indicated at this time. Patient does present with some pharyngeal residue, which he was able to clear on his own with a secondary swallow. [employer] advised patient to take small bites, chew food well, dry swallow between bites, and alternate with liquid wash to promote clearance. He may benefit from consultations with GI, and ENT for voice and resonance changes s/p L-thyroid lobectomy in November, patient also c/o excessive mucus and chronic throat clearing and coughing. Clinician - Supplemental, Miscellaneous Communication: It is important to note MBSS objective studies are snapshots in time and Patient function might vary with factors such as time of day or concomitant medical conditions. For this reason, the final treatment plan for this patient should rest with their medical care team. Additional recommendations should be considered with the totality of the Patient in mind. Thank for the opportunity to participate in the care of this patient. If you have any questions about the content of this report, please contact the [facility] at [facility]. Education: Education regarding findings from today's study and plans for therapy were provided to Patient only through Verbal Instruction. Understanding was expressed by the Patient only. Door To Door Sales Representative Clinician/Clinical Fellow: No Supervisory Statement: N/A Speech Language Pathologist: Shey Pathak M.A., [facility]
== END 2025-05-03 10:00 | disposition home or self-care (01) ==
LOC: HO.XRAY 09:59
PROVIDERS: Visit Provider Nurse Practitioner Family
DX: R13.10 Dysphagia, unspecified (principal)
CPT/HCPCS: 74230; 92611

== ENCOUNTER → 2025-05-03 10:30 | Outpatient (BNV) | payer OTHER, SELFPAY | PROVIDERS: Visit Provider Radiology Diagnostic Radiology | DX: R13.10 Dysphagia, unspecified (principal) | CPT/HCPCS: 74230 ==

== ENCOUNTER 2025-05-15 09:18 | Outpatient (REF) | payer OTHER, SELFPAY ==
--- OUTSIDE RECORDS SUMMARY | 2025-05-15 10:12 | XMS_ITS | Data Portability ---
Author Organization [place] - [facility], Allergy Address [address] [address] Assessment Encounter Date Assessment Date Assessment LastModified [...] will have him return for fiberoptic laryngoscopy. [email or web address] Not available 03/28/2024 11:42:39 Plan of Treatment Reminders Order Date Submit Date Provider Last Modified By Organization Details Last Modified Time Details Appointments Establish ed 30 2025 11:00A M SUSAN HADDAD MD Not available Not available Not available Lab None recorded. Referral None recorded. Procedures None recorded. Surgeries None recorded. Imaging None recorded. Medication Orders None recorded. Patient TargetsNo targets recorded. Patient InstructionsNo instructions [...] : 4 2:03 PM () Not Available [facility] 4 02:52:30 Gastroeso phageal reflux disease 165216671 Active 2014 Laryngoph aryngeal reflux; Note: Date Diagnosed : 4 2:04 PM () Not Available [facility] 4 02:52:33 Difficult y speaking Active 2014 Hoarsenes s; Note: Date Diagnosed : 4 2:04 PM () Not Available [facility] 4 02:52:33 Deviated nasal septum 894417385 Active 2014 Nasal septal deviation ; CMS [...] ; Start Date : 5 Not Available [facility] 4 02:52:30 Postopera tive follow-up visit Active 2014 Post op; Note: Date Diagnosed : 08/07/2014 11:39 AM (V67.00) Not Available [facility] 4 02:52:29 Hypertrop hy of nasal turbinate s 77118012 Active 2014 Nasal turbinate hypertrop hy; Location: [...] ; Start Date : 5 Not Available [facility] 4 02:52:31 Chronic rhinitis 91385222 Active 2014 Rhinitis, chronic; Note: Date Diagnosed : 07/19/2014 12:24 PM (472.0) ; Start Date : 5 Chronic rhinitis; Note: Date Diagnosed : 05/07/2015 4:24 PM (J31.0) [mapped from ICD9 code: 472.0] Not Available [facility] 4 02:52:30 Bilateral obstructi on of Eustachia n tubes 65978836721 85895 Active 2014 Unspecifi ed obstructi on of Eustachia n tube, bilateral ; Note: Date Diagnosed : 05/07/2015 4:24 PM (H68.103) [mapped from ICD9 code: 472.0] Not Available [facility] 4 02:52:35 Pain of temporoma ndibular joint 38715538 Active 2014 Arthralgi a of temporoma ndibular joint; Note: Date Diagnosed : 05/07/2015 4:24 PM (M26.62) [mapped from ICD9 code: 472.0] Not Available [facility] 4 02:52:33 Allergic rhinitis 34582718 Active 2016 Allergic Rhinitis; Note: Date Diagnosed : 4 2:03 PM () ; Start Date : 5 Other allergic rhinitis; Note: Date Diagnosed : 7 10:12 AM (J30.89) Not Available [facility] 4 02:52:32 Sensorine ural hearing loss of bilateral ears 798520141 Active 2016 Sensorine ural hearing loss, bilateral ; Note: Date Diagnosed : 7 10:50 AM (H90.3) Not Available [facility] 4 02:52:29 Abnormal auditory perceptio n 95900591 Active 2016 Other abnormal auditory perceptio ns, bilateral ; Note: Date Diagnosed : 7 10:50 AM (H93.293) Not Available [facility] 4 02:52:34 Respirato ry finding 729129625 Active 2016 Feeling of foreign body in throat; Note: Date Diagnosed : 7 10:50 AM (R09.89) Not Available [facility] 4 02:52:31 Cardiovas cular finding 031568625 Active 2016 Feeling of foreign body in throat; Note: Date Diagnosed : 7 10:50 AM (R09.89) Not Available [facility] 4 02:52:32 Posterior rhinorrhe a 36818613 Active 2016 Postnasal drip; Note: Date Diagnosed : 7 10:50 AM (R09.82) Not Available [facility] 4 02:52:34 Pain of right temporoma ndibular joint 44745527229 331729 Active 2017 Arthralgi a of right temporoma ndibular joint; Note: Date Diagnosed : 12/23/2017 11:38 AM (M26.621) Not Available [facility] 4 02:52:32 Otalgia of right ear 2264102599 Active 2017 Otalgia, right ear; Note: Date Diagnosed : 12/23/2017 11:38 AM (H92.01) Not Available [facility] 4 02:52:29 Dysphagia 82608110 Active 2018 Dysphagia , unspecifi ed; Note: Date Diagnosed : 11/01/2018 2:44 PM (R13.10) Not Available [facility] 4 02:52:35 Multinodu lar goiter 635403074 Active 2023 SUSAN RYAN MD [address] [place] [address], [place], [address] , [place] - [facility] 4 11:43:11 Feeling of lump in throat 551472595 Active 2023 SUSAN RYAN MD [address] [place] [address], [place], [address] , [place] - [facility] 4 11:43:19 Problem Notes None recorded. Procedures Surgical History Date Name Laterality Status Provider Name and Address Organization Details Recorded Time 03/28/2024 Comp Audio with Tymps - 03659 & 41010 completed Gabby Gaspar [place] - [facility] 03/28/2024 11:07:33 Imaging Results None recorded. Procedure Notes None recorded. Medical Equipment None Reported. Allergies No known drug allergies Medications Name Sig Start Date Stop Date Status Note LastModified by Organization Details LastModified Time Prescript ion - Prior Authoriza tion Request active Script Copy/Agatha or Auth^Scr ipt Copy/Agatha or [id number] Not Available Not Available Not Available losartan 50 mg tablet 05/08 completed Medicati on ID: [id number] Du ration Value: 30 Reason: () Brand [...] by mouth 2014 active Medicati on ID: [id number] Du ration Value: 7 Prescri bed By [...] mg capsule 2014 active Medicati on ID: [id number] Br and Name: flaxseed oil Send Method: E-Prescr ibed Sub s Allowed: subs OK Medic ationGen ericName : flaxseed oil Not Available Not Available Not Available tamsulosi n 0.4 mg capsule TAKE 1 CAPSULE BY MOUTH EVERY DAY active Not Available Not Available No t Available losartan 25 mg tablet 03/28 completed Medicati on ID: [id number] D uration Value: 30 Brand Name: losartan [...] min capsule 2014 active Medicati on ID: 44490 Br and Name: multivit tracy Sen d Method: E-Prescr ibed Sub s Allowed: subs OK Medic ationGen ericName : multivit tracy Not Available Not Available Not Available fluticaso ne propionat e 50 mcg/actua tion nasal spray,lauri pension 2014 active Medicati on ID: [id number] Du ration Value: 30 Prescri bed By [...] both nostrils 2017 active Medicati on ID: [id number] P shruti d By Name: Grecia Mcclure [...] mg tablet 05/11 completed Medicati on ID: 85393 Du ration Value: 30 Reason: () Bran d Name: loratadi ne Send Method: E-Prescr ibed [...] mg tablet 05/11 completed Medicati on ID: [id number] Du ration Value: 30 Reason: () Brand [...] Updated DateTime 03/28/2024 182.88 cm 23.5 kg/m2 06490.48 g 168/72 mm[Hg] Catia Mullins MA - [facility] 03/28/2024 11:15:55 Social History None recorded. Functional Status None recorded. Mental Status None recorded. Family History Nothing Reported. Medical History No medical history recorded. Past Encounters Encounter ID Performer Location Encounter Start Date Encounter Closed Date Diagnosis/Indication Diagnosis SNOMED-CT Code Diagnosis ICD10 Code Diagnosis IMO Codes Diagnosis Note [id number] SUSAN RYAN MD [facility] [address] [address] 03/28/2024 10:26:24 03/28/2024 12:45:03 Sensorineural hearing loss of bilateral ears [id number] H90.3 Audiologic al evaluation results: Right ear: Normal sloping to profound sensorineu ral hearing loss with fair word recognitio n. Left ear: Mild sloping to profound sensorineu ral hearing loss with fair word recognitio n. Tympanomet ry: Right Ear:Type Ad Left Ear:Type Ad Multinodular goiter 2375 61789 E04.2 Feeling of lump in throat 237673006 R09.89 Health Concerns Section Related Observation LastModified by Organization Detai ls LastModified Time None Recorded Concern Status LastModified by Organization Details LastModified Time None Recorded Advance Directives Directive None Recorded Payers Insurance Date Sequence Insurance Name Policy Number Policy Saravia Covered Member ID Saravia Member ID Guarantor Name 05/05/2025 1 [facility] (MEDICAID HMO) IMANI Portillo [id number] Chirag Portillo 03/28/2024 2 [facility] (MEDICAID HMO) IMANI Portillo [id number] Chirag Portillo Notes Date Note Type Note Provider Name and Address Organization Details Recorded Time 03/28/2024 text/html hx of goiter and dysphagia. Previously evaluated in 2019. Scheduled for thyroid bx in near futureLong standing bilateral HL since at least 2013. No vertigo. Bilateral tinnitusChronic globus sensation SUSAN CAMPOS MD [address] [place] [address], [place], [address], [place] - [facility] 03/28/2024 11:43:38
--- OUTSIDE RECORDS SUMMARY | 2025-05-15 10:12 | XMS_ITS | Clinical Summary ---
Author Organization [facility] Address [address] [address] [place] [address] Phone Care Team Providers Care Surveillance Director Name Role Phone Migue Moreno NP Primary [...] patient's age to complete this topic Insurance [facility] Medicaid [facility] [employer] Care Teams Surveillance Director Relationship Specialty Start Date End Date Migue Moreno NP [address] [place] [address] PCP - General Nurse Practitioner 02/13/21
--- OUTSIDE RECORDS SUMMARY | 2025-05-15 10:12 | XMS_ITS | Encounter Summary ---
Author Organization [facility] Address [address] [facility] [address] [place], [place] [address] Phone Care Team Providers Care Engine Testing Supervisor Name Role Phone Migue Moreno NP Primary Care Provider [phone] Reason for Visit * Reason Comments Med Refill Encounter Details Date Type Department Care Team (Late st Contact Info) Description 04/20/2023 Refill [facility] [address] [place] [address] [facility] [place] [address] Gerardo Wong MD Social History Tobacco [...] on filedocumented in this encounter Care Teams Engine Testing Supervisor Relationship Specialty Start Date End Date Migue Moreno NP [address] [place] [address] PCP - General Nurse Practitioner 02/13/21 documented as of this encounter
[2025-05-15 11:23] LABS: Anion Gap 12 (12-20); Blood Urea Nitrogen 19 mg/dL (9-16); Carbon Dioxide 27 mmol/L (22-29); Chloride 108 mmol/L (96-108); Estimated Glomerular Filt Rate > 60; Potassium 4.4 mmol/L (3.3-5.1); Sodium 143 mmol/L (135-145)
== END 2025-05-15 09:19 | disposition home or self-care (01) ==
LOC: HO.HMGCLDS 09:18
PROVIDERS: PCP Nurse Practitioner Family; Visit Provider Internal Medicine Nephrology
DX: I12.9 Hypertensive chronic kidney disease with stage 1 through stage 4 chronic kidney disease, or unspecified chronic kidney disease (principal); N18.31 Chronic kidney disease, stage 3a
CPT/HCPCS: 36415; 80051; 82565; 84520

== ENCOUNTER 2025-05-17 09:47 | Outpatient (AMB) | payer OTHER, SELFPAY ==
--- NOTE | 2025-05-17 09:34 | HO.NEPHOV ---
Intake Visit Reasons: 4mon f/u w/labs-LVM Allergies No Known Allergies Allergy (Verified 02/22/25 13:57) PFSH Medical History Hx of chest pain BPH (benign prostatic hyperplasia) Murmur LVH (left ventricular hypertrophy) Hypertensive emergency CKD (chronic kidney disease) Dysphagia Vitamin D deficiency Multinodular thyroid Surgical History History of lobectomy of thyroid Hx of nasal septoplasty History of esophagogastroduodenoscopy (EGD) Hx of endoscopy Hx of eye surgery Hx of colonoscopy History of arthroscopic surgery of shoulder Hx of removal of cyst Hx of appendectomy Family History Father Lung cancer Mother Cancer Social History Household Members: Friend(s) Housing: House Are you a primary pediatric care coordinator to a significant other at home: Yes (cares for 2 adults that need some assistance with ADLs) Do you presently have visiting nurse or other home services: No (will have help post op) Patient Tobacco Use Status: Former Tobacco user Tobacco use type: Cigarette Years Smoked: 15 Second Hand Smoke Exposure: No Current occupational status: employed Current occupation: [employer] Current occupational exposures/hazards: No Cognitive needs: No Hearing needs: No Vision needs: No Results Reviewed Nephrology Results: Sodium, (135-145) 143 mmol/L 05/15/25 Potassium, (3.3-5.1) 4.4 mmol/L 05/15/25 Chloride, (96-108) 108 mmol/L 05/15/25 Carbon Dioxide, (22-29) 27 mmol/L 05/15/25 BUN, (9-16) 19 mg/dL H 05/15/25 Creatinine, (0.5-1.4) 1.19 mg/dL 05/15/25 Calcium, (8.4-10.2) 9.0 mg/dL Δ 01/23/25 Urine Creatinine 61.94 mg/dL 12/26/24 Protein/Creatinin Ratio TNP 12/26/24 Coding
[2025-05-17 10:01] VITALS: BP 110/60; PULSE 69; O2SAT 99; BMI 23.5
--- NOTE | 2025-05-17 10:01 | HO.NEPHOV_ITS ---
Vital Signs 05/17/25 10:01 Height 6 ft Weight 173 lb 2 oz BMI 23.5 BP 110/60 Blood Pressure Location Lt brachial Position Sitting Pulse 69 Pulse Source Pulse Oximeter Pulse Oximetry (%) 99 Oxygen Delivery Method Room Air Intake Visit Reasons: 4mon f/u w/labs-LVM Outpatient Surgery Rn Required: No Accompanied by: Self / Same As Patient Allergies No Known Allergies Allergy (Verified 05/17/25 10:02) HPI Comments Details: Chirag was seen in follow-up of his chronic kidney disease. His BP is low normal and is having intermittent orthostatic symptoms. He is on finasteride. His serum creatinine is close to baseline. He denies any chest pain, shortness of breath, paroxysmal nocturnal dyspnea, orthopnea, pedal edema, urinary symptoms, hematuria, fever. He has not taking any utqr-kcg-bqtheie medications. He tries to maintain good hydration. [facility] Medical History Hx of chest pain BPH (benign prostatic hyperplasia) Murmur LVH (left ventricular hypertrophy) Hypertensive emergency CKD (chronic kidney disease) Dysphagia Vitamin D deficiency Multinodular thyroid Surgical History History of lobectomy of thyroid Hx of nasal septoplasty History of esophagogastroduodenoscopy (EGD) Hx of endoscopy Hx of eye surgery Hx of colonoscopy History of arthroscopic surgery of shoulder Hx of removal of cyst Hx of appendectomy Family History Father Lung cancer Mother Cancer Social History Household Members: Friend(s) Housing: House Are you a primary animal daycare provider to a significant other at home: Yes (cares for 2 adults that need some assistance with ADLs) Do you presently have visiting nurse or other home services: No (will have help post op) Patient Tobacco Use Status: Former Tobacco user Tobacco use type: Cigarette Years Smoked: 15 Second Hand Smoke Exposure: No Current occupational status: employed Current occupation: [employer] Current occupational exposures/hazards: No Cognitive needs: No Hearing needs: No Vision needs: No Review of Systems Const All systems reviewed & are unremarkable except as noted in HPI and below Physical Exam Vital Signs: Last Vital Signs Pulse 69 05/17/25 10:01 BP 144/70 H 05/17/25 10:01 Pulse Ox 99 05/17/25 10:01 Oxygen Delivery Method Room Air 05/17/25 10:01 BMI result Body Mass Index 23.5 Const General: comfortable and no acute distress Orientation/consciousness: patient oriented x3 HEENT Head: Yes normocephalic Mouth: Normal oral and palatal mucosa present Eyes EOM: EOMs intact bilaterally Neck Neck: Yes supple Resp Auscultation: clear to auscultation bilaterally Cardio Jugular venous distension: no JVD Rate: regular rate GI Palpation (GI): Soft to palpation Auscultation: normal bowel sounds General: Yes no CVA tenderness Back/Spine/Pelvis Back: no CVA tenderness Skin General skin exam: no rashes or lesions noted Neuro General: patient oriented x3 and moves all extremities Extrem General: Yes no pedal edema Results Reviewed Nephrology Results: Sodium, (135-145) 143 mmol/L 05/15/25 Potassium, (3.3-5.1) 4.4 mmol/L 05/15/25 Chloride, (96-108) 108 mmol/L 05/15/25 Carbon Dioxide, (22-29) 27 mmol/L 05/15/25 BUN, (9-16) 19 mg/dL H 05/15/25 Creatinine, (0.5-1.4) 1.19 mg/dL 05/15/25 Calcium, (8.4-10.2) 9.0 mg/dL Δ 01/23/25 Assessment & Plan Assessment & Plan (1) HTN (hypertension): Code(s): I10 - Essential (primary) hypertension Category: Medical Qualifiers: Hypertension type: primary hypertension Qualified Code(s): I10 - Essential (primary) hypertension (2) CKD (chronic kidney disease) stage 3, GFR 30-59 ml/min: Code(s): N18.30 - Chronic kidney disease, stage 3 unspecified Category: Medical Qualifiers: Chronic kidney disease stage 3 subtype: stage 3a (GFR 45-59) Qualified Code(s): N18.31 - Chronic kidney disease, stage 3a Plan Chirag has underlying stage III CKD at baseline from longstanding hypertension. His BP is low normal on current medications. He is tolerating ACEI. I asked him to spread out his BP medications. He may need reduction in dosage. He was encouraged to maintain good hydration and minimize sodium in the diet. I did not make any other medication changes today . All questions answered. F/U Labs ordered; Follow-up appointment given Coding Level of Care Code Est Pt Level 4 (40800) Diagnoses Primary hypertension I10 Hypertension type: primary hypertension Stage 3a chronic kidney disease N18.31 Chronic kidney disease stage 3 subtype: stage 3a (GFR 45-59)
--- OUTSIDE RECORDS SUMMARY | 2025-05-17 11:13 | XMS_ITS | Encounter Summary ---
Author Organization [facility] Address [address] [facility] [address] [place], [place] [address] Phone Care Team Providers Care Vp Of Product Name Role Phone Migue Moreno NP Primary Care Provider [phone] Reason for Visit * Reason Comments Med Refill Encounter Details Date Type Department Care Team (Late st Contact Info) Description 04/20/2023 Refill [facility] [address] [place] [address] [place] [id number] Gerardo Wong MD Social [...] on filedocumented in this encounter Care Teams Vp Of Product Relationship Specialty Start Date End Date Migue Moreno NP [address] [place] [address] PCP - General Nurse Practitioner 02/13/21 documented as of this encounter
--- OUTSIDE RECORDS SUMMARY | 2025-05-17 11:14 | XMS_ITS | Clinical Summary ---
Author Organization [facility] Address [address] [place] [address] Phone Care Team Providers Care Therapist Name Role Phone Migue Moreno NP Primary Care Provider [phone] Allergies No known active allergies Medications multivitamine, [...] patient's age to complete this topic Insurance [facility] Medicaid [facility] [employer] Care Teams Therapist Relationship Specialty Start Date End Date Migue Moreno NP [address] [place] [address] PCP - General Nurse Practitioner 02/13/21
--- OUTSIDE RECORDS SUMMARY | 2025-05-17 11:14 | XMS_ITS | Data Portability ---
Author Organization [place] [facility], Allergy Address [address] [address] Assessment Encounter Date Assessment Date Assessment LastModified [...] : 4 2:03 PM () Not Available [facility] 4 02:52:30 Gastroeso phageal reflux disease 283717623 Active 2014 Laryngoph aryngeal reflux; Note: Date Diagnosed : 4 2:04 PM () Not Available [facility] 4 02:52:33 Difficult y speaking Active 2014 Hoarsenes s; Note: Date Diagnosed : 4 2:04 PM () Not Available [facility] 4 02:52:33 Deviated nasal septum 933473133 Active 2014 Nasal septal deviation ; CMS [...] ; Start Date : 5 Not Available [facility] 4 02:52:30 Postopera tive follow-up visit Active 2014 Post op; Note: Date Diagnosed : 08/07/2014 11:39 AM (V67.00) Not Available [facility] 4 02:52:29 Hypertrop hy of nasal turbinate s 35258096 Active 2014 Nasal turbinate hypertrop hy; Location: [...] ; Start Date : 5 Not Available [facility] 4 02:52:31 Chronic rhinitis 30656170 Active 2014 Rhinitis, chronic; Note: Date Diagnosed : 07/19/2014 12:24 PM (472.0) ; Start Date : 5 Chronic rhinitis; Note: Date Diagnosed : 05/07/2015 4:24 PM (J31.0) [mapped from ICD9 code: 472.0] Not Available [facility] 4 02:52:30 Bilateral obstructi on of Eustachia n tubes 45132679493 25796 Active 2014 Unspecifi ed obstructi on of Eustachia n tube, bilateral ; Note: Date Diagnosed : 05/07/2015 4:24 PM (H68.103) [mapped from ICD9 code: 472.0] Not Available [facility] 4 02:52:35 Pain of temporoma ndibular joint 79735773 Active 2014 Arthralgi a of temporoma ndibular joint; Note: Date Diagnosed : 05/07/2015 4:24 PM (M26.62) [mapped from ICD9 code: 472.0] Not Available [facility] 4 02:52:33 Allergic rhinitis 28962131 Active 2016 Allergic Rhinitis; Note: Date Diagnosed : 4 2:03 PM () ; Start Date : 5 Other allergic rhinitis; Note: Date Diagnosed : 7 10:12 AM (J30.89) Not Available [facility] 4 02:52:32 Sensorine ural hearing loss of bilateral ears 389285629 Active 2016 Sensorine ural hearing loss, bilateral ; Note: Date Diagnosed : 7 10:50 AM (H90.3) Not Available [facility] 4 02:52:29 Abnormal auditory perceptio n 24423863 Active 2016 Other abnormal auditory perceptio ns, bilateral ; Note: Date Diagnosed : 7 10:50 AM (H93.293) Not Available [facility] 4 02:52:34 Respirato ry finding 533909223 Active 2016 Feeling of foreign body in throat; Note: Date Diagnosed : 7 10:50 AM (R09.89) Not Available [facility] 4 02:52:31 Cardiovas cular finding 611960766 Active 2016 Feeling of foreign body in throat; Note: Date Diagnosed : 7 10:50 AM (R09.89) Not Available [facility] 4 02:52:32 Posterior rhinorrhe a 33605587 Active 2016 Postnasal drip; Note: Date Diagnosed : 7 10:50 AM (R09.82) Not Available [facility] 4 02:52:34 Pain of right temporoma ndibular joint 36572476432 834799 Active 2017 Arthralgi a of right temporoma ndibular joint; Note: Date Diagnosed : 12/23/2017 11:38 AM (M26.621) Not Available [facility] 4 02:52:32 Otalgia of right ear 7507920503 Active 2017 Otalgia, right ear; Note: Date Diagnosed : 12/23/2017 11:38 AM (H92.01) Not Available [facility] 4 02:52:29 Dysphagia 16234973 Active 2018 Dysphagia , unspecifi ed; Note: Date Diagnosed : 11/01/2018 2:44 PM (R13.10) Not Available [facility] 4 02:52:35 Multinodu lar goiter 018047340 Active 2023 SUSAN RYAN MD [address] [place] [address], [place], [address] , [place] - [facility] 4 11:43:11 Feeling of lump in throat 137224431 Active 2023 SUSAN RYAN MD [address] [place] [address], [place], [address] , [place] - [facility] [place] 4 11:43:19 Problem Notes None recorded. Procedures Surgical History Date Name Laterality Status Provider Name and Address Organization Details Recorded Time 03/28/2024 Comp Audio with Tymps - 86615 & 25634 completed Gabby Gaspar [place] - [facility] [place] 03/28/2024 11:07:33 Imaging Results None recorded. Procedure Notes None recorded. Medical Equipment None Reported. Allergies No known drug allergies Medications Name Sig Start Date Stop Date Status Note LastModified by Organization Details LastModified Time Prescript ion - Prior Authoriza tion Request active Script Copy/Agatha or Auth^Scr ipt Copy/Agatha or Auth_[id number] Not Available Not Available Not Available losartan 50 mg tablet 05/08 completed Medicati on ID: [id number] Du ration Value: 30 Reason: () Brand [...] by mouth 2014 active Medicati on ID: [id number] Du ration Value: 7 Prescri bed By [...] mg capsule 2014 active Medicati on ID: [id number] Br and Name: flaxseed oil Send Method: E-Prescr ibed Sub s Allowed: subs OK Medic ationGen ericName : flaxseed oil Not Available Not Available Not Available tamsulosi n 0.4 mg capsule TAKE 1 CAPSULE BY MOUTH EVERY DAY active Not Available Not Available No t Available losartan 25 mg tablet 03/28 completed Medicati on ID: [id number] D uration Value: 30 Brand Name: losartan [...] min capsule 2014 active Medicati on ID: [id number] Br and Name: multivit tracy Sen d Method: E-Prescr ibed Sub s Allowed: subs OK Medic ationGen ericName : multivit tracy Not Available Not Available Not Available fluticaso ne propionat e 50 mcg/actua tion nasal spray,lauri pension 2014 active Medicati on ID: [id number] Du ration Value: 30 Prescri bed By [...] both nostrils 2017 active Medicati on ID: [id number] P shruti d By Name: Grecia Mcclure [...] mg tablet 05/11 completed Medicati on ID: [id number] Du ration Value: 30 Reason: () Bran [...] mg tablet 05/11 completed Medicati on ID: [id number] Du ration Value: 30 Reason: () Brand [...] Updated DateTime 03/28/2024 182.88 cm 23.5 kg/m2 68304.48 g 168/72 mm[Hg] Catia Mullins [place] - [facility] 03/28/2024 11:15:55 Social History None recorded. Functional Status None recorded. Mental Status None recorded. Family History Nothing Reported. Medical History No medical history recorded. Past Encounters Encounter ID Performer Location Encounter Start Date Encounter Closed Date Diagnosis/Indication Diagnosis SNOMED-CT Code Diagnosis ICD10 Code Diagnosis IMO Codes Diagnosis Note [id number] SUSAN RYAN MD [facility] [address] [address] 03/28/2024 10:26:24 03/28/2024 12:45:03 Sensorineural hearing loss of bilateral ears 491118693 H90.3 Audiologic al evaluation results: Right ear: Normal sloping to profound sensorineu ral hearing loss with fair word recognitio n. Left ear: Mild sloping to profound sensorineu ral hearing loss with fair word recognitio n. Tympanomet ry: Right Ear:Type Ad Left Ear:Type Ad Multinodular goiter 2375 11759 E04.2 Feeling of lump in throat 182378153 R09.89 Health Concerns Section Related Observation LastModified by Organization Detai ls LastModified Time None Recorded Concern Status LastModified by Organization Details LastModified Time None Recorded Advance Directives Directive None Recorded Payers Insurance Date Sequence Insurance Name Policy Number Policy Saravia Covered Member ID Saravia Member ID Guarantor Name 05/05/2025 1 [facility] PLAN (MEDICAID HMO) IMANI Portillo [id number] Chirag Portillo 03/28/2024 2 [facility] (MEDICAID HMO) IMANI Portillo [id number] Chirag Portillo Notes Date Note Type Note Provider Name and Address Organization Details Recorded Time 03/28/2024 text/html hx of goiter and dysphagia. Previously evaluated in 2019. Scheduled for thyroid bx in near futureLong standing bilateral HL since at least 2013. No vertigo. Bilateral tinnitusChronic globus sensation SUSAN CAMPOS MD [address] [place] [address], [place], [address], [place] - [facility] 03/28/2024 11:43:38
== END 2025-05-17 10:31 | disposition home or self-care (01) ==
LOC: HO.HKA 09:48
PROVIDERS: PCP Nurse Practitioner Family; Visit Provider Internal Medicine Nephrology
DX: I10 Essential (primary) hypertension (principal); N18.31 Chronic kidney disease, stage 3a
CPT/HCPCS: 99214

== ENCOUNTER → 2025-05-17 09:47 | Outpatient (BNVA) | payer OTHER, SELFPAY | PROVIDERS: PCP Nurse Practitioner Family; Visit Provider Internal Medicine Nephrology | DX: N18.31 Chronic kidney disease, stage 3a (principal); I10 Essential (primary) hypertension | CPT/HCPCS: 99212 ==

== ENCOUNTER 2025-06-30 09:37 | Outpatient (AMB) | payer OTHER, SELFPAY ==
--- OUTSIDE RECORDS SUMMARY | 2025-06-30 09:40 | XMS_ITS | Data Portability ---
Author Organization [place] - [facility], Allergy Address [address] [address] Assessment Encounter Date Assessment Date Assessment LastModified [...] : 4 2:03 PM () Not Available [facility] 4 02:52:30 Gastroeso phageal reflux disease 121597283 Active 2014 Laryngoph aryngeal reflux; Note: Date Diagnosed : 4 2:04 PM () Not Available [facility] 4 02:52:33 Difficult y speaking Active 2014 Hoarsenes s; Note: Date Diagnosed : 4 2:04 PM () Not Available [facility] 4 02:52:33 Deviated nasal septum 966036054 Active 2014 Nasal septal deviation ; CMS [...] ; Start Date : 5 Not Available [facility] 4 02:52:30 Postopera tive follow-up visit Active 2014 Post op; Note: Date Diagnosed : 08/07/2014 11:39 AM (V67.00) Not Available [facility] 4 02:52:29 Hypertrop hy of nasal turbinate s 56246937 Active 2014 Nasal turbinate hypertrop hy; Location: [...] ; Start Date : 5 Not Available [facility] 4 02:52:31 Chronic rhinitis 10113559 Active 2014 Rhinitis, chronic; Note: Date Diagnosed : 07/19/2014 12:24 PM (472.0) ; Start Date : 5 Chronic rhinitis; Note: Date Diagnosed : 05/07/2015 4:24 PM (J31.0) [mapped from ICD9 code: 472.0] Not Available [facility] 4 02:52:30 Bilateral obstructi on of Eustachia n tubes 87542220311 02871 Active 2014 Unspecifi ed obstructi on of Eustachia n tube, bilateral ; Note: Date Diagnosed : 05/07/2015 4:24 PM (H68.103) [mapped from ICD9 code: 472.0] Not Available [facility] 4 02:52:35 Pain of temporoma ndibular joint 85948449 Active 2014 Arthralgi a of temporoma ndibular joint; Note: Date Diagnosed : 05/07/2015 4:24 PM (M26.62) [mapped from ICD9 code: 472.0] Not Available [facility] 4 02:52:33 Allergic rhinitis 66862990 Active 2016 Allergic Rhinitis; Note: Date Diagnosed : 4 2:03 PM () ; Start Date : 5 Other allergic rhinitis; Note: Date Diagnosed : 7 10:12 AM (J30.89) Not Available [facility] 4 02:52:32 Sensorine ural hearing loss of bilateral ears 924345086 Active 2016 Sensorine ural hearing loss, bilateral ; Note: Date Diagnosed : 7 10:50 AM (H90.3) Not Available [facility] 4 02:52:29 Abnormal auditory perceptio n 58104793 Active 2016 Other abnormal auditory perceptio ns, bilateral ; Note: Date Diagnosed : 7 10:50 AM (H93.293) Not Available [facility] 4 02:52:34 Respirato ry finding 610869721 Active 2016 Feeling of foreign body in throat; Note: Date Diagnosed : 7 10:50 AM (R09.89) Not Available [facility] 4 02:52:31 Cardiovas cular finding 198880870 Active 2016 Feeling of foreign body in throat; Note: Date Diagnosed : 7 10:50 AM (R09.89) Not Available [facility] 4 02:52:32 Posterior rhinorrhe a 72086108 Active 2016 Postnasal drip; Note: Date Diagnosed : 7 10:50 AM (R09.82) Not Available [facility] 4 02:52:34 Pain of right temporoma ndibular joint 86561141576 838171 Active 2017 Arthralgi a of right temporoma ndibular joint; Note: Date Diagnosed : 12/23/2017 11:38 AM (M26.621) Not Available [facility] 4 02:52:32 Otalgia of right ear 7616292107 Active 2017 Otalgia, right ear; Note: Date Diagnosed : 12/23/2017 11:38 AM (H92.01) Not Available [facility] 4 02:52:29 Dysphagia 41484914 Active 2018 Dysphagia , unspecifi ed; Note: Date Diagnosed : 11/01/2018 2:44 PM (R13.10) Not Available [facility] 4 02:52:35 Multinodu lar goiter 565837886 Active 2023 SUSAN RYAN MD [address] [place] [address], [place], [address] , [place] - [facility] 4 11:43:11 Feeling of lump in throat 466374445 Active 2023 SUSAN RYAN MD [address] [place] [address], [place], [address] , [place] - [facility] 4 11:43:19 Problem Notes None recorded. Procedures Surgical History Date Name Laterality Status Provider Name and Address Organization Details Recorded Time 03/28/2024 Comp Audio with Tymps - 23781 & 89488 completed Gabby Gaspar [place] - [facility] 03/28/2024 11:07:33 Imaging Results None recorded. Procedure Notes None recorded. Medical Equipment None Reported. Allergies No known drug allergies Medications Name Sig Start Date Stop Date Status Note LastModified by Organization Details LastModified Time Prescript ion - Prior Authoriza tion Request active Script Copy/Agatha or Auth^Scr ipt Copy/Agatha or Auth_201 [id number] Not Available Not Available Not Available losartan 50 mg tablet 05/08 completed Medicati on ID: [id number] Du ration Value: 30 Reason: () Brand [...] by mouth 2014 active Medicati on ID: [id number] Du ration Value: 7 Prescri bed By [...] mg capsule 2014 active Medicati on ID: [id number] Br and Name: flaxseed oil Send Method: E-Prescr ibed Sub s Allowed: subs OK Medic ationGen ericName : flaxseed oil Not Available Not Available Not Available tamsulosi n 0.4 mg capsule TAKE 1 CAPSULE BY MOUTH EVERY DAY active Not Available Not Available No t Available losartan 25 mg tablet 03/28 completed Medicati on ID: [id number] D uration Value: 30 Brand Name: losartan [...] min capsule 2014 active Medicati on ID: [id number] Br and Name: multivit tracy Sen d Method: E-Prescr ibed Sub s Allowed: subs OK Medic ationGen ericName : multivit tracy Not Available Not Available Not Available fluticaso ne propionat e 50 mcg/actua tion nasal spray,lauri pension 2014 active Medicati on ID: [id number] Du ration Value: 30 Prescri bed By [...] both nostrils 2017 active Medicati on ID: [id number] P shruti d By Name: Grecia Mcclure [...] mg tablet 05/11 completed Medicati on ID: 82043 Du ration Value: 30 Reason: () Brand [...] mg tablet 05/11 completed Medicati on ID: [id number] Du ration Value: 30 Reason: () Brand [...] Updated DateTime 03/28/2024 182.88 cm 23.5 kg/m2 87669.48 g 168/72 mm[Hg] Catia Mullins [place] - [facility] 03/28/2024 11:15:55 Social History None recorded. Functional Status None recorded. Mental Status None recorded. Family History Nothing Reported. Medical History No medical history recorded. Past Encounters Encounter ID Performer Location Encounter Start Date Encounter Closed Date Diagnosis/Indication Diagnosis SNOMED-CT Code Diagnosis ICD10 Code Diagnosis IMO Codes Diagnosis Note [id number] SUSAN RYAN MD [facility] [address] [address] 03/28/2024 10:26:24 03/28/2024 12:45:03 Sensorineural hearing loss of bilateral ears 132515501 H90.3 Audiologic al evaluation results: Right ear: Normal sloping to profound sensorineu ral hearing loss with fair word recognitio n. Left ear: Mild sloping to profound sensorineu ral hearing loss with fair word recognitio n. Tympanomet ry: Right Ear:Type Ad Left Ear:Type Ad Multinodular goiter 2375 27413 E04.2 Feeling of lump in throat 851766416 R09.89 Health Concerns Section Related Observation LastModified by Organization Detai ls LastModified Time None Recorded Concern Status LastModified by Organization Details LastModified Time None Recorded Advance Directives Directive None Recorded Payers Insurance Date Sequence Insurance Name Policy Number Policy Saravia Covered Member ID Saravia Member ID Guarantor Name 05/05/2025 1 [facility] PLAN (MEDICAID HMO) IMANI Portillo [id number] Chirag Portillo 03/28/2024 2 [facility] (MEDICAID HMO) IMANI Portillo [id number] Chirag Portillo Notes Date Note Type Note Provider Name and Address Organization Details Recorded Time 03/28/2024 text/html hx of goiter and dysphagia. Previously evaluated in 2019. Scheduled for thyroid bx in near futureLong standing bilateral HL since at least 2013. No vertigo. Bilateral tinnitusChronic globus sensation SUSAN CAMPOS MD [address] [place] [address], [place], [address], [place] - [facility] 03/28/2024 11:43:38
--- OUTSIDE RECORDS SUMMARY | 2025-06-30 09:40 | XMS_ITS | Clinical Summary ---
Author Organization [facility] Address [address] [place] [address] Phone Care Team Providers Care Pattern Drum Maker Name Role Phone Migue Moreno NP Primary Care Provider [phone] Allergies No known active allergies Medications multivitamine, [...] patient's age to complete this topic Insurance [facility] Medicaid [facility] [employer] Care Teams Pattern Drum Maker Relationship Specialty Start Date End Date Migue Moreno NP [address] [place] [address] PCP - General Nurse Practitioner 02/13/21
--- OUTSIDE RECORDS SUMMARY | 2025-06-30 09:40 | XMS_ITS | Encounter Summary ---
Author Organization [facility] Address [address] [facility] [facility] [address] [place] [address] Phone Care Team Providers Care Broker Name Role Phone Migue Moreno NP Primary Care Provider [phone] Reason for Visit * Reason Comments Med Refill Encounter Details Date Type Department Care Team (Late st Contact Info) Description 04/20/2023 Refill [facility] [address] [place] [address] [place] [address] Gerardo Wong MD Social History Tobacco [...] on filedocumented in this encounter Care Teams Broker Relationship Specialty Start Date End Date Migue Moreno NP [address] [place] [address] PCP - General Nurse Practitioner 02/13/21 documented as of this encounter
[2025-06-30 09:42] VITALS: BP 138/60; PULSE 68; O2SAT 99; BMI 23.9
--- NOTE | 2025-06-30 09:42 | HO.NEPHOV ---
Vital Signs 06/30/25 09:42 Height 6 ft Weight 176 lb BMI 23.9 BP 138/60 Blood Pressure Location Rt brachial Position Sitting Pulse 68 Pulse Source Pulse Oximeter Pulse Oximetry (%) 99 Oxygen Delivery Method Room Air Intake Visit Reasons: 1 mo f/u-Conf Cupola Charger Required: No Accompanied by: Self / Same As Patient Allergies No Known Allergies Allergy (Verified 06/30/25 09:45) HPI Comments Details: Chirag was seen in follow-up of his chronic kidney disease. He has no orthostatic symptoms. He is on finasteride. His serum creatinine is close to baseline. He denies any chest pain, shortness of breath, paroxysmal nocturnal dyspnea, orthopnea, pedal edema, urinary symptoms, hematuria, fever. He has not taking any imuc-npf-culwxla medications. He tries to maintain good hydration. [facility] Medical History Hx of chest pain BPH (benign prostatic hyperplasia) Murmur LVH (left ventricular hypertrophy) Hypertensive emergency CKD (chronic kidney disease) Dysphagia Vitamin D deficiency Multinodular thyroid Surgical History History of lobectomy of thyroid Hx of nasal septoplasty History of esophagogastroduodenoscopy (EGD) Hx of endoscopy Hx of eye surgery Hx of colonoscopy History of arthroscopic surgery of shoulder Hx of removal of cyst Hx of appendectomy Family History Father Lung cancer Mother Cancer Social History Household Members: Friend(s) Housing: House Are you a primary childcare administrator to a significant other at home: Yes (cares for 2 adults that need some assistance with ADLs) Do you presently have visiting nurse or other home services: No (will have help post op) Patient Tobacco Use Status: Former Tobacco user Tobacco use type: Cigarette Years Smoked: 15 Second Hand Smoke Exposure: No Current occupational status: employed Current occupation: [employer] Current occupational exposures/hazards: No Cognitive needs: No Hearing needs: No Vision needs: No Review of Systems Const All systems reviewed & are unremarkable except as noted in HPI and below Physical Exam Vital Signs: Last Vital Signs Pulse 68 06/30/25 09:42 BP 138/60 06/30/25 09:42 Pulse Ox 99 06/30/25 09:42 Oxygen Delivery Method Room Air 06/30/25 09:42 BMI result Body Mass Index 23.9 Const General: comfortable and no acute distress Orientation/consciousness: patient oriented x3 HEENT Head: Yes normocephalic Mouth: Normal oral and palatal mucosa present Eyes EOM: EOMs intact bilaterally Neck Neck: Yes supple Resp Auscultation: clear to auscultation bilaterally Cardio Jugular venous distension: no JVD Rate: regular rate Heart sounds: Murmur heart sound present GI Palpation (GI): Soft to palpation Auscultation: normal bowel sounds General: Yes no CVA tenderness Back/Spine/Pelvis Back: no CVA tenderness Skin General skin exam: no rashes or lesions noted Neuro General: patient oriented x3 and moves all extremities Extrem General: Yes no pedal edema Results Reviewed Nephrology Results: Sodium, (135-145) 143 mmol/L 05/15/25 Potassium, (3.3-5.1) 4.4 mmol/L 05/15/25 Chloride, (96-108) 108 mmol/L 05/15/25 Carbon Dioxide, (22-29) 27 mmol/L 05/15/25 BUN, (9-16) 19 mg/dL H 05/15/25 Creatinine, (0.5-1.4) 1.19 mg/dL 05/15/25 Calcium, (8.4-10.2) 9.0 mg/dL Δ 01/23/25 Assessment & Plan Assessment & Plan (1) HTN (hypertension): Code(s): I10 - Essential (primary) hypertension Category: Medical Qualifiers: Hypertension type: primary hypertension Qualified Code(s): I10 - Essential (primary) hypertension (2) CKD (chronic kidney disease) stage 3, GFR 30-59 ml/min: Code(s): N18.30 - Chronic kidney disease, stage 3 unspecified Category: Medical Qualifiers: Chronic kidney disease stage 3 subtype: stage 3a (GFR 45-59) Qualified Code(s): N18.31 - Chronic kidney disease, stage 3a Plan Chirag has underlying stage III CKD at baseline from longstanding hypertension. His BP is at goal at home on current medications. He is tolerating ACEI. I asked him to spread out his BP medications. He was encouraged to maintain good hydration and minimize sodium in the diet. I did not make any other medication changes today . All questions answered. F/U Labs ordered; Follow-up appointment given Orders: Orders Creatinine 4 Months I10 - Essential (primary) hypertension, N18.31 - Chronic kidney disease, stage 3a Blood Urea Nitrogen 4 Months I10 - Essential (primary) hypertension, N18.31 - Chronic kidney disease, stage 3a Protein Creatinine Ratio, Ur 4 Months I10 - Essential (primary) hypertension, N18.31 - Chronic kidney disease, stage 3a Electrolytes 4 Months I10 - Essential (primary) hypertension, N18.31 - Chronic kidney disease, stage 3a Coding Level of Care Code Est Pt Level 4 (61630) Diagnoses Primary hypertension I10 Hypertension type: primary hypertension Stage 3a chronic kidney disease N18.31 Chronic kidney disease stage 3 subtype: stage 3a (GFR 45-59)
== END 2025-06-30 09:58 | disposition home or self-care (01) ==
LOC: HO.HKA 09:38
PROVIDERS: PCP Nurse Practitioner Family; Visit Provider Internal Medicine Nephrology
DX: I10 Essential (primary) hypertension (principal); N18.31 Chronic kidney disease, stage 3a
CPT/HCPCS: 99214

== ENCOUNTER → 2025-06-30 09:37 | Outpatient (BNVA) | payer OTHER, SELFPAY | PROVIDERS: PCP Nurse Practitioner Family; Visit Provider Internal Medicine Nephrology | DX: I12.9 Hypertensive chronic kidney disease with stage 1 through stage 4 chronic kidney disease, or unspecified chronic kidney disease (principal); N18.31 Chronic kidney disease, stage 3a; Z87.891 Personal history of nicotine dependence | CPT/HCPCS: 99212 ==